=== PATIENT | female | born 1970 | race Caucasian/White ===

== ENCOUNTER 2020-04-04 13:24 | Outpatient (REF) | payer OTHER, SELFPAY ==
[2020-04-04 14:46] LABS: Anion Gap 11 (12-20); Blood Urea Nitrogen 14 mg/dL (9-16); Carbon Dioxide 28 mmol/L (22-29); Chloride 105 mmol/L (96-108); Estimated Glomerular Filt Rate > 60; Glucose Random 100 mg/dL (60-115); Potassium 4.3 mmol/l (3.3-5.1); Sodium 140 mmol/L (135-145)
== END 2020-04-04 13:25 | disposition home or self-care (01) ==
LOC: HO.RESP 13:24
PROVIDERS: PCP Internal Medicine; Referring Provider Internal Medicine Cardiovascular Disease; Visit Provider Internal Medicine Pulmonary Disease
DX: R94.39 Abnormal result of other cardiovascular function study (principal)
CPT/HCPCS: 80048

== ENCOUNTER 2020-04-24 13:28 | Outpatient (REF) | payer OTHER, SELFPAY ==
[2020-04-24 15:49] LABS: Thyroid Stimulating Hormone 1.42 mIU/mL (0.32-4.0)
[2020-04-26 19:02] LABS: Triiodothyronine T3 Total 108 ng/dL (76-181)
[2020-04-30 14:01] LABS: Thyrotropin Receptor Antibody <1.00 IU/L (<=2.00)
[2020-04-30 15:12] LABS: Thyroid Stimulating Immunoglob <89 % baseline (<140)
== END 2020-04-24 13:29 | disposition home or self-care (01) ==
LOC: HO.LAB 13:28
PROVIDERS: PCP Internal Medicine; Referring Provider Internal Medicine; Visit Provider Internal Medicine Endocrinology, Diabetes & Metabolism
DX: E05.00 Thyrotoxicosis with diffuse goiter without thyrotoxic crisis or storm (principal); E66.9 Obesity, unspecified
CPT/HCPCS: 36415; 83520; 84439; 84443; 84445; 84480; 99212

== ENCOUNTER 2020-06-14 17:30 | Emergency (ER) | payer OTHER, SELFPAY ==
[2020-06-14 18:13] VITALS: BP 148/90; PULSE 94; RESP 17; TEMP 36.7; O2SAT 98; BMI 35.2
--- NOTE | 2020-06-14 18:25 | ED.DENTAL ---
HPI - Dental/Oral General Chief complaint: Dental/Oral Stated complaint: dental pain Time Seen by Provider: 06/14/20 18:19 Source: patient Mode of arrival: ambulatory Limitations: no limitations History of Present Illness MD Complaint: tooth pain Teeth map: 1. Multiple teeth with extensive decay some essentially eroded to the gumline others partially chip. No obvious abscess. 2. 3. 4. 5. Related Data Home Medications Medication Instructions Recorded Confirmed albuterol sulfate 90 mcg/actuation 2 puff INHALATION Q6H PRN 03/23/20 04/24/20 aerosol inhaler naproxen 250 mg tablet 250 mg PO BID 03/23/20 04/24/20 trazodone 50 mg tablet mg PO 03/23/20 04/24/20 cholecalciferol (vitamin D3) 25 25 mcg PO DAILY 04/24/20 04/24/20 mcg (1,000 unit) tablet doxycycline hyclate 100 mg capsule 100 mg PO Q12H 04/24/20 04/24/20 gabapentin 100 mg capsule 100 mg PO TID 04/24/20 04/24/20 metoprolol succinate 25 mg 25 mg PO DAILY 04/24/20 04/24/20 tablet,extended release 24 hr omeprazole 40 mg capsule,delayed 40 mg PO DAILY 04/24/20 04/24/20 release Previous Rx's Medication Instructions Recorded ibuprofen 800 mg PO Q8H PRN #30 tab 06/14/20 penicillin V potassium 500 mg PO BID 10 Days #20 tab 06/14/20 Allergies Allergy/AdvReac Type Severity Reaction Status Date / Time egg [Egg] Allergy Severe ANAPHYLAXIS Verified 05/13/20 09:29 influenza virus vaccine, Allergy Severe CANNOT Verified 06/14/20 18:12 specific OBTAIN DUE [FLU VACCINE] TO EGG ALLERGY nicotine [From NICODERM CQ] Allergy Unknown RASH Verified 06/14/20 18:12 varenicline [From CHANTIX] Allergy Unknown DEPRESSION Verified 06/14/20 18:12 AND ANXIETY INCREASE barium sulfate AdvReac Unknown saul Verified 06/14/20 18:12 Review of Systems Review of Systems: Constitutional: No Weight loss, No Fever, No Chills, No Night Sweats, No Fatigue, No Malaise ENT/Mouth: No Hearing loss, No Ear Pain, No Nasal Congestion, No Sinus Pain, No Hoarseness, No sore throat Eyes: No Eye Pain, No Swelling, No Redness, No Foreign Body, No Discharge, No Vision Changes Cardiovascular: No Chest Pain Respiratory: No Cough Gastrointestinal: No Nausea, No Vomiting, No Diarrhea, No Constipation Genitourinary: no irregular bleeding, No Dysuria, No Urinary Frequency, No Hematuria, No Urinary Incontinence, No Urgency Musculoskeletal: No joint pain, No Myalgias, No Joint Swelling Skin: No Skin Lesions, No rash Neuro: No Weakness, No Numbness, No Paresthesias, No Loss of Consciousness, No Dizziness, No Headache Heme/Lymph: No Bruising, No Bleeding,No Lymphadenopathy Endocrine: No Polyuria, No Polydipsia, No Temperature Intolerance Yes all other systems are reviewed and are negative [facility] Past Medical History Medical History (Updated 06/14/20 @ 18:33 by Arnav Meyers NP) Graves disease Obesity (BMI 30-39.9) Vitamin D deficiency Surgical History (Updated 05/13/20 @ 09:30 by HANH Moreno) History of appendectomy History of section History of hysteroscopy History of right oophorectomy History of tonsillectomy and adenoidectomy History of tubal ligation Family History Family History (Updated 05/13/20 @ 09:32 by HANH Moreno) Father Lung cancer Bone cancer Mother Emphysema of lung Asthma Hypertension CVD (cardiovascular disease) Sister Breast cancer Maternal Aunt Uterine cancer Social History Social History (Updated 04/24/20 @ 13:46 by Israel Ibanez) Smoking Status: Current every day smoker Use of substances other than those prescribed or required for medical reasons: No Advance Directives: No Advance Directives Information Provided: Yes Physical Exam Vital Signs: Vital Signs: Last Vital Signs Temp 98.1 F 06/14/20 18:13 Pulse 94 06/14/20 18:13 Resp 17 06/14/20 18:13 BP 148/90 H 06/14/20 18:13 Pulse Ox 98 06/14/20 18:13 Body Mass Index 35.2 Reviewed Const: General: cooperative and healthy appearing; No acute distress or intoxicated appearing Nutritional Appearance: average body habitus Orientation/consciousness: patient oriented x3 HENMT: Head: Yes normal to inspection Ears: hearing grossly normal bilaterally Teeth and gingiva: caries (Multiple teeth upper and lower bilaterally with extensive decay) Eyes: General: appearance normal, both eyes and all related structures Visual Villagran: normal visual villagran by confrontation Neck: Thyroid: Thyroid normal Chest: Chest palpation & inspection: normal inspection of the chest Resp: Effort & Inspection: normal respiratory effort Cardio: Jugular venous distension: no JVD Skin: General skin exam: no rashes or lesions noted Neuro: General: patient oriented x3 Extrem: General: Yes normal to inspection Discharge Plan Discharge Clinical Impression: Toothache, Dental caries Patient Disposition: Home, Self-Care Instructions: Toothache (ED) Additional Instructions: Prescription sent to her pharmacy [facility] Take medication prescribed Follow-up with dentist as discussed Return if any concerns or worsening symptoms Thank you Prescriptions: New penicillin V potassium 500 mg tablet 500 mg PO BID 10 Days Qty: 20 RF: 0 ibuprofen 800 mg tablet 800 mg PO Q8H PRN (Reason: pain) Qty: 30 RF: 0 No Action gabapentin 100 mg capsule 100 mg PO TID RF: 0 naproxen 250 mg tablet 250 mg PO BID RF: 0 albuterol sulfate 90 mcg/actuation HFA aerosol inhaler 2 puff inhalation Q6H PRNRF: 0 trazodone 50 mg tablet PO RF: 0 cholecalciferol (vitamin D3) 25 mcg (1,000 unit) tablet 25 mcg PO DAILY RF: 0 doxycycline hyclate 100 mg capsule 100 mg PO Q12H RF: 0 metoprolol succinate 25 mg tablet extended release 24 hr 25 mg PO DAILY RF: 0 omeprazole 40 mg capsule,delayed release(DR/EC) 40 mg PO DAILY RF: 0 Referrals: ED PhysicianJose [Emergency Provider] - 2 days (Dentist) Marline Victoria MD [Primary Care Provider] - 5 days
== END 2020-06-14 18:58 | disposition home or self-care (01) ==
PROVIDERS: Emergency Provider Emergency Medicine; PCP Internal Medicine
DX: K08.89 Other specified disorders of teeth and supporting structures (principal); K02.9 Dental caries, unspecified; F17.200 Nicotine dependence, unspecified, uncomplicated
CPT/HCPCS: 99284

== ENCOUNTER → 2020-07-24 11:45 | Outpatient (BNVA) | payer OTHER, SELFPAY | PROVIDERS: PCP Internal Medicine; Visit Provider Internal Medicine Endocrinology, Diabetes & Metabolism | DX: Z76.89 Persons encountering health services in other specified circumstances (principal) ==

== ENCOUNTER 2020-07-26 14:29 | Outpatient (REF) | payer OTHER, SELFPAY ==
--- NOTE | 2020-07-26 14:43 | US_ITS ---
EXAMINATION: US VENOUS ULTRASOUND WITH DOPPLER LOWER EXTREMITY, BILATERAL CLINICAL INFORMATION: Localized edema COMPARISON: None TECHNIQUE: Ultrasound of the deep veins is performed from the hip to the calf with compression sonography and color and pulse Doppler assessment. Spectral analysis with color-flow imaging is performed. FINDINGS: RIGHT: There is normal venous compression and respiratory variation and augmented flow. The visualized common femoral vein, superficial femoral vein, profunda femoral vein, popliteal vein, and the trifurcation region shows no evidence of deep venous thrombosis. There is no significant popliteal fossa cyst. LEFT: There is normal venous compression and respiratory variation and augmented flow. The visualized common femoral vein, superficial femoral vein, profunda femoral vein, popliteal vein, and the trifurcation region shows no evidence of deep venous thrombosis. There is no significant popliteal fossa cyst. If the patient's symptoms persist, followup ultrasound in 5 days 7 days might be of value to exclude proximal propagation from a non-visualized calf vein. US/US venous duplex LE BI IMPRESSION: No DVT demonstrated in the bilateral lower extremity.
== END 2020-07-26 14:30 | disposition home or self-care (01) ==
LOC: HO.US 14:29
PROVIDERS: PCP Internal Medicine; Visit Provider Internal Medicine
DX: R60.0 Localized edema (principal)
CPT/HCPCS: 93970

== ENCOUNTER 2020-08-13 16:49 | Outpatient (REF) | payer OTHER, SELFPAY ==
--- NOTE | ~2020-08-13 | XR_ITS ---
EXAMINATION: XR SACRUM AND COCCYX. RIGHT ELBOW CLINICAL INFORMATION: Pain. COMPARISON: None. TECHNIQUE: 4-view sacrum and coccyx. 3-view right elbow. FINDINGS: 3 views of the right elbow do not demonstrate any evidence of acute fracture or dislocation. There is some calcification about the lateral epicondyle consistent with calcific tendinitis. Joint space is maintained. No elbow effusion. No significant soft tissue swelling. Views of the sacrum do not demonstrate any evidence of acute fracture or dislocation. No destructive bony lesions identified. There is degenerative disc disease seen at the L5-S1 level with bilateral facet arthropathy L5-S1. No significant abnormality of the sacroiliac joint is identified without evidence of fusion or widening. Hip joint spaces appear maintained. XR/XR sacrum coccyx min 2V IMPRESSION: No evidence of fracture or effusion of the right elbow. Findings consistent with calcific lateral epicondylitis. No bony abnormality of the sacrum and coccyx identified. Degenerative disc disease with facet arthropathy L5-S1.
--- NOTE | ~2020-08-13 | XR_ITS ---
EXAMINATION: XR SACRUM AND COCCYX. RIGHT ELBOW CLINICAL INFORMATION: Pain. COMPARISON: None. TECHNIQUE: 4-view sacrum and coccyx. 3-view right elbow. FINDINGS: 3 views of the right elbow do not demonstrate any evidence of acute fracture or dislocation. There is some calcification about the lateral epicondyle consistent with calcific tendinitis. Joint space is maintained. No elbow effusion. No significant soft tissue swelling. Views of the sacrum do not demonstrate any evidence of acute fracture or dislocation. No destructive bony lesions identified. There is degenerative disc disease seen at the L5-S1 level with bilateral facet arthropathy L5-S1. No significant abnormality of the sacroiliac joint is identified without evidence of fusion or widening. Hip joint spaces appear maintained. XR/XR elbow RT 2V IMPRESSION: No evidence of fracture or effusion of the right elbow. Findings consistent with calcific lateral epicondylitis. No bony abnormality of the sacrum and coccyx identified. Degenerative disc disease with facet arthropathy L5-S1.
[2020-08-13 17:28] LABS: MANUAL DIFF FLAG NO
[2020-08-13 17:30] LABS: Basophils Absolute Auto 0.1 X10*3/uL (0.0-0.2); Basophils Percent Auto 0.6 % (0-2); Eosinophils Absolute Auto 0.2 X10*3/uL (0.0-0.4); Eosinophils Percent Auto 1.7 % (0-4); Hematocrit 40.4 % (37-47); Hemoglobin 13.6 g/dl (12.0-16.0); Imm Gran Abs Auto 0.05 X10*3/uL (0.00-0.03); Imm Gran Pct Auto 0.4 % (0.0-0.4); Lymphocytes Absolute Auto 3.7 X10*3/uL (1.2-4.9); Lymphocytes Percent Auto 33.2 % (20-40); Mean Corpuscular HGB Conc 33.7 g/dl (31.0-35.0); Mean Corpuscular Hemoglobin 29.3 pg (27.0-33.0); Mean Corpuscular Volume 87.1 fL (80-98); Mean Platelet Volume 11.7 fL (9.4-12.3); Monocytes Absolute Auto 0.7 X10*3/uL (0.1-1.2); Monocytes Percent Auto 6.6 % (2-11); Neutrophils Absolute Auto 6.5 X10*3/uL (2.0-8.3); Neutrophils Percent Auto 57.5 % (45-73); Platelet Count 282 X10*3/uL (160-400); Red Blood Count 4.64 X10*6/uL (4.20-5.50); Red Cell Distribution Width 13.9 % (11.0-16.0); White Blood Count 11.2 X10*3/uL (4.8-10.8)
[2020-08-13 17:58] LABS: B Type Natriuretic Peptide 29 pg/mL (<100)
== END 2020-08-13 16:50 | disposition home or self-care (01) ==
LOC: HO.LAB 16:49
PROVIDERS: Absent Provider Internal Medicine; PCP Internal Medicine; Visit Provider Internal Medicine Endocrinology, Diabetes & Metabolism
DX: M53.3 Sacrococcygeal disorders, not elsewhere classified (principal); M25.521 Pain in right elbow; R60.0 Localized edema
CPT/HCPCS: 36415; 72220; 73070; 83880; 85025

== ENCOUNTER 2020-10-11 09:45 | Emergency (ER) | payer OTHER, SELFPAY ==
[2020-10-11 09:50] VITALS: BP 131/82; PULSE 110; RESP 18; TEMP 37.2; O2SAT 97; BMI 36.0
--- NOTE | 2020-10-11 10:54 | ED.DENTAL ---
HPI - Dental/Oral General Chief complaint: Dental/Oral Stated complaint: DENTAL PAIN SWOLLEN CHEEK Time Seen by Provider: 10/11/20 10:20 Source: patient and family Mode of arrival: ambulatory Limitations: no limitations History of Present Illness HPI Narrative: 50-year-old female with poor dentition, multiple dental caries and old dental fractures presenting to the ED with complaints of right upper dental pain over the past few days worse today with mild right upper cheek swelling pain radiating to her right eye. Reports that she tried to make an appointment with a dentist although no available appointments at this time therefore she came here for further evaluation and treatment. Reports that she needs all her teeth extracted. Denies any fevers chills, trouble swallowing or breathing or any other symptoms complaints or concerns at this time. MD Complaint: tooth pain Onset (ago): day(s) Duration: constant Severity: severe Severity scale (1-10): >10 Relieving factors: nothing Exacerbating factors: other (Patient reports everything is aspirates the pain) Context: history of dental caries and poor dental care Treatment prior to arrival: other (Patient reports she has been taking [id number] Motrin Tylenol with no symptomatic relief) Related Data Home Medications Medication Instructions Recorded Confirmed albuterol sulfate 90 mcg/actuation 2 puff INHALATION Q6H PRN 03/23/20 08/13/20 aerosol inhaler naproxen 250 mg tablet 250 mg PO BID 03/23/20 08/13/20 metoprolol succinate 25 mg 25 mg PO DAILY 04/24/20 08/13/20 tablet,extended release 24 hr omeprazole 40 mg capsule,delayed 40 mg PO DAILY 04/24/20 08/13/20 release ciclesonide 160 mcg/actuation 1 puff PO BID 07/24/20 08/13/20 aerosol inhaler trazodone 50 mg tablet 50 mg PO BEDTIME tab 07/24/20 08/13/20 Previous Rx's Medication Instructions Recorded cholecalciferol (vitamin D3) 25 25 mcg PO DAILY 30 Days #30 tab 07/24/20 mcg (1,000 unit) tablet cyclobenzaprine 10 mg tablet 10 mg PO TID PRN #30 tab 07/26/20 gabapentin 100 mg capsule 100 mg PO TID 30 Days #90 cap 08/14/20 acetaminophen [Tylenol Extra 1,000 mg PO QID PRN #14 tab 10/11/20 Strength] amoxicillin-pot clavulanate 1 tab PO BID 10 Days #20 tab 10/11/20 [Augmentin] ibuprofen 800 mg PO Q8H PRN #14 tab 10/11/20 oxycodone 5 mg PO BID PRN #10 tab 10/11/20 Allergies Allergy/AdvReac Type Severity Reaction Status Date / Time egg [Egg] Allergy Severe ANAPHYLAXIS Verified 08/13/20 16:25 influenza virus vaccine, Allergy Severe CANNOT Verified 08/13/20 16:25 specific OBTAIN DUE [FLU VACCINE] TO EGG ALLERGY nicotine [From NICODERM CQ] Allergy Unknown RASH Verified 08/13/20 16:25 varenicline [From CHANTIX] Allergy Unknown DEPRESSION Verified 08/13/20 16:25 AND ANXIETY INCREASE barium sulfate AdvReac Unknown saul Verified 08/13/20 16:25 Review of Systems Review of Systems: Constitutional : No Fever, No Chills, No changes in PO intake, No difficulty speaking, no recent dental procedure, no heat or cold intolerance while eating, no recent face trauma, ENT/Mouth : + Dental pain, + right facial swelling, No Sore throat, No Jaw pain, No throat swelling, No swallowing difficulty, no change in voice, no drooling, no trismus, no bleeding, no lacerations, no tongue swelling, gum swelling, Eyes: No Eye Pain, No periorbital Swelling Cardiovascular : No Chest Pain, No SOB Respiratory : No Cough, No Sputum, No Wheezing, No Smoke Exposure, No Dyspnea Gastrointestinal : No Nausea, No Vomiting, No Diarrhea Genitourinary : No Dysuria Musculoskeletal : No Myalgias Skin : No rash, no facial swelling or redness, Neuro : No Weakness, No Numbness, No Headache Yes all other systems are reviewed and are negative [facility] Past Medical History Attestation statement: The following information was validated with the patient. Medical History Blurry vision Graves disease Obesity (BMI 30-39.9) Right elbow pain Sacral pain Vitamin D deficiency Surgical History History of appendectomy History of section History of hysteroscopy History of right oophorectomy History of tonsillectomy and adenoidectomy History of tubal ligation Family History Family History Father Lung cancer Bone cancer Mother Emphysema of lung Asthma Hypertension CVD (cardiovascular disease) Sister Breast cancer Maternal Aunt Uterine cancer Social History Social History Alcohol intake: never Smoking Status: Current every day smoker Tobacco Type: Cigarette Cigarettes Per Day: 10 Smoked in Last 30 Days: Yes Use of substances other than those prescribed or required for medical reasons: No Advance Directives: Yes Advance Directives Information Provided: Yes Advance Directives on File: No Physical Exam Vital Signs: Vital Signs: Last Vital Signs Temp 99.0 F 10/11/20 09:50 Pulse 110 H 10/11/20 09:50 Resp 18 10/11/20 09:50 BP 131/82 10/11/20 09:50 Pulse Ox 97 10/11/20 09:50 Body Mass Index 36.0 vital signs have been reviewed as normal and appeared to be correct. Blood pressure normal. Heart rate normal. Respiration rate normal. Temperature normal. Oxygen saturation normal. Appearance: Alert. Oriented X3. No acute distress. Head: Normal external exam. Normocephalic. Atraumatic. Eyes: PERRLA. EOMI. Conjunctiva and sclera normal. Eyelids normal. ENT: EAC normal. TM's Normal. Pharynx normal. Uvula midline. Moist mucous membranes. No trismus noted. No drooling noted. No muffled voice noted. Dentition: Patient with poor dentition throughout with multiple old fractured teeth with multiple dental caries. Gingival within normal limits. No fluctuance. Not consistent with peritonsillar abscess. Not consistent with dental abscess. No salivary duct obstruction noted. Neck: Normal inspection. Neck supple. FROM. No adenopathy. Thyroid Normal. No meningeal signs. No neck mass noted. Trachea midline. CVS: Normal heart rate and rhythm. Heart sound normal. No murmurs noted. Pulses normal throughout. Respiratory: No respiratory distress. Painless inspiration. Breath sounds normal. No wheezes/rales/rhonchi noted. Chest nontender. No accessory muscle usage noted or decreased air movement noted. Back: Full range of motion noted. Skin: Skin warm and dry. Normal skin color. Normal skin turgor. No rashes/lesions/lacerations noted. Extremities:Extremities exhibit normal range of motion. Extremities nontender. Neuro: Oriented X 3. No motor deficit. No sensory deficit. Reflexes normal. Course Course Course Narrative: Patient with poor dentition with multiple dental caries and old fractures throughout. No signs of abscesses. Not consistent with peritonsillar abscess. Not consistent with pharyngeal abscess. Not consistent with dental abscess. Will DC home with antibiotics and symptomatic treatment instructions return if any new or worsening symptoms to follow up with oral surgeon. Patient understands agrees with this plan. [facility] - Dental/Oral Medical Records Attestation: I reviewed the patient's medical records. Discharge Plan Discharge Clinical Impression: Dental caries, Fracture of tooth, Toothache Patient Disposition: Home, Self-Care Instructions: Toothache (ED) Prescriptions: New ibuprofen 800 mg tablet 800 mg PO Q8H PRN (Reason: pain) Qty: 14 RF: 0 acetaminophen [Tylenol Extra Strength] 500 mg tablet 1,000 mg PO QID PRN (Reason: fever or pain) Qty: 14 RF: 0 oxycodone 5 mg tablet 5 mg PO BID PRN (Reason: pain) Qty: 10 RF: 0 amoxicillin-pot clavulanate [Augmentin] 875-125 mg tablet 1 tab PO BID 10 Days Qty: 20 RF: 0 No Action gabapentin 100 mg capsule 100 mg PO TID 30 Days Qty: 90 RF: 3 cyclobenzaprine 10 mg tablet 10 mg PO TID PRN (Reason: muscle spasm) Qty: 30 RF: 2 naproxen 250 mg tablet 250 mg PO BID RF: 0 albuterol sulfate 90 mcg/actuation HFA aerosol inhaler 2 puff inhalation Q6H PRNRF: 0 metoprolol succinate 25 mg tablet extended release 24 hr 25 mg PO DAILY RF: 0 omeprazole 40 mg capsule,delayed release(DR/EC) 40 mg PO DAILY RF: 0 trazodone 50 mg tablet 50 mg PO BEDTIME RF: 0 Alvesco 160 mcg/actuation HFA aerosol inhaler 1 puff PO BID RF: 0 cholecalciferol (vitamin D3) 25 mcg (1,000 unit) tablet 25 mcg PO DAILY 30 Days Qty: 30 RF: 6 Referrals: Marline Victoria MD [Primary Care Provider] - 2 days Print Language: Beninese
[2020-10-11] MEDS: Amoxicillin/Potassium Clav 875 MG TABLET PO (11:07)
[2020-10-11] MEDS: oxyCODONE HCl Immed Release 5 MG TABLET PO (11:09)
[2020-10-11] MEDS: Ibuprofen 800 MG TABLET PO (11:09)
== END 2020-10-11 11:19 | disposition home or self-care (01) ==
PROVIDERS: Emergency Provider Emergency Medicine Emergency Medical Services; PCP Internal Medicine
DX: K02.9 Dental caries, unspecified (principal); K03.81 Cracked tooth
CPT/HCPCS: 99284

== ENCOUNTER 2020-10-11 14:57 | Emergency (ER) | payer OTHER, SELFPAY ==
--- NOTE | ~2020-10-11 | CT_ITS ---
EXAMINATION: CT ABDOMEN AND PELVIS WITHOUT CONTRAST CLINICAL INFORMATION: Severe colitis COMPARISON: CT abdomen pelvis 05/19/2018 TECHNIQUE: Multidetector volumetric imaging was performed from the superior aspect of the liver through the pubic symphysis. Sagittal and coronal reformatted images were obtained on the technologist's workstation. This CT examination was performed using dose optimization techniques as appropriate, variously including the following: *Automated exposure control *Adjustment of mA and/or kV according to patient size (this includes techniques or standardized protocols for targeted exams where dose is matched to indication/reason for exam; i.e. extremities or head) *Use of iterative reconstruction technique DLP: 619 2 mGy-cm FINDINGS: LUNG BASES: The visualized lung bases are unremarkable. LIVER, GALLBLADDER, AND BILIARY TREE: The liver is normal in size, shape, and attenuation. No focal hepatic lesion or biliary ductal dilatation is present. The gallbladder is unremarkable with no evidence of radiopaque gallstones, gallbladder wall thickening, or obvious pericholecystic inflammatory changes. PANCREAS: Unremarkable. SPLEEN: Unremarkable. A small splenule is seen. ADRENAL GLANDS: Again seen is a small 1.2 cm mass in the left adrenal gland which measures Hounsfield units and is consistent with a benign adenoma KIDNEYS AND URETERS: The kidneys are normal in size, shape, and attenuation. No hydronephrosis, hydroureter, or calculi seen. No perinephric stranding. BLADDER: Unremarkable. GASTROINTESTINAL TRACT: Few scattered colonic diverticula are present without diverticulitis. The small and large bowel are otherwise unremarkable. There is no edema to suggest colitis. The appendix is is not seen but there is no evidence of appendicitis. ABDOMINAL WALL: No significant hernia is appreciated. LYMPH NODES: No retroperitoneal lymphadenopathy VASCULAR: Unremarkable. PELVIC VISCERA: An anteverted uterus is present. An abnormal adnexal masses are not seen. No free intraperitoneal fluid is present OSSEOUS STRUCTURES: Unremarkable. CT/CT abdomen pelvis wo con IMPRESSION: No evidence of colitis is seen at this time. Incidental note made of benign adenoma left adrenal gland, colonic diverticula without diverticulitis.
[2020-10-11 15:04] VITALS: BP 125/84; BP 175/94; PULSE 89; PULSE 90; RESP 20; TEMP 36.6; O2SAT 95; O2SAT 96; BMI 35.2
--- NOTE | 2020-10-11 16:22 | ED_ITS ---
HPI - Nausea/Vomiting/Diarrhea General Chief complaint: Nausea/Vomiting/Diarrhea Stated complaint: n/v/d Time Seen by Provider: 10/11/20 15:35 Source: patient Mode of arrival: ambulatory Limitations: no limitations History of Present Illness HPI Narrative: Patient with lower oral hygiene with multiple broken teeth and caries came here earlier for increasing pain for last few days patient on the right side patient was started on Augmentin went home now she comes here as she is having nausea vomiting and bloody diarrhea multiple times diffuse abdominal pain patient. Patient does suffer with constipation and blood in the stool is bright red with some rectal pain MD elicited complaint: nausea, vomiting and diarrhea Onset (ago): hour(s) Description of vomiting: watery Description of diarrhea: blood and watery Radiation: diffuse Severity: moderate Quality: cramping Related Data Home Medications Medication Instructions Recorded Confirmed albuterol sulfate 90 mcg/actuation 2 puff INHALATION Q6H PRN 03/23/20 08/13/20 aerosol inhaler naproxen 250 mg tablet 250 mg PO BID 03/23/20 08/13/20 metoprolol succinate 25 mg 25 mg PO DAILY 04/24/20 08/13/20 tablet,extended release 24 hr omeprazole 40 mg capsule,delayed 40 mg PO DAILY 04/24/20 08/13/20 release ciclesonide 160 mcg/actuation 1 puff PO BID 07/24/20 08/13/20 aerosol inhaler trazodone 50 mg tablet 50 mg PO BEDTIME tab 07/24/20 08/13/20 Previous Rx's Medication Instructions Recorded cholecalciferol (vitamin D3) 25 25 mcg PO DAILY 30 Days #30 tab 07/24/20 mcg (1,000 unit) tablet cyclobenzaprine 10 mg tablet 10 mg PO TID PRN #30 tab 07/26/20 gabapentin 100 mg capsule 100 mg PO TID 30 Days #90 cap 08/14/20 acetaminophen [Tylenol Extra 1,000 mg PO QID PRN #14 tab 10/11/20 Strength] amoxicillin-pot clavulanate 1 tab PO BID 10 Days #20 tab 10/11/20 [Augmentin] hydrocortisone acetate [Anusol-HC] 25 mg MN BID #12 ea 10/11/20 ibuprofen 800 mg PO Q8H PRN #14 tab 10/11/20 oxycodone 5 mg PO BID PRN #10 tab 10/11/20 polyethylene glycol 3350 [Miralax] 17 g PO DAILY #510 g 10/11/20 Allergies Allergy/AdvReac Type Severity Reaction Status Date / Time egg [Egg] Allergy Severe ANAPHYLAXIS Verified 08/13/20 16:25 influenza virus vaccine, Allergy Severe CANNOT Verified 08/13/20 16:25 specific OBTAIN DUE [FLU VACCINE] TO EGG ALLERGY nicotine [From NICODERM CQ] Allergy Unknown RASH Verified 08/13/20 16:25 varenicline [From CHANTIX] Allergy Unknown DEPRESSION Verified 08/13/20 16:25 AND ANXIETY INCREASE barium sulfate AdvReac Unknown saul Verified 08/13/20 16:25 Review of Systems Review of Systems: Constitutional : No Weight loss, No Fever, No Chills ENT/Mouth : No sore throat, No Rhinorrhea Eyes: No Eye Pain, No Swelling Cardiovascular : No Chest Pain, no palpitations Respiratory : No Cough, No Sputum, no shortness of breath Gastrointestinal : + Nausea, + Vomiting, + Diarrhea,+ abdominal Pain, no black stools Genitourinary : No Dysuria, No Urinary Frequency Musculoskeletal : No joint pain, No Myalgias, No Joint Swelling Skin : No Skin Lesions, No rash Neuro : No Weakness, No Numbness, No Dizziness, No Headache Psych : No Anxiety/Panic, No Depression Heme/Lymph: No Bruising, No Lymphadenopathy Endocrine : No Polyuria, No Polydipsia All other systems reviewed and are negative [facility] Past Medical History Medical History Blurry vision Graves disease Obesity (BMI 30-39.9) Right elbow pain Sacral pain Vitamin D deficiency Surgical History History of appendectomy History of section History of hysteroscopy History of right oophorectomy History of tonsillectomy and adenoidectomy History of tubal ligation Family History Family History Father Lung cancer Bone cancer Mother Emphysema of lung Asthma Hypertension CVD (cardiovascular disease) Sister Breast cancer Maternal Aunt Uterine cancer Social History Social History Alcohol intake: never Smoking Status: Current every day smoker Tobacco Type: Cigarette Cigarettes Per Day: 10 Use of substances other than those prescribed or required for medical reasons: No Advance Directives: No Advance Directives Information Provided: Yes Physical Exam Vital Signs: Vital Signs: Last Vital Signs Temp 97.8 F 10/11/20 15:04 Pulse 95 10/11/20 18:39 Resp 20 10/11/20 18:39 BP 131/81 10/11/20 18:39 Pulse Ox 96 10/11/20 18:39 Body Mass Index 35.2 Appearance: Alert. Oriented X3. No acute distress. Eyes: Pupils equal, round and reactive to light. ENT: Pharynx normal. Diffuse dental caries with broken teeth slight gum swelling on right upper molar area no fluctuant area Neck: Normal inspection. Neck supple. CVS: Normal heart rate and rhythm. Pulses normal. Respiratory: No respiratory distress. Breath sounds normal. Abdomen: Soft and nontender. Bowel sounds are present, no mass palpable, no CVA tenderness Recta;: Brown stool palpable internal hemorrhoids no active bleeding Skin: Skin warm and dry. Normal skin color. Normal skin turgor. Extremities: No lower extremity edema. Neuro: Oriented X 3. No motor deficit. No sensory deficit. MDM - Nausea/Vomiting/Diarrhea MDM Narrative Medical decision making narrative: Patient with history of constipation, hemorrhoids came with bleeding per rectum while trying to move her bowels on examination patient had brown stools and internal hemorrhoids. CT scan abdomen is negative hemoglobin stable to discharge patient home Lab Data Attestation: I reviewed the patient's lab results. Result diagrams: 10/11/20 17:32 10/11/20 18:30 Labs: Lab Results 10/11/20 10/11/20 10/11/20 Range/Units 17:32 18:30 18:30 WBC 13.6 H (4.8-10.8) X10*3/uL RBC 6.07 H D (4.20-5.50) X10*6/uL Hgb 17.4 H D (12.0-16.0) g/dl Hct 51.4 H D (37-47) % MCV 84.7 (80-98) fL MCH 28.7 (27.0-33.0) pg MCHC 33.9 (31.0-35.0) g/dl RDW 13.3 (11.0-16.0) % Plt Count 308 (160-400) X10*3/uL MPV 11.1 (9.4-12.3) fL Immature Gran % (Auto) 0.5 H (0.0-0.4) % Neut % (Auto) 86.8 H (45-73) % Lymph % (Auto) 4.3 L (20-40) % [place] % (Auto) 8.1 (2-11) % Eos % (Auto) 0.2 (0-4) % Baso % (Auto) 0.1 (0-2) % Lymph # (Auto) 0.6 L (1.2-4.9) X10*3/uL [place] # (Auto) 1.1 (0.1-1.2) X10*3/uL Eos # (Auto) 0.0 (0.0-0.4) X10*3/uL Baso # (Auto) 0.0 (0.0-0.2) X10*3/uL Abs Immat Gran (auto) 0.07 H (0.00-0.03) X10*3/uL Absolute Neuts (auto) 11.8 H (2.0-8.3) X10*3/uL Absolute Nucleated RBC 0.000 (0.0-0.012) X10*3/uL Nucleated RBC % (auto) 0.0 (0.0-0.2) /100WBC Smear Tech's Comments VERIFIED PT 12.6 (10.8-13.0) SEC INR 1.1 (0.9-1.1) APTT 25.3 (24.1-38.0) SEC Sodium 140 (135-145) mmol/L Potassium 4.5 (3.3-5.1) mmol/L Chloride 109 H (96-108) mmol/L Carbon Dioxide 16 L (22-29) mmol/L Anion Gap 20 (12-20) BUN 18 H (9-16) mg/dL Creatinine 0.82 (0.5-1.4) mg/dL Estim Creat Clear Calc 92.7 Estimated GFR > 60 Random Glucose 121 H (60-115) mg/dL Calcium 8.5 (8.4-10.2) mg/dL Total Bilirubin 0.7 (0.0-1.0) mg/dL Direct Bilirubin 0.3 (0.0-0.5) mg/dL AST 15 (5-31) U/L ALT 17 (0-31) U/L Alkaline Phosphatase 90 (39-117) U/L Total Protein 6.8 (6.5-8.0) g/dL Albumin 3.9 (3.5-5.0) g/dL Lipase 28 (8-78) U/L Discharge Plan Discharge Clinical Impression: Dental caries, Bleeding hemorrhoids Patient Disposition: Home, Self-Care Instructions: Hemorrhoids (ED), Toothache (ED) Additional Instructions: Drink plenty of fluids take antibiotic as prescribed and follow-up with your PCP and dentist if not better Avoid constipation/straining ,take stool softener Prescriptions: New hydrocortisone acetate [Anusol-HC] 25 mg suppository 25 mg MN BID Qty: 12 RF: 0 polyethylene glycol 3350 [Miralax] 17 gram/dose powder 17 g PO DAILY Qty: 510 RF: 0 No Action gabapentin 100 mg capsule 100 mg PO TID 30 Days Qty: 90 RF: 3 ibuprofen 800 mg tablet 800 mg PO Q8H PRN (Reason: pain) Qty: 14 RF: 0 acetaminophen [Tylenol Extra Strength] 500 mg tablet 1,000 mg PO QID PRN (Reason: fever or pain) Qty: 14 RF: 0 oxycodone 5 mg tablet 5 mg PO BID PRN (Reason: pain) Qty: 10 RF: 0 amoxicillin-pot clavulanate [Augmentin] 875-125 mg tablet 1 tab PO BID 10 Days Qty: 20 RF: 0 cyclobenzaprine 10 mg tablet 10 mg PO TID PRN (Reason: muscle spasm) Qty: 30 RF: 2 naproxen 250 mg tablet 250 mg PO BID RF: 0 albuterol sulfate 90 mcg/actuation HFA aerosol inhaler 2 puff inhalation Q6H PRNRF: 0 metoprolol succinate 25 mg tablet extended release 24 hr 25 mg PO DAILY RF: 0 omeprazole 40 mg capsule,delayed release(DR/EC) 40 mg PO DAILY RF: 0 trazodone 50 mg tablet 50 mg PO BEDTIME RF: 0 Alvesco 160 mcg/actuation HFA aerosol inhaler 1 puff PO BID RF: 0 cholecalciferol (vitamin D3) 25 mcg (1,000 unit) tablet 25 mcg PO DAILY 30 Days Qty: 30 RF: 6 Interventions: ED Discharge Assessment Last Done: 10/11/20 20:59 Discharge Date/Time: 10/11/20 21:00
[2020-10-11 17:23] VITALS: BP 130/93; PULSE 109; O2SAT 99
[2020-10-11] MEDS: 0.9 % Sodium Chloride 1,000 ML 999 ML IVCONT (17:34)
--- NOTE | 2020-10-11 17:35 | PC.NURSE ---
PATIENT STATES TO RN SHE DOES NOT WANT TO TAKE ANY NARCOTIC MEDS AT THIS TIME FOR PAIN. STATES SHE WILL TELL RN IF SHE CHANGES HER MIND.
[2020-10-11 17:37] LABS: Basophils Percent Auto 0.1 % (0-2); Eosinophils Percent Auto 0.2 % (0-4); Hematocrit 51.4 % (37-47); Hemoglobin 17.4 g/dl (12.0-16.0); Imm Gran Abs Auto 0.07 X10*3/uL (0.00-0.03); Imm Gran Pct Auto 0.5 % (0.0-0.4); Lymphocytes Absolute Auto 0.6 X10*3/uL (1.2-4.9); Lymphocytes Percent Auto 4.3 % (20-40); MANUAL DIFF FLAG SCAN; Mean Corpuscular HGB Conc 33.9 g/dl (31.0-35.0); Mean Corpuscular Hemoglobin 28.7 pg (27.0-33.0); Mean Corpuscular Volume 84.7 fL (80-98); Mean Platelet Volume 11.1 fL (9.4-12.3); Monocytes Absolute Auto 1.1 X10*3/uL (0.1-1.2); Monocytes Percent Auto 8.1 % (2-11); Neutrophils Absolute Auto 11.8 X10*3/uL (2.0-8.3); Neutrophils Percent Auto 86.8 % (45-73); Platelet Count 308 X10*3/uL (160-400); Red Blood Count 6.07 X10*6/uL (4.20-5.50); Red Cell Distribution Width 13.3 % (11.0-16.0); SCAN SMEAR FLAG 1; White Blood Count 13.6 X10*3/uL (4.8-10.8)
[2020-10-11 18:00] LABS: SLIDE REVIEW VERIFIED
[2020-10-11] MEDS: ondansetron HCL 4 MG/2 ML VIAL IVPUSH (18:37)
[2020-10-11 18:39] VITALS: BP 131/81; PULSE 95; RESP 20; O2SAT 96
[2020-10-11 18:44] LABS: INTERNATIONAL NORM RATIO 1.1 (0.9-1.1); Prothrombin Time 12.6 SEC (10.8-13.0)
[2020-10-11 18:47] LABS: Partial Thromboplastin Time 25.3 SEC (24.1-38.0)
[2020-10-11 19:17] LABS: Alanine Aminotransferase 17 U/L (0-31); Albumin Level 3.9 g/dL (3.5-5.0); Alkaline Phosphatase 90 U/L (39-117); Anion Gap 20 (12-20); Aspartate Amino Transferase 15 U/L (5-31); Bilirubin Direct 0.3 mg/dL (0.0-0.5); Bilirubin Total 0.7 mg/dL (0.0-1.0); Blood Urea Nitrogen 18 mg/dL (9-16); Calcium 8.5 mg/dL (8.4-10.2); Carbon Dioxide 16 mmol/L (22-29); Chloride 109 mmol/L (96-108); Creatinine Clr Calc Pharmacy 92.7; Estimated Glomerular Filt Rate > 60; Glucose Random 121 mg/dL (60-115); Lipase 28 U/L (8-78); Potassium 4.5 mmol/L (3.3-5.1); Sodium 140 mmol/L (135-145); Total Protein 6.8 g/dL (6.5-8.0)
== END 2020-10-11 21:00 | disposition home or self-care (01) ==
PROVIDERS: Emergency Provider Internal Medicine
DX: K02.9 Dental caries, unspecified (principal); K64.9 Unspecified hemorrhoids; R11.2 Nausea with vomiting, unspecified; F17.210 Nicotine dependence, cigarettes, uncomplicated; Z79.899 Other long term (current) drug therapy; Z71.6 Tobacco abuse counseling
CPT/HCPCS: 36415; 74176; 80048; 80076; 83690; 85025; 85610; 85730; 96365; 96375; 99284; J2405

== ENCOUNTER 2021-03-05 17:18 | Emergency (ER) | payer OTHER, SELFPAY ==
[2021-03-05 17:41] VITALS: BP 149/85; RESP 18; TEMP 36.9; O2SAT 98; BMI 35.6
--- NOTE | 2021-03-05 19:01 | ED_ITS ---
HPI - Extremity Problem General Chief complaint: Extremity Problem Stated complaint: ?Toe infection Time Seen by Provider: 03/05/21 18:38 Source: patient Mode of arrival: ambulatory History of Present Illness HPI Narrative: 50-year-old female with a past medical history of Graves disease, obesity, presenting to the ED complaining of right great toe pain s/p getting pedicure and nail salon 1 week ago. Reports small bump to distal area, with suspected ingrown toenail. Denies pus drainage, redness, fever/chills, trauma/falls Related Data Home Medications Medication Instructions Recorded Confirmed albuterol sulfate 90 mcg/actuation 2 puff INHALATION Q6H PRN 03/23/20 11/15/20 aerosol inhaler metoprolol succinate 25 mg 25 mg PO DAILY 04/24/20 11/15/20 tablet,extended release 24 hr ciclesonide 160 mcg/actuation 1 puff PO BID 07/24/20 11/15/20 aerosol inhaler trazodone 50 mg tablet 50 mg PO BEDTIME tab 07/24/20 11/15/20 Previous Rx's Medication Instructions Recorded cholecalciferol (vitamin D3) 25 25 mcg PO DAILY 30 Days #30 tab 07/24/20 mcg (1,000 unit) tablet cyclobenzaprine 10 mg tablet 10 mg PO TID PRN #30 tab 07/26/20 gabapentin 100 mg capsule 100 mg PO TID 30 Days #90 cap 08/14/20 acetaminophen 500 mg tablet 1,000 mg PO QID PRN #14 tab 10/11/20 (Tylenol Extra Strength) amoxicillin 875 mg-potassium 1 tab PO BID 10 Days #20 tab 10/11/20 clavulanate 125 mg tablet (Augmentin) hydrocortisone acetate 25 mg 25 mg AR BID #12 ea 10/11/20 rectal suppository (Anusol-HC) ibuprofen 800 mg tablet 800 mg PO Q8H PRN #14 tab 10/11/20 oxycodone 5 mg tablet 5 mg PO BID PRN #10 tab 10/11/20 polyethylene glycol 3350 17 17 g PO DAILY #510 g 10/11/20 gram/dose oral powder (Miralax) naproxen 250 mg tablet 250 mg PO BID PRN 30 Days #60 tab 11/12/20 omeprazole 40 mg capsule,delayed 40 mg PO DAILY 90 Days #90 cap 11/12/20 release cephalexin 500 mg capsule 500 mg PO QID 7 Days #28 cap 03/05/21 clotrimazole 1 % topical cream 1 appl TOPICAL BID 14 Days #45 g 03/05/21 (Lotrimin AF (clotrimazole)) Allergies Allergy/AdvReac Type Severity Reaction Status Date / Time egg [Egg] Allergy Severe ANAPHYLAXIS Verified 11/12/20 13:39 influenza virus vaccine, Allergy Severe CANNOT Verified 11/12/20 13:39 specific OBTAIN DUE [FLU VACCINE] TO EGG ALLERGY nicotine [From NICODERM CQ] Allergy Unknown RASH Verified 11/12/20 13:39 varenicline [From CHANTIX] Allergy Unknown DEPRESSION Verified 11/12/20 13:39 AND ANXIETY INCREASE barium sulfate AdvReac Unknown saul Verified 11/12/20 13:39 Review of Systems Review of Systems: Constitutional: No Fever, No Chills ENT/Mouth: No Ear Pain, No Nasal Congestion Cardiovascular: No Chest Pain, No SOB Respiratory: No Cough Gastrointestinal: No Nausea, No Vomiting Musculoskeletal: + joint pain, No Myalgias, No Joint Swelling Skin: + Skin Lesions, No rash Neuro: No Weakness, No Numbness, No Paresthesias Yes all other systems are reviewed and are negative [facility] Past Medical History Attestation statement: The following information was validated with the patient. Medical History (Updated 03/05/21 @ 20:19 by ARSENIO Doyle) Blurry vision Graves disease Obesity (BMI 30-39.9) Right elbow pain Sacral pain Vitamin D deficiency Surgical History History of appendectomy History of section History of hysteroscopy History of right oophorectomy History of tonsillectomy and adenoidectomy History of tubal ligation Family History Family History Father Lung cancer Bone cancer Mother Emphysema of lung Asthma Hypertension CVD (cardiovascular disease) Sister Breast cancer Maternal Aunt Uterine cancer Social History Social History Alcohol intake: never Cigarettes Per Day: 10 Advance Directives: No Advance Directives Information Provided: Yes Physical Exam Vital Signs: Vital Signs: Last Vital Signs Temp 98.4 F 03/05/21 17:41 Resp 18 03/05/21 17:41 BP 149/85 H 03/05/21 17:41 Pulse Ox 98 03/05/21 17:41 Body Mass Index 35.6 Const: General: cooperative, healthy appearing, no acute distress and anxious Orientation/consciousness: patient oriented x3 Limitations: no limitations HENMT: Head: Yes normal to inspection Ears: hearing grossly normal bilaterally General nose exam: Normal external nose present Face and sinus: Yes normal facial exam Eyes: General: appearance normal, both eyes and all related structures EOM: EOMs intact bilaterally Neck: Neck: Yes normal visual inspection Resp: Effort & Inspection: normal respiratory effort and no respiratory distress Cardio: Rate: regular rate Peripheral pulses: dorsalis pedis present Skin: Rashes: no rashes Neuro: General: patient oriented x3 Gait exam (Neuro): Normal gait present Extrem: Other: Right great toe with ingrown toenail to lateral aspect. Overlying fungal infection to nail/overlying skin. No fluctuance, no cellulitis, no streaking. Very tender to palpation. No paronychia MDM - Extremity (Nontraumatic) MDM Narrative Medical decision making narrative: 50-year-old female with a past medical history of Graves disease, obesity, presenting to the ED complaining of right great toe pain s/p getting pedicure and nail salon 1 week ago. On exam VSS, NAD, physical exam as above. Appreciable ingrown toenail with also superimposed fungal infection. Will cut out ingrown toenail and prescribed antifungal. Discussed with patient she needs to follow up with Podiatry Procedures Procedure Narrative Procedure Narrative: Toe digital block with 1% lidocaine performed to right great toe Removed lateral aspect of great toe ingrown toenail with forceps and scissors No complications Discharge Plan Discharge Clinical Impression: Ingrowing toenail of right foot Patient Disposition: Home, Self-Care Instructions: Ingrown Nail (ED) Additional Instructions: You have an ingrown toenail that was cut out today in the ED Keflex as an antibiotic, take as prescribed You also fungus to that foot/toenail Clotrimazole as antifungal cream, apply twice daily Please follow-up with a caramel cutter machine If the area begins look infected, is red, there is drainage, or pain is unbe arable fever return to the ED Prescriptions: New cephalexin 500 mg capsule 500 mg PO QID 7 Days Qty: 28 RF: 0 clotrimazole [Lotrimin AF (clotrimazole)] 1 % cream 1 appl topical BID 14 Days Qty: 45 RF: 0 No Action gabapentin 100 mg capsule 100 mg PO TID 30 Days Qty: 90 RF: 3 naproxen 250 mg tablet 250 mg PO BID PRN (Reason: pain) 30 Days Qty: 60 RF: 3 omeprazole 40 mg capsule,delayed release(DR/EC) 40 mg PO DAILY 90 Days Qty: 90 RF: 3 ibuprofen 800 mg tablet 800 mg PO Q8H PRN (Reason: pain) Qty: 14 RF: 0 acetaminophen [Tylenol Extra Strength] 500 mg tablet 1,000 mg PO QID PRN (Reason: fever or pain) Qty: 14 RF: 0 oxycodone 5 mg tablet 5 mg PO BID PRN (Reason: pain) Qty: 10 RF: 0 amoxicillin-pot clavulanate [Augmentin] 875-125 mg tablet 1 tab PO BID 10 Days Qty: 20 RF: 0 hydrocortisone acetate [Anusol-HC] 25 mg suppository 25 mg AR BID Qty: 12 RF: 0 polyethylene glycol 3350 [Miralax] 17 gram/dose powder 17 g PO DAILY Qty: 510 RF: 0 cyclobenzaprine 10 mg tablet 10 mg PO TID PRN (Reason: muscle spasm) Qty: 30 RF: 2 albuterol sulfate 90 mcg/actuation HFA aerosol inhaler 2 puff inhalation Q6H PRNRF: 0 metoprolol succinate 25 mg tablet extended release 24 hr 25 mg PO DAILY RF: 0 trazodone 50 mg tablet 50 mg PO BEDTIME RF: 0 Alvesco 160 mcg/actuation HFA aerosol inhaler 1 puff PO BID RF: 0 cholecalciferol (vitamin D3) 25 mcg (1,000 unit) tablet 25 mcg PO DAILY 30 Days Qty: 30 RF: 6 Referrals: Chintan Hidalgo MD [Physician] - 5 days Interventions: ED Discharge Assessment Last Done: 03/05/21 20:31 Discharge Date/Time: 03/05/21 20:31
[2021-03-05] MEDS: Lidocaine HCl 1 % MPF 5 ML VIAL SUBCUT (19:32)
--- NOTE | 2021-03-05 20:19 | PC.NURSE ---
PT RIGHT LARGE TOE NAIL INGROWN AT INNER ASPECT CLEANED AND TRIMMED BY ARSENIO KOEHLER DSD APPLIED.
[2021-03-05] MEDS: cephALEXin 500 MG CAPSULE PO (20:28)
== END 2021-03-05 20:31 | disposition home or self-care (01) ==
PROVIDERS: Emergency Provider Internal Medicine; PCP Internal Medicine
DX: L60.0 Ingrowing nail (principal); M79.674 Pain in right toe(s); Z79.899 Other long term (current) drug therapy
CPT/HCPCS: 11765; 99283; 99284

== ENCOUNTER 2021-07-04 01:40 | Emergency (ER) | payer OTHER, SELFPAY ==
[2021-07-04 03:41] VITALS: BP 124/76; PULSE 82; RESP 18; O2SAT 96; BMI 29.9
[2021-07-04] MEDS: ondansetron HCL 4 MG/2 ML VIAL IVPUSH (04:11)
[2021-07-04 05:05] LABS: OBS Int Ctl Valid YES; OBS1 POSITIVE (NEGATIVE)
--- NOTE | 2021-07-04 05:14 | PC.NURSE ---
IN ROOM FOR EVAL. PT IS C/O ABD PAIN BUT MD SHE IS VERY SENSITIVE TO PAIN MEDS. IV TO RIGHT HAND, LABS BEING DRAWN AT THIS TIME. PT ARRIVES ALERT, RESPIRATIONS EASY, N/L. SKIN W/D. COMMODE AT BEDSIDE.
--- NOTE | 2021-07-04 05:15 | PC.NURSE ---
AWARE OF PT'S HIGH B/P.
[2021-07-04] MEDS: 0.9 % Sodium Chloride 1,000 ML 999 ML IV ×2 (05:24→06:04)
--- NOTE | 2021-07-04 05:27 | ED_ITS ---
HPI - Nausea/Vomiting/Diarrhea General Chief complaint: Nausea/Vomiting/Diarrhea Stated complaint: NAUSEA/VOMITING/DIARRHEA Time Seen by Provider: 07/04/21 03:52 Source: patient Mode of arrival: EMS History of Present Illness HPI Narrative: 51-year-old female who presents via EMS for vomiting and diarrhea numerous times started at midnight and patient complaints of abdominal cramping in association with this. Patient states that she was COVID positive 2 weeks ago but has since tested negative. Otherwise, she denies alcohol use, smokes every day, and denies any marijuana use. Patient is not COVID-19 vaccinated. Related Data Home Medications Medication Instructions Recorded Confirmed metoprolol succinate 25 mg 25 mg PO DAILY 04/24/20 11/15/20 tablet,extended release 24 hr ciclesonide 160 mcg/actuation 1 puff PO BID 07/24/20 11/15/20 aerosol inhaler trazodone 50 mg tablet 50 mg PO BEDTIME tab 07/24/20 11/15/20 Previous Rx's Medication Instructions Recorded cholecalciferol (vitamin D3) 25 25 mcg PO DAILY 30 Days #30 tab 07/24/20 mcg (1,000 unit) tablet cyclobenzaprine 10 mg tablet 10 mg PO TID PRN #30 tab 07/26/20 acetaminophen 500 mg tablet 1,000 mg PO QID PRN #14 tab 10/11/20 (Tylenol Extra Strength) amoxicillin 875 mg-potassium 1 tab PO BID 10 Days #20 tab 10/11/20 clavulanate 125 mg tablet (Augmentin) hydrocortisone acetate 25 mg 25 mg RI BID #12 ea 10/11/20 rectal suppository (Anusol-HC) ibuprofen 800 mg tablet 800 mg PO Q8H PRN #14 tab 10/11/20 oxycodone 5 mg tablet 5 mg PO BID PRN #10 tab 10/11/20 polyethylene glycol 3350 17 17 g PO DAILY #510 g 10/11/20 gram/dose oral powder (Miralax) omeprazole 40 mg capsule,delayed 40 mg PO DAILY 90 Days #90 cap 11/12/20 release cephalexin 500 mg capsule 500 mg PO QID 7 Days #28 cap 03/05/21 clotrimazole 1 % topical cream 1 appl TOPICAL BID 14 Days #45 g 03/05/21 (Lotrimin AF (clotrimazole)) gabapentin 100 mg capsule 100 mg PO TID 30 Days #90 cap 03/06/21 naproxen 250 mg tablet 250 mg PO BID PRN 30 Days #60 tab 03/26/21 albuterol sulfate 90 mcg/actuation 2 puff INHALATION Q6H PRN 30 Days 06/24/21 aerosol inhaler #6.7 g ondansetron 4 mg disintegrating 4 mg PO Q6H PRN #10 tab 07/04/21 tablet Allergies Allergy/AdvReac Type Severity Reaction Status Date / Time egg [Egg] Allergy Severe ANAPHYLAXIS Verified 11/12/20 13:39 influenza virus vaccine, Allergy Severe CANNOT Verified 11/12/20 13:39 specific OBTAIN DUE [FLU VACCINE] TO EGG ALLERGY nicotine [From NICODERM CQ] Allergy Unknown RASH Verified 11/12/20 13:39 varenicline [From CHANTIX] Allergy Unknown DEPRESSION Verified 11/12/20 13:39 AND ANXIETY INCREASE barium sulfate AdvReac Unknown saul Verified 11/12/20 13:39 Review of Systems Review of Systems: Pertinent positives and negatives as stated in HPI 10 point review of systems is otherwise negative. [facility] Past Medical History Source: nursing notes reviewed Medical History Blurry vision Graves disease Obesity (BMI 30-39.9) Right elbow pain Sacral pain Vitamin D deficiency Surgical History History of appendectomy History of section History of hysteroscopy History of right oophorectomy History of tonsillectomy and adenoidectomy History of tubal ligation Family History Family History Father Lung cancer Bone cancer Mother Emphysema of lung Asthma Hypertension CVD (cardiovascular disease) Sister Breast cancer Maternal Aunt Uterine cancer Social History Social History Alcohol intake: never Cigarettes Per Day: 10 Advance Directives: No Advance Directives Information Provided: Yes Physical Exam Vital Signs: Vital Signs: Last Vital Signs Pulse 82 07/04/21 03:41 Resp 18 07/04/21 03:41 BP 124/76 07/04/21 03:41 Pulse Ox 96 07/04/21 03:41 BMI result Body Mass Index 29.9 VITAL SIGNS: Reviewed. GENERAL: Well developed, well nourished, in no acute distress. HEAD: Normocephalic/atraumatic EYES: PERRLA, EOMI OROPHARYNX: no oral lesions noted, posterior pharynx clear, there is no stigmata of hematemesis NECK: Supple, no adenopathy LUNGS: Normal breath sounds. No adventitious sounds or accessory muscle use. SpO2<96> CARDIOVASCULAR: Regular rate and rhythm without noted murmurs, no JVD or lower extremity edema. ABDOMEN: Soft, non-tender, non-distended with bowel sounds. MUSCULOSKELETAL: No tenderness, deformities, or effusions noted on gross inspection. EXTREMITIES: No cyanosis, clubbing or edema. SKIN: Inspection of the skin reveals no rashes NEUROLOGIC: Alert and oriented x 4. Course Course Course Narrative: 51-year-old female with history and clinical presentation consistent with viral syndrome and on review of all investigations patient is noted to be moderately dehydrated, COVID positive, with related gastroenteritis. She is C diff negative but stool sample is consistent with infectious etiology. The noted leukocytosis is secondary to stress response, patient received IV fluids as well as antiemetics and is now tolerating oral intake. She is otherwise discharged home with strict instructions to isolate. MDM - Nausea/Vomiting/Diarrhea Lab Data Result diagrams: 07/04/21 05:25 07/04/21 05:25 Labs: Lab Results 07/04/21 07/04/21 07/04/21 Range/Units 04:52 04:52 04:52 WBC (4.8-10.8) X10*3/uL RBC (4.20-5.50) X10*6/uL Hgb (12.0-16.0) g/dl Hct (37.0-47.0) % MCV (80.0-98.0) fL MCH (27.0-33.0) pg MCHC (31.0-35.0) g/dl RDW (11.0-16.0) % Plt Count (160-400) X10*3/uL MPV (9.4-12.3) fL Immature Gran % (Auto) (0.0-0.4) % Neut % (Auto) (45-73) % Lymph % (Auto) (20-40) % [place] % (Auto) (2-11) % Eos % (Auto) (0-4) % Baso % (Auto) (0-2) % Lymph # (Auto) (1.2-4.9) X10*3/uL [place] # (Auto) (0.1-1.2) X10*3/uL Eos # (Auto) (0.0-0.4) X10*3/uL Baso # (Auto) (0.0-0.2) X10*3/uL Abs Immat Gran (auto) (0.00-0.03) X10*3/uL Absolute Neuts (auto) (2.0-8.3) x10*3/uL Absolute Nucleated RBC (0.0-0.012) X10*3/uL Nucleated RBC % (auto) (0.0-0.2) /100WBC PT (9.9-13.0) SEC INR (0.9-1.1) Sodium (135-145) mmol/L Potassium (3.3-5.1) mmol/L Chloride (96-108) mmol/L Carbon Dioxide (22-29) mmol/L Anion Gap (12-20) BUN (9-16) mg/dL Creatinine (0.5-1.4) mg/dL Estim Creat Clear Calc Estimated GFR Random Glucose (60-115) mg/dL Calcium (8.4-10.2) mg/dL Magnesium (1.6-2.6) mg/dL Total Bilirubin (0.0-1.0) mg/dL AST (5-31) U/L ALT (0-31) U/L Alkaline Phosphatase (39-117) U/L Total Protein (6.5-8.0) g/dL Albumin (3.5-5.0) g/dL Lipase (8-78) U/L TSH (0.32-4.0) uIU/mL Stool Occult Blood POSITIVE (NEGATIVE) Stool Leukocytes, Qual MANY: >10/OIF (NEGATIVE) C. difficile Tox B Gene NEGATIVE (Negative) COVID-19 (RADHA) (Negative) COVID-19 Clin Com Blood Type Antibody Screen 07/04/21 07/04/21 07/04/21 Range/Units 05:25 05:25 05:25 WBC 11.4 H (4.8-10.8) X10*3/uL RBC 6.35 H (4.20-5.50) X10*6/uL Hgb 17.4 H (12.0-16.0) g/dl Hct 51.8 H (37.0-47.0) % MCV 81.6 (80.0-98.0) fL MCH 27.4 (27.0-33.0) pg MCHC 33.6 (31.0-35.0) g/dl RDW 14.2 (11.0-16.0) % Plt Count 295 (160-400) X10*3/uL MPV 10.8 (9.4-12.3) fL Immature Gran % (Auto) 0.7 H (0.0-0.4) % Neut % (Auto) 86.3 H (45-73) % Lymph % (Auto) 6.7 L (20-40) % [place] % (Auto) 5.7 (2-11) % Eos % (Auto) 0.5 (0-4) % Baso % (Auto) 0.1 (0-2) % Lymph # (Auto) 0.8 L (1.2-4.9) X10*3/uL [place] # (Auto) 0.7 (0.1-1.2) X10*3/uL Eos # (Auto) 0.1 (0.0-0.4) X10*3/uL Baso # (Auto) 0.0 (0.0-0.2) X10*3/uL Abs Immat Gran (auto) 0.08 H (0.00-0.03) X10*3/uL Absolute Neuts (auto) 9.8 H (2.0-8.3) x10*3/uL Absolute Nucleated RBC 0.000 (0.0-0.012) X10*3/uL Nucleated RBC % (auto) 0.0 (0.0-0.2) /100WBC PT (9.9-13.0) SEC INR (0.9-1.1) Sodium 139 (135-145) mmol/L Potassium 4.7 (3.3-5.1) mmol/L Chloride 105 (96-108) mmol/L Carbon Dioxide 23 (22-29) mmol/L Anion Gap 16 (12-20) BUN 15 (9-16) mg/dL Creatinine 1.04 (0.5-1.4) mg/dL Estim Creat Clear Calc 69.0 Estimated GFR 56 Random Glucose 187 H (60-115) mg/dL Calcium 9.8 D (8.4-10.2) mg/dL Magnesium 1.7 (1.6-2.6) mg/dL Total Bilirubin 0.7 (0.0-1.0) mg/dL AST 15 (5-31) U/L ALT 18 (0-31) U/L Alkaline Phosphatase 118 H D (39-117) U/L Total Protein 7.4 (6.5-8.0) g/dL Albumin 4.3 (3.5-5.0) g/dL Lipase 26 (8-78) U/L TSH < 0.01 L (0.32-4.0) uIU/mL Stool Occult Blood (NEGATIVE) Stool Leukocytes, Qual (NEGATIVE) C. difficile Tox B Gene (Negative) COVID-19 (RADHA) Positive A (Negative) COVID-19 Clin Com See Note Blood Type Antibody Screen 07/04/21 07/04/21 Range/Units 05:25 05:25 WBC (4.8-10.8) X10*3/uL RBC (4.20-5.50) X10*6/uL Hgb (12.0-16.0) g/dl Hct (37.0-47.0) % MCV (80.0-98.0) fL MCH (27.0-33.0) pg MCHC (31.0-35.0) g/dl RDW (11.0-16.0) % Plt Count (160-400) X10*3/uL MPV (9.4-12.3) fL Immature Gran % (Auto) (0.0-0.4) % Neut % (Auto) (45-73) % Lymph % (Auto) (20-40) % [place] % (Auto) (2-11) % Eos % (Auto) (0-4) % Baso % (Auto) (0-2) % Lymph # (Auto) (1.2-4.9) X10*3/uL [place] # (Auto) (0.1-1.2) X10*3/uL Eos # (Auto) (0.0-0.4) X10*3/uL Baso # (Auto) (0.0-0.2) X10*3/uL Abs Immat Gran (auto) (0.00-0.03) X10*3/uL Absolute Neuts (auto) (2.0-8.3) x10*3/uL Absolute Nucleated RBC (0.0-0.012) X10*3/uL Nucleated RBC % (auto) (0.0-0.2) /100WBC PT 11.4 (9.9-13.0) SEC INR 1.0 (0.9-1.1) Sodium (135-145) mmol/L Potassium (3.3-5.1) mmol/L Chloride (96-108) mmol/L Carbon Dioxide (22-29) mmol/L Anion Gap (12-20) BUN (9-16) mg/dL Creatinine (0.5-1.4) mg/dL Estim Creat Clear Calc Estimated GFR Random Glucose (60-115) mg/dL Calcium (8.4-10.2) mg/dL Magnesium (1.6-2.6) mg/dL Total Bilirubin (0.0-1.0) mg/dL AST (5-31) U/L ALT (0-31) U/L Alkaline Phosphatase (39-117) U/L Total Protein (6.5-8.0) g/dL Albumin (3.5-5.0) g/dL Lipase (8-78) U/L TSH (0.32-4.0) uIU/mL Stool Occult Blood (NEGATIVE) Stool Leukocytes, Qual (NEGATIVE) C. difficile Tox B Gene (Negative) COVID-19 (RADHA) (Negative) COVID-19 Clin Com Blood Type A Positive Antibody Screen NEGATIVE Discharge Plan Discharge Clinical Impression: Graves disease, Gastroenteritis, Dehydration, Lab test positive for detection of COVID-19 virus Patient Disposition: Home, Self-Care Instructions: Dehydration (ED), Gastroenteritis (ED), Acute Diarrhea (ED), COVID-19 (Coronavirus Disease 2019) (ED) Additional Instructions: 1. Increase fluid hydration, especially with water. 2. Resume all of your home medication as prescribed. 3. A prescription for antinausea medication has been sent to your pharmacy. 4. Recommend using [id number] Tylenol/ibuprofen as needed for any body aches, headaches, temperatures greater than 100.4. you have been diagnosed with COVID-19 and must isolate for 14 days and follow all state and Federal guidelines. Return to the ER for worsening symptoms. Prescriptions: New ondansetron 4 mg tablet,disintegrating 4 mg PO Q6H PRN (Reason: nausea and vomiting) Qty: 10 RF: 0 No Action omeprazole 40 mg capsule,delayed release(DR/EC) 40 mg PO DAILY 90 Days Qty: 90 RF: 3 gabapentin 100 mg capsule 100 mg PO TID 30 Days Qty: 90 RF: 3 naproxen 250 mg tablet 250 mg PO BID PRN (Reason: pain) 30 Days Qty: 60 RF: 3 albuterol sulfate 90 mcg/actuation HFA aerosol inhaler 2 puff inhalation Q6H PRN (Reason: shortness of breath or wheezing) 30 Days Qty: 6.7 RF: 1 ibuprofen 800 mg tablet 800 mg PO Q8H PRN (Reason: pain) Qty: 14 RF: 0 acetaminophen [Tylenol Extra Strength] 500 mg tablet 1,000 mg PO QID PRN (Reason: fever or pain) Qty: 14 RF: 0 oxycodone 5 mg tablet 5 mg PO BID PRN (Reason: pain) Qty: 10 RF: 0 amoxicillin-pot clavulanate [Augmentin] 875-125 mg tablet 1 tab PO BID 10 Days Qty: 20 RF: 0 hydrocortisone acetate [Anusol-HC] 25 mg suppository 25 mg RI BID Qty: 12 RF: 0 polyethylene glycol 3350 [Miralax] 17 gram/dose powder 17 g PO DAILY Qty: 510 RF: 0 cephalexin 500 mg capsule 500 mg PO QID 7 Days Qty: 28 RF: 0 clotrimazole [Lotrimin AF (clotrimazole)] 1 % cream 1 appl topical BID 14 Days Qty: 45 RF: 0 cyclobenzaprine 10 mg tablet 10 mg PO TID PRN (Reason: muscle spasm) Qty: 30 RF: 2 metoprolol succinate 25 mg tablet extended release 24 hr 25 mg PO DAILY RF: 0 trazodone 50 mg tablet 50 mg PO BEDTIME RF: 0 [place] 160 mcg/actuation HFA aerosol inhaler 1 puff PO BID RF: 0 cholecalciferol (vitamin D3) 25 mcg (1,000 unit) tablet 25 mcg PO DAILY 30 Days Qty: 30 RF: 6 Referrals: Marline Victoria MD [Primary Care Provider] - 2 days
[2021-07-04 05:32] LABS: MANUAL DIFF FLAG NO
[2021-07-04 05:33] LABS: Basophils Percent Auto 0.1 % (0-2); Eosinophils Absolute Auto 0.1 X10*3/uL (0.0-0.4); Eosinophils Percent Auto 0.5 % (0-4); Hematocrit 51.8 % (37.0-47.0); Hemoglobin 17.4 g/dl (12.0-16.0); Imm Gran Abs Auto 0.08 X10*3/uL (0.00-0.03); Imm Gran Pct Auto 0.7 % (0.0-0.4); Lymphocytes Absolute Auto 0.8 X10*3/uL (1.2-4.9); Lymphocytes Percent Auto 6.7 % (20-40); Mean Corpuscular HGB Conc 33.6 g/dl (31.0-35.0); Mean Corpuscular Hemoglobin 27.4 pg (27.0-33.0); Mean Corpuscular Volume 81.6 fL (80.0-98.0); Mean Platelet Volume 10.8 fL (9.4-12.3); Monocytes Absolute Auto 0.7 X10*3/uL (0.1-1.2); Monocytes Percent Auto 5.7 % (2-11); Neutrophils Absolute Auto 9.8 x10*3/uL (2.0-8.3); Neutrophils Percent Auto 86.3 % (45-73); Platelet Count 295 X10*3/uL (160-400); Red Blood Count 6.35 X10*6/uL (4.20-5.50); Red Cell Distribution Width 14.2 % (11.0-16.0); White Blood Count 11.4 X10*3/uL (4.8-10.8)
[2021-07-04 05:36] LABS: Leukocytes Stool Qualitative MANY: >10/OIF (NEGATIVE)
[2021-07-04 05:39] LABS: COVID-19 Test Positive (Negative)
[2021-07-04 05:41] LABS: Prothrombin Time 11.4 SEC (9.9-13.0)
[2021-07-04 05:59] LABS: Alanine Aminotransferase 18 U/L (0-31); Albumin Level 4.3 g/dL (3.5-5.0); Alkaline Phosphatase 118 U/L (39-117); Anion Gap 16 (12-20); Aspartate Amino Transferase 15 U/L (5-31); Bilirubin Total 0.7 mg/dL (0.0-1.0); Blood Urea Nitrogen 15 mg/dL (9-16); Calcium 9.8 mg/dL (8.4-10.2); Carbon Dioxide 23 mmol/L (22-29); Chloride 105 mmol/L (96-108); Estimated Glomerular Filt Rate 56; Glucose Random 187 mg/dL (60-115); Lipase 26 U/L (8-78); Magnesium 1.7 mg/dL (1.6-2.6); Potassium 4.7 mmol/L (3.3-5.1); Sodium 139 mmol/L (135-145); Total Protein 7.4 g/dL (6.5-8.0)
[2021-07-04 06:03] LABS: CDiff Gene PCR NEGATIVE (Negative)
[2021-07-04] MEDS: Metoclopramide HCl 10 MG/2 ML VIAL IVPUSH (06:03)
[2021-07-04] MEDS: diphenhydrAMINE HCL 50 MG/ML VIAL 25 MG IVPUSH (06:04)
[2021-07-04 06:19] LABS: Thyroid Stimulating Hormone < 0.01 uIU/mL (0.32-4.0)
== END 2021-07-04 07:16 | disposition home or self-care (01) ==
PROVIDERS: Emergency Provider Student in an Organized Health Care Education/Training Program; PCP Internal Medicine
DX: U07.1 COVID-19 (principal); R11.2 Nausea with vomiting, unspecified; E05.00 Thyrotoxicosis with diffuse goiter without thyrotoxic crisis or storm; K52.9 Noninfective gastroenteritis and colitis, unspecified; Z79.899 Other long term (current) drug therapy
CPT/HCPCS: 36415; 80053; 82272; 83690; 83735; 84443; 85025; 85610; 86850; 86900; 86901; 87045; 87046; 87493; 87635; 89055; 96361; 96374; 96375; 99282; 99284; J1200; J2405; J2765

== ENCOUNTER 2021-08-12 16:43 | Outpatient (REF) | payer OTHER, SELFPAY ==
--- NOTE | ~2021-08-12 | XR_ITS ---
EXAMINATION: XR CHEST CLINICAL INFORMATION: Nicotine dependence. Asthma. COMPARISON: January 02, 2020 TECHNIQUE: 2 views of the chest were obtained. FINDINGS: No significant abnormality is noted involving the heart, lungs, mediastinum, bony thorax or soft tissues. XR/XR chest 2V IMPRESSION: No acute disease.
== END 2021-08-12 16:44 | disposition home or self-care (01) ==
LOC: HO.XRAY 16:43
PROVIDERS: PCP Internal Medicine; Visit Provider Internal Medicine
DX: F17.200 Nicotine dependence, unspecified, uncomplicated (principal)
CPT/HCPCS: 71046

== ENCOUNTER → 2021-08-26 14:29 | Outpatient (BNVA) | payer OTHER, SELFPAY | PROVIDERS: PCP Internal Medicine; Visit Provider Internal Medicine Endocrinology, Diabetes & Metabolism | DX: E05.00 Thyrotoxicosis with diffuse goiter without thyrotoxic crisis or storm (principal) | CPT/HCPCS: 99212 ==

== ENCOUNTER 2021-08-28 08:48 | Outpatient (REF) | payer OTHER, SELFPAY ==
[2021-08-28 11:10] LABS: Alanine Aminotransferase 11 U/L (0-31); Albumin Level 3.9 g/dL (3.5-5.0); Alkaline Phosphatase 103 U/L (39-117); Anion Gap 11 (12-20); Aspartate Amino Transferase 12 U/L (5-31); Bilirubin Total 0.4 mg/dL (0.0-1.0); Blood Urea Nitrogen 15 mg/dL (9-16); Calcium 9.5 mg/dL (8.4-10.2); Carbon Dioxide 28 mmol/L (22-29); Chloride 104 mmol/L (96-108); Cholesterol 178 mg/dL; Estimated Glomerular Filt Rate > 60; Glucose Fasting 103 mg/dL (60-99); HDL Cholesterol 33 mg/dL; LDL Cholesterol Calculated 118 mg/dl; Potassium 4.8 mmol/L (3.3-5.1); Sodium 138 mmol/L (135-145); Total Protein 6.5 g/dL (6.5-8.0); Triglycerides 135 mg/dL
[2021-08-28 11:30] LABS: Thyroid Stimulating Hormone < 0.01 uIU/mL (0.32-4.0)
[2021-08-29 07:25] LABS: Triiodothyronine T3 Free 7.3 pg/mL (2.3-4.2)
[2021-08-31 17:56] LABS: Thyrotropin Receptor Antibody 4.58 IU/L (<=2.00)
[2021-09-02 06:56] LABS: Vitamin D 25-OH, D2 <4 ng/mL; Vitamin D 25-OH, D3 24 ng/mL; Vitamin D 25-OH, Total 24 ng/mL (30-100)
== END 2021-08-28 08:49 | disposition home or self-care (01) ==
LOC: HO.LAB 08:48
PROVIDERS: Absent Provider Internal Medicine; PCP Internal Medicine; Visit Provider Internal Medicine Endocrinology, Diabetes & Metabolism
DX: E05.00 Thyrotoxicosis with diffuse goiter without thyrotoxic crisis or storm (principal); E66.9 Obesity, unspecified; I25.10 Atherosclerotic heart disease of native coronary artery without angina pectoris; E55.9 Vitamin D deficiency, unspecified
CPT/HCPCS: 36415; 80053; 80061; 82306; 83520; 84439; 84443; 84481

== ENCOUNTER → 2021-08-28 10:23 | Outpatient (BNV) | payer OTHER, SELFPAY | PROVIDERS: PCP Internal Medicine; Referring Provider Internal Medicine; Visit Provider Internal Medicine Medical Oncology | DX: D75.1 Secondary polycythemia (principal) | CPT/HCPCS: 99203; 99213 ==

== ENCOUNTER 2021-09-01 12:44 | Outpatient (REF) | payer OTHER, SELFPAY ==
--- NOTE | ~2021-09-01 | MM_ITS ---
EXAMINATION: MM DIAGNOSTIC DIGITAL BREAST TOMOSYNTHESIS, BILATERAL US DIAGNOSTIC ULTRASOUND BREAST, LEFT CLINICAL INFORMATION: Tiny palpable nodularity noted by patient inferior periareolar position. No discharge. TC score 9%. COMPARISON: Mammography: 06/04/2016, 06/01/2014 TECHNIQUE: Digital breast tomosynthesis is performed in both the craniocaudal and mediolateral oblique views along with computer-aided detection (CAD). Synthesized 2D images are generated from the tomosynthesis. Ultrasound left breast is targeted to the inferior periareolar and retroareolar breast. Patient is able to point to area of concern at time of imaging. Grayscale imaging and color Doppler are performed without and with harmonics. FINDINGS: There are scattered areas of fibroglandular density (ACR BI-RADS breast composition Category b). Parenchymal pattern is similar to prior exams and there is no developing density or interval mass or architectural abnormality. There are no abnormal calcifications. No focal duct ectasia. Some prominent draining veins on left are similar to prior exam. No adenopathy. No skin thickening or coarsening of the Michael's ligaments. Ultrasound demonstrates a tiny cyst 6:00 retroareolar breast at site of clinical concern measuring 0.4 x 0.2 cm. There is no solid mass or architectural abnormality or focal duct ectasia. Results are discussed with the patient at time of visit. MM/MM tomosynthesis diagnostic BI IMPRESSION: 1. Mammography shows no significant change from prior exams. 2. Tiny cyst at site of palpable concern inferior retroareolar breast measuring 0.4 cm. ASSESSMENT: BI-RADS 2: Benign RECOMMENDATION: Routine annual mammography screening. This patient's information was entered into a reminder system with a target due date for their next mammogram.
== END 2021-09-01 12:45 | disposition home or self-care (01) ==
LOC: HO.MAMMO 12:44
PROVIDERS: PCP Internal Medicine; Visit Provider Internal Medicine
DX: N63.23 Unspecified lump in the left breast, lower outer quadrant (principal)
CPT/HCPCS: 76642; 77062; 77066

== ENCOUNTER 2021-09-10 09:37 | Outpatient (REF) | payer OTHER, SELFPAY ==
[2021-09-10 10:41] LABS: MANUAL DIFF FLAG NO
[2021-09-10 10:46] LABS: Basophils Percent Auto 0.7 % (0-2); Eosinophils Absolute Auto 0.1 X10*3/uL (0.0-0.4); Eosinophils Percent Auto 1.5 % (0-4); Hematocrit 42.8 % (37.0-47.0); Hemoglobin 14.3 g/dl (12.0-16.0); Imm Gran Abs Auto 0.01 X10*3/uL (0.00-0.03); Imm Gran Pct Auto 0.2 % (0.0-0.4); Lymphocytes Absolute Auto 2.3 X10*3/uL (1.2-4.9); Lymphocytes Percent Auto 37.4 % (20-40); Mean Corpuscular HGB Conc 33.4 g/dl (31.0-35.0); Mean Corpuscular Hemoglobin 27.1 pg (27.0-33.0); Mean Corpuscular Volume 81.2 fL (80.0-98.0); Mean Platelet Volume 10.9 fL (9.4-12.3); Monocytes Absolute Auto 0.4 X10*3/uL (0.1-1.2); Monocytes Percent Auto 6.8 % (2-11); Neutrophils Absolute Auto 3.2 x10*3/uL (2.0-8.3); Neutrophils Percent Auto 53.4 % (45-73); Platelet Count 267 X10*3/uL (160-400); Red Blood Count 5.27 X10*6/uL (4.20-5.50); Red Cell Distribution Width 13.7 % (11.0-16.0)
[2021-09-10 12:30] LABS: Alanine Aminotransferase 14 U/L (0-31); Albumin Level 3.9 g/dL (3.5-5.0); Alkaline Phosphatase 104 U/L (39-117); Anion Gap 13 (12-20); Aspartate Amino Transferase 14 U/L (5-31); Bilirubin Total 0.5 mg/dL (0.0-1.0); Blood Urea Nitrogen 16 mg/dL (9-16); Calcium 9.5 mg/dL (8.4-10.2); Carbon Dioxide 24 mmol/L (22-29); Chloride 105 mmol/L (96-108); Estimated Glomerular Filt Rate > 60; Glucose Random 96 mg/dL (60-115); Potassium 4.5 mmol/L (3.3-5.1); Sodium 137 mmol/L (135-145); Total Protein 6.6 g/dL (6.5-8.0)
== END 2021-09-10 09:38 | disposition home or self-care (01) ==
LOC: HO.BBR 09:37
PROVIDERS: PCP Internal Medicine; Visit Provider Internal Medicine Medical Oncology
DX: D75.1 Secondary polycythemia (principal)
CPT/HCPCS: 36415; 80053; 81219; 81270; 81279; 81339; 85014; 85018; 85025; 99195

== ENCOUNTER 2021-10-02 10:00 | Outpatient (REF) | payer OTHER, SELFPAY ==
--- NOTE | ~2021-10-02 | US_ITS ---
EXAMINATION: US THYROID CLINICAL INFORMATION: Nontoxic multinodular goiter. COMPARISON: Thyroid ultrasound 10/06/2016. CT soft tissue neck 08/03/2016. TECHNIQUE: Linear transducer grayscale and color Doppler examination with attention to the region of the thyroid. FINDINGS: SIZE: Measurements of the thyroid lobes and nodules are given in sagittal, anteroposterior and transverse dimensions respectively. Right Thyroid Lobe: 4.9 x 1.8 x 1.8 cm, volume 8.3 mL. Previously 4.6 x 1.6 x 1.6 cm, volume 6.2 mL. Parenchyma: The gland echotexture is heterogeneous. Thyroid vascularity is increased. Left Thyroid Lobe: 5.1 x 1.4 x 1.7 cm, volume 6.3 mL. Previously 4.5 x 1.1 x 1.5 cm, volume 3.9 mL. Parenchyma: The gland echotexture is heterogeneous. Thyroid vascularity is increased. Isthmus: 0.5 cm in maximum AP dimension. Previously 0.2 cm. No focal thyroid nodule is seen. NODES: No lymphadenopathy is seen in the tissue surrounding the thyroid gland. US/US thyroid IMPRESSION: Heterogeneous hypervascular thyroid gland. No focal thyroid nodule. ACR TI-RADS RECOMMENDATION REFERENCE: Ultrasound-guided fine-needle aspiration, followup ultrasound, no further follow up. * TR1 (0 point) and TR 2 (2 points): No FNA or follow up * TR3 (3 points): FNA if more than or equal to 2.5 cm in maximum dimension, followup ultrasound in 1, 3 and 5 years if 1.5 to 2.4 cm in maximum dimension. * TR4 (4-6 points): FNA if more than or equal to 1.5 cm in maximum dimension, followup ultrasound in 1, 2, 3 and 5 years if 1 to 1.4 cm in maximum dimension. * TR5 (more than or equal to 7 points): FNA if more than or equal to 1 cm in maximum dimension, followup ultrasound every year for 5 years if 0.5 to 0.9 cm in maximum dimension. * TR3, TR4 or TR5 nodules that are below the size threshold for follow up receive no follow up.
== END 2021-10-02 10:01 | disposition home or self-care (01) ==
LOC: HO.US 10:00
PROVIDERS: Visit Provider Internal Medicine Endocrinology, Diabetes & Metabolism
DX: E04.2 Nontoxic multinodular goiter (principal)
CPT/HCPCS: 76536

== ENCOUNTER 2021-10-16 10:15 | Outpatient (REF) | payer OTHER, SELFPAY ==
[2021-10-16 11:05] LABS: MANUAL DIFF FLAG NO
[2021-10-16 11:09] LABS: Basophils Absolute Auto 0.1 X10*3/uL (0.0-0.2); Basophils Percent Auto 0.7 % (0-2); Eosinophils Absolute Auto 0.1 X10*3/uL (0.0-0.4); Eosinophils Percent Auto 1.7 % (0-4); Hematocrit 36.7 % (37.0-47.0); Hemoglobin 12.3 g/dl (12.0-16.0); Imm Gran Abs Auto 0.03 X10*3/uL (0.00-0.03); Imm Gran Pct Auto 0.4 % (0.0-0.4); Lymphocytes Absolute Auto 2.9 X10*3/uL (1.2-4.9); Lymphocytes Percent Auto 40.2 % (20-40); Mean Corpuscular HGB Conc 33.5 g/dl (31.0-35.0); Mean Corpuscular Hemoglobin 27.5 pg (27.0-33.0); Mean Corpuscular Volume 81.9 fL (80.0-98.0); Mean Platelet Volume 11.3 fL (9.4-12.3); Monocytes Absolute Auto 0.5 X10*3/uL (0.1-1.2); Monocytes Percent Auto 7.1 % (2-11); Neutrophils Absolute Auto 3.6 x10*3/uL (2.0-8.3); Neutrophils Percent Auto 49.9 % (45-73); Platelet Count 275 X10*3/uL (160-400); Red Blood Count 4.48 X10*6/uL (4.20-5.50); White Blood Count 7.2 X10*3/uL (4.8-10.8)
[2021-10-16 12:14] LABS: Alanine Aminotransferase 16 U/L (0-31); Albumin Level 3.8 g/dL (3.5-5.0); Alkaline Phosphatase 116 U/L (39-117); Anion Gap 10 (12-20); Aspartate Amino Transferase 15 U/L (5-31); Bilirubin Direct 0.2 mg/dL (0.0-0.5); Bilirubin Total 0.5 mg/dL (0.0-1.0); Blood Urea Nitrogen 13 mg/dL (9-16); Calcium 9.3 mg/dL (8.4-10.2); Carbon Dioxide 25 mmol/L (22-29); Chloride 102 mmol/L (96-108); Estimated Glomerular Filt Rate > 60; Glucose Random 100 mg/dL (60-115); Potassium 4.1 mmol/L (3.3-5.1); Sodium 133 mmol/L (135-145); Total Protein 6.4 g/dL (6.5-8.0)
[2021-10-16 12:20] LABS: Free T4 (Free Thyroxine) 1.02 ng/dL (0.71-1.85)
[2021-10-16 12:59] LABS: Thyroid Stimulating Hormone 0.01 uIU/mL (0.32-4.0)
[2021-10-18 04:37] LABS: Triiodothyronine T3 Free 5.2 pg/mL (2.3-4.2)
== END 2021-10-16 10:16 | disposition home or self-care (01) ==
LOC: HO.BBR 10:15
PROVIDERS: Internal Medicine Endocrinology, Diabetes & Metabolism; Visit Provider Internal Medicine Medical Oncology
DX: D75.1 Secondary polycythemia (principal)
CPT/HCPCS: 36415; 80053; 80076; 84439; 84443; 84481; 85014; 85018; 85025; 99195

== ENCOUNTER 2021-11-17 10:07 | Outpatient (REF) | payer OTHER, SELFPAY ==
[2021-11-17 11:51] LABS: Alanine Aminotransferase 14 U/L (0-31); Albumin Level 3.7 g/dL (3.5-5.0); Alkaline Phosphatase 108 U/L (39-117); Anion Gap 14 (12-20); Aspartate Amino Transferase 11 U/L (5-31); Bilirubin Total 0.3 mg/dL (0.0-1.0); Blood Urea Nitrogen 13 mg/dL (9-16); Calcium 8.8 mg/dL (8.4-10.2); Carbon Dioxide 23 mmol/L (22-29); Chloride 102 mmol/L (96-108); Cholesterol 145 mg/dL; Estimated Glomerular Filt Rate > 60; Glucose Fasting 97 mg/dL (60-99); HDL Cholesterol 27 mg/dL; LDL Cholesterol Calculated 94 mg/dl; Potassium 3.8 mmol/L (3.3-5.1); Sodium 135 mmol/L (135-145); Total Protein 6.2 g/dL (6.5-8.0); Triglycerides 121 mg/dL
== END 2021-11-17 10:08 | disposition home or self-care (01) ==
LOC: HO.BBR 10:07
PROVIDERS: PCP Internal Medicine; Visit Provider Internal Medicine Medical Oncology
DX: D75.1 Secondary polycythemia (principal); I25.10 Atherosclerotic heart disease of native coronary artery without angina pectoris; E78.5 Hyperlipidemia, unspecified
CPT/HCPCS: 36415; 80053; 80061; 85014; 85018; 99195

== ENCOUNTER 2021-12-18 10:38 | Outpatient (REF) | payer OTHER, SELFPAY ==
[2021-12-18 11:33] LABS: Hematocrit 34.3 % (37.0-47.0); Hemoglobin 11.1 g/dl (12.0-16.0); Mean Corpuscular HGB Conc 32.4 g/dl (31.0-35.0); Mean Corpuscular Hemoglobin 25.3 pg (27.0-33.0); Mean Corpuscular Volume 78.1 fL (80.0-98.0); Mean Platelet Volume 11.3 fL (9.4-12.3); Platelet Count 279 X10*3/uL (160-400); Red Blood Count 4.39 X10*6/uL (4.20-5.50); Red Cell Distribution Width 14.2 % (11.0-16.0); White Blood Count 5.7 X10*3/uL (4.8-10.8)
[2021-12-18 12:27] LABS: Alanine Aminotransferase 13 U/L (0-31); Albumin Level 3.7 g/dL (3.5-5.0); Alkaline Phosphatase 102 U/L (39-117); Anion Gap 9 (12-20); Aspartate Amino Transferase 13 U/L (5-31); Bilirubin Direct < 0.2 mg/dL (0.0-0.5); Bilirubin Total 0.3 mg/dL (0.0-1.0); Blood Urea Nitrogen 8 mg/dL (9-16); Calcium 8.7 mg/dL (8.4-10.2); Carbon Dioxide 27 mmol/L (22-29); Chloride 105 mmol/L (96-108); Estimated Glomerular Filt Rate > 60; Glucose Random 79 mg/dL (60-115); Potassium 4.2 mmol/L (3.3-5.1); Sodium 137 mmol/L (135-145); Total Protein 6.1 g/dL (6.5-8.0)
[2021-12-18 12:31] LABS: Free T4 (Free Thyroxine) 1.33 ng/dL (0.71-1.85); Thyroid Stimulating Hormone < 0.01 uIU/mL (0.32-4.0)
[2021-12-20 07:22] LABS: Triiodothyronine T3 Free 7.9 pg/mL (2.3-4.2)
== END 2021-12-18 10:39 | disposition home or self-care (01) ==
LOC: HO.BBR 10:38
PROVIDERS: PCP Internal Medicine; Referring Provider Internal Medicine Endocrinology, Diabetes & Metabolism; Visit Provider Internal Medicine Medical Oncology
DX: E05.00 Thyrotoxicosis with diffuse goiter without thyrotoxic crisis or storm (principal); D75.1 Secondary polycythemia
CPT/HCPCS: 36415; 80053; 80076; 82248; 84439; 84443; 84481; 85014; 85018; 85027; 99195

== ENCOUNTER → 2022-01-20 11:38 | Outpatient (BNVA) | payer OTHER, SELFPAY | PROVIDERS: PCP Internal Medicine; Visit Provider Internal Medicine Endocrinology, Diabetes & Metabolism | DX: E05.00 Thyrotoxicosis with diffuse goiter without thyrotoxic crisis or storm (principal) | CPT/HCPCS: 99212 ==

== ENCOUNTER 2022-01-20 12:11 | Outpatient (REF) | payer OTHER, SELFPAY ==
[2022-01-20 13:37] LABS: MANUAL DIFF FLAG NO
[2022-01-20 13:42] LABS: Basophils Percent Auto 0.4 % (0-2); Eosinophils Absolute Auto 0.1 X10*3/uL (0.0-0.4); Eosinophils Percent Auto 1.4 % (0-4); Hematocrit 33.9 % (37.0-47.0); Hemoglobin 10.7 g/dl (12.0-16.0); Imm Gran Abs Auto 0.02 X10*3/uL (0.00-0.03); Imm Gran Pct Auto 0.3 % (0.0-0.4); Lymphocytes Absolute Auto 2.5 X10*3/uL (1.2-4.9); Lymphocytes Percent Auto 35.2 % (20-40); Mean Corpuscular HGB Conc 31.6 g/dl (31.0-35.0); Mean Corpuscular Hemoglobin 23.6 pg (27.0-33.0); Mean Corpuscular Volume 74.8 fL (80.0-98.0); Mean Platelet Volume 11.8 fL (9.4-12.3); Monocytes Absolute Auto 0.7 X10*3/uL (0.1-1.2); Monocytes Percent Auto 9.3 % (2-11); Neutrophils Absolute Auto 3.8 x10*3/uL (2.0-8.3); Neutrophils Percent Auto 53.4 % (45-73); Platelet Count 310 X10*3/uL (160-400); Red Blood Count 4.53 X10*6/uL (4.20-5.50); Red Cell Distribution Width 14.3 % (11.0-16.0); White Blood Count 7.2 X10*3/uL (4.8-10.8)
[2022-01-20 15:59] LABS: Alanine Aminotransferase 14 U/L (0-31); Albumin Level 3.9 g/dL (3.5-5.0); Alkaline Phosphatase 112 U/L (39-117); Aspartate Amino Transferase 12 U/L (5-31); Bilirubin Direct < 0.2 mg/dL (0.0-0.5); Bilirubin Total 0.3 mg/dL (0.0-1.0); Total Protein 6.6 g/dL (6.5-8.0)
[2022-01-20 16:10] LABS: Thyroid Stimulating Hormone < 0.01 uIU/mL (0.32-4.0)
[2022-01-22 00:08] LABS: Triiodothyronine T3 Free 5.2 pg/mL (2.3-4.2)
== END 2022-01-20 12:12 | disposition home or self-care (01) ==
LOC: HO.10HDL 12:11
PROVIDERS: Visit Provider Internal Medicine Endocrinology, Diabetes & Metabolism
DX: E05.00 Thyrotoxicosis with diffuse goiter without thyrotoxic crisis or storm (principal)
CPT/HCPCS: 36415; 80076; 84439; 84443; 84481; 85025; 99212

== ENCOUNTER 2022-01-22 08:25 | Outpatient (REF) | payer OTHER, SELFPAY ==
[2022-01-22 09:29] LABS: Appearance Urine CLEAR; Color Urine YELLOW; Glucose Urine UA NEG (NEG); Leukocyte Esterase Urine NEG (NEG); Nitrite Urine NEG (NEG); Urine Blood NEG (NEG); Urine Ketones NEG (NEG); Urine Protein NEG (NEG-TRACE)
== END 2022-01-22 08:26 | disposition home or self-care (01) ==
LOC: HO.LAB 08:25
PROVIDERS: PCP Internal Medicine; Visit Provider Internal Medicine
DX: R30.0 Dysuria (principal)
CPT/HCPCS: 81003

== ENCOUNTER 2022-02-17 12:07 | Outpatient (REF) | payer OTHER, SELFPAY ==
[2022-02-17 12:31] LABS: MANUAL DIFF FLAG NO
[2022-02-17 12:32] LABS: Basophils Absolute Auto 0.1 X10*3/uL (0.0-0.2); Basophils Percent Auto 0.8 % (0-2); Eosinophils Absolute Auto 0.3 X10*3/uL (0.0-0.4); Eosinophils Percent Auto 4.1 % (0-4); Hematocrit 37.9 % (37.0-47.0); Hemoglobin 11.4 g/dl (12.0-16.0); Imm Gran Abs Auto 0.01 X10*3/uL (0.00-0.03); Imm Gran Pct Auto 0.2 % (0.0-0.4); Lymphocytes Absolute Auto 2.2 X10*3/uL (1.2-4.9); Lymphocytes Percent Auto 35.3 % (20-40); Mean Corpuscular HGB Conc 30.1 g/dl (31.0-35.0); Mean Corpuscular Hemoglobin 22.8 pg (27.0-33.0); Mean Platelet Volume 10.9 fL (9.4-12.3); Monocytes Absolute Auto 0.4 X10*3/uL (0.1-1.2); Monocytes Percent Auto 6.4 % (2-11); Neutrophils Absolute Auto 3.4 x10*3/uL (2.0-8.3); Neutrophils Percent Auto 53.2 % (45-73); Platelet Count 288 X10*3/uL (160-400); Red Blood Count 4.99 X10*6/uL (4.20-5.50); Red Cell Distribution Width 15.6 % (11.0-16.0); White Blood Count 6.3 X10*3/uL (4.8-10.8)
[2022-02-17 13:50] LABS: Alanine Aminotransferase 14 U/L (0-31); Albumin Level 3.8 g/dL (3.5-5.0); Alkaline Phosphatase 99 U/L (39-117); Anion Gap 13 (12-20); Aspartate Amino Transferase 13 U/L (5-31); Bilirubin Total 0.4 mg/dL (0.0-1.0); Blood Urea Nitrogen 11 mg/dL (9-16); Calcium 8.7 mg/dL (8.4-10.2); Carbon Dioxide 26 mmol/L (22-29); Chloride 102 mmol/L (96-108); Estimated Glomerular Filt Rate > 60; Glucose Random 126 mg/dL (60-115); Potassium 3.9 mmol/L (3.3-5.1); Sodium 137 mmol/L (135-145); Total Protein 6.3 g/dL (6.5-8.0)
== END 2022-02-17 12:08 | disposition home or self-care (01) ==
LOC: HO.BBR 12:07
PROVIDERS: Visit Provider Internal Medicine Medical Oncology
DX: D75.1 Secondary polycythemia (principal)
CPT/HCPCS: 36415; 80053; 85014; 85018; 85025; 99195

== ENCOUNTER 2022-03-11 08:29 | Outpatient (REF) | payer OTHER, SELFPAY ==
[2022-03-11 08:41] LABS: MANUAL DIFF FLAG NO
[2022-03-11 09:09] LABS: Basophils Absolute Auto 0.1 X10*3/uL (0.0-0.2); Basophils Percent Auto 0.9 % (0-2); Eosinophils Absolute Auto 0.1 X10*3/uL (0.0-0.4); Eosinophils Percent Auto 1.6 % (0-4); Hematocrit 38.1 % (37.0-47.0); Hemoglobin 11.9 g/dl (12.0-16.0); Imm Gran Abs Auto 0.03 X10*3/uL (0.00-0.03); Imm Gran Pct Auto 0.5 % (0.0-0.4); Lymphocytes Absolute Auto 1.9 X10*3/uL (1.2-4.9); Lymphocytes Percent Auto 33.4 % (20-40); Mean Corpuscular HGB Conc 31.2 g/dl (31.0-35.0); Mean Corpuscular Hemoglobin 22.8 pg (27.0-33.0); Mean Corpuscular Volume 72.8 fL (80.0-98.0); Monocytes Absolute Auto 0.4 X10*3/uL (0.1-1.2); Monocytes Percent Auto 6.5 % (2-11); Neutrophils Absolute Auto 3.3 x10*3/uL (2.0-8.3); Neutrophils Percent Auto 57.1 % (45-73); Platelet Count 305 X10*3/uL (160-400); Red Blood Count 5.23 X10*6/uL (4.20-5.50); Red Cell Distribution Width 18.8 % (11.0-16.0); White Blood Count 5.7 X10*3/uL (4.8-10.8)
[2022-03-11 09:59] LABS: Free T4 (Free Thyroxine) 0.48 ng/dL (0.71-1.85); Thyroid Stimulating Hormone 21.59 uIU/mL (0.32-4.0); Vitamin D 25-OH Total 40.9 ng/mL (>30)
[2022-03-13 05:07] LABS: Triiodothyronine T3 Free 2.7 pg/mL (2.3-4.2)
== END 2022-03-11 08:30 | disposition home or self-care (01) ==
LOC: HO.LAB 08:29
PROVIDERS: PCP Internal Medicine; Visit Provider Internal Medicine Endocrinology, Diabetes & Metabolism
DX: E55.9 Vitamin D deficiency, unspecified (principal); E05.00 Thyrotoxicosis with diffuse goiter without thyrotoxic crisis or storm
CPT/HCPCS: 36415; 82306; 84439; 84443; 84481; 85025; 85027

== ENCOUNTER 2022-04-20 12:09 | Outpatient (REF) | payer OTHER, SELFPAY ==
[2022-04-20 12:21] LABS: MANUAL DIFF FLAG NO
[2022-04-20 12:24] LABS: Basophils Percent Auto 0.6 % (0-2); Eosinophils Absolute Auto 0.1 X10*3/uL (0.0-0.4); Eosinophils Percent Auto 1.1 % (0-4); Hematocrit 38.4 % (37.0-47.0); Hemoglobin 12.2 g/dl (12.0-16.0); Imm Gran Abs Auto 0.02 X10*3/uL (0.00-0.03); Imm Gran Pct Auto 0.3 % (0.0-0.4); Lymphocytes Absolute Auto 2.4 X10*3/uL (1.2-4.9); Lymphocytes Percent Auto 36.6 % (20-40); Mean Corpuscular HGB Conc 31.8 g/dl (31.0-35.0); Mean Corpuscular Hemoglobin 23.4 pg (27.0-33.0); Mean Corpuscular Volume 73.6 fL (80.0-98.0); Mean Platelet Volume 10.9 fL (9.4-12.3); Monocytes Absolute Auto 0.4 X10*3/uL (0.1-1.2); Monocytes Percent Auto 6.1 % (2-11); Neutrophils Absolute Auto 3.6 x10*3/uL (2.0-8.3); Neutrophils Percent Auto 55.3 % (45-73); Platelet Count 259 X10*3/uL (160-400); Red Blood Count 5.22 X10*6/uL (4.20-5.50); Red Cell Distribution Width 19.9 % (11.0-16.0); White Blood Count 6.4 X10*3/uL (4.8-10.8)
[2022-04-20 12:59] LABS: Alanine Aminotransferase 13 U/L (0-31); Albumin Level 4.5 g/dL (3.5-5.0); Alkaline Phosphatase 108 U/L (39-117); Anion Gap 15 (12-20); Aspartate Amino Transferase 18 U/L (5-31); Bilirubin Total 0.5 mg/dL (0.0-1.0); Blood Urea Nitrogen 13 mg/dL (9-16); Calcium 9.5 mg/dL (8.4-10.2); Carbon Dioxide 25 mmol/L (22-29); Chloride 102 mmol/L (96-108); Estimated Glomerular Filt Rate 57; Glucose Random 94 mg/dL (60-115); Potassium 4.6 mmol/L (3.3-5.1); Sodium 137 mmol/L (135-145); Total Protein 7.5 g/dL (6.5-8.0)
[2022-04-20 13:35] LABS: Free T4 (Free Thyroxine) 0.81 ng/dL (0.71-1.85); Thyroid Stimulating Hormone 2.68 uIU/mL (0.32-4.0)
[2022-04-21 18:02] LABS: Triiodothyronine T3 Free 3.5 pg/mL (2.3-4.2)
== END 2022-04-20 12:10 | disposition home or self-care (01) ==
LOC: HO.BBR 12:09
PROVIDERS: Internal Medicine Endocrinology, Diabetes & Metabolism; Visit Provider Internal Medicine Medical Oncology
DX: E05.00 Thyrotoxicosis with diffuse goiter without thyrotoxic crisis or storm (principal); D75.1 Secondary polycythemia
CPT/HCPCS: 36415; 80053; 84439; 84443; 84481; 85014; 85018; 85025; 99195

== ENCOUNTER → 2022-07-02 14:50 | Outpatient (BNVA) | payer OTHER, SELFPAY | PROVIDERS: PCP Internal Medicine; Visit Provider Internal Medicine Endocrinology, Diabetes & Metabolism | DX: E05.00 Thyrotoxicosis with diffuse goiter without thyrotoxic crisis or storm (principal); Z79.899 Other long term (current) drug therapy | CPT/HCPCS: 99212 ==

== ENCOUNTER 2022-07-07 14:41 | Outpatient (REF) | payer OTHER, SELFPAY ==
--- NOTE | ~2022-07-07 | XR_ITS ---
EXAMINATION: XR SACROILIAC JOINTS CLINICAL INFORMATION: M53.3 - Sacrococcygeal disorders, not elsewhere classified COMPARISON: CT pelvis 10/11/2020 TECHNIQUE: 4 views of the sacroiliac joints FINDINGS: No fracture, destructive process, diastases, ankylosis. No erosive changes. 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 The oblique views show no spondylolysis lower lumbar spine. XR/XR sacroiliac joint min 3V IMPRESSION: Unremarkable SI joints.
== END 2022-07-07 14:42 | disposition home or self-care (01) ==
LOC: HO.XRAY 14:41
PROVIDERS: PCP Internal Medicine; Visit Provider Internal Medicine
DX: M53.3 Sacrococcygeal disorders, not elsewhere classified (principal)
CPT/HCPCS: 72202

== ENCOUNTER 2022-08-27 10:35 | Outpatient (REF) | payer OTHER, SELFPAY ==
[2022-08-27 11:26] LABS: MANUAL DIFF FLAG NO
[2022-08-27 11:35] LABS: Basophils Percent Auto 0.6 % (0-2); Eosinophils Absolute Auto 0.1 X10*3/uL (0.0-0.4); Eosinophils Percent Auto 1.1 % (0-4); Hematocrit 38.5 % (37.0-47.0); Hemoglobin 12.4 g/dl (12.0-16.0); Imm Gran Abs Auto 0.02 X10*3/uL (0.00-0.03); Imm Gran Pct Auto 0.3 % (0.0-0.4); Lymphocytes Absolute Auto 2.5 X10*3/uL (1.2-4.9); Lymphocytes Percent Auto 34.9 % (20-40); Mean Corpuscular HGB Conc 32.2 g/dl (31.0-35.0); Mean Corpuscular Hemoglobin 24.8 pg (27.0-33.0); Mean Platelet Volume 10.8 fL (9.4-12.3); Monocytes Absolute Auto 0.6 X10*3/uL (0.1-1.2); Monocytes Percent Auto 7.6 % (2-11); Neutrophils Percent Auto 55.5 % (45-73); Platelet Count 276 X10*3/uL (160-400); Red Cell Distribution Width 15.4 % (11.0-16.0); White Blood Count 7.3 X10*3/uL (4.8-10.8)
[2022-08-27 13:38] LABS: Alanine Aminotransferase 14 U/L (0-31); Alkaline Phosphatase 107 U/L (39-117); Anion Gap 17 (12-20); Aspartate Amino Transferase 17 U/L (5-31); Bilirubin Total 0.4 mg/dL (0.0-1.0); Blood Urea Nitrogen 13 mg/dL (9-16); Calcium 8.8 mg/dL (8.4-10.2); Carbon Dioxide 22 mmol/L (22-29); Chloride 102 mmol/L (96-108); Estimated Glomerular Filt Rate > 60; Glucose Random 77 mg/dL (60-115); Potassium 4.6 mmol/L (3.3-5.1); Sodium 136 mmol/L (135-145); Total Protein 6.9 g/dL (6.5-8.0)
[2022-08-27 14:12] LABS: Free T4 (Free Thyroxine) 1.14 ng/dL (0.71-1.85); Thyroid Stimulating Hormone 0.02 uIU/mL (0.32-4.0)
[2022-08-28 17:44] LABS: Triiodothyronine T3 Free 4.3 pg/mL (2.3-4.2)
== END 2022-08-27 10:36 | disposition home or self-care (01) ==
LOC: HO.BBR 10:35
PROVIDERS: Absent Provider Surgery; PCP Internal Medicine; Visit Provider Internal Medicine Medical Oncology
DX: D75.1 Secondary polycythemia (principal); E05.00 Thyrotoxicosis with diffuse goiter without thyrotoxic crisis or storm
CPT/HCPCS: 36415; 80053; 84439; 84443; 84481; 85025

== ENCOUNTER 2022-10-11 10:38 | Emergency (ER) | payer OTHER, SELFPAY ==
[2022-10-11 10:54] VITALS: BP 139/94; PULSE 93; RESP 18; TEMP 36.6; O2SAT 97; BMI 36.0
--- NOTE | 2022-10-11 11:13 | ED_ITS ---
HPI - Skin/Abscess/Foreign Bdy General Chief complaint: Skin/Abscess/Foreign Body Stated complaint: L breast issues Time Seen by Provider: 10/11/22 11:10 Source: patient Mode of arrival: ambulatory History of Present Illness HPI narrative: 52-year-old female the past medical history arthritis, obesity, Graves disease, presenting to the ED complaining of abscess to right lower breast x 4 days. Reports woke up this morning area was open/draining. Reports history of abscesses in the past to other areas. Denies fever, chills complaint: abscess/boil Onset (ago): day(s) Related Data Previous Rx's Medication Instructions Recorded omeprazole 40 mg capsule,delayed 40 mg PO DAILY 90 days #90 caps 12/30/21 release metoprolol succinate 25 mg 25 mg PO DAILY 90 days #90 tabs 02/21/22 tablet,extended release 24 hr walker #1 ea 03/10/22 methimazole 10 mg tablet 10 mg PO DAILY 30 days #30 tabs 03/11/22 bupropion HCl 150 mg 24 hr tablet, 150 mg PO QAM 90 days #90 tabs 03/18/22 extended release gabapentin 100 mg capsule 100 mg PO TID 30 days #90 caps 05/06/22 cholecalciferol (vitamin D3) 25 25 mcg PO DAILY 30 days #30 tabs 05/26/22 mcg (1,000 unit) tablet naproxen 250 mg tablet 250 mg PO BID PRN pain 30 days #60 07/07/22 tabs albuterol sulfate 90 mcg/actuation 2 puff inhalation Q6H PRN 10/02/22 aerosol inhaler shortness of breath or wheezing 30 days #6.7 grams doxycycline hyclate 100 mg tablet 100 mg PO BID 7 days #14 tabs 10/11/22 Allergies Allergy/AdvReac Type Severity Reaction Status Date / Time egg [Egg] Allergy Severe ANAPHYLAXIS Verified 10/11/22 10:58 influenza virus vaccine, Allergy Severe CANNOT Verified 10/11/22 10:58 specific OBTAIN DUE [FLU VACCINE] TO EGG ALLERGY nicotine [From NICODERM CQ] Allergy Intermediate RASH Verified 10/11/22 10:58 varenicline [From CHANTIX] Allergy Intermediate DEPRESSION Verified 10/11/22 10:58 AND ANXIETY INCREASE barium sulfate AdvReac Intermediate saul Verified 10/11/22 10:58 Review of Systems Review of Systems: Constitutional: No Fever, No Chills ENT/Mouth: No Ear Pain, No Nasal Congestion, No sore throat, No Rhinorrhea, No Swallowing Difficulty Cardiovascular: No Chest Pain, No SOB Respiratory: No Cough, No Sputum, No Wheezing Gastrointestinal: No Nausea, No Vomiting, No Diarrhea, No Constipation, No Abdominal pain Genitourinary: No Dysuria, No Urinary Frequency, No Hematuria Musculoskeletal: No joint pain, No Myalgias, No Joint Swelling Skin: +Skin Lesions, No rash Neuro: No Weakness, No Numbness, No Paresthesias Yes all other systems are reviewed and are negative Constitutional: Constitutional: Reports as per [facility] Past Medical History Attestation statement: The following information was validated with the patient. Medical History Arthritis Blurry vision Constipation by delayed colonic transit COVID-19 Elevated hemoglobin Graves disease Left breast lump Mild recurrent major depression Obesity (BMI 30-39.9) Right elbow pain Sacral pain Smoker Vitamin D deficiency Surgical History History of appendectomy History of section History of dental surgery History of hysteroscopy History of right oophorectomy History of tonsillectomy and adenoidectomy History of tubal ligation Family History Family History Father Bone cancer Lung cancer Mother CVD (cardiovascular disease) Emphysema of lung Hypertension Asthma Sister Breast cancer Maternal Aunt Uterine cancer Maternal Aunt Skin cancer Social History Social History Household Members: None Housing: Apartment Are you a primary post acute care nurse practitioner to a significant other at home: No Do you presently have visiting nurse or other home services: No Alcohol intake: never Patient Tobacco Use Status: Current everyday Tobacco user Tobacco use type: Cigarette Cigarette Packs Per Day: 1 e-Cigarette/Vaping Use: Never Used Second Hand Smoke Exposure: No Advance Directives: No Advance Directives Information Provided: Yes service: No Current occupational status: disabled Cognitive needs: No Hearing needs: No Vision needs: Yes Physical Exam Vital Signs: Vital Signs: Last Vital Signs Temp 97.8 F 10/11/22 10:54 Pulse 93 10/11/22 10:54 Resp 18 10/11/22 10:54 BP 139/94 H 10/11/22 10:54 Pulse Ox 97 10/11/22 10:54 O2 Del Method Room Air 10/11/22 10:54 BMI result Body Mass Index 36.0 Const: General: cooperative, healthy appearing and no acute distress Orientation/consciousness: patient oriented x3 Limitations: no limitations HEENT: Head: Yes normal to inspection and Yes atraumatic Ears: hearing grossly normal bilaterally General nose exam: Normal external nose present Face and sinus: Yes normal facial exam Eyes: General: appearance normal, both eyes and all related structures EOM: EOMs intact bilaterally Neck: Neck: Yes normal visual inspection and Yes no meningeal signs Chest: Other: + open draining abscess to inferior aspect of right breast @6 o'clock position, no fluctuance/induration. Mild surrounding erythema and tenderness Breast/axilla inspection: abnormal inspection of the breast Resp: Effort & Inspection: normal respiratory effort and no respiratory distress Cardio: Rate: regular rate Skin: Rashes: no rashes Neuro: General: patient oriented x3, tone normal and no meningeal signs Gait exam (Neuro): Normal gait present Extrem: General: Yes normal to inspection Medical Decision Making Medical Decision Making MDM Narrative: 52-year-old female the past medical history arthritis, obesity, Graves disease, presenting to the ED complaining of abscess to right lower breast x 4 days. On exam vital signs stable, NAD, nontoxic appearing physical exam as above with open and draining abscess to right lower breast. No lymphadenopathy. No fluctuance or induration. Low suspicion for malignancy or deeper infection at this time Will give p.o. antibiotics recommended close surgery follow-up Please refer to course for remaining clinical decision making, interpretation of labs/imaging results, and discussions with consultants and/or family members. Differential Diagnosis Differential Diagnoses: The differential diagnosis associated with the presentation includes As above Admission/Observation Consideration of admission/observation: Escalation of care including admission/observation considered Lab Data [facility] Lab Attestation statement: I reviewed the patient's lab results. Radiology Impression Discussion of test interpretation with radiology: I have reviewed the radiologist's reading. External Record Review External record reviewed: Inpatient record, Office record, Outpatient record, Prior outpatient labs, Prior outpatient radiology, Primary care record and Outside ED record Discharge Plan Discharge Clinical Impression: Breast abscess Patient Disposition: Home, Self-Care Instructions: Abscess (ED) Additional Instructions: Apply warm compresses to area. Doxycycline is antibiotic please take as prescribed. If redness is spreading, area gross/continues to drain return to the ED. Please follow-up with her doctor and General surgery Prescriptions: New doxycycline hyclate 100 mg tablet 100 mg PO BID 7 Days Qty: 14 0RF No Action omeprazole 40 mg capsule,delayed release(DR/EC) 40 mg PO DAILY 90 Days Qty: 90 3RF metoprolol succinate 25 mg tablet extended release 24 hr 25 mg PO DAILY 90 Days Qty: 90 1RF ([place]) [place] [facility] [place] .Route Qty: 1 0RF Rx Instructions: As directed methimazole 10 mg tablet 10 mg PO DAILY 30 Days Qty: 30 5RF bupropion HCl 150 mg tablet extended release 24 hr 150 mg PO QAM 90 Days Qty: 90 0RF gabapentin 100 mg capsule 100 mg PO TID 30 Days Qty: 90 3RF cholecalciferol (vitamin D3) 25 mcg (1,000 unit) tablet 25 mcg PO DAILY 30 Days Qty: 30 6RF albuterol sulfate 90 mcg/actuation HFA aerosol inhaler 2 puff inhalation Q6H PRN (Reason: shortness of breath or wheezing) 30 Days Qty: 6.7 1RF naproxen 250 mg tablet 250 mg PO BID PRN (Reason: pain) 30 Days Qty: 60 3RF Referrals: [facility] General Surgeons [Provider Group] - 5 days Marline Victoria MD [Primary Care Provider] - 2 days
--- OUTSIDE RECORDS SUMMARY | 2022-10-11 11:25 | XMS_ITS | Continuity of Care Document ---
Author Name Unknown Organization [facility] Address [address] [place] [address]- Care Team Providers Care Environmental Economist Name Role Phone Edgar Mix MD, Mesha Primary Care Physician Encounter [facility] [place] Date(s): 08/24/22 - 09/23/22 [facility] [address] [place], [place] [address] Attending Physician: AdmtrJessica Admitting Physician: AdmtrJessica Referring Physician: Admtr, Ar8 Allergies, Adverse Reactions, Alerts Substance Reaction Severity Status Chantix Active Egg Allergy Active Medications albuterol CFC free 90 mcg/inh inhalation aerosol 2, puffs, Inhalation, Every 6 hours, Refills 0, Maintenance, 05/07/22 13:29:00 EST Start Date: 05/07/22 Status: Ordered buPROPion 150 mg/12 hours (SR) oral tablet, extended release 1 tablet = 150 mg, By Mouth, 2 times a day, 0 Refills, Maintenance, 05/07/22 13:29:00 EST, Partial fill upon patient request if the prescription is for a schedule II opioid drug. Start Date: 05/07/22 Status: Ordered gabapentin 100 mg oral capsule 100 mg, 1, capsule, By Mouth, 3 times a day, Refills 0, Maintenance, 05/07/22 13:30:00 EST, Partialfill upon patient request if the prescription is for a schedule II opioid drug. Start Date: 05/07/22 Status: Ordered lactulose 10 g/15 mL oral and rectal liquid 15 mL = 10 Gm, By Mouth, 3 times a day, 0 Refills, Maintenance, 05/07/22 13:30:00 EST, Partial fillupon patient request if the prescription is for a schedule II opioid drug. Start Date: 05/07/22 Status: Ordered methimazole 10 mg oral tablet 10 mg, 1, tablet, By Mouth, Every 8 hours, Refills 0, Maintenance, 05/07/22 13:30:00 EST, Partial fill upon patient request if the prescription is for a schedule II opioid drug. Start Date: 05/07/22 Status: Ordered methimazole 10 mg oral tablet 10 mg, 1, tablet, By Mouth, Every 8 hours, Refills 0, Maintenance, 05/07/22 13:31:00 EST, Partial fill upon patient request if the prescription is for a schedule II opioid drug. Start Date: 05/07/22 Status: Ordered MiraLax = 17 Gm, By Mouth, Daily, 0 Refills, Maintenance, 05/07/22 13:31:00 EST, Partial fill upon patient request if the prescription is for a schedule II opioid drug. Start Date: 05/07/22 Status: Ordered naproxen 250 mg oral tablet 250 mg, 1, tablet, By Mouth, 2 times a day, Refills 0, Maintenance, 05/07/22 13:31:00 EST, Partial fill upon patient request if the prescription is for a schedule II opioid drug. Start Date: 05/07/22 Status: Ordered omeprazole 40 mg oral enteric coated capsule 1 capsule = 40 mg, By Mouth, Daily, 0 Refills, Maintenance, 05/07/22 13:31:00 EST, Partial fill upon patient request if the prescription is for a schedule II opioid drug. Start Date: 05/07/22 Status: Ordered Percocet-5 Tablet See Instructions, Scheduled / PRN, 12, tablet, 0, 0, 05/14/08 1:23:34, as needed for pain, 1-2 tabsBy Mouth Every 6 hours, Print JERILYN Number, ADS OPPTHS Start Date: 05/14/08 Status: Ordered Vitamin D3 1000 intl units oral capsule 1 capsule = 25 mcg, By Mouth, Daily, 0 Refills, Maintenance, 05/07/22 13:30:00 EST, Partial fill upon patient request if the prescription is for a schedule II opioid drug. Start Date: 05/07/22 Status: Ordered Problem List Condition Confirmation Course Effective Dates Status H ealth Status Informant Chronic sciatica Confirmed Active Acid reflux disease Confirmed Active Goiter Confirmed Active Graves' disease Confirmed Active Hyperthyroidism Confirmed Active Obese class II Confirmed Active Social History Social History Type Response Tobacco Other: 1 pack a day over 30 years. Sex Patient Care team information Care Team Personnel Name: Marline Victoria MD Position: Reference Physician Member Role: PCP Address: Address: [address] [place] [address]- Care Team Related Persons Name: ROSANNA GREENE Name: VARINDER SON Address: home [address] [place] [address]
--- OUTSIDE RECORDS SUMMARY | 2022-10-11 11:25 | XMS_ITS | Continuity of Care Document ---
Author Name Unknown Organization [facility] Address [address] [place] [address] [address] [place] [address]- Care Team Providers Care Bureau Director Name Role Phone Edgar Mix MD, Marline Marion Primary Care Physician [phone] [place] [facility] [place]/27/[place] - 09/26/[address] [place] [address]- Allergies, Adverse Reactions, Alerts Substance Reaction Severity [...] Care team information Care Team Personnel Name: Edgar Mix MD , Marline Marion Position: Reference Physician Member Role: PCP Address: Address: [address] [place] [address]- Care Team Related Persons Name: ROSANNA GREENE Name: VARINDER SON Address: home [address] [place] [id number]
--- OUTSIDE RECORDS SUMMARY | 2022-10-11 11:25 | XMS_ITS | Continuity of Care Document ---
Author Name Unknown Organization [facility] ter Address [address] [place] [address]- Care Team Providers Care Customer Service Cashier Name Role Phone Edgar Mix MD, Mesha Primary Care Physician Encounter [facility] [place] [place] Date(s): 07/08/22 - 10/07/[address] [address] Attending Physician: Isaias Fuentes MD Admitting Physician: Isaias Fuentes MD Allergies, Adverse Reactions, Alerts Substance Reaction Severity [...] pack a day over 30 years. Sex Note * Event Display: Adult Preadmission Health Questionnaire Authored Date: Patient Care team information Care Team Personnel Name: Edgar Mix MD , Marline Marion Position: Reference Physician Member Role: PCP Address: Address: [address] [place] [address]- Care Team Related Persons Name: ROSANNA GREENE Name: VARINDER SON Address: home [address] [place] [address]
== END 2022-10-11 11:41 | disposition home or self-care (01) ==
PROVIDERS: Emergency Provider Emergency Medicine; PCP Internal Medicine
DX: N61.1 Abscess of the breast and nipple (principal); E05.00 Thyrotoxicosis with diffuse goiter without thyrotoxic crisis or storm; F17.210 Nicotine dependence, cigarettes, uncomplicated; Z71.6 Tobacco abuse counseling; Z79.899 Other long term (current) drug therapy
CPT/HCPCS: 99282

== ENCOUNTER 2022-10-13 10:00 | Outpatient (RCR) | payer OTHER, SELFPAY ==
--- NOTE | 2022-09-18 16:06 | MHC.PT.EP ---
[facility] [place] Office [place] Office [place] Office [address] Robert Tate [address] [phone] F: [phone] F: [phone] F: [phone] F: [phone] Physical Therapy Plan of Care Date of Evaluation: Date of Surgery: NA Diagnosis: SACROCOCCYGEAL DISORDERS Assessment: Pt IS 52 YO F REFERRED TO PT FROM DR BRUNA BETANCOURT WITH SACROCOCCYGEAL DISORDERS. Pt REPORTS WAS SUPPOSED TO HAVE THYROID SURGERY THIS MONTH BUT RESCHEDULED REPORTS PAIN L LB INTO L GLUT AND LE. REPORTS YEARS OF PAIN. HAS HAD PT IN PAST WITHOUT RELIEF. WENT TO [facility] BUT WANTED TO HAVE MRI BEFORE CORTISONE INJECTION SO STOPPED PRESENTS WITH LBP, L LE PARESTHESIA, POOR OVERALL FLEXIBILITY AND STRENGTH. HAS HAD PT IN PAST WITH LIMITED RESULTS, SO MAY NOT RESPOND WELL. OF NOTE, Pt REPORTS ANXIETY AND PREFERS TO BE IN A QUIET AREA FOR TREATMENT Frequency and Duration: The patient will be seen 2X/WK X 4 WKS Short Term Goals: 1. INCREASED AWARENESS BACK CARE AND POSTURE 2. Pt TO PERF 2-3 TASKS WITH [facility] [place] [facility] Goals: 1. I HEP WITH DC EX PLAN 2. IMPROVED MOD OSWESTRY 3. DECREASED LB/SI/COCCYX PAIN AT LEAST 50% WITH ADLS Treatment Plan: Modalities to reduce pain, spasms and effusion. Manual therapy to restore motion and function. Therapeutic exercise to improve strength and flexibility. Neuromuscular re-education for posture and balance. Therapeutic activities to return to functional activities of daily living. Electronically signed by: MULUGETA RAMIREZ PT Please sign and return to therapist. Thank you for your referral.
--- NOTE | 2023-01-01 13:29 | MHC.PT.DC ---
[facility] [place] [facility] [place] Office [place] [facility] [address] Robert Tate [address] [phone] F: [phone] F: [phone] F: [phone] F: [phone] Physical Therapy Discharge Report Diagnosis: SACROCOCCYGEAL DISORDERS Date of Surgery: NA Date of Evaluation: 09/18/22 Date of Discharge: 01/01/23 Treatments to Date: 3 Cancellations to Date: No Shows to Date: Discharge Status: Patient Elected to Stop Recommend MD Follow-up Discharge Summary: Pt SEEN FOR INIT EVAL AND 2 VISITS. PER ASSESSMENT AT LAST VISIT. LIMITED TOD TO EXS/STRETCHES. CHALLENGED WITH PLB . Pt THEN NO SHOWED X 2 THEN CANCELLED LAST APPT WITHOUT FURTHER SCHEDULING Electronically signed by: MULUGETA RAMIREZ PT Please sign and return to therapist. Thank you for your referral.
== END 2023-01-01 10:35 | disposition home or self-care (01) ==
LOC: HO.PT 10:00
PROVIDERS: PCP Internal Medicine; Visit Provider Internal Medicine
DX: M53.3 Sacrococcygeal disorders, not elsewhere classified (principal)
CPT/HCPCS: 97110; 97162; 97535

== ENCOUNTER 2022-10-27 09:42 | Outpatient (REF) | payer OTHER, SELFPAY ==
[2022-10-27 10:01] LABS: MANUAL DIFF FLAG NO
[2022-10-27 10:47] LABS: Basophils Absolute Auto 0.1 X10*3/uL (0.0-0.2); Basophils Percent Auto 0.7 % (0-2); Eosinophils Absolute Auto 0.1 X10*3/uL (0.0-0.4); Eosinophils Percent Auto 1.2 % (0-4); Hematocrit 40.7 % (37.0-47.0); Imm Gran Abs Auto 0.02 X10*3/uL (0.00-0.03); Imm Gran Pct Auto 0.3 % (0.0-0.4); Lymphocytes Absolute Auto 2.4 X10*3/uL (1.2-4.9); Mean Corpuscular HGB Conc 31.9 g/dl (31.0-35.0); Mean Corpuscular Hemoglobin 24.8 pg (27.0-33.0); Mean Corpuscular Volume 77.7 fL (80.0-98.0); Mean Platelet Volume 11.4 fL (9.4-12.3); Monocytes Absolute Auto 0.5 X10*3/uL (0.1-1.2); Monocytes Percent Auto 6.7 % (2-11); Neutrophils Absolute Auto 3.9 x10*3/uL (2.0-8.3); Neutrophils Percent Auto 56.1 % (45-73); Platelet Count 269 X10*3/uL (160-400); Red Blood Count 5.24 X10*6/uL (4.20-5.50); Red Cell Distribution Width 16.4 % (11.0-16.0); White Blood Count 6.9 X10*3/uL (4.8-10.8)
[2022-10-27 11:16] LABS: Alanine Aminotransferase 15 U/L (0-31); Albumin Level 4.1 g/dL (3.5-5.0); Alkaline Phosphatase 102 U/L (39-117); Aspartate Amino Transferase 16 U/L (5-31); Bilirubin Direct 0.1 mg/dL (0.0-0.5); Bilirubin Total 0.4 mg/dL (0.0-1.0); Total Protein 6.8 g/dL (6.5-8.0)
== END 2022-10-27 09:43 | disposition home or self-care (01) ==
LOC: HO.LAB 09:42
PROVIDERS: Visit Provider Internal Medicine Endocrinology, Diabetes & Metabolism
DX: E05.00 Thyrotoxicosis with diffuse goiter without thyrotoxic crisis or storm (principal)
CPT/HCPCS: 36415; 80076; 85025

== ENCOUNTER 2022-10-27 10:39 | Outpatient (REF) | payer OTHER, SELFPAY | END 2022-10-27 10:40 | disposition home or self-care (01) | LOC: HO.BBR 10:39 | PROVIDERS: Visit Provider Internal Medicine Medical Oncology | DX: D75.1 Secondary polycythemia (principal) | CPT/HCPCS: 99195 ==

== ENCOUNTER 2022-11-25 16:23 | Outpatient (REF) | payer OTHER, SELFPAY ==
[2022-11-25 17:05] LABS: MANUAL DIFF FLAG NO
[2022-11-25 18:46] LABS: Basophils Absolute Auto 0.1 X10*3/uL (0.0-0.2); Basophils Percent Auto 0.7 % (0-2); Eosinophils Absolute Auto 0.1 X10*3/uL (0.0-0.4); Eosinophils Percent Auto 1.5 % (0-4); Hematocrit 35.7 % (37.0-47.0); Hemoglobin 11.5 g/dl (12.0-16.0); Imm Gran Abs Auto 0.03 X10*3/uL (0.00-0.03); Imm Gran Pct Auto 0.4 % (0.0-0.4); Lymphocytes Absolute Auto 2.6 X10*3/uL (1.2-4.9); Mean Corpuscular HGB Conc 32.2 g/dl (31.0-35.0); Mean Corpuscular Volume 77.6 fL (80.0-98.0); Mean Platelet Volume 11.7 fL (9.4-12.3); Monocytes Absolute Auto 0.5 X10*3/uL (0.1-1.2); Monocytes Percent Auto 6.6 % (2-11); Neutrophils Absolute Auto 4.3 x10*3/uL (2.0-8.3); Neutrophils Percent Auto 56.8 % (45-73); Platelet Count 326 X10*3/uL (160-400); Red Cell Distribution Width 15.6 % (11.0-16.0); White Blood Count 7.5 X10*3/uL (4.8-10.8)
[2022-11-25 19:08] LABS: Alanine Aminotransferase 18 U/L (0-31); Alkaline Phosphatase 98 U/L (39-117); Aspartate Amino Transferase 17 U/L (5-31); Bilirubin Direct 0.1 mg/dL (0.0-0.5); Bilirubin Total 0.4 mg/dL (0.0-1.0); Total Protein 6.9 g/dL (6.5-8.0)
[2022-11-25 19:22] LABS: Free T4 (Free Thyroxine) 1.15 ng/dL (0.71-1.85); Thyroid Stimulating Hormone 0.02 uIU/mL (0.32-4.0)
[2022-11-28 07:48] LABS: Triiodothyronine T3 Free 4.3 pg/mL (2.3-4.2)
== END 2022-11-25 16:24 | disposition home or self-care (01) ==
LOC: HO.LAB 16:23
PROVIDERS: PCP Internal Medicine; Visit Provider Internal Medicine Endocrinology, Diabetes & Metabolism
DX: E05.00 Thyrotoxicosis with diffuse goiter without thyrotoxic crisis or storm (principal)
CPT/HCPCS: 36415; 80076; 84439; 84443; 84481; 85025; 99212

== ENCOUNTER → 2022-12-04 10:43 | Outpatient (BNVA) | payer OTHER, SELFPAY | PROVIDERS: PCP Internal Medicine; Visit Provider Nurse Practitioner | DX: Z01.818 Encounter for other preprocedural examination (principal); K59.00 Constipation, unspecified; J44.9 Chronic obstructive pulmonary disease, unspecified; R06.09 Other forms of dyspnea; E66.01 Morbid (severe) obesity due to excess calories; Z68.37 Body mass index [BMI] 37.0-37.9, adult; Z86.79 Personal history of other diseases of the circulatory system | CPT/HCPCS: 99202 ==

== ENCOUNTER 2022-12-30 08:51 | Outpatient (REF) | payer OTHER, SELFPAY ==
[2023-01-01 02:08] LABS: Triiodothyronine T3 Free 4.6 pg/mL (2.3-4.2)
== END 2022-12-30 08:52 | disposition home or self-care (01) ==
LOC: HO.LAB 08:51
PROVIDERS: Absent Provider Internal Medicine Medical Oncology; PCP Internal Medicine; Visit Provider Internal Medicine Endocrinology, Diabetes & Metabolism
DX: E05.00 Thyrotoxicosis with diffuse goiter without thyrotoxic crisis or storm (principal); D75.1 Secondary polycythemia
CPT/HCPCS: 36415; 80053; 80076; 82248; 84439; 84443; 84481; 85025

== ENCOUNTER 2023-01-11 11:51 | Outpatient (AMB) | payer OTHER, SELFPAY ==
--- NOTE | 2023-01-11 12:24 | MHC.PC.OV ---
Vital Signs 01/11/23 12:27 01/11/23 12:53 Height 5 ft 4 in Weight 220 lb BMI 37.8 BP 160/82 H 150/80 H Blood Pressure Location Lt brachial Lt brachial Position Sitting Sitting Intake Visit Reasons: PE Intake Note: Patient here for a physical exam Steward/Stewardess Deck Required: No Accompanied by: Family/Other Allergies egg [Egg] Allergy (Severe, Verified 01/11/23 12:35) ANAPHYLAXIS influenza virus vaccine, specific [FLU VACCINE] Allergy (Severe, Verified 01/11/23 12:35) CANNOT OBTAIN DUE TO EGG ALLERGY nicotine [From NICODERM CQ] Allergy (Intermediate, Verified 01/11/23 12:35) RASH varenicline [From CHANTIX] Allergy (Intermediate, Verified 01/11/23 12:35) DEPRESSION AND ANXIETY INCREASE barium sulfate Adverse Reaction (Intermediate, Verified 01/11/23 12:35) saul Medication List - Last Reconciled 01/11/23 by Marline Mix MD albuterol sulfate 90 mcg/actuation 2 puffs inhalation Q6H PRN 30 days bupropion HCl 150 mg PO QAM 90 days cholecalciferol (vitamin D3) 25 mcg PO DAILY 30 days gabapentin 100 mg PO TID 30 days methimazole 20 mg (2 x 10 mg) PO DAILY 30 days metoprolol succinate ER 25 mg PO DAILY 90 days naproxen 250 mg PO BID PRN 30 days omeprazole 40 mg PO DAILY 90 days psyllium husk (Daily Fiber) 0.4 grams PO BID sod sulf-pot chloride-mag sulf 1.479-0.188- 0.225 gram (Sutab) package directions orally per package directions; PO PER PKG DIR, please disregard Go Ananth layton As directed Tobacco use date assessed: 07/07/22 Dental Screening Dental Screen Date: 01/11/23 Did you have a dental visit in the last 12 months?: No Did you have a dental problem in the last 6 months where you did not have access to dental care?: No Was dental information given to patient?: Patient declined HPI HPI Comments History of Present Illness Details This is 52-year-old female with asthma with COPD and mild recurrent major depression that comes accompanied by male partner for her physical exam. She use rescue inhaler almost every day and I will add Flovent. Depression stable with bupropion. Wants to quit smoking and I will at the patch. Last mammogram was 2021 and she has another mammogram scheduled. Will see OBGYN for Pap smear soon. Was sent for colonoscopy and is pending for a date. No chest pain. She is obese with a BMI of 37.8 and was advised to diet and exercise to reach BMI goal less than 30. Still has low back pain and will benefit from a walker. Walker was fax February 2022 and has not received response yet. [facility] Medical History (Updated 01/11/23 @ 12:54 by Marline Mix MD) Arthritis Blurry vision Constipation by delayed colonic transit COVID-19 Elevated hemoglobin Graves disease Left breast lump Mild recurrent major depression Obesity (BMI 30-39.9) Right elbow pain Sacral pain Smoker Supraventricular tachycardia Vitamin D deficiency Surgical History History of appendectomy History of section History of dental surgery History of hysteroscopy History of right oophorectomy History of tonsillectomy and adenoidectomy History of tubal ligation Family History Father Bone cancer Lung cancer Mother CVD (cardiovascular disease) Emphysema of lung Hypertension Asthma Sister Breast cancer Maternal Aunt Uterine cancer Maternal Aunt Skin cancer Social History Household Members: None Housing: Apartment Are you a primary rental boats caretaker to a significant other at home: No Do you presently have visiting nurse or other home services: No Alcohol intake: never Patient Tobacco Use Status: Current everyday Tobacco user Tobacco use type: Cigarette Cigarette Packs Per Day: 1 e-Cigarette/Vaping Use: Never Used Second Hand Smoke Exposure: No service: No Current occupational status: disabled Cognitive needs: No Hearing needs: No Vision needs: Yes Questionnaire Thrive Questionnaire Date Thrive assessed: 07/07/22 REYES-7 AMB Questionnaire REYES-7 Date REYES - 7 assessed: 07/07/22 Source: Developed by Drs. Ahsan Mcleod, Regina Chauhan, Driss Gordillo and colleagues, with an educational justino from [employer]. Review of Systems Const All systems reviewed & are unremarkable except as noted in HPI and below Eyes Reports no additional complaints, Denies change in vision and Denies other visual disturbances Card Denies chest pain at rest, Denies chest pain with activity, Denies edema, Denies irregular heart rhythm, Denies claudication, Denies dyspnea, Denies dyspnea on exertion, Denies orthopnea, Denies paroxysmal nocturnal dyspnea and Denies slow heart rate Resp Denies cough, Denies dyspnea and Denies dyspnea on exertion GI Denies abdominal pain, Denies change in bowel habits, Denies excessive flatus, Denies nausea and Denies vomiting Denies urinary incontinence, Denies urinary hesitancy and Denies urinary urgency Musc Denies abnormal gait, Denies atrophy, Denies deformity and Denies limited range of motion Skin/Breast Denies bleeding lesions, Denies changing lesions and Denies rash Neuro Denies abnormal gait and Denies lack of coordination Physical exam (Primary Care) Vital Signs: Last Vital Signs BP 160/82 H 01/11/23 12:27 BMI result Body Mass Index 37.8 Tobacco/Smoking Status: Tobacco use Status Tobacco use date assessed 07/07/22 01/11/23 12:32 Patient Tobacco Use Status Current everyday Tobacco 01/11/23 12:32 Tobacco use type Cigarette 01/11/23 12:32 e-Cigarette/Vaping Use Never Used 01/11/23 12:32 Thrive Assessment: Date of Thrive Assessment Date Thrive assessed 07/07/22 01/11/23 12:32 Const Orientation/consciousness: patient oriented x3 HENMT Head: Yes normal to inspection, Yes normocephalic and Yes atraumatic Ears: external ears normal Mouth: other (absence of teeth) Eyes General: appearance normal, both eyes and all related structures Eyelids: Yes eyelids normal Conjunctivae: conjunctivae normal Neck Neck: Yes normal visual inspection and Yes supple Resp Effort & Inspection: normal respiratory effort Auscultation: clear to auscultation bilaterally Cardio Jugular venous distension: no JVD Rate: regular rate Rhythm: regular rhythm Heart sounds: S1 normal heart sound present and S2 normal heart sound present GI Inspection: Yes normal to inspection Palpation (GI): Soft to palpation and nontender Auscultation: normal bowel sounds Skin General skin exam: no rashes or lesions noted Neuro General: patient oriented x3 and no focal motor deficits Extrem General: Yes full ROM Psych Appearance: grossly normal Assessment and Plan Assessment & Plan (1) Physical exam: Code(s): Z00.00 - Encounter for general adult medical examination without abnormal findings Plan: Repeat in a year (2) Mild recurrent major depression: Code(s): F33.0 - Major depressive disorder, recurrent, mild Plan: Continue bupropion (3) Asthma with COPD: Comment: Seen by Dr. Tran in the past Code(s): J44.9 - Chronic obstructive pulmonary disease, unspecified Plan: Start Flovent. Use rescue inhaler as needed. Orders: Orders Lipid Panel Today E78.5 - Hyperlipidemia, unspecified Vitamin D 25-OH Total Today E55.9 - Vitamin D deficiency, unspecified Medications: New fluticasone propionate 44 mcg/actuation (Flovent HFA) administer with spacer 1 puff inhalation BID 30 days 10.6 grams 1RF J44.9 - Chronic obstructive pulmonary disease, unspecified nicotine 1 patch transdermal DAILY 28 days 28 ea 0RF Refilled walker As directed 1 ea 0RF M53.3 - Sacrococcygeal disorders, not elsewhere classified Coding Level of Care Code Est Pt Prev Care 40-64y([address]) Diagnoses Physical exam Z00.00 Mild recurrent major depression F33.0 Asthma with COPD J44.9 Time Spent (min) 32
[2023-01-11 12:27] VITALS: BP 160/82; BMI 37.8
[2023-01-11 12:53] VITALS: BP 150/80
== END 2023-01-11 12:50 | disposition home or self-care (01) ==
PROVIDERS: PCP Internal Medicine; Visit Provider Internal Medicine
DX: Z00.00 Encounter for general adult medical examination without abnormal findings (principal); F33.0 Major depressive disorder, recurrent, mild; J44.9 Chronic obstructive pulmonary disease, unspecified
CPT/HCPCS: 99396

== ENCOUNTER 2023-01-18 11:53 | Outpatient (REF) | payer OTHER, SELFPAY ==
[2023-01-18 12:12] LABS: MANUAL DIFF FLAG NO
[2023-01-18 12:14] LABS: Basophils Percent Auto 0.6 % (0-2); Eosinophils Absolute Auto 0.1 X10*3/uL (0.0-0.4); Eosinophils Percent Auto 1.8 % (0-4); Hematocrit 36.4 % (37.0-47.0); Hemoglobin 11.4 g/dl (12.0-16.0); Imm Gran Abs Auto 0.02 X10*3/uL (0.00-0.03); Imm Gran Pct Auto 0.3 % (0.0-0.4); Lymphocytes Absolute Auto 2.4 X10*3/uL (1.2-4.9); Lymphocytes Percent Auto 36.7 % (20-40); Mean Corpuscular HGB Conc 31.3 g/dl (31.0-35.0); Mean Corpuscular Volume 76.6 fL (80.0-98.0); Mean Platelet Volume 10.2 fL (9.4-12.3); Monocytes Absolute Auto 0.5 X10*3/uL (0.1-1.2); Monocytes Percent Auto 7.2 % (2-11); Neutrophils Absolute Auto 3.6 x10*3/uL (2.0-8.3); Neutrophils Percent Auto 53.4 % (45-73); Platelet Count 269 X10*3/uL (160-400); Red Blood Count 4.75 X10*6/uL (4.20-5.50); Red Cell Distribution Width 15.5 % (11.0-16.0); White Blood Count 6.7 X10*3/uL (4.8-10.8)
[2023-01-18 14:23] LABS: Alanine Aminotransferase 16 U/L (0-31); Albumin Level 3.8 g/dL (3.5-5.0); Alkaline Phosphatase 85 U/L (39-117); Anion Gap 12 (12-20); Aspartate Amino Transferase 13 U/L (5-31); Bilirubin Total 0.3 mg/dL (0.0-1.0); Blood Urea Nitrogen 7 mg/dL (9-16); Calcium 9.2 mg/dL (8.4-10.2); Carbon Dioxide 27 mmol/L (22-29); Chloride 104 mmol/L (96-108); Estimated Glomerular Filt Rate > 60; Glucose Random 95 mg/dL (60-115); Potassium 3.8 mmol/L (3.3-5.1); Sodium 139 mmol/L (135-145); Total Protein 6.7 g/dL (6.5-8.0)
== END 2023-01-18 11:54 | disposition home or self-care (01) ==
LOC: HO.BBR 11:53
PROVIDERS: PCP Internal Medicine; Visit Provider Internal Medicine Medical Oncology
DX: D75.1 Secondary polycythemia (principal)
CPT/HCPCS: 36415; 80053; 85018; 85025; 99195

== ENCOUNTER 2023-02-23 12:31 | Outpatient (REF) | payer OTHER, SELFPAY ==
[2023-02-23 13:08] LABS: MANUAL DIFF FLAG NO
[2023-02-23 13:11] LABS: Basophils Absolute Auto 0.1 X10*3/uL (0.0-0.2); Basophils Percent Auto 0.8 % (0-2); Eosinophils Absolute Auto 0.1 X10*3/uL (0.0-0.4); Eosinophils Percent Auto 1.3 % (0-4); Hematocrit 38.7 % (37.0-47.0); Hemoglobin 12.2 g/dl (12.0-16.0); Imm Gran Abs Auto 0.02 X10*3/uL (0.00-0.03); Imm Gran Pct Auto 0.3 % (0.0-0.4); Lymphocytes Absolute Auto 2.7 X10*3/uL (1.2-4.9); Lymphocytes Percent Auto 37.5 % (20-40); Mean Corpuscular HGB Conc 31.5 g/dl (31.0-35.0); Mean Corpuscular Hemoglobin 23.9 pg (27.0-33.0); Mean Corpuscular Volume 75.7 fL (80.0-98.0); Monocytes Absolute Auto 0.5 X10*3/uL (0.1-1.2); Monocytes Percent Auto 6.4 % (2-11); Neutrophils Absolute Auto 3.9 x10*3/uL (2.0-8.3); Neutrophils Percent Auto 53.7 % (45-73); Platelet Count 306 X10*3/uL (160-400); Red Blood Count 5.11 X10*6/uL (4.20-5.50); Red Cell Distribution Width 16.8 % (11.0-16.0); White Blood Count 7.2 X10*3/uL (4.8-10.8)
[2023-02-23 14:13] LABS: Calcium 9.3 mg/dL (8.4-10.2)
[2023-02-23 14:26] LABS: Alanine Aminotransferase 14 U/L (0-31); Alkaline Phosphatase 86 U/L (39-117); Aspartate Amino Transferase 14 U/L (5-31); Bilirubin Direct 0.1 mg/dL (0.0-0.5); Bilirubin Total 0.4 mg/dL (0.0-1.0)
[2023-02-23 15:04] LABS: Free T4 (Free Thyroxine) 1.01 ng/dL (0.71-1.85); Thyroid Stimulating Hormone 1.11 uIU/mL (0.32-4.0)
[2023-02-24 23:48] LABS: Triiodothyronine T3 Free 2.6 pg/mL (2.3-4.2)
== END 2023-02-23 12:32 | disposition home or self-care (01) ==
LOC: HO.LAB 12:31
PROVIDERS: Absent Provider Internal Medicine Endocrinology, Diabetes & Metabolism; PCP Internal Medicine; Visit Provider Surgery
DX: E05.00 Thyrotoxicosis with diffuse goiter without thyrotoxic crisis or storm (principal); E55.9 Vitamin D deficiency, unspecified; E89.0 Postprocedural hypothyroidism; J44.9 Chronic obstructive pulmonary disease, unspecified; F17.200 Nicotine dependence, unspecified, uncomplicated; R06.02 Shortness of breath
CPT/HCPCS: 36415; 80076; 82040; 82306; 82310; 84439; 84443; 84481; 85025; 99202

== ENCOUNTER 2023-02-23 12:55 | Outpatient (REF) | payer OTHER, SELFPAY ==
[2023-02-23 14:27] LABS: Alanine Aminotransferase 14 U/L (0-31); Alkaline Phosphatase 87 U/L (39-117); Anion Gap 10 (12-20); Aspartate Amino Transferase 15 U/L (5-31); Bilirubin Total 0.4 mg/dL (0.0-1.0); Blood Urea Nitrogen 9 mg/dL (9-16); Calcium 9.4 mg/dL (8.4-10.2); Carbon Dioxide 28 mmol/L (22-29); Chloride 104 mmol/L (96-108); Estimated Glomerular Filt Rate > 60; Glucose Random 102 mg/dL (60-115); Potassium 3.9 mmol/L (3.3-5.1); Sodium 138 mmol/L (135-145); Total Protein 7.1 g/dL (6.5-8.0)
== END 2023-02-23 12:56 | disposition home or self-care (01) ==
LOC: HO.BBR 12:55
PROVIDERS: PCP Internal Medicine; Visit Provider Internal Medicine Medical Oncology
DX: D75.1 Secondary polycythemia (principal)
CPT/HCPCS: 36415; 80053; 85014; 85018; 99195

== ENCOUNTER 2023-02-23 13:22 | Outpatient (AMB) | payer OTHER, SELFPAY ==
--- NOTE | 2023-02-23 13:36 | A.OFFVIS_ITS ---
Intake Vital Signs 02/23/23 13:37 Height 5 ft 4 in Weight 219 lb 12.814 oz BMI 37.7 BP 126/70 Blood Pressure Location Lt brachial Position Sitting Pulse 73 Pulse Source Pulse Oximeter Pulse Oximetry (%) 98 Oxygen Delivery Method Room Air Intake Visit Reasons: Shortness of breath Nurse Emergency Room Required: No Allergies egg [Egg] Allergy (Severe, Verified 02/23/23 13:40) ANAPHYLAXIS influenza virus vaccine, specific [FLU VACCINE] Allergy (Severe, Verified 02/23/23 13:40) CANNOT OBTAIN DUE TO EGG ALLERGY nicotine [From NICODERM CQ] Allergy (Intermediate, Verified 02/23/23 13:40) RASH varenicline [From CHANTIX] Allergy (Intermediate, Verified 02/23/23 13:40) DEPRESSION AND ANXIETY INCREASE barium sulfate Adverse Reaction (Intermediate, Verified 02/23/23 13:40) saul HPI HPI Comments History of Present Illness Details The patient is here for pulmonary evaluation. The patient is a 52 year woman with a known history of tobacco dependency now with worsening respiratory symptoms. She has been on Flovent for many years. In addition to that she has a rescue inhaler. She did notice increasing chest tightness wheezing and productive cough. Moderate severity. In addition to that she has a hard time performing any of activities of daily living house because of shortness of breath with minimal activity. She does have significant wheezing on examination significant rhonchi. I do believe she needs a nebulizer in order to provide better mucus clearance and bronchodilation. The patient will be provided with a nebulizer before she goes home. The patient also would benefit from optimizing her respiratory medications. Will go ahead and switch over from Flovent to Trelegy inhaler in order to provide her with better bronchodilation. The patient understands that once we able to bronchodilator airway she should feel better but she needs to be careful not to smoke cigarettes because it will cause further damage to her airways and air sats. The patient is interested in quitting. She has been motivated although she has had a hard time. Will provide her with the Nicotrol inhaler in order to help her with smoking cessation. The patient also will be referred to the lung cancer screening program for her yearly low-dose CT scans. [facility] Medical History (Updated 02/23/23 @ 23:20 by Jamir Duran MD) Arthritis Blurry vision Constipation by delayed colonic transit COVID-19 Elevated hemoglobin Graves disease Left breast lump Mild recurrent major depression Obesity (BMI 30-39.9) Right elbow pain Sacral pain Smoker Supraventricular tachycardia Vitamin D deficiency Surgical History (Updated 02/22/23 @ 09:43 by HANH Nelson) History of appendectomy History of section History of dental surgery History of hysteroscopy History of right oophorectomy History of tonsillectomy and adenoidectomy History of tubal ligation Hx of total thyroidectomy Family History Father Bone cancer Lung cancer Mother CVD (cardiovascular disease) Emphysema of lung Hypertension Asthma Sister Breast cancer Maternal Aunt Uterine cancer Maternal Aunt Skin cancer Social History Household Members: None Housing: Apartment Are you a primary direct care specialist to a significant other at home: No Do you presently have visiting nurse or other home services: No Alcohol intake: never Patient Tobacco Use Status: Current everyday Tobacco user Tobacco use type: Cigarette Cigarette Packs Per Day: 1 e-Cigarette/Vaping Use: Never Used Second Hand Smoke Exposure: No service: No Current occupational status: disabled Cognitive needs: No Hearing needs: No Vision needs: Yes Review of Systems Const All systems reviewed & are unremarkable except as noted in HPI and below Denies fever(s) Eyes Reports no additional complaints, Denies change in vision and Denies other visual disturbances ENT Reports Normal hearing present Card Denies chest pain at rest and Reports dyspnea on exertion Resp Reports cough, Reports dyspnea on exertion and Reports wheezing GI Denies abdominal pain, Denies change in bowel habits, Denies excessive flatus, Denies nausea and Denies vomiting Musc Denies abnormal gait, Denies atrophy, Denies deformity and Denies limited range of motion Skin/Breast Denies bleeding lesions, Denies changing lesions and Denies rash Neuro Reports Normal hearing present, Denies Abnormal speech present, Denies abnormal gait and Denies lack of coordination Aller/Immun Reports wheezing Physical Exam Vital Signs: Last Vital Signs Pulse 73 02/23/23 13:37 BP 126/70 02/23/23 13:37 Pulse Ox 98 02/23/23 13:37 Oxygen Delivery Method Room Air 02/23/23 13:37 BMI result Body Mass Index 37.7 Const General: cooperative and no acute distress Orientation/consciousness: oriented to person, oriented to place and oriented to time Limitations: No language barrier HEENT Head: Yes normocephalic and Yes atraumatic Eyes General: appearance normal, both eyes and all related structures Pupils: Equal, round and reactive pupils present Neck Neck: Yes normal visual inspection Chest Chest palpation & inspection: normal inspection of the chest Resp Effort & Inspection: normal respiratory effort, able to speak in complete sen tences and prolonged expiratory phase Auscultation: wheezes and diminished lung sounds Cardio Rate: regular rate Rhythm: regular rhythm GI Other: rash under panus Inspection: No distended and Yes obesity Skin General skin exam: no rashes or lesions noted, turgor normal, skin not dry, no jaundice, No spider nevi and no striae Rashes: no rashes Nails: normal Neuro General: oriented to person, oriented to place and oriented to time Cranial nerves: Yes Equal, round and reactive pupils present and Yes Normal hearing present Speech: No Abnormal speech present Extrem General: Yes normal to inspection, No clubbing, No cyanosis and Yes edema (left > right) Psych Appearance: grossly normal and well kempt Mental Status: mental status grossly normal Speech and movement: Normal speech and movement present Affect: normal affect Attitude: cooperative Thought process: Normal thought process present and not confabulating Thought content: Normal thought content present Insight: Limited insight present (Psych) Judgement: Limited judgement present (Psych) Assessment & Plan Assessment & Plan (1) Asthma with COPD: Code(s): J44.9 - Chronic obstructive pulmonary disease, unspecified (2) Tobacco dependence: Code(s): F17.200 - Nicotine dependence, unspecified, uncomplicated Plan stop Flovent start Breo PIOTR as needed provided her a nebulizer nicotrol inhaler PFTs LDCT referral F/U 8 weeks Orders: Orders PFT pulmonary function test Today J44.9 - Chronic obstructive pulmonary disease, unspecified Referrals Thoracic Surgery Referral F17.200 - Nicotine dependence, unspecified, uncomplicated Medications: New nicotine (Nicotrol) 1 inh inhalation Q2-4H 30 days PRN 168 ea 3RF nicotine cravings albuterol sulfate 2.5 mg (3 mL) inhalation Q6H 30 days PRN 180 mL 11RF shortness of breath or wheezing zbyigpjbnba-oqfzmxaky-yhdnyosz 200-62.5-25 mcg (Trelegy Ellipta) 1 inh inhalation DAILY 30 days 60 ea 12RF Coding Level of Care Code New Pt Level 4 (29759) Diagnoses Asthma with COPD J44.9 Tobacco dependence F17.200 Time Spent (min) 35
[2023-02-23 13:37] VITALS: BP 126/70; PULSE 73; O2SAT 98; BMI 37.7
== END 2023-02-23 14:04 | disposition home or self-care (01) ==
PROVIDERS: PCP Internal Medicine; Visit Provider Hospitalist
DX: J44.9 Chronic obstructive pulmonary disease, unspecified (principal); F17.200 Nicotine dependence, unspecified, uncomplicated
CPT/HCPCS: 99204

== ENCOUNTER 2023-03-03 15:46 | Outpatient (AMB) | payer OTHER, SELFPAY ==
[2023-03-03 15:47] VITALS: BP 138/80; PULSE 98; BMI 38.6
--- NOTE | 2023-03-03 15:47 | MHC.OFFVIS ---
Intake Vital Signs 03/03/23 15:47 Height 5 ft 4 in Weight 225 lb 1.471 oz BMI 38.6 BP 138/80 Blood Pressure Location Lt brachial Position Sitting Pulse 98 Pulse Source Pulse Oximeter Intake Visit Reasons: Post op Intake Note: Patient present for Total Thyroidectomy Post op follow up visit. Director Non Profit Required: No Accompanied by: Self / Same As Patient Allergies egg [Egg] Allergy (Severe, Verified 03/03/23 15:53) ANAPHYLAXIS influenza virus vaccine, specific [FLU VACCINE] Allergy (Severe, Verified 03/03/23 15:53) CANNOT OBTAIN DUE TO EGG ALLERGY nicotine [From NICODERM CQ] Allergy (Intermediate, Verified 03/03/23 15:53) RASH varenicline [From CHANTIX] Allergy (Intermediate, Verified 03/03/23 15:53) DEPRESSION AND ANXIETY INCREASE barium sulfate Adverse Reaction (Intermediate, Verified 03/03/23 15:53) saul Medication List - Last Reconciled 03/03/23 by Ahsan Rodriguez MD albuterol sulfate 90 mcg/actuation 2 puffs inhalation Q6H PRN 30 days albuterol sulfate 2.5 mg (3 mL) inhalation Q6H PRN 30 days bupropion HCl 150 mg PO QAM 90 days cholecalciferol (vitamin D3) 25 mcg PO DAILY 30 days fluticasone furoate-vilanterol 200-25 mcg/dose (Breo Ellipta) 1 inh inhalation DAILY 30 days fluticasone propionate 44 mcg/actuation (Flovent HFA) 1 puff inhalation BID 30 days gabapentin 100 mg PO TID 30 days levothyroxine 37.5 mcg PO DAILY methimazole 20 mg (2 x 10 mg) PO DAILY 30 days naproxen 250 mg PO BID PRN 30 days nicotine 1 patch transdermal DAILY 28 days nicotine (Nicotrol) 1 inh inhalation Q2-4H PRN 30 days omeprazole 40 mg PO DAILY 90 days sod sulf-pot chloride-mag sulf 1.479-0.188- 0.225 gram (Sutab) package directions orally per package directions; PO PER PKG DIR, please disregard Go Ananth layton As directed HPI HPI Comments History of Present Illness Details 52-year-old female previously treated for Graves disease previously on methimazole status post total thyroidectomy on 02/12/[address] Fuentes at [facility] with benign pathology. Patient is currently on 37.5 mcg levothyroxine [facility] Medical History (Updated 02/23/23 @ 23:20 by Jamir Duran MD) Arthritis Blurry vision Constipation by delayed colonic transit COVID-19 Elevated hemoglobin Graves disease Left breast lump Mild recurrent major depression Obesity (BMI 30-39.9) Right elbow pain Sacral pain Smoker Supraventricular tachycardia Vitamin D deficiency Surgical History History of appendectomy History of section History of dental surgery History of hysteroscopy History of right oophorectomy History of tonsillectomy and adenoidectomy History of tubal ligation Hx of total thyroidectomy Family History Father Bone cancer Lung cancer Mother CVD (cardiovascular disease) Emphysema of lung Hypertension Asthma Sister Breast cancer Maternal Aunt Uterine cancer Maternal Aunt Skin cancer Social History Household Members: None Housing: Apartment Are you a primary long term acute care registered nurse to a significant other at home: No Do you presently have visiting nurse or other home services: No Alcohol intake: never Patient Tobacco Use Status: Current everyday Tobacco user Tobacco use type: Cigarette Cigarette Packs Per Day: 1 e-Cigarette/Vaping Use: Never Used Second Hand Smoke Exposure: No service: No Current occupational status: disabled Cognitive needs: No Hearing needs: No Vision needs: Yes Physical Exam Vital Signs: Last Vital Signs Pulse 98 03/03/23 15:47 BP 138/80 03/03/23 15:47 BMI result Body Mass Index 38.6 Const Other: Healing scar status post thyroidectomy Assessment & Plan Assessment & Plan (1) Graves disease: Code(s): E05.00 - Thyrotoxicosis 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 She is status post total thyroidectomy. Plan is to increase the levothyroxine gently to 75 mcg and recheck TSH and free T4 in 4 weeks time. Will need to titrate levothyroxine up slowly in light of the history of coronary artery disease to make the patient euthyroid.. Orders: Orders Free T4 (Free Thyroxine) 4 Weeks E05.00 - Thyrotoxicosis with diffuse goiter without thyrotoxic crisis or storm Thyroid Stimulating Hormone 4 Weeks E05.00 - Thyrotoxicosis with diffuse goiter without thyrotoxic crisis or storm Medications: New levothyroxine 75 mcg PO DAILY 30 tabs 5RF Discontinued methimazole Discontinued Reason: Doctor's Order 20 mg (2 x 10 mg) PO DAILY 30 days 60 tabs 5RF Coding Level of Care Code Est Pt Level 3 (35468) Diagnoses Graves disease E05.00
== END 2023-03-03 16:47 | disposition home or self-care (01) ==
PROVIDERS: PCP Internal Medicine; Visit Provider Internal Medicine Endocrinology, Diabetes & Metabolism
DX: E05.00 Thyrotoxicosis with diffuse goiter without thyrotoxic crisis or storm (principal)
CPT/HCPCS: 99213

== ENCOUNTER → 2023-03-03 15:46 | Outpatient (BNVA) | payer OTHER, SELFPAY | PROVIDERS: PCP Internal Medicine; Visit Provider Internal Medicine Endocrinology, Diabetes & Metabolism | DX: E05.00 Thyrotoxicosis with diffuse goiter without thyrotoxic crisis or storm (principal); E89.0 Postprocedural hypothyroidism; Z79.899 Other long term (current) drug therapy | CPT/HCPCS: 99212 ==

== ENCOUNTER 2023-03-23 10:39 | Outpatient (REF) | payer OTHER, SELFPAY ==
[2023-03-23 10:52] LABS: MANUAL DIFF FLAG NO
[2023-03-23 10:54] LABS: Basophils Absolute Auto 0.1 X10*3/uL (0.0-0.2); Basophils Percent Auto 0.8 % (0-2); Eosinophils Absolute Auto 0.1 X10*3/uL (0.0-0.4); Eosinophils Percent Auto 1.4 % (0-4); Hematocrit 38.6 % (37.0-47.0); Hemoglobin 12.2 g/dl (12.0-16.0); Imm Gran Abs Auto 0.06 X10*3/uL (0.00-0.03); Imm Gran Pct Auto 0.8 % (0.0-0.4); Lymphocytes Absolute Auto 2.8 X10*3/uL (1.2-4.9); Lymphocytes Percent Auto 35.3 % (20-40); Mean Corpuscular HGB Conc 31.6 g/dl (31.0-35.0); Mean Corpuscular Hemoglobin 24.7 pg (27.0-33.0); Mean Corpuscular Volume 78.1 fL (80.0-98.0); Mean Platelet Volume 11.1 fL (9.4-12.3); Monocytes Absolute Auto 0.5 X10*3/uL (0.1-1.2); Monocytes Percent Auto 5.8 % (2-11); Neutrophils Absolute Auto 4.4 x10*3/uL (2.0-8.3); Neutrophils Percent Auto 55.9 % (45-73); Platelet Count 251 X10*3/uL (160-400); Red Blood Count 4.94 X10*6/uL (4.20-5.50); Red Cell Distribution Width 18.4 % (11.0-16.0); White Blood Count 7.9 X10*3/uL (4.8-10.8)
[2023-03-23 13:04] LABS: Alanine Aminotransferase 13 U/L (0-31); Albumin Level 4.1 g/dL (3.5-5.0); Alkaline Phosphatase 84 U/L (39-117); Anion Gap 16 (12-20); Aspartate Amino Transferase 14 U/L (5-31); Bilirubin Total 0.3 mg/dL (0.0-1.0); Blood Urea Nitrogen 17 mg/dL (9-16); Calcium 9.5 mg/dL (8.4-10.2); Carbon Dioxide 24 mmol/L (22-29); Chloride 103 mmol/L (96-108); Estimated Glomerular Filt Rate > 60; Glucose Random 96 mg/dL (60-115); Sodium 139 mmol/L (135-145); Total Protein 7.1 g/dL (6.5-8.0)
== END 2023-03-23 10:40 | disposition home or self-care (01) ==
LOC: HO.BBR 10:39
PROVIDERS: PCP Internal Medicine; Visit Provider Internal Medicine Medical Oncology
DX: D75.1 Secondary polycythemia (principal)
CPT/HCPCS: 36415; 80053; 85025

== ENCOUNTER 2023-04-29 14:25 | Outpatient (AMB) | payer OTHER, SELFPAY ==
--- NOTE | 2023-04-29 14:34 | A.OFFVIS_ITS ---
Intake Vital Signs 04/29/23 14:35 Height 5 ft 4 in Weight 225 lb 1.471 oz BMI 38.6 BP 128/70 Blood Pressure Location Lt brachial Position Sitting Pulse 90 Pulse Source Pulse Oximeter Pulse Oximetry (%) 95 Oxygen Delivery Method Room Air Intake Visit Reasons: Clearance Colonoscopy/Asthma Silk Folder Required: No Allergies egg [Egg] Allergy (Severe, Verified 04/29/23 14:41) ANAPHYLAXIS influenza virus vaccine, specific [FLU VACCINE] Allergy (Severe, Verified 04/29/23 14:41) CANNOT OBTAIN DUE TO EGG ALLERGY nicotine [From NICODERM CQ] Allergy (Intermediate, Verified 04/29/23 14:41) RASH varenicline [From CHANTIX] Allergy (Intermediate, Verified 04/29/23 14:41) DEPRESSION AND ANXIETY INCREASE barium sulfate Adverse Reaction (Intermediate, Verified 04/29/23 14:41) saul HPI HPI Comments History of Present Illness Details he patient is a 53 year woman with a known history of tobacco dependency now with worsening respiratory symptoms. She has been on Flovent for many years. In addition to that she has a rescue inhaler. She did notice increasing chest tightness wheezing and productive cough. Moderate severity. In addition to that she has a hard time performing any of activities of daily living house because of shortness of breath with minimal activity. She does have significant wheezing on examination significant rhonchi. I do believe she needs a nebulizer in order to provide better mucus clearance and bronchodilation. The patient will be provided with a nebulizer before she goes home. The patient also would benefit from optimizing her respiratory medications. Will go ahead and switch over from Flovent to Trelegy inhaler in order to provide her with better bronchodilation. The patient understands that once we able to bronchodilator airway she should feel better but she needs to be careful not to smoke cigarettes because it will cause further damage to her airways and air sats. The patient is interested in quitting. She has been motivated although she has had a hard time. Will provide her with the Nicotrol inhaler in order to help her with smoking cessation. The patient also will be referred to the lung cancer screening program for her yearly low-dose CT scans. 04/29/2023 the patient is here for a pulmonary follow-up visit. Overall the patient is feeling a little better. We had switched her over to Breo but for some reason she does not have it available. She still using the Flovent. Also has a rescue inhaler. Under go ahead and send her Trelegy again to the pharmacy to see if we can get that approved for her. She definitely still has a lot of wheezing and chest congestion. Unfortunately she continues to smoke cigarettes although she is motivated to try to quit. She is going to start a tobacco cessation program through the health center. In the meantime she is scheduled to have a colonoscopy. She does have wheezing on examination. Will go ahead and treat her for COPD exacerbation. I do believe that when she is on her optim ize medical regimen she will be okay to have her colonoscopy with anesthesia. therefore, the patient may proceed with her colonoscopy at this time. The patient is scheduled for her LDCT and PFTs in the near future. [facility] Medical History (Updated 04/29/23 @ 14:49 by Jamir Duran MD) Coronary artery disease History of supraventricular tachycardia Graves disease Asthma with COPD Nicotine dependence, cigarettes, uncomplicated Arthritis Left breast lump Mild recurrent major depression Blurry vision Obesity (BMI 30-39.9) Vitamin D deficiency Constipation History of COVID-19 Surgical History (Updated 04/26/23 @ 11:50 by Carmen Garcia PA-C) History of total thyroidectomy History of appendectomy History of tonsillectomy and adenoidectomy History of dental surgery History of tubal ligation History of section History of right salpingo-oophorectomy History of endometrial ablation Family History Father Bone cancer Lung cancer Mother CVD (cardiovascular disease) Emphysema of lung Hypertension Asthma Sister Breast cancer Maternal Aunt Uterine cancer Maternal Aunt Skin cancer Social History (System 04/14/23 @ 13:12 by Zeinab Euceda) Household Members: None Housing: Apartment Are you a primary child care specialist to a significant other at home: No Do you presently have visiting nurse or other home services: No Alcohol intake: never Patient Tobacco Use Status: Current everyday Tobacco user Tobacco use type: Cigarette Cigarette Packs Per Day: 1 e-Cigarette/Vaping Use: Never Used Second Hand Smoke Exposure: No service: No Current occupational status: disabled Cognitive needs: No Hearing needs: No Vision needs: Yes Review of Systems Const All systems reviewed & are unremarkable except as noted in HPI and below Denies fever(s) Eyes Reports no additional complaints, Denies change in vision and Denies other visual disturbances ENT Reports Normal hearing present Card Denies chest pain at rest and Reports dyspnea on exertion Resp Reports cough, Reports dyspnea on exertion and Reports wheezing GI Denies abdominal pain, Denies change in bowel habits, Denies excessive flatus, Denies nausea and Denies vomiting Musc Denies abnormal gait, Denies atrophy, Denies deformity and Denies limited range of motion Skin/Breast Denies bleeding lesions, Denies changing lesions and Denies rash Neuro Reports Normal hearing present, Denies Abnormal speech present, Denies abnormal gait and Denies lack of coordination Aller/Immun Reports wheezing Physical Exam Vital Signs: Last Vital Signs Pulse 90 04/29/23 14:35 BP 128/70 04/29/23 14:35 Pulse Ox 95 04/29/23 14:35 Oxygen Delivery Method Room Air 04/29/23 14:35 BMI result Body Mass Index 38.6 Const General: cooperative and no acute distress Orientation/consciousness: oriented to person, oriented to place and oriented to time Limitations: No language barrier HEENT Head: Yes normocephalic and Yes atraumatic Eyes General: appearance normal, both eyes and all related structures Pupils: Equal, round and reactive pupils present Neck Neck: Yes normal visual inspection Chest Chest palpation & inspection: normal inspection of the chest Resp Effort & Inspection: normal respiratory effort, able to speak in complete sentences and prolonged expiratory phase Auscultation: rhonchi, no wheezes and diminished lung sounds Cardio Rate: regular rate Rhythm: regular rhythm GI Other: rash under panus Inspection: No distended and Yes obesity Skin General skin exam: no rashes or lesions noted, turgor normal, skin not dry, no jaundice, No spider nevi and no striae Rashes: no rashes Nails: normal Neuro General: oriented to person, oriented to place and oriented to time Cranial nerves: Yes Equal, round and reactive pupils present and Yes Normal hearing present Speech: No Abnormal speech present Extrem General: Yes normal to inspection, No clubbing, No cyanosis and Yes edema (left > right) Psych Appearance: grossly normal and well kempt Mental Status: mental status grossly normal Speech and movement: Normal speech and movement present Affect: normal affect Attitude: cooperative Thought process: Normal thought process present and not confabulating Thought content: Normal thought content present Insight: Limited insight present (Psych) Judgement: Limited judgement present (Psych) Assessment & Plan Assessment & Plan (1) Pre-op chest exam: Code(s): Z01.811 - Encounter for preprocedural respiratory examination (2) Asthma with COPD: Code(s): J44.9 - Chronic obstructive pulmonary disease, unspecified (3) Tobacco dependence: Code(s): F17.200 - Nicotine dependence, unspecified, uncomplicated Plan The patient may proceed with her colonoscopy at this time. Will benefit from pre and post bronchodilators as needed Medrol pack/Azithromycin to optimize her respitatory capacity stop Flovent start Trelegy PIOTR as needed nebulizer, needs replacement (heating up) nicotrol inhaler PFTs LDCT referral F/U 6 months Medications: New azithromycin 500 mg PO DAILY 5 days 5 tabs 0RF dkephctytoa-lxbzhrzsr-pqeovijo 200-62.5-25 mcg (Trelegy Ellipta) 1 inh inhalation DAILY 30 days 60 ea 12RF methylprednisolone (Medrol (Jesse)) PO PER PKG DIR 6 days 21 ea 0RF Discontinued fluticasone furoate-vilanterol 200-25 mcg/dose (Breo Ellipta) Discontinued Reason: Doctor's Order 1 inh inhalation DAILY 30 days 60 ea 11RF J45.909 - Unspecified asthma, uncomplicated Coding Level of Care Code Est Pt Level 4 (21442) Diagnoses Pre-op chest exam Z01.811 Asthma with COPD J44.9 Tobacco dependence F17.200 Time Spent (min) 17
[2023-04-29 14:35] VITALS: BP 128/70; PULSE 90; O2SAT 95; BMI 38.6
== END 2023-04-29 15:07 | disposition home or self-care (01) ==
PROVIDERS: PCP Internal Medicine; Visit Provider Hospitalist
DX: Z01.811 Encounter for preprocedural respiratory examination (principal); J44.9 Chronic obstructive pulmonary disease, unspecified; F17.200 Nicotine dependence, unspecified, uncomplicated
CPT/HCPCS: 99214

== ENCOUNTER → 2023-04-29 14:25 | Outpatient (BNVA) | payer OTHER, SELFPAY | PROVIDERS: PCP Internal Medicine; Visit Provider Hospitalist | DX: Z01.811 Encounter for preprocedural respiratory examination (principal); J44.9 Chronic obstructive pulmonary disease, unspecified; F17.210 Nicotine dependence, cigarettes, uncomplicated | CPT/HCPCS: 99212 ==

== ENCOUNTER 2023-05-03 10:51 | Outpatient (REF) | payer OTHER, SELFPAY ==
[2023-05-03 11:13] LABS: MANUAL DIFF FLAG NO
[2023-05-03 11:14] LABS: Basophils Absolute Auto 0.1 X10*3/uL (0.0-0.2); Basophils Percent Auto 1.1 % (0-2); Eosinophils Absolute Auto 0.1 X10*3/uL (0.0-0.4); Eosinophils Percent Auto 1.5 % (0-4); Hematocrit 36.6 % (37.0-47.0); Hemoglobin 11.7 g/dl (12.0-16.0); Imm Gran Abs Auto 0.02 X10*3/uL (0.00-0.03); Imm Gran Pct Auto 0.3 % (0.0-0.4); Lymphocytes Absolute Auto 2.9 X10*3/uL (1.2-4.9); Mean Corpuscular Hemoglobin 25.1 pg (27.0-33.0); Mean Corpuscular Volume 78.5 fL (80.0-98.0); Mean Platelet Volume 10.8 fL (9.4-12.3); Monocytes Absolute Auto 0.4 X10*3/uL (0.1-1.2); Monocytes Percent Auto 6.8 % (2-11); Neutrophils Absolute Auto 2.7 x10*3/uL (2.0-8.3); Neutrophils Percent Auto 43.3 % (45-73); Platelet Count 278 X10*3/uL (160-400); Red Blood Count 4.66 X10*6/uL (4.20-5.50); Red Cell Distribution Width 17.3 % (11.0-16.0); White Blood Count 6.2 X10*3/uL (4.8-10.8)
[2023-05-03 12:17] LABS: Alanine Aminotransferase 11 U/L (0-31); Alkaline Phosphatase 79 U/L (39-117); Anion Gap 11 (12-20); Aspartate Amino Transferase 16 U/L (5-31); Bilirubin Total 0.3 mg/dL (0.0-1.0); Blood Urea Nitrogen 14 mg/dL (9-16); Calcium 9.4 mg/dL (8.4-10.2); Carbon Dioxide 27 mmol/L (22-29); Chloride 104 mmol/L (96-108); Estimated Glomerular Filt Rate > 60; Glucose Random 93 mg/dL (60-115); Sodium 138 mmol/L (135-145); Total Protein 7.3 g/dL (6.5-8.0)
== END 2023-05-03 10:52 | disposition home or self-care (01) ==
LOC: HO.BBR 10:51
PROVIDERS: PCP Internal Medicine; Visit Provider Internal Medicine Medical Oncology
DX: D75.1 Secondary polycythemia (principal)
CPT/HCPCS: 36415; 80053; 85014; 85018; 85025; 99195

== ENCOUNTER 2023-05-07 10:50 | Emergency (ER) | payer OTHER, SELFPAY ==
--- NOTE | ~2023-05-07 | XR_ITS ---
EXAMINATION: XR CHEST CLINICAL INFORMATION: Chest pain COMPARISON: Previous chest x-ray July 2021 TECHNIQUE: 2 views of the chest were obtained. FINDINGS: No significant abnormality is noted involving the heart, lungs, mediastinum, bony thorax or soft tissues. XR/XR chest 2V IMPRESSION: Unremarkable examination.
[2023-05-07 10:52] VITALS: BP 146/78; PULSE 80; RESP 26; TEMP 36.2; O2SAT 100; BMI 39.0
--- NOTE | 2023-05-07 10:56 | ECG_ITS ---
Test Reason : CHEST PAIN Blood Pressure : / mmHG Vent. Rate : 070 BPM Atrial Rate : 070 BPM P-R Int : 156 ms QRS Dur : 092 ms QT Int : 396 ms P-R-T Axes : 067 029 059 degrees QTc Int : 427 ms Normal sinus rhythm with sinus arrhythmia RSR' or QR pattern in V1 suggests right ventricular conduction delay Otherwise normal ECG When compared with ECG of 30-DEC-2019 03:09, No significant change was found Referred By: Generic ED Physician Electronically Signed By:SONI GOLDSTEIN MD
--- OUTSIDE RECORDS SUMMARY | 2023-05-07 11:22 | XMS_ITS | Continuity of Care Document ---
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 Role Phone Edgar Mix MD, Marline Marion Primary Care Physician [place] [facility] [place] 04/[place]/[address] [place] [address]- Attending Physician: Chaka Portillo MD Allergies, Adverse Reactions, Alerts Substance Reaction Severity Status Chantix mood swings Active Egg Allergy itching Active Medications albuterol CFC free 90 mcg/inh inhalation aerosol 2, puffs, Inhalation, Every 6 hours, PRN, Refills 0, Maintenance, 05/07/22 13:29:00 EST Start Date: 05/07/22 Status: Ordered Citracal Maximum + D oral tablet 2 tablet, By Mouth, 2 times a day, # 60 tablet, 0 Refills, Maintenance, 02/13/23 8:53:00 EDT, Tablet, [facility], Partial fill upon patient request if the prescription is for a schedule II opioid drug., 2 tablet By Mouth 2 times a... Start Date: 02/13/23 Status: Ordered Flovent HFA 44 mcg/inh inhalation aerosol 2 puffs, Inhalation, 2 times a day, # 11 Gm, 0 Refills, Maintenance, 02/09/23 12:57:00 EDT, Aerosol, Partial fill upon patient request if the prescription is for a schedule II opioid drug. Start Date: 02/09/23 Status: Ordered gabapentin 100 mg oral capsule 100 mg, 1, capsule, By Mouth, 3 times a day, Refills 0, Maintenance, 05/07/22 13:30:00 EST, Partialfill upon patient request if the prescription is for a schedule II opioid drug. Start Date: 05/07/22 Status: Ordered Lab order Lab order, See Instructions, # 1 each, Refills 0, Tot. Refills 0, Maintenance, Lab order: - serum calcium - intact PTH - serum albumin, 02/12/23 17:09:00 EDT, Supply Start Date: 02/12/23 Status: Ordered levothyroxine 0.137 mg oral tablet 1 tablet = 137 mcg, By Mouth, Daily, Take 30min before food in the morning., # 30 tablet, 2 Refills, Maintenance, 02/13/23 10:17:00 EDT, Tablet, [facility]/pharmacy #[id number], Partial fill upon patient request if the prescription is for a schedule II opioid drug... Start Date: 02/13/23 Stop Date: 05/14/23 Status: Ordered metoprolol 25 mg oral tablet 25 mg, 1, tablet, By Mouth, Daily, Refills 0, Maintenance, 02/09/23 12:53:00 EDT, Partial fill uponpatient request if the prescription is for a schedule II opioid drug. Start Date: 02/09/23 Status: Ordered Misc Rx Refills 0, Maintenance, Calcium 2 tabs daily, 02/09/23 12:59:00 EDT, Supply Start Date: 02/09/23 Status: Ordered naproxen 250 mg oral tablet 250 mg, 1, tablet, By Mouth, 2 times a day, PRN, Refills 0, Maintenance, as needed for arthritis, 05/07/22 13:31:00 EST, Partial fill upon patient [...] opioid drug. Start Date: 05/07/22 Status: Ordered oxyCODONE 5 mg oral tablet 5 mg, 1, tablet, By Mouth, Every 6 hours, PRN, # 7 tablet, Refills 0, Tot. Refills 0, Maintenance, as needed for pain, 02/13/23 10:16:00 EDT, Route to Pharmacy Electronically, [facility]/pharmacy #[id number], Partial fill upon patient request if the prescription i... Start Date: 02/13/23 Status: Ordered traMADol 50 mg oral tablet 1 tablet = 50 mg, By Mouth, Every 6 hours, PRN for pain, # 10 tablet, 0 Refills, Maintenance, 02/13/23 10:17:00 EDT, Tablet, [facility]/pharmacy #[id number], Partial fill upon patient request if the prescription is for a schedule II opioid drug., 162, cm, 02/12/23... Start Date: 02/13/23 Status: Ordered Vitamin D3 1000 intl units [...] Graves' disease Confirmed Active Hyperthyroidism Confirmed Active Severe obesity (BMI 35.0-39.9) with comorbidity Confirmed Active Social History Social History Type Response Tobacco Other: 1 pack a day over 30 years. Sex Patient Care team information Care Team Personnel Name: Daylin Blanchard RN Position: S RN Member Role: Primary Care Nurse Name: Henna Tariq RN Position: S RN Member Role: Primary Care Nurse Name: Edgar iMx MD , Marline Marion Position: Reference Physician Member Role: PCP Address: Address: [address] [place] [address]- Care Team Related Persons Name: ROSANNA GREENE Name: VARINDER SON Address: home [address] [place] [address] Name: LEXIE ELIZALDE
--- OUTSIDE RECORDS SUMMARY | 2023-05-07 11:22 | XMS_ITS | Continuity of Care Document ---
Author Name Unknown Organization [facility] Address [address] [place] [address] [address] [place] [address]- Care Team Providers Care Hanger Off Name Role Phone Edgar Mix MD, Marline Marion Primary Care Physician [phone] Encounter [place] Date(s): 12/03/22 - 03/28/23 [facility] [address] [place] [address]- Attending Physician: Chaka Portillo MD Allergies, Adverse Reactions, Alerts Substance Reaction Severity Status Egg Allergy itching Active Chantix mood swings Active Medications albuterol CFC free 90 mcg/inh inhalation aerosol 2, puffs, Inhalation, Every 6 hours, PRN, Refills 0, Maintenance, 05/07/22 13:29:00 EST Start Date: 05/07/22 Status: Ordered Citracal Maximum + D oral tablet 2 tablet, By Mouth, 2 times a day, # 60 tablet, 0 Refills, Maintenance, 02/13/23 8:53:00 EDT, Tablet, [facility], Partial fill upon patient request [...] 2 Refills, Maintenance, 02/13/23 10:17:00 EDT, Tablet, [facility]/pharmacy #[id number], Partial fill upon patient request if [...] 02/13/23 10:16:00 EDT, Route to Pharmacy Electronically, [facility]/pharmacy #[id number], Partial fill upon patient request if the prescription i... Start Date: 02/13/23 Status: Ordered traMADol 50 mg oral tablet 1 tablet = 50 mg, By Mouth, Every 6 hours, PRN for pain, # 10 tablet, 0 Refills, Maintenance, 02/13/23 10:17:00 EDT, Tablet, [facility]/pharmacy #[id number], Partial fill upon patient request if [...] Member Role: Primary Care Nurse Name: Edgar Mix MD , Marline Marion Position: Reference Physician Member Role: PCP Address: Address: [address] [place] [address]- Care Team Related Persons Name: ROSANNA GREENE Name: VARINDER SON Address: home [address] [place] [address] Name: LEXIE ELIZALDE
--- OUTSIDE RECORDS SUMMARY | 2023-05-07 11:22 | XMS_ITS | Continuity of Care Document ---
Author Name Unknown Organization [facility] Address [address] [place] [address] [address] [place] [address]- Care Team Providers Care Trouble Operator Name Role Phone Edgar Mix MD, Marline Marion Primary Care Physician [phone] [place] [facility] [place] - 03/17/[address] [place] [address]- Attending Physician: Chaka Portillo MD Allergies, Adverse [...] 0 Refills, Maintenance, 02/13/23 8:53:00 EDT, Tablet, [facility], Partial fill upon patient request [...] 2 Refills, Maintenance, 02/13/23 10:17:00 EDT, Tablet, [facility]/pharmacy #[id number], Partial fill upon patient request [...] 02/13/23 10:16:00 EDT, Route to Pharmacy Electronically, [facility]/pharmacy #[id number], Partial fill upon patient request if the prescription i... Start Date: 02/13/23 Status: Ordered traMADol 50 mg oral tablet 1 tablet = 50 mg, By Mouth, Every 6 hours, PRN for pain, # 10 tablet, 0 Refills, Maintenance, 02/13/23 10:17:00 EDT, Tablet, [facility]/pharmacy #[id number], Partial fill upon patient request [...] Physician Member Role: PCP Address: Address: [address] [place] [address]- Care Team Related Persons Name: ROSANNA GREENE Name: VARINDER SON Address: home [address] [place] [address] Name: LEXIE ELIZALDE
--- OUTSIDE RECORDS SUMMARY | 2023-05-07 11:22 | XMS_ITS | Continuity of Care Document ---
Author Name Unknown Organization [facility] Address [address] [place] [address] [address] [place] [address]- Care Team Providers Care Ignition Specialist Name Role Phone Edgar Mix MD, Marline Marion Primary Care Physician En[place] [facility] [place] Date(s): 11/26/22 - 12/26/22 [facility] [address] [place] [address]- Allergies, Adverse Reactions, Alerts Substance Reaction Severity [...] Physician Member Role: PCP Address: Address: [address] [place] [address]- Care Team Related Persons Name: ROSANNA GREENE Name: VARINDER SON Address: home [address] [place] [address] Name: LEXIE ELIZALDE
--- OUTSIDE RECORDS SUMMARY | 2023-05-07 11:22 | XMS_ITS | Continuity of Care Document ---
Author Name Unknown Organization [facility] ter Address [address] [place] [id number]- Care Team Providers Care Corporate Coordinator Name Role Phone Edgar Mix MD, Mesha Primary Care Physician Encounter [facility] [place] Date(s): 02/12/23 - 02/13/[address] [address]- Discharge Disposition: A-D/C Home Attending Physician: Isaias Fuentes MD Admitting Physician: Isaias Fuentes MD Referring Physician: Isaias Fuentes MD Allergies, Adverse Reactions, [...] 0 Refills, Maintenance, 02/13/23 8:53:00 EDT, Tablet, [facility], Partial fill upon patient request [...] 2 Refills, Maintenance, 02/13/23 10:17:00 EDT, Tablet, [facility]/pharmacy #[id number], Partial fill upon patient request if the prescription is for a schedule II opioid drug... Start Date: 02/13/23 Stop Date: 05/14/23 Status: Ordered metoprolol 25 mg oral tablet 25 mg, 1, tablet, By Mouth, Daily, Refills 0, Maintenance, 02/09/23 12:53:00 EDT, Partial fill uponpatient request if the prescription is for a schedule II opioid drug. Start Date: 02/09/23 Status: [facility], Maintenance, Calcium 2 tabs [...] 02/13/23 10:16:00 EDT, Route to Pharmacy Electronically, [facility]/pharmacy #[id number], Partial fill upon patient request if the prescription i... Start Date: 02/13/23 Status: Ordered traMADol 50 mg oral tablet 1 tablet = 50 mg, By Mouth, Every 6 hours, PRN for pain, # 10 tablet, 0 Refills, Maintenance, 02/13/23 10:17:00 EDT, Tablet, [facility] #[id number], Partial fill upon patient request if the prescription is for a schedule II opioid drug., 162, cm, 02/12/23... Start Date: 02/13/23 Status: Ordered Tylenol 325 mg oral tablet 975 mg, Tablet, By Mouth, 02/13/23 8:00:00 EDT Start Date: 02/13/23 Stop Date: 02/13/23 Status: Completed Vitamin D3 1000 intl units oral capsule [...] obesity (BMI 35.0-39.9) with comorbidity Confirmed Active Procedures Procedure Date Related Diagnosis Body Site Status Thyroidectomy, total or complete 02/12/23 Completed Vital Signs Most recent to oldest [Reference Range]: 1 2 3 Height 162 cm (02/12/23 4:55 PM) 162 cm (02/12/23 12:47 PM) 162 cm (02/09/23 1:30 PM) Weight 101 kg (02/12/23 4:55 PM) 93 kg (02/12/23 12:47 PM) 93 kg (02/09/23 1:30 PM) Oxygen Saturation [94-100 %] 94 % (02/13/23 7:00 AM) 97 % (02/13/23 3:32 AM) 98 % (02/12/23 11:19 PM) Pulse Rate [55-90 bpm] 66 bpm (02/13/23 7:00 AM) 79 bpm (02/13/23 3:32 AM) 74 bpm (02/12/23 11:19 PM) Body Mass Index [18.5-24.99 kg/m2] 38.48 kg/m2 *>HHI* (02/12/23 4:55 PM) 35.44 kg/m2 *>HHI* (02/12/23 12:47 PM) 35.44 kg/m2 *>HHI* (02/09/23 1:30 PM) Blood Pressure [90-138/55-84 mm Hg] 132/74mm Hg (02/13/23 7:00 AM) 134/71mm Hg (02/13/23 3:32 AM) 127/63mm Hg (02/12/23 11:19 PM) Respiratory Rate [16-30 br/min] 20 br/min (02/13/23 8:29 AM) 18 br/min (02/13/23 7:00 AM) 20 br/min (02/13/23 3:32 AM) Temperature [96.8-100.4 DegF] 97.8 DegF (02/13/23 7:00 AM) 97.6 DegF (02/13/23 3:32 AM) 97.9 DegF (02/12/23 11:19 PM) Liters per Minute 4 L/min (02/12/23 4:30 PM) 4 L/min (02/12/23 4:15 PM) 4 L/min (02/12/23 4:00 PM) Mode of Delivery (Oxygen) Room air (02/13/23 7:00 AM) Room air (02/13/23 3:32 AM) Room air (02/12/23 11:19 PM) Blood pressure sites Arm, right (02/13/23 7:00 AM) Arm, right (02/13/23 3:32 AM) Arm, right (02/12/23 11:19 PM) Temperature Route Oral (02/13/23 7:00 AM) Oral (02/13/23 3:32 AM) Oral (02/12/23 11:19 PM) Dry Weight 101 kg (02/12/23 4:55 PM) 101 kg (02/12/23 12:47 PM) 93 kg (02/09/23 1:30 PM) Weight Obtained Via Patient/family state d (02/09/23 1:30 PM) Dry Weight Obtained Via Standing scale (02/12/23 12:47 PM) Patient/family stated (02/09/23 1:30 PM) Social History Social History Type Response Tobacco Other: 1 pack a day over 30 years. Sex Hospital Progress note * Janeen Edouard MD: PERFORM Event Display: Progress Note Hospital Authored Date: [id number] Patient: ??DULCE ROBERTS ? Age:??52 Years?Sex:??Female?:??1970?? Subjective Patient reports mild incisional soreness overnight but denies any voice hoarseness, numbness/tingling around the mouth, or problems with swallowing. She states her sore throat has improved since yesterday. She notes that she had an episode of emesis after getting her medications yesterday but states that it has resolved and she is now tolerating a diet with no nausea or vomiting. She has been up out of bed and into her chair, as well as??walking with a walker. Physical Exam Vitals & Measurements T:??97.8?F?? HR:??66??(Peripheral)?? RR:??20?? BP:??132/74?? SpO2:??94%?? HT:??162??cm?? WT:??101??kg?? BMI:??38.48?? Physical Exam: Constitutional: No acute distress, awake, alert and oriented x3 HEENT:??Subplatysmal hematoma??to the inferior??aspect of the neck incision extending laterally that is stable. Neck is appropriately tender around the incisional site. Steri strips covering the incision, c/d/i with??no strikethrough.?? Cardiovascular: Regular rate and rhythm Respiratory: No acute respiratory distress, no increased work of breathing Abdomen/GI: soft, non-tender, non-distended, bowel sounds present Extremities: No clubbing or cyanosis Skin: Incisions clean, dry, intact, no erythema ?? Assessment/Plan Dulce Roberts is a 52 year old woman with a history of HTN, asthma, and hemochromatosis who is POD1 s/p total thyroidectomy for Graves disease with Dr. Fuentes 02/12/2023. Postoperatively she endorsed incisional pain and a sore throat.??Her iCal and PTH were normal last night, and her repeat iCal was 1.2 this AM.??Given her pain improvement, as well as her ability to tolerate a diet and void with nosigns or symptoms??of hypocalcemia, she has been??cleared for discharge this AM. ?? Plan Pain control - Tylenol, Ibuprofen; toradol or oxycodone for severe pain (patient states she does not want to take narcotics at home) Citrical 2 Tabs BID on discharge for 1 week,??can discontinue if normal calcium on follow up labs Levothyroxine 137mcg QD?? Intake and Output Intake and Output Results?? This visit (24 hour periods starting at 07:00 EDT)? 02/13/23 *?? 02/12/23?? 02/11/23?? Total Summary?Intake mL?? --?? 390?? --?Output mL?? 120?? 3,050?? --?Fluid Balance ?? -120?? -2,660?? --?? Intake (1)?Oral Fluids mL?? --?? 390?? --?Total?? --?? 390?? --?? Output (2)?Emesis Vol mL?? --?? 600?? --?Urine Voided mL?? 120?? 2,450?? --?Total?? 120?? 3,050?? --?? Counts (3)?Oral Fluids mL?? --?? 390?? --?Urine Count ?? --?? 1?? --?Urine Voided mL?? 120?? 2,450?? --? * This column has not completed the indicated time period.?? Labs Last 24 Hours CHEM GENERAL ? Event Name?? Event Result?? Date/Time?? Calcium, Ionized pH Corrected 1.2 mmol/L 02/13/23 07:28:00 ? * Rishabh Oropeza RN: PERFORM, SIGN, VERIFY Event Display: Progress Note Hospital Authored Date: [id number] Patient: DULCE ROBERTS Age: 52 years Sex: Female : 1970 Associated Diagnoses: None Author: Rishabh Oropeza RN Findings Problem Related to Alteration in Comfort : Alteration in Comfort/new 02/13/2023 7:00 EDT Alteration in Comfort Related to Surgery Goals & Outcomes: Comfort Pt will report acceptable level of comfort & pain control, Pt will state importance of adhering to pain strategy regime, Pt will demonstrate necessary skills to manage pain, Non-verbal indicators will indicate comfort/pain control Interventions Implemented: Comfort Assess pain using appropriate pain scale/tools, Assess aggravating factors & prevent them accordingly, Assess alleviating factors & promote them accordingly BH Goals/Interventions, Comfort Yes Comfort, Problem Start 02/12/2023 17:03 Reviewed plan with, Comfort Patient, Family/caregiver not available Patient Progression, Comfort Pt progressing according to plan Comfort, Problem Ongoing Yes . Nursing Data Vital Signs : VITAL SIGNS SECTION 02/13/2023 7:00 EDT Temperature 97.8 DegF Temperature Route Oral Pulse Rate 66 bpm Respiratory Rate 18 br/min Systolic Blood Pressure 132 mm Hg Diastolic Blood Pressure 74 mm Hg Blood pressure sites Arm, right Pulse Pressure 58 mm Hg Oxygen Saturation 94 % Mode of Delivery (Oxygen) Room air . Narrative/Incidental P: Alteration in comfort s/p surgery I: See interventions listed in care plan above E: Pt alert and oriented to person place time and situation, no neuro deficits, strong and equal bilateral hand grasps, strong and equal dorsi/plantar flexion, pt reporting anxiety this morning saying It's just my OCD . Pt reporting pain as 3/10 neck pain reporting it as tender pain around incision and less of a sore throat this morning. Lung sounds clear throughout and diminished, no cough, bo es shortness of breath, tolerating room air, duoneb treatments administered per pt request of amy my lungs . No edema, denies chest pain, peripheral pulses palpable in all extremities. Abdomen soft round nontender, bowel sounds present throughout abdomen, +flatus per pt report, tolerating dietand denies nausea. Voiding cyu in adequate amounts w/ episodes of intermittent incontinence. Anterior neck steri strips cdi w/ ice applied prn for comfort, surrounding skin w/ minimal bruising. Progressing along plan of care.. * Daylin Blanchard RN: PERFORM, SIGN, VERIFY Event Display: Progress Note Hospital Authored Date: [id number] Patient: DULCE ROBERTS Age: 52 years Sex: Female : 1970 Associated Diagnoses: None Author: Daylin Blanchard RN Findings Problem Related to Alteration in Comfort : Alteration in Comfort/new 02/12/2023 21:00 EDT Alteration in Comfort Related to Surgery Goals & Outcomes: Comfort Pt will report acceptable level of comfort & pain control, Pt will state importance of adhering to pain strategy regime, Pt will demonstrate necessary skills to manage pain, Non-verbal indicators will indicate comfort/pain control Interventions Implemented: Comfort Assess pain using appropriate pain scale/tools, Assess aggravating factors & prevent them accordingly, Assess alleviating factors & promote them accordingly BH Goals/Interventions, Comfort Yes Comfort, Problem Start 02/12/2023 17:03 Reviewed plan with, Comfort Patient Patient Progression, Comfort Pt progressing according to plan Comfort, Problem Ongoing Yes . Evaluation Pt is A&Ox4. Tylenol for pain 5/10 with positive effect. Lungs are CTA, no cough, denies SOB. Extremities are warm, +CMS, +pedal pulses, no edema present, SCDs in place. Abd is soft, round and nontender, no n/v, no flatus, hypoactive BS x4. Pt is voiding without difficulty, clear yellow urine. Anterior neck incision with steris strips intact, ice applied. Pt denies numbness/tingling around lips and to fingertips. Pt is ambulating to bathroom with a walker and assist. Safety maintained, Pt currently resting in bed, bed in lowest locked position, call graham within reach. See CIS for further assessment. Note * Rishabh Oropeza RN: PERFORM Event Display: Discharge/Transfer Note Hospital Authored Date: [id number] Nursing Discharge Note Entered On: 02/13/2023 9:43 EDT Performed On: 02/13/2023 9:41 EDT by Rishabh Oropeza RN Nursing Discharge Note 2 Discharge Time : 02/13/2023 9:45 EDT Rishabh Oropeza RN - 02/13/2023 9:47 EDT Discharge Level of Care at Discharge : Home/Residential/Foster Care Patient Left Unit Via : Ambulatory Patient Accompanied Off Unit with : Responsible adult DC Instructions Provided & Signed by Pt : Yes Patient Understands D/C Instructions : Yes Verbalized Understanding of D/C Plan By : Patient Patient Instructions Discharge Signed : Yes Discharge Comments : dx instructions reviewed w/ pt and question answered, iv removed and tip intact, V&B reviewed w/ pt and sent home when dx Did Pt have Specialty Bed or Wound Vac : No Rishabh Oropeza RN - 02/13/2023 9:41 EDT * Rishabh Oropeza RN: PERFORM Event Display: Patient Education/Instruction Authored Date: [id number] Inpatient Adult Discharge Instructions [address] [address] Name: DULCE ROBERTS : 1970 Visit: 02/12/2023 10:39:00 Current Date: 02/13/2023 09:05 Account: [id number] Inpatient Adult Discharge Instructions We would like to thank you for allowing us to assist you with your healthcare needs. The following includes patient education materials and information regarding your injury/illness. Our entire staffstrives to provide an excellent experience for our patients and their families. PLEASE ENSURE YOU FOLLOW-UP PER THE INSTRUCTIONS BELOW! ?? YOUR OPINION IS IMPORTANT TO US! Please complete the survey you may receive by mail or email. Your feedback will be used to make improvements to the healthcare experiences of our patients and their families. Surveys are administered by [employer] ?? If further treatment with your primary care physician or another doctor is recommended, it is important for you to keep the appointment. Call your primary care physician or return to the Emergency Department immediately if your condition worsens, fails to improve, or new symptoms develop. If you need to find a doctor, you can call [facility] for a referral at [phone] or toll free at [phone]) or log in to [email or web address].. ?? You can view and manage your care through the patient portal or by using a health care krissy of your choosing. [employer] is a website that allows you to securely view your medical information including your hospital discharge summary, office visit summaries, medications and follow-up visits. You can also request appointments, renew medications, and request access to your medical information using a health care krissy of your choosing, or just ask a question. You can enroll at [email or web address] or register during your next office visit. You have been discharged from [facility], Patient Care Unit: SW6. If you have any questions regarding these instructions after you leave, please call us and we will be happy to assist you. [facility] Your Care Team Attending Physician Gina BERMUDEZ, Isaias Consulting Providers Jr BERMUDEZ, Vin; Daniela BERMUDEZ, Santosh Seymour; Gina BERMUDEZ, Isaias Discharging Providers Janeen Edouard MD Reason for Admission GRAVES DISEASE[facility]N 23HR DS Tests Performed Below is a partial list of the tests performed during your hospitalization. You may have had other tests and procedures not included in this list. Please discuss all test results with your provider. HOLD GEL TUBE HOLD LAVENDER TUBE Ionized Calcium PTH Intact Primary Care Provider Edgar Mix MD , Marline Marion Advance Directive Health Care Proxy on File No Patient refuses to discuss Discharge Vitals Temperature: 97.8 DegF Height: 162 cm Pulse Rate: 66 bpm Weight: 101 kg Respiratory Rate: 20 br/min Body Mass Index:??38.48 kg/m2??Critical Systolic Blood Pressure: 132 mm Hg Body surface area: 2.13 Diastolic Blood Pressure: 74 mm Hg ?? Oxygen Saturation: 94 % ?? Studies Pending All tests and labs ordered during this hospital stay have been completed unless listed below. Please discuss all pending results with your provider listed above in these instructions. ?? Pathology Tissue Request ([id number]) What to do next Instructions From Your Doctor ?? Procedure: Thyroidectomy Surgeon: Dr. Fuentes ?? Medications: - Please take tylenol and ibuprofen as needed for pain. Can take oxycodone as needed for severe pain. This has been sent to your preferred pharmacy.?? - Please take Levothyroxine daily which is a thyroid hormone replacement pill. Take in the morning 30min before any meal.? Instructions: - Please follow-up with your forest pathology teacher within 2 months of discharge to continue to monitor your thyroid hormone levels.?? - Please leave steri strips in place for 1 week and then can be removed - Ok to shower tomorrow morning, No baths or soaking/swimming until incision heals - You are being sent a Rx for labs in 1 week. If these levels are normal, you will stop taking calcium supplements. In the meantime, please take citrical 2 tabs twice a day. If you experience tingling, numbness, muscle soreness or fatigue (symptoms of low calcium) then increase this dose to 2 tabs three or up to four times a day. ?? Follow-up: - If you do not have an appointment scheduled, please call the clinic to make your follow-up appointment. When to call your doctor: -??Swelling or bleeding at the cut site?? - Fever of 100.4??F ( 38.0??C) or higher, or as advised by your provider?? - A strained, raspy voice (hoarseness)?? - A sore throat that lasts longer than 3 weeks?? - Tingling or cramps in your hands, feet, or lips?? Discharge Orders Scheduled Follow-Up Appointments Wednesday 10:40 AM EDT ?? With: Ric Morales Where: [facility] General Surgery [address] [place] [address] Drive [address] [place] [address]- Status: Pending Discharge Medications DULCE ROBERTS :1970 Visit Date:02/12/2023 Medications: Please continue your medications until treatment is completed or stopped by your provider. Medications not listed below should be discontinued. Discuss any questions related to medications with your provider. What How Much When Instructions Next Dose New Calcium And Vitamin D Combination (Citracal Maximum +D oral tablet) 2 tab(s) Oral Twice a day Pickup at [facility] 9pm 02/13 New Levothyroxine (levothyroxine 0.137 mg oral tablet) 1 tab(s) Oral Daily Duration: 30 Days Refills: 2 Take 30min before food in the morning. ?? Pickup at [facility] 9am 02/14 New Miscellaneous Rx (Lab order) See instructions Lab order: - serum calcium - intact PTH - serum albumin ?? Printed Prescription New Oxycodone (oxyCODONE 5 mg oral tablet) 1 tab(s) Oral Every 6 hours as needed for as needed for pain Pickup at [facility] Next time needed Unchanged Albuterol (albuterol CFC free 90 mcg/ inh inhalation aerosol) 2 puff(s) Inhalation Every 6 hours as needed for Wheezing/Shortness of Breath Next time needed Unchanged Cholecalciferol (Vitamin D3 1000 intl units oral capsule) 1 capsule Oral Daily 02/14 Unchanged Fluticasone (Flovent HFA 44 mcg/ inh inhalation aerosol) 2 puff(s) Inhalation Twice a day 902/13 Unchanged Gabapentin (gabapentin 100 mg oral capsule) 1 capsule Oral 3 times a day m 02/13 Unchanged Metoprolol (metoprolol 25 mg oral tablet) 1 tab(s) Oral Daily 02/14 Unchanged Miscellaneous Rx (Misc Rx) Calcium 2 tabs daily ?? Unchanged Naproxen (naproxen 250 mg oral tablet) 1 tab(s) Oral Twice a day as needed for as needed for arthritis 02/13 Unchanged Omeprazole (omeprazole 40 mg oral enteric coated capsule) 1 capsule Oral Daily 02/14 Pharmacy Information [facility]: [address] [place] [address] [phone] ?? What How Much When Comments Stop Taking Methimazole (methimazole 10 mg oral tablet) 1.5 tab(s) Oral Twice a day Test Results Below is a partial list of the most recent Laboratory test results done prior to this discharge. You may have had other tests and procedures not included in this list. Please discuss all test resultswith your provider. HOLD GEL TUBE (02/12/2023) ???Hold Gel Top - SPECIMEN DISCARDED AFTER 1 WEEK HOLD LAVENDER TUBE (02/12/2023) ???Hold Lavender Top - SPECIMEN DISCARDED AFTER 24 HOURS. Ionized Calcium (02/13/2023) ???Calcium, Ionized pH Corrected - 1.20 mmol/L PTH Intact (02/12/2023) ???PTH, Intact - 21 pg/mL Allergies (NKA means No Known Allergies) Chantix??(mood swings) Egg Allergy??(itching) Problems Active Problems??(6) Acid reflux disease?? Chronic sciatica?? Goiter?? Graves' disease?? Hyperthyroidism?? Severe obesity (BMI 35.0-39.9) with comorbidity?? Education Materials Below is the list of Educational Leaflet Providered with your Discharge Instructions. Valuables and Belongings I fully understand and agree that [facility] accepts no responsibility for all my personal property including clothing, toilet articles, radios, jewelry, dentures, hearing aids, rings, money, or any other property that is in my possession or is brought to me after admission. I understand certain valuables may be placed in a hospital safe for a short period of time. I understand that the hospital is not liable for loss or damage due to accident, fire, or other natural occurrence while said property is in the safe. I accept full responsibility for any personal property that I keep with me, and will not hold the hospital responsible in case of loss or disappearance. I acknowledge that i have been encouraged to send valuables and belongings home. ?? Review of Valuable and Belonging List: With patient Possessions released to: wedding band to spouse, Jamir. All other belongings to locker Date for Pt to Sign Valuables/Belongings: 02/12/23 17:05:00 ?? Other Discharge Information ? Pulmonary Rehab Status?? Pulmonary Rehab Discharge Status?? Respiratory Rate: 20 br/min ? Common Emergency Awareness Tips IS IT A STROKE? Act FAST and Check for these signs: FACE Does the face look uneven? ARM Does one arm drift down? SPEECH Does their speech sound strange? TIME Call at any sign of stroke ?? Heart Attack Signs Chest discomfort: Most heart attacks involve discomfort in the center of the chest and lasts more than a few minutes, or goes away and comes back. It can feel like uncomfortable pressure, squeezing, fullness or pain. Discomfort in upper body: Symptoms can include pain or discomfort in one or both arms, back, neck, jaw or stomach. Shortness of breath: With or without discomfort. Other signs: Breaking out in a cold sweat, nausea, or lightheaded. Remember, MINUTES DO MATTER. If you experience any of these heart attack warning signs, call to get immediate medical attention! ?? Smoking can increase your chances of developing chronic health problems and can cause harmful effects to other family members in your house. If you smoke, you are strongly encouraged to quit. Please call [facility] at [phone] or [phone]) or log in to [email or web address] for referrals to smoking cessation programs. ?? 402 Suicide & Crisis Lifeline is available 18/01 if you or someone you know needs to find a reason to keep living. By calling 745 you'll be connected to a skilled, trained counselor at a crisis center in your area. INPATIENT DISCHARGE INSTRUCTIONS SIGNATURE PAGE DULCE ROBERTS Location:[facility] Registration Date and Time:02/12/2023 10:39 EDT Primary Care Physician: Edgar Mix MD , Marline Marion, Attending Physician: Gina BERMUDEZ, Isaias, I DULCE ROBERTS, have received the above patient education materials/instructions and have verbalized understanding. If ambulance or transport services are being used I further acknowledge being givena choice of service. ?? If you need to contact me, please call me at this number: . Patient/Associate Director Of Biostatistics Name: Patient/Associate Director Of Biostatistics Signature: Relationship to Patient: Witness Name/Signature: Date: Patient Care team information Care Team Personnel Name: Daylin Blanchard RN Position: S RN Member Role: Primary Care Nurse Name: Henna Tariq RN Position: S RN Member Role: Primary Care Nurse Name: Edgar Mix MD , Marline Marion Position: Reference Physician Member Role: PCP Address: Address: [address] [place] [address]- [place] Care Team Related Persons Name: ROSANNA GREENE Name: JAMIR SON Address: home [address] [place] [address] Name: LEXIE ELIZALDE
--- OUTSIDE RECORDS SUMMARY | 2023-05-07 11:22 | XMS_ITS | Continuity of Care Document ---
Author Name Unknown Organization [facility] Address [address] [place] [address] [address] [place] [address]- Care Team Providers Care Contract Attorney Name Role Phone Edgar Mix MD, Mesha Primary Care Physician [phone] Encounter [facility] Date(s): 03/10/23 - 04/09/[address] [place] [address]- Attending Physician: Admtr, Ar8 Admitting Physician: Admtr, Ar8 Referring Physician: Admtr, Ar8 Allergies, Adverse Reactions, [...] 0 Refills, Maintenance, 02/13/23 8:53:00 EDT, Tablet, [facility], Partial fill upon patient request [...] 2 Refills, Maintenance, 02/13/23 10:17:00 EDT, Tablet, [facility]/pharmacy #[id number], Partial fill upon patient request if [...] 02/13/23 10:16:00 EDT, Route to Pharmacy Electronically, [facility]/pharmacy #[id number], Partial fill upon patient request if the prescription i... Start Date: 02/13/23 Status: Ordered traMADol 50 mg oral tablet 1 tablet = 50 mg, By Mouth, Every 6 hours, PRN for pain, # 10 tablet, 0 Refills, Maintenance, 02/13/23 10:17:00 EDT, Tablet, [facility]/pharmacy #[id number], Partial fill upon patient request if [...] pack a day over 30 years. Sex Laboratory * Event Display: Non Lab Results Authored Date: * Event Display: Non Lab Results Authored Date: Patient Care team information Care Team Personnel Name: Daylin Blanchard RN Position: S RN Member Role: Primary Care Nurse Name: Henna Tariq RN Position: S RN Member Role: Primary Care Nurse Name: Edgar Mix MD , Marline Marion Position: Reference Physician Member Role: PCP Address: Address: [address] [place] [address]- Care Team Related Persons Name: ROSANNA GREENE Name: VARINDER SON Address: home [address] [place] [id number] Name: LEXIE ELIZALDE
--- OUTSIDE RECORDS SUMMARY | 2023-05-07 11:22 | XMS_ITS | Continuity of Care Document ---
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 Role Phone Edgar Mix MD, Marline Marion Primary Care Physician [phone] Encounter [facility] Date(s): 03/10/23 - 04/09/23 [facility] [address] [place] [address]- Allergies, Adverse Reactions, Alerts Substance Reaction Severity [...] 0 Refills, Maintenance, 02/13/23 8:53:00 EDT, Tablet, [facility], Partial fill upon patient request if [...] 2 Refills, Maintenance, 02/13/23 10:17:00 EDT, Tablet, [facility]/pharmacy #[id number], Partial fill upon patient request if the prescription is for a schedule II opioid drug... Start Date: 02/13/23 Stop Date: 05/14/23 Status: Ordered metoprolol 25 mg oral tablet 25 mg, 1, tablet, By Mouth, Daily, Refills 0, Maintenance, 02/09/23 12:53:00 EDT, Partial fill uponpatient request if the prescription is for a schedule II opioid drug. Start Date: 02/09/23 Status: [facility] 0, Maintenance, Calcium 2 tabs [...] 02/13/23 10:16:00 EDT, Route to Pharmacy Electronically, [facility]/pharmacy #[id number], Partial fill upon patient request if the prescription i... Start Date: 02/13/23 Status: Ordered traMADol 50 mg oral tablet 1 tablet = 50 mg, By Mouth, Every 6 hours, PRN for pain, # 10 tablet, 0 Refills, Maintenance, 02/13/23 10:17:00 EDT, Tablet, [facility]pharmacy #[id number], Partial fill upon patient request if [...] RN Member Role: Primary Care Nurse Name: Marline Victoria MD Position: Reference Physician Member Role: PCP Address: Address: [address] [place] [address]- Care Team Related Persons Name: ROSANNA GREENE Name: VARINDER SON Address: home [address] [place] [address] Name: LEXIE ELIZALDE
--- OUTSIDE RECORDS SUMMARY | 2023-05-07 11:22 | XMS_ITS | Continuity of Care Document ---
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 Name Role Phone Edgar Mix MD, Mesha Primary Care Physician [place] [facility] [facility] [place] [id number] Date(s): 01/13/23 - 02/12/23 [facility] [address] [place] [address]- Attending Physician: Admtr, Ar8 Admitting Physician: Admtr, Ar8 Referring Physician: Admtr, Ar8 Allergies, Adverse Reactions, Alerts Substance Reaction Severity Status Chantix mood swings Active Egg Allergy itching Active Medications albuterol CFC free 90 mcg/inh inhalation aerosol 2, puffs, Inhalation, Every 6 hours, PRN, Refills 0, Maintenance, 05/07/22 13:29:00 EST Start Date: 05/07/22 Status: Ordered Flovent HFA 44 mcg/inh inhalation [...] morning., # 30 tablet, 2 Refills, Maintenance, 02/12/23 17:04:00 EDT, Tablet, [facility], Partial fill upon patient request if the prescription is for a schedule II... Start Date: 02/12/23 Stop Date: 05/13/23 Status: Ordered metoprolol 25 mg oral tablet 25 mg, 1, tablet, By Mouth, Daily, Refills 0, Maintenance, 02/09/23 12:53:00 EDT, Partial fill uponpatient request if the prescription is for a schedule II opioid drug. Start Date: 02/09/23 Status: Ordered [facility] Rx Refills 0, Maintenance, Calcium 2 tabs [...] 7 tablet, Refills 0, Tot. Refills 0, Acute 02/14/23 17:15:00 EDT, as needed for pain, 02/12/23 17:05:00 EDT, Route to Pharmacy Electronically, [facility], Partial fill upon patient r... Start Date: 02/12/23 Stop Date: 02/14/23 Status: Ordered Vitamin D3 1000 intl units [...] Team Personnel Name: Daylin Blanchard RN Position: [facility] RN Member Role: Primary Care Nurse Name: Henna Tairq RN Position: [facility] RN Member Role: Primary Care Nurse Name: Edgar Mix MD , Marline Marion Position: Reference Physician Member Role: PCP Address: Address: [address] [place] [address]- Care Team Related Persons Name: ROSANNA GREENE Name: VARINDER SON Address: home [address] [place] [address] Name: LEXIE ELIZALDE
--- NOTE | 2023-05-07 11:26 | ED.CHESTPAIN ---
HPI - Chest Pain General Chief Complaint: Chest Pain Stated Complaint: chest pain Time Seen by Provider: 05/07/23 11:08 Source: patient and family Mode of arrival: ambulatory Limitations: no limitations History of Present Illness HPI narrative: Patient developed left sided chest pain. She DOES NOT have CAD. She had only one prior history of SVT, was never admitted. MD complaint: chest pain Onset: during rest Related Data Home Medications Medication Instructions Recorded Confirmed nebulizers 04/29/23 psyllium husk 0.4 gram capsule g PO 04/29/23 (Reguloid (psyllium husk)) Previous Rx's Medication Instructions Recorded bupropion HCl 150 mg 24 hr tablet, 150 mg PO QAM 90 days #90 tabs 03/18/22 extended release naproxen 250 mg tablet 250 mg PO BID PRN pain 30 days #60 11/19/22 tabs sodium sul 1.479 gram-potas ch See Rx Instructions PO PER PKG DIR 12/04/22 0.188 gram-magnes sul 0.225 gram #24 tabs tablet (Sutab) fluticasone propionate 44 1 puff inhalation BID 30 days 01/11/23 mcg/actuation HFA aerosol inhaler #10.6 grams (Flovent HFA) nicotine 21 mg/24 hr daily 1 patch transdermal DAILY 28 days 01/11/23 transdermal patch #28 ea walker #1 ea 01/11/23 albuterol sulfate 2.5 mg/3 mL 2.5 mg (3 mL) inhalation Q6H PRN 02/23/23 (0.083 %) solution for nebulization shortness of breath or wheezing 30 days #180 mL nicotine 10 mg inhalation 1 inh inhalation Q2-4H PRN 02/23/23 cartridge (Nicotrol) nicotine cravings 30 days #168 ea levothyroxine 137 mcg tablet 137 mcg PO DAILY #30 tabs 03/04/23 omeprazole 40 mg capsule,delayed 40 mg PO DAILY 90 days #90 caps 03/16/23 release cholecalciferol (vitamin D3) 25 25 mcg PO DAILY 30 days #30 tabs 03/23/23 mcg (1,000 unit) tablet gabapentin 100 mg capsule 100 mg PO TID 30 days #90 caps 03/23/23 metoprolol succinate 25 mg 25 mg PO DAILY 90 days #90 tabs 03/23/23 tablet,extended release 24 hr albuterol sulfate 90 mcg/actuation 2 puff inhalation Q6H PRN 04/10/23 aerosol inhaler shortness of breath or wheezing 30 days #6.7 grams azithromycin 500 mg tablet 500 mg PO DAILY 5 days #5 tabs 04/29/23 fluticasone fur. 200 mcg-umeclid 1 inh inhalation DAILY 30 days #60 04/29/23 62.5 mcg-vilant 25 mcg ea inhalat.powder (Trelegy Ellipta) methylprednisolone 4 mg tablets in See Rx Instructions PO PER PKG DIR 04/29/23 a dose pack (Medrol (Jesse)) 6 days #21 ea Allergies Allergy/AdvReac Type Severity Reaction Status Date / Time egg [Egg] Allergy Severe ANAPHYLAXIS Verified 05/07/23 10:52 influenza virus vaccine, Allergy Severe CANNOT Verified 05/07/23 10:52 specific OBTAIN DUE [FLU VACCINE] TO EGG ALLERGY nicotine [From NICODERM CQ] Allergy Intermediate RASH Verified 05/07/23 10:52 varenicline [From CHANTIX] Allergy Intermediate DEPRESSION Verified 05/07/23 10:52 AND ANXIETY INCREASE barium sulfate AdvReac Intermediate saul Verified 05/07/23 10:52 Review of Systems Review of Systems: Yes all other systems are reviewed and are negative Neurologic: Denies Sensory deficit (Neuro) [facility] Past Medical History Medical History (Updated 05/07/23 @ 15:08 by Tanner Galeas MD) Coronary artery disease History of supraventricular tachycardia Graves disease Asthma with COPD Nicotine dependence, cigarettes, uncomplicated Arthritis Left breast lump Mild recurrent major depression Blurry vision Obesity (BMI 30-39.9) Vitamin D deficiency Constipation History of COVID-19 Surgical History (Updated 05/03/23 @ 11:09 by Carmen Garcia PA-C) History of total thyroidectomy (~2022) History of tonsillectomy and adenoidectomy History of dental surgery History of appendectomy (~1979) History of tubal ligation (~1999) History of section (~1999) History of right salpingo-oophorectomy (~2001) History of endometrial ablation (~2017) Family History Family History Father Bone cancer Lung cancer Mother CVD (cardiovascular disease) Emphysema of lung Hypertension Asthma Sister Breast cancer Maternal Aunt Uterine cancer Maternal Aunt Skin cancer Social History Social History (System 04/14/23 @ 13:12 by Zeinab Euceda) Household Members: None Housing: Apartment Are you a primary care manager to a significant other at home: No Do you presently have visiting nurse or other home services: No Alcohol intake: never Patient Tobacco Use Status: Current everyday Tobacco user Tobacco use type: Cigarette Cigarette Packs Per Day: 1 e-Cigarette/Vaping Use: Never Used Second Hand Smoke Exposure: No Advance Directives: No service: No Current occupational status: disabled Cognitive needs: No Hearing needs: No Vision needs: Yes Physical Exam Vital Signs: Vital Signs: Last Vital Signs Temp 97.2 F 05/07/23 10:52 Pulse 80 05/07/23 10:52 Resp 26 H 05/07/23 10:52 BP 146/78 H 05/07/23 10:52 Pulse Ox 100 05/07/23 10:52 O2 Del Method Room Air 05/07/23 10:52 BMI result Body Mass Index 39.0 Const: Other: female, anxious, looking older than stated age Nutritional Appearance: average body habitus Orientation/consciousness: oriented to person and patient oriented x3 Limitations: no limitations HEENT: Head: Yes normal to inspection Ears: external ears normal General nose exam: Normal external nose present Mouth: Normal oral and palatal mucosa present and oropharynx normal Throat: Yes posterior oropharynx normal Eyes: General: appearance normal, both eyes and all related structures Neck: Other: supple Neck: Yes normal visual inspection Chest: Chest palpation & inspection: normal inspection of the chest Resp: Auscultation: clear to auscultation bilaterally Cardio: Jugular venous distension: no JVD Rate: regular rate Rhythm: regular rhythm Heart sounds: S1 normal heart sound present and S2 normal heart sound present GI: Inspection: Yes normal to inspection Palpation (GI): Soft to palpation, nontender and No hepatosplenomegaly present Auscultation: normal bowel sounds : General: Yes no CVA tenderness Back/Spine/Pelvis: Back: no CVA tenderness Skin: General skin exam: no rashes or lesions noted Neuro: General: oriented to person and patient oriented x3 Cranial nerves: Yes CN's II-XII intact bilaterally Motor exam (neuro): 5/5 motor strength present throughout Sensory Exam: No Sensory deficit (Neuro) Extrem: General: Yes normal to inspection Psych: Appearance: grossly normal Course Reevaluation(s) Reevaluation #1: Patient with atypical chest pain, normal EKG normal troponin will dc home, likely anxiety Time: 14:10 Medical Decision Making Differential Diagnosis Differential Diagnoses: The differential diagnosis associated with the presentation includes (STEMI, CAD, pneumonia were all considered) Admission/Observation Consideration of admission/observation: Escalation of care including admission/observation considered (upon arrival patient was considered for admission) Lab Data MDM Lab Attestation statement: I reviewed the patient's lab results. (normal troponin) 05/07/23 11:39 05/07/23 11:39 Labs: Lab Results 05/07/23 Range/Units 11:39 WBC 7.4 (4.8-10.8) X10*3/uL RBC 4.64 (4.20-5.50) X10*6/uL Hgb 11.6 L (12.0-16.0) g/dl Hct 36.1 L (37.0-47.0) % MCV 77.8 L (80.0-98.0) fL MCH 25.0 L (27.0-33.0) pg MCHC 32.1 (31.0-35.0) g/dl RDW 17.8 H (11.0-16.0) % Plt Count 259 (160-400) X10*3/uL MPV 11.4 (9.4-12.3) fL Immature Gran % (Auto) 0.4 (0.0-0.4) % Neut % (Auto) 51.6 (45-73) % Lymph % (Auto) 40.0 (20-40) % [place] % (Auto) 5.5 (2-11) % Eos % (Auto) 1.8 (0-4) % Baso % (Auto) 0.7 (0-2) % Lymph # (Auto) 3.0 (1.2-4.9) X10*3/uL [place] # (Auto) 0.4 (0.1-1.2) X10*3/uL Eos # (Auto) 0.1 (0.0-0.4) X10*3/uL Baso # (Auto) 0.1 (0.0-0.2) X10*3/uL Abs Immat Gran (auto) 0.03 (0.00-0.03) X10*3/uL Absolute Neuts (auto) 3.8 (2.0-8.3) x10*3/uL Absolute Nucleated RBC 0.000 (0.0-0.012) X10*3/uL Nucleated RBC % (auto) 0.0 (0.0-0.2) /100WBC Sodium 139 (135-145) mmol/L Potassium 3.9 (3.3-5.1) mmol/L Chloride 106 (96-108) mmol/L Carbon Dioxide 26 (22-29) mmol/L Anion Gap 11 L (12-20) BUN 12 (9-16) mg/dL Creatinine 0.86 (0.5-1.4) mg/dL Estim Creat Clear Calc 90.4 Estimated GFR > 60 Random Glucose 96 (60-115) mg/dL Calcium 9.0 (8.4-10.2) mg/dL Troponin I High Sens < 2.7 (<3.5-17.0) ng/L Independent Interpretation I performed an independent interpretation of an: EKG (sinus [address] or twave changes. EKG #[address] or twave changes) and Plain X-Ray (no infiltrate) Independent Historian Clinical information obtained from an independent historian. History obtained from or confirmed by: Spouse Prescription Management I considered prescription management with: Antibiotic (no evidence of pneumonia) Discharge Plan Discharge Clinical Impression: Chest pain Patient Disposition: Home, Self-Care Instructions: Noncardiac Chest Pain (ED) Prescriptions: No Action bupropion HCl 150 mg tablet extended release 24 hr 150 mg PO QAM 90 Days Qty: 90 0RF naproxen 250 mg tablet 250 mg PO BID PRN (Reason: pain) 30 Days Qty: 60 3RF levothyroxine 137 mcg tablet 137 mcg PO DAILY Qty: 30 5RF omeprazole 40 mg capsule,delayed release(DR/EC) 40 mg PO DAILY 90 Days Qty: 90 3RF metoprolol succinate 25 mg tablet extended release 24 hr 25 mg PO DAILY 90 Days Qty: 90 1RF cholecalciferol (vitamin D3) 25 mcg (1,000 unit) tablet 25 mcg PO DAILY 30 Days Qty: 30 6RF gabapentin 100 mg capsule 100 mg PO TID 30 Days Qty: 90 3RF albuterol sulfate 90 mcg/actuation HFA aerosol inhaler 2 puff inhalation Q6H PRN (Reason: shortness of breath or wheezing) 30 Days Qty: 6.7 1RF (DME) calin [facility] See Rx Instructions .Route Qty: 1 0RF Rx Instructions: As directed fluticasone propionate [Flovent HFA] 44 mcg/actuation HFA aerosol inhaler 1 puff inhalation BID 30 Days Qty: 10.6 1RF Rx Instructions: administer with spacer nicotine 21 mg/24 hr patch 24 hour 1 patch transdermal DAILY 28 Days Qty: 28 0RF Sutab 1.479-0.188- 0.225 gram tablet See Rx Instructions PO PER PKG DIR Qty: 24 0RF Rx Instructions: package directions orally per package directions; PO PER PKG DIR, please disregard [employer] (DME) nebulizers [facility] See Rx Instructions .ROUTE Rx Instructions: As directed psyllium husk [Reguloid (psyllium husk)] 0.4 gram capsule PO Trelegy Ellipta 200-62.5-25 mcg blister with device 1 inh inhalation DAILY 30 Days Qty: 60 12RF azithromycin 500 mg tablet 500 mg PO DAILY 5 Days Qty: 5 0RF methylprednisolone [Medrol (Jesse)] 4 mg tablets,dose pack See Rx Instructions PO PER PKG DIR 6 Days Qty: 21 0RF Rx Instructions: PO PER PKG DIR Nicotrol 10 mg cartridge 1 inh inhalation Q2-4H PRN (Reason: nicotine cravings) 30 Days Qty: 168 3RF albuterol sulfate 2.5 mg /3 mL (0.083 %) solution for nebulization 2.5 mg inhalation Q6H PRN (Reason: shortness of breath or wheezing) 30 Days Qty: 180 11RF Referrals: Physician,Unknown J [Primary Care Provider] - 5 days
[2023-05-07 11:45] LABS: MANUAL DIFF FLAG NO
[2023-05-07 11:52] LABS: Basophils Absolute Auto 0.1 X10*3/uL (0.0-0.2); Basophils Percent Auto 0.7 % (0-2); Eosinophils Absolute Auto 0.1 X10*3/uL (0.0-0.4); Eosinophils Percent Auto 1.8 % (0-4); Hematocrit 36.1 % (37.0-47.0); Hemoglobin 11.6 g/dl (12.0-16.0); Imm Gran Abs Auto 0.03 X10*3/uL (0.00-0.03); Imm Gran Pct Auto 0.4 % (0.0-0.4); Mean Corpuscular HGB Conc 32.1 g/dl (31.0-35.0); Mean Corpuscular Volume 77.8 fL (80.0-98.0); Mean Platelet Volume 11.4 fL (9.4-12.3); Monocytes Absolute Auto 0.4 X10*3/uL (0.1-1.2); Monocytes Percent Auto 5.5 % (2-11); Neutrophils Absolute Auto 3.8 x10*3/uL (2.0-8.3); Neutrophils Percent Auto 51.6 % (45-73); Platelet Count 259 X10*3/uL (160-400); Red Blood Count 4.64 X10*6/uL (4.20-5.50); Red Cell Distribution Width 17.8 % (11.0-16.0); White Blood Count 7.4 X10*3/uL (4.8-10.8)
[2023-05-07 11:59] LABS: Anion Gap 11 (12-20); Blood Urea Nitrogen 12 mg/dL (9-16); Carbon Dioxide 26 mmol/L (22-29); Chloride 106 mmol/L (96-108); Creatinine Clr Calc Pharmacy 90.4; Estimated Glomerular Filt Rate > 60; Glucose Random 96 mg/dL (60-115); Potassium 3.9 mmol/L (3.3-5.1); Sodium 139 mmol/L (135-145)
[2023-05-07 12:00] VITALS: BP 121/84; PULSE 80; RESP 16; O2SAT 98
[2023-05-07 12:10] LABS: Troponin-I High Sensitivity < 2.7 ng/L (<3.5-17.0)
[2023-05-07 13:27] VITALS: PULSE 62
[2023-05-07 14:00] VITALS: BP 112/48; PULSE 68; RESP 18; TEMP 36.4; O2SAT 98
--- NOTE | 2023-05-07 14:04 | ECG_ITS ---
Test Reason : CHEST PAIN Blood Pressure : / mmHG Vent. Rate : 075 BPM Atrial Rate : 075 BPM P-R Int : 168 ms QRS Dur : 082 ms QT Int : 400 ms P-R-T Axes : 061 023 056 degrees QTc Int : 446 ms Normal sinus rhythm RSR' or QR pattern in V1 suggests right ventricular conduction delay Otherwise normal ECG When compared with ECG of 07-MAY-2023 11:19, No significant change was found Referred By: Tanner Galeas Electronically Signed By:SONI GOLDSTEIN MD
== END 2023-05-07 15:30 | disposition home or self-care (01) ==
PROVIDERS: Emergency Provider Emergency Medicine
DX: R07.89 Other chest pain (principal); F17.210 Nicotine dependence, cigarettes, uncomplicated; Z71.6 Tobacco abuse counseling; Z79.899 Other long term (current) drug therapy
CPT/HCPCS: 36415; 71046; 80048; 84484; 85025; 93005; 99283; 99285

== ENCOUNTER 2023-06-04 11:43 | Outpatient (REF) | payer OTHER, SELFPAY ==
[2023-06-04 13:55] LABS: Free T4 (Free Thyroxine) 1.04 ng/dL (0.71-1.85); Thyroid Stimulating Hormone 2.98 uIU/mL (0.32-4.0)
== END 2023-06-04 11:44 | disposition home or self-care (01) ==
LOC: HO.LAB 11:43
PROVIDERS: Visit Provider Internal Medicine Endocrinology, Diabetes & Metabolism
DX: E05.00 Thyrotoxicosis with diffuse goiter without thyrotoxic crisis or storm (principal)
CPT/HCPCS: 36415; 84439; 84443

== ENCOUNTER 2023-07-22 09:53 | Outpatient (AMB) | payer OTHER, SELFPAY ==
--- NOTE | 2023-07-22 09:54 | A.OFFVIS_ITS ---
Intake Intake Visit Reasons: LDCT SD Allergies egg [Egg] Allergy (Severe, Verified 05/07/23 10:52) ANAPHYLAXIS influenza virus vaccine, specific [FLU VACCINE] Allergy (Severe, Verified 05/07/23 10:52) CANNOT OBTAIN DUE TO EGG ALLERGY nicotine [From NICODERM CQ] Allergy (Intermediate, Verified 05/07/23 10:52) RASH varenicline [From CHANTIX] Allergy (Intermediate, Verified 05/07/23 10:52) DEPRESSION AND ANXIETY INCREASE barium sulfate Adverse Reaction (Intermediate, Verified 05/07/23 10:52) saul HPI HPI Comments History of Present Illness Details Jyoti is a pleasant 53 year old female, current 1.5 ppd smoker with a 52 PYH. Patient has been smoking since age 15 for 28 years at 1.5 ppd. although did smoke 2 ppd x 5yrs. Denies marijuana use. Denies exposure to chemicals or substances like asbestos. Admits second hand smoke exposure. Reports father had lung cancer. Denies personal history of cancers. Denies chest CT in last year. Denies recent travel outside the [place]. Admits testing positive for COVID. Denies receiving COVID Vaccine. Denies fever, chills, chest pain, new cough, hemoptysis or unintentional weight loss. Lung Cancer Screening Questionnaire reviewed with patient by provider. Shared Decision Making Completed. Discussed in detail with patient, the risk versus benefit of LDCT screening. Patient in agreement of proceeding with scan. [facility] Medical History (Updated 05/31/23 @ 10:23 by Marline Mix MD) Coronary artery disease History of supraventricular tachycardia Graves disease Asthma with COPD Nicotine dependence, cigarettes, uncomplicated Arthritis Left breast lump Mild recurrent major depression Blurry vision Obesity (BMI 30-39.9) Vitamin D deficiency Constipation History of COVID-19 Surgical History (Updated 05/03/23 @ 11:09 by Carmen Garcia PA-C) History of total thyroidectomy (~2022) History of tonsillectomy and adenoidectomy History of dental surgery History of appendectomy (~1979) History of tubal ligation (~1999) History of section (~1999) History of right salpingo-oophorectomy (~2001) History of endometrial ablation (~2017) Family History Father Bone cancer Lung cancer Mother CVD (cardiovascular disease) Emphysema of lung Hypertension Asthma Sister Breast cancer Maternal Aunt Uterine cancer Maternal Aunt Skin cancer Social History (System 04/14/23 @ 13:12 by Zeinab Euceda) Household Members: None Housing: Apartment Are you a primary pet caretaker to a significant other at home: No Do you presently have visiting nurse or other home services: No Alcohol intake: never Patient Tobacco Use Status: Current everyday Tobacco user Tobacco use type: Cigarette Cigarette Packs Per Day: 1 e-Cigarette/Vaping Use: Never Used Second Hand Smoke Exposure: No service: No Current occupational status: disabled Cognitive needs: No Hearing needs: No Vision needs: Yes Assessment & Plan Assessment & Plan (1) Nicotine dependence, cigarettes, uncomplicated: Comment: (current smoker - prior chest CT done 01/02/2020 note small nodules largest 3mm) Code(s): F17.210 - Nicotine dependence, cigarettes, uncomplicated Plan Shared decision-making visit completed today via telehealth visit. This patient meets criteria for LDCT for lung cancer screening purposes and is asymptomatic. Offered smoking cessation. Patient has been scheduled for a low dose chest CT for screening purposes at [facility]. We discussed how the results will be obtained depending on CT findings. RADS 1 and RADS 2 will receive a letter with results and will follow up for annual LDCT. Patient informed they will be contacted at later date to schedule upcoming LDCT scan. RADS 3 and RADS 4 will receive a telephone call, or an office visit after reviewing case at our Lung Cancer Conference to determine when the next LDCT will be scheduled or further interventions that may be needed. Discussed importance of screening program and compliance with yearly LDCT scan as scheduled. Risks, benefits, and alternatives were discussed in detail and patient agrees to proceed. Risks discussed include but are not limited to: radiation exposure and possibility of additional intervention for benign disease. Benefits include detection of lung cancer at an early stage. A copy of today's visit and LDCT results will be sent to patient's PCP. Incidental findings on LDCT are PCP's responsibility. If there are incidental findings, our office will ensure that PCP office is aware of these findings. All questions were answered and patient is in agreement of plan. Telehealth Telehealth Location of provider rendering services: practice address Location of patient: address on file Patient Identification confirmed using: Name, : Yes Telehealth method: voice only Patient verbally consented to treatment: Yes Patient verbally consented to billing insurance company: Yes Patient informed of any privacy concerns related to visit: Yes Coding Level of Care Code Lung Cancer Screening G0296 Diagnoses Nicotine dependence, cigarettes, uncomplicated F17.210
== END 2023-07-22 10:08 | disposition home or self-care (01) ==
LOC: HO.HPS 09:53
PROVIDERS: PCP Internal Medicine; Referring Provider Internal Medicine; Visit Provider Nurse Practitioner Family
DX: F17.210 Nicotine dependence, cigarettes, uncomplicated (principal)
CPT/HCPCS: G0296

== ENCOUNTER → 2023-07-22 09:53 | Outpatient (BNVA) | payer OTHER, SELFPAY | PROVIDERS: PCP Internal Medicine; Visit Provider Nurse Practitioner Family | DX: Z12.2 Encounter for screening for malignant neoplasm of respiratory organs (principal); F17.210 Nicotine dependence, cigarettes, uncomplicated | CPT/HCPCS: G0296 ==

== ENCOUNTER 2023-08-05 12:44 | Emergency (ER) | payer OTHER, SELFPAY ==
[2023-08-05 13:15] VITALS: BP 162/83; PULSE 82; RESP 20; TEMP 36.4; O2SAT 98; BMI 40.5
--- NOTE | 2023-08-05 13:15 | ED.SKABFB ---
HPI - Skin/Abscess/Foreign Bdy General Chief complaint: Allergic Reaction Stated complaint: bit by something, allergic reaction? Time Seen by Provider: 08/05/23 15:34 Related Data Home Medications Medication Instructions Recorded Confirmed nebulizers 04/29/23 psyllium husk 0.4 gram capsule g PO 04/29/23 (Reguloid (psyllium husk)) Previous Rx's Medication Instructions Recorded bupropion HCl 150 mg 24 hr tablet, 150 mg PO QAM 90 days #90 tabs 03/18/22 extended release naproxen 250 mg tablet 250 mg PO BID PRN pain 30 days #60 11/19/22 tabs sodium sul 1.479 gram-potas ch See Rx Instructions PO PER PKG DIR 12/04/22 0.188 gram-magnes sul 0.225 gram #24 tabs tablet (Sutab) nicotine 21 mg/24 hr daily 1 patch transdermal DAILY 28 days 01/11/23 transdermal patch #28 ea walker #1 ea 01/11/23 albuterol sulfate 2.5 mg/3 mL 2.5 mg (3 mL) inhalation Q6H PRN 02/23/23 (0.083 %) solution for nebulization shortness of breath or wheezing 30 days #180 mL nicotine 10 mg inhalation 1 inh inhalation Q2-4H PRN 02/23/23 cartridge (Nicotrol) nicotine cravings 30 days #168 ea levothyroxine 137 mcg tablet 137 mcg PO DAILY #30 tabs 03/04/23 omeprazole 40 mg capsule,delayed 40 mg PO DAILY 90 days #90 caps 03/16/23 release cholecalciferol (vitamin D3) 25 25 mcg PO DAILY 30 days #30 tabs 03/23/23 mcg (1,000 unit) tablet gabapentin 100 mg capsule 100 mg PO TID 30 days #90 caps 03/23/23 metoprolol succinate 25 mg 25 mg PO DAILY 90 days #90 tabs 03/23/23 tablet,extended release 24 hr azithromycin 500 mg tablet 500 mg PO DAILY 5 days #5 tabs 04/29/23 fluticasone fur. 200 mcg-umeclid 1 inh inhalation DAILY 30 days #60 04/29/23 62.5 mcg-vilant 25 mcg ea inhalat.powder (Trelegy Ellipta) methylprednisolone 4 mg tablets in See Rx Instructions PO PER PKG DIR 04/29/23 a dose pack (Medrol (Jesse)) 6 days #21 ea fluticasone propionate 44 1 puff inhalation BID 30 days 05/15/23 mcg/actuation HFA aerosol inhaler #10.6 grams (Flovent HFA) albuterol sulfate 90 mcg/actuation 2 puff inhalation Q6H PRN 05/28/23 aerosol inhaler shortness of breath or wheezing 30 days #6.7 grams Allergies Allergy/AdvReac Type Severity Reaction Status Date / Time egg [Egg] Allergy Severe ANAPHYLAXIS Verified 05/07/23 10:52 influenza virus vaccine, Allergy Severe CANNOT Verified 05/07/23 10:52 specific OBTAIN DUE [FLU VACCINE] TO EGG ALLERGY nicotine [From NICODERM CQ] Allergy Intermediate RASH Verified 05/07/23 10:52 varenicline [From CHANTIX] Allergy Intermediate DEPRESSION Verified 05/07/23 10:52 AND ANXIETY INCREASE barium sulfate AdvReac Intermediate saul Verified 05/07/23 10:52 [facility] Past Medical History Medical History (Updated 08/05/23 @ 16:51 by Ledy Parra NP) Coronary artery disease History of supraventricular tachycardia Graves disease Asthma with COPD Nicotine dependence, cigarettes, uncomplicated Arthritis Left breast lump Mild recurrent major depression Blurry vision Obesity (BMI 30-39.9) Vitamin D deficiency Constipation History of COVID-19 Surgical History (Updated 05/03/23 @ 11:09 by Carmen Garcia PA-C) History of total thyroidectomy (~2022) History of tonsillectomy and adenoidectomy History of dental surgery History of appendectomy (~1979) History of tubal ligation (~1999) History of section (~1999) History of right salpingo-oophorectomy (~2001) History of endometrial ablation (~2017) Family History Family History Father Bone cancer Lung cancer Mother CVD (cardiovascular disease) Emphysema of lung Hypertension Asthma Sister Breast cancer Maternal Aunt Uterine cancer Maternal Aunt Skin cancer Social History Social History (System 04/14/23 @ 13:12 by Zeinab Euceda) Household Members: None Housing: Apartment Are you a primary progressive care unit registered nurse to a significant other at home: No Do you presently have visiting nurse or other home services: No Alcohol intake: never Patient Tobacco Use Status: Current everyday Tobacco user Tobacco use type: Cigarette Cigarette Packs Per Day: 1 e-Cigarette/Vaping Use: Never Used Second Hand Smoke Exposure: No Advance Directives: No Advance Directives Information Provided: No service: No Current occupational status: disabled Cognitive needs: No Hearing needs: No Vision needs: Yes Physical Exam Vital Signs: Vital Signs: Last Vital Signs Temp 97.5 F 08/05/23 13:15 Pulse 82 08/05/23 13:15 Resp 20 08/05/23 13:15 BP 162/83 H 08/05/23 13:15 Pulse Ox 98 08/05/23 13:15 O2 Del Method Room Air 08/05/23 13:15 BMI result Body Mass Index 40.5 Course Course Course Narrative: RME: Erythema bilateral upper thighs into buttocks startng yesterday. Was bitten by what she believes was a bug as she had itching at her right posterior elbow. No new detergents, medications, or environmental exposure. Looked in her house for bedbugs and found no evidence. States she feels as if her legs are burning. No fevers but feels warm. Wheezy in triage. States she is a smoker, 1 ppd, and has COPD Discharge Plan Discharge Clinical Impression: Patient left after triage Patient Disposition: Left W/O Completing Treatment Prescriptions: No Action bupropion HCl 150 mg tablet extended release 24 hr 150 mg PO QAM 90 Days Qty: 90 0RF naproxen 250 mg tablet 250 mg PO BID PRN (Reason: pain) 30 Days Qty: 60 3RF levothyroxine 137 mcg tablet 137 mcg PO DAILY Qty: 30 5RF omeprazole 40 mg capsule,delayed release(DR/EC) 40 mg PO DAILY 90 Days Qty: 90 3RF metoprolol succinate 25 mg tablet extended release 24 hr 25 mg PO DAILY 90 Days Qty: 90 1RF cholecalciferol (vitamin D3) 25 mcg (1,000 unit) tablet 25 mcg PO DAILY 30 Days Qty: 30 6RF gabapentin 100 mg capsule 100 mg PO TID 30 Days Qty: 90 3RF fluticasone propionate [Flovent HFA] 44 mcg/actuation HFA aerosol inhaler 1 puff inhalation BID 30 Days Qty: 10.6 1RF Rx Instructions: administer with spacer albuterol sulfate 90 mcg/actuation HFA aerosol inhaler 2 puff inhalation Q6H PRN (Reason: shortness of breath or wheezing) 30 Days Qty: 6.7 3RF (DME) walker [facility] See Rx Instructions .Route Qty: 1 0RF Rx Instructions: As directed nicotine 21 mg/24 hr patch 24 hour 1 patch transdermal DAILY 28 Days Qty: 28 0RF Sutab 1.479-0.188- 0.225 gram tablet See Rx Instructions PO PER PKG DIR Qty: 24 0RF Rx Instructions: package directions orally per package directions; PO PER PKG DIR, please disregard Go Lytely (DME) nebulizers Misc See Rx Instructions .ROUTE Rx Instructions: As directed psyllium husk [Reguloid (psyllium husk)] 0.4 gram capsule PO Trelegy Ellipta 200-62.5-25 mcg blister with device 1 inh inhalation DAILY 30 Days Qty: 60 12RF azithromycin 500 mg tablet 500 mg PO DAILY 5 Days Qty: 5 0RF methylprednisolone [Medrol (Jesse)] 4 mg tablets,dose pack See Rx Instructions PO PER PKG DIR 6 Days Qty: 21 0RF Rx Instructions: PO PER PKG DIR Nicotrol 10 mg cartridge 1 inh inhalation Q2-4H PRN (Reason: nicotine cravings) 30 Days Qty: 168 3RF albuterol sulfate 2.5 mg /3 mL (0.083 %) solution for nebulization 2.5 mg inhalation Q6H PRN (Reason: shortness of breath or wheezing) 30 Days Qty: 180 11RF
== END 2023-08-05 17:15 | disposition left against medical advice (07) ==
PROVIDERS: Emergency Provider Emergency Medicine; PCP Internal Medicine
DX: L53.8 Other specified erythematous conditions (principal)
CPT/HCPCS: 99281

== ENCOUNTER 2023-08-18 12:55 | Outpatient (REF) | payer OTHER, SELFPAY ==
--- NOTE | ~2023-08-18 | CT_ITS ---
EXAMINATION: CT CHEST SCREENING CLINICAL INFORMATION: Current smoker with 37 pack-year smoking history COMPARISON: Chest radiographs dated 05/07/2023; CT chest dated 01/02/2020. TECHNIQUE: Multidetector volumetric CT imaging of the chest is performed without contrast using low dose technique. Additional 2D coronal and sagittal reformatted images and axial 3D maximum intensity projection (MIP) images are generated on the CT workstation. This CT examination was performed using dose optimization techniques as appropriate, variously including the following: *Automated exposure control *Adjustment of mA and/or kV according to patient size (this includes techniques or standardized protocols for targeted exams where dose is matched to indication/reason for exam; i.e. extremities or head) *Use of iterative reconstruction technique DLP: 67 mGy-cm FINDINGS: LUNGS: Within the anterior segment of the right upper lobe (5:134), a stable 3 mm noncalcified nodule is seen. Anteriorly within the right middle lobe (5:198 and 212), stable 4 mm and 2 mm noncalcified subpleural nodules are seen. At the anterior left apex (5:93), a 3 mm noncalcified nodule is seen. Within the superior segment of the left upper lobe abutting the major fissure (5:178), a stable 2 mm noncalcified nodule is seen. There is no new nodule, mass, infiltrate or groundglass opacity. There is mild linear scar/subsegmental atelectasis at the lateral left base, without associated focal airway obstruction. No generalized increase is seen in peripheral interlobular septal markings. No bleb or bullous formation is seen. There is no generalized small airway thickening. The central airways appear patent. MEDIASTINUM: The thyroid is unremarkable. There is no thoracic aortic aneurysm. There are very mild atherosclerotic calcifications of the great vessel origins and thoracic aorta. No mediastinal or hilar lymphadenopathy is seen. CORONARY ARTERY CALCIFICATION: None visualized on this study. PLEURA: There is no pleural effusion. No pleural mass or thickening. AXILLA: No lymphadenopathy. UPPER ABDOMEN: Unremarkable OSSEOUS STRUCTURES: There is multi-level mild lower cervical and thoracic spondylosis. No acute or aggressive osseous finding is noted. CT/CT lung screening IMPRESSION: There are benign, stable tiny bilateral pulmonary noncalcified nodules. No new nodule, mass, infiltrate or groundglass opacity is seen. There is no thoracic lymphadenopathy pleural effusion. No aggressive osseous lesion is seen. ASSESSMENT: Lung-RADS category 2: Benign RECOMMENDATION: Routine annual low-dose CT screening in 12 months.
== END 2023-08-18 12:56 | disposition home or self-care (01) ==
LOC: HO.CT 12:55
PROVIDERS: PCP Internal Medicine; Visit Provider Physician Assistant Medical
DX: Z12.2 Encounter for screening for malignant neoplasm of respiratory organs (principal); F17.210 Nicotine dependence, cigarettes, uncomplicated
CPT/HCPCS: 71271

== ENCOUNTER 2023-08-30 10:23 | Outpatient (AMB) | payer OTHER, SELFPAY ==
[2023-08-30 10:30] VITALS: BP 124/72; PULSE 84; BMI 41.4
--- NOTE | 2023-08-30 10:30 | MHC.OFFVIS ---
Intake Vital Signs 08/30/23 10:30 Height 5 ft 4 in Weight 240 lb 15.444 oz BMI 41.4 BP 124/72 Blood Pressure Location Lt brachial Position Sitting Pulse 84 Pulse Source Pulse Oximeter Intake Visit Reasons: f/u postsurgical hypothyroidism-confirmed Intake Note: Patient presents today for postsurgical hypothyroidism follow up. Retail Account Representative Required: No Accompanied by: Self / Same As Patient Allergies egg [Egg] Allergy (Severe, Verified 08/30/23 10:38) ANAPHYLAXIS influenza virus vaccine, specific [FLU VACCINE] Allergy (Severe, Verified 08/30/23 10:38) CANNOT OBTAIN DUE TO EGG ALLERGY nicotine [From NICODERM CQ] Allergy (Intermediate, Verified 08/30/23 10:38) RASH varenicline [From CHANTIX] Allergy (Intermediate, Verified 08/30/23 10:38) DEPRESSION AND ANXIETY INCREASE barium sulfate Adverse Reaction (Intermediate, Verified 08/30/23 10:38) saul Medication List - Last Reconciled 08/30/23 by Ahsan Rodriguez MD albuterol sulfate 90 mcg/actuation 2 puffs inhalation Q6H PRN 30 days albuterol sulfate 2.5 mg (3 mL) inhalation Q6H PRN 30 days azithromycin 500 mg PO DAILY 5 days bupropion HCl 150 mg PO QAM 90 days cholecalciferol (vitamin D3) 25 mcg PO DAILY 30 days fluticasone propionate 44 mcg/actuation (Flovent HFA) 1 puff inhalation BID 30 days [id number] 200-62.5-25 mcg (Trelegy Ellipta) 1 inh inhalation DAILY 30 days gabapentin 100 mg PO TID 30 days levothyroxine 137 mcg PO DAILY metoprolol succinate ER 25 mg PO DAILY 90 days naproxen 250 mg PO BID PRN 30 days nebulizers As directed nicotine 1 patch transdermal DAILY 28 days omeprazole 40 mg PO DAILY 90 days psyllium husk (Reguloid (psyllium husk)) grams PO sod sulf-pot chloride-mag sulf 1.479-0.188- 0.225 gram (Sutab) package directions orally per package directions; PO PER PKG DIR, please disregard Go Ananth layton As directed HPI HPI Comments History of Present Illness Details 53-year-old female previously treated for Graves disease previously on methimazole status post total thyroidectomy on 02/12/[address] Wheatley at [facility] with benign pathology. Patient is currently on 137 mcg levothyroxine. She has no symptoms of hypothyroidism or hyperthyroidism but does complain of some numbness in the neck post-operatively [facility] Medical History (Updated 08/06/23 @ 00:02 by Shari Colvin) Coronary artery disease History of supraventricular tachycardia Graves disease Asthma with COPD Nicotine dependence, cigarettes, uncomplicated Arthritis Left breast lump Mild recurrent major depression Blurry vision Obesity (BMI 30-39.9) Vitamin D deficiency Constipation History of COVID-19 Surgical History (Updated 05/03/23 @ 11:09 by Carmen Garcia PA-C) History of total thyroidectomy (~2022) History of tonsillectomy and adenoidectomy History of dental surgery History of appendectomy (~1979) History of tubal ligation (~1999) History of section (~1999) History of right salpingo-oophorectomy (~2001) History of endometrial ablation (~2017) Family History Father Bone cancer Lung cancer Mother CVD (cardiovascular disease) Emphysema of lung Hypertension Asthma Sister Breast cancer Maternal Aunt Uterine cancer Maternal Aunt Skin cancer Social History (System 04/14/23 @ 13:12 by Zeinab Euceda) Household Members: None Housing: Apartment Are you a primary care connector to a significant other at home: No Do you presently have visiting nurse or other home services: No Alcohol intake: never Patient Tobacco Use Status: Current everyday Tobacco user Tobacco use type: Cigarette Cigarette Packs Per Day: 1 e-Cigarette/Vaping Use: Never Used Second Hand Smoke Exposure: No service: No Current occupational status: disabled Cognitive needs: No Hearing needs: No Vision needs: Yes Physical Exam Vital Signs: Last Vital Signs Pulse 84 08/30/23 10:30 BP 124/72 08/30/23 10:30 BMI result Body Mass Index 41.4 Const Other: Healed scar status post thyroidectomy Assessment & Plan Assessment & Plan (1) Graves disease: Code(s): E05.00 - Thyrotoxicosis 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 She is status post total thyroidectomy. She is currently on 137 mcg levothyroxine. She appears to be clinically and biochemically euthyroid Plan is to continue the current regimen. At this point, patient returned to the care of her primary care provider and returned back to endocrinology as needed. I did tell her to follow up with Dr. wheatley regarding her postoperative complaints Coding Level of Care Code Est Pt Level 3 (07918) Diagnoses Graves disease E05.00
== END 2023-08-30 10:47 | disposition home or self-care (01) ==
PROVIDERS: PCP Internal Medicine; Visit Provider Internal Medicine Endocrinology, Diabetes & Metabolism
DX: E05.00 Thyrotoxicosis with diffuse goiter without thyrotoxic crisis or storm (principal)
CPT/HCPCS: 99213

== ENCOUNTER 2023-09-08 12:07 | Outpatient (REF) | payer OTHER, SELFPAY ==
[2023-09-08 12:43] LABS: MANUAL DIFF FLAG NO
[2023-09-08 12:44] LABS: Basophils Absolute Auto 0.1 X10*3/uL (0.0-0.2); Basophils Percent Auto 0.6 % (0-2); Eosinophils Absolute Auto 0.1 X10*3/uL (0.0-0.4); Eosinophils Percent Auto 1.6 % (0-4); Hematocrit 38.6 % (37.0-47.0); Hemoglobin 12.5 g/dl (12.0-16.0); Imm Gran Abs Auto 0.06 X10*3/uL (0.00-0.03); Imm Gran Pct Auto 0.8 % (0.0-0.4); Lymphocytes Absolute Auto 2.7 X10*3/uL (1.2-4.9); Lymphocytes Percent Auto 33.8 % (20-40); Mean Corpuscular HGB Conc 32.4 g/dl (31.0-35.0); Mean Corpuscular Hemoglobin 25.8 pg (27.0-33.0); Mean Corpuscular Volume 79.6 fL (80.0-98.0); Mean Platelet Volume 10.4 fL (9.4-12.3); Monocytes Absolute Auto 0.6 X10*3/uL (0.1-1.2); Monocytes Percent Auto 7.2 % (2-11); Neutrophils Absolute Auto 4.4 x10*3/uL (2.0-8.3); Platelet Count 272 X10*3/uL (160-400); Red Blood Count 4.85 X10*6/uL (4.20-5.50); Red Cell Distribution Width 15.5 % (11.0-16.0); White Blood Count 7.9 X10*3/uL (4.8-10.8)
[2023-09-08 13:24] LABS: Alanine Aminotransferase 13 U/L (0-31); Alkaline Phosphatase 86 U/L (39-117); Anion Gap 10 (12-20); Aspartate Amino Transferase 16 U/L (5-31); Bilirubin Total 0.3 mg/dL (0.0-1.0); Blood Urea Nitrogen 12 mg/dL (9-16); Calcium 9.2 mg/dL (8.4-10.2); Carbon Dioxide 28 mmol/L (22-29); Chloride 102 mmol/L (96-108); Estimated Glomerular Filt Rate > 60; Glucose Random 91 mg/dL (60-115); Sodium 136 mmol/L (135-145); Total Protein 7.2 g/dL (6.5-8.0)
== END 2023-09-08 12:08 | disposition home or self-care (01) ==
LOC: HO.BBR 12:07
PROVIDERS: PCP Internal Medicine; Visit Provider Internal Medicine Medical Oncology
DX: D75.1 Secondary polycythemia (principal)
CPT/HCPCS: 36415; 80053; 85014; 85018; 85025; 99195; 99212

== ENCOUNTER 2023-09-22 16:54 | Emergency (ER) | payer OTHER, SELFPAY ==
--- NOTE | 2023-09-22 | ECG_ITS ---
Test Reason : SVT Blood Pressure : / mmHG Vent. Rate : 208 BPM Atrial Rate : 000 BPM P-R Int : 000 ms QRS Dur : 066 ms QT Int : 202 ms P-R-T Axes : 000 013 180 degrees QTc Int : [address] & T wave abnormality, consider inferolateral ischemia Abnormal ECG When compared with ECG of 07-MAY-2023 14:26, Vent. rate has increased BY 133 BPM Questionable change in QRS duration Referred By: Generic ED Physician Electronically Signed By:Shawn Ramesh
--- NOTE | ~2023-09-22 | XR_ITS ---
EXAMINATION: XR CHEST CLINICAL INFORMATION: SPECT COMPARISON: Previous chest x-ray April 2023 TECHNIQUE: Frontal view of the chest was obtained. FINDINGS: The cardiac silhouette is slightly enlarged. There may be pulmonary venous redistribution. No evidence of pulmonary edema. No pleural effusion. No pneumothorax. Bony structures are unremarkable. XR/XR chest 1V IMPRESSION: Slightly enlarged cardiac silhouette and question pulmonary venous redistribution.
[2023-09-22 17:00] VITALS: BP 129/85; PULSE 211; O2SAT 100
[2023-09-22 17:08] VITALS: BP 149/77; PULSE 212; RESP 25; TEMP 36.4; O2SAT 98; BMI 41.6
[2023-09-22 17:11] LABS: MANUAL DIFF FLAG NO
[2023-09-22 17:15] LABS: Basophils Absolute Auto 0.1 X10*3/uL (0.0-0.2); Basophils Percent Auto 0.5 % (0-2); Eosinophils Absolute Auto 0.1 X10*3/uL (0.0-0.4); Hemoglobin 13.2 g/dl (12.0-16.0); Imm Gran Abs Auto 0.07 X10*3/uL (0.00-0.03); Imm Gran Pct Auto 0.6 % (0.0-0.4); Lymphocytes Absolute Auto 3.5 X10*3/uL (1.2-4.9); Lymphocytes Percent Auto 31.2 % (20-40); Mean Corpuscular Hemoglobin 26.7 pg (27.0-33.0); Mean Corpuscular Volume 80.8 fL (80.0-98.0); Mean Platelet Volume 11.1 fL (9.4-12.3); Monocytes Absolute Auto 0.7 X10*3/uL (0.1-1.2); Monocytes Percent Auto 6.3 % (2-11); Neutrophils Absolute Auto 6.8 x10*3/uL (2.0-8.3); Neutrophils Percent Auto 60.4 % (45-73); Platelet Count 351 X10*3/uL (160-400); Red Blood Count 4.95 X10*6/uL (4.20-5.50); Red Cell Distribution Width 15.8 % (11.0-16.0); White Blood Count 11.2 X10*3/uL (4.8-10.8)
--- NOTE | 2023-09-22 17:15 | ECG_ITS ---
Test Reason : REPEAT EKG/SVT Blood Pressure : / mmHG Vent. Rate : 110 BPM Atrial Rate : 110 BPM P-R Int : 160 ms QRS Dur : 074 ms QT Int : 350 ms P-R-T Axes : 061 025 064 degrees QTc Int : 473 ms Sinus tachycardia Possible Left atrial enlargement Borderline ECG When compared with ECG of 22-SEP-2023 17:04, Vent. rate has decreased BY [address] no longer depressed in Inferior leads Non-specific change in ST segment in Anterolateral leads T wave inversion no longer evident in Inferior leads T wave inversion no longer evident in Anterolateral leads Referred By: Earnest Quinones Electronically Signed By:Shawn Ramesh
--- NOTE | 2023-09-22 17:19 | ED.ARRPALP ---
HPI - Arrhythmia/Palpitations General Chief Complaint: Arrhythmia/Palpitations Stated Complaint: sob,svt Time Seen by Provider: 09/22/23 17:18 Source: patient and EMS Mode of arrival: EMS Limitations: no limitations History of Present Illness HPI narrative: 53-year-old female past medical history significant for Graves disease status post thyroid removal recurrent SVT smoker chronic pain syndrome GERD anxiety depression asthma who presents via EMS in SVT heart rate was in the 200s as called immediately to room patient denies chest pain states patient is having palpitations. Patient admits to not taking her medications this morning. Patient is very anxious we did meet with the patient we tried vagal maneuvers on arrival patient did not convert was then given adenosine and went to tachycardic rhythm 110s patient did feel much better MD complaint: rapid heart beat Related Data Home Medications Medication Instructions Recorded Confirmed nebulizers 04/29/23 psyllium husk 0.4 gram capsule g PO 04/29/23 (Reguloid (psyllium husk)) Previous Rx's Medication Instructions Recorded bupropion HCl 150 mg 24 hr tablet, 150 mg PO QAM 90 days #90 tabs 03/18/22 extended release naproxen 250 mg tablet 250 mg PO BID PRN pain 30 days #60 11/19/22 tabs sodium sul 1.479 gram-potas ch See Rx Instructions PO PER PKG DIR 12/04/22 0.188 gram-magnes sul 0.225 gram #24 tabs tablet (Sutab) nicotine 21 mg/24 hr daily 1 patch transdermal DAILY 28 days 01/11/23 transdermal patch #28 ea walker #1 ea 01/11/23 albuterol sulfate 2.5 mg/3 mL 2.5 mg (3 mL) inhalation Q6H PRN 02/23/23 (0.083 %) solution for nebulization shortness of breath or wheezing 30 days #180 mL omeprazole 40 mg capsule,delayed 40 mg PO DAILY 90 days #90 caps 03/16/23 release cholecalciferol (vitamin D3) 25 25 mcg PO DAILY 30 days #30 tabs 03/23/23 mcg (1,000 unit) tablet gabapentin 100 mg capsule 100 mg PO TID 30 days #90 caps 03/23/23 metoprolol succinate 25 mg 25 mg PO DAILY 90 days #90 tabs 03/23/23 tablet,extended release 24 hr azithromycin 500 mg tablet 500 mg PO DAILY 5 days #5 tabs 04/29/23 fluticasone fur. 200 mcg-umeclid 1 inh inhalation DAILY 30 days #60 04/29/23 62.5 mcg-vilant 25 mcg ea inhalat.powder (Trelegy Ellipta) fluticasone propionate 44 1 puff inhalation BID 30 days 05/15/23 mcg/actuation HFA aerosol inhaler #10.6 grams (Flovent HFA) albuterol sulfate 90 mcg/actuation 2 puff inhalation Q6H PRN 05/28/23 aerosol inhaler shortness of breath or wheezing 30 days #6.7 grams levothyroxine 137 mcg tablet 137 mcg PO DAILY #90 tabs 09/07/23 Allergies Allergy/AdvReac Type Severity Reaction Status Date / Time egg [Egg] Allergy Severe ANAPHYLAXIS Verified 09/22/23 17:26 influenza virus vaccine, Allergy Severe CANNOT Verified 09/22/23 17:26 specific OBTAIN DUE [FLU VACCINE] TO EGG ALLERGY nicotine [From NICODERM CQ] Allergy Intermediate RASH Verified 09/22/23 17:26 varenicline [From CHANTIX] Allergy Intermediate DEPRESSION Verified 09/22/23 17:26 AND ANXIETY INCREASE barium sulfate AdvReac Intermediate saul Verified 09/22/23 17:26 Review of Systems Review of Systems: Review of systems: General: Patient denies any fever chills recent illness or falls Musculoskeletal: Denies back pain or body aches or other injuries HEENT: denies headache, runny nose, ear pain Respiratory: shortness of breath, no cough Cardiovascular: no chest pain patient has palpitations : denies dysuria, frequency Abdomen: no nausea vomiting denies abdominal pain Extremities: no swelling, no pain Skin: no diaphoresis Yes all other systems are reviewed and are negative [facility] Past Medical History Medical History (Updated 09/22/23 @ 19:06 by Earnest Quinones DO) Coronary artery disease History of supraventricular tachycardia Graves disease Asthma with COPD Nicotine dependence, cigarettes, uncomplicated Arthritis Left breast lump Mild recurrent major depression Blurry vision Obesity (BMI 30-39.9) Vitamin D deficiency Constipation History of COVID-19 Surgical History History of total thyroidectomy (~2022) History of tonsillectomy and adenoidectomy History of dental surgery History of appendectomy (~1979) History of tubal ligation (~1999) History of section (~1999) History of right salpingo-oophorectomy (~2001) History of endometrial ablation (~2017) Family History Family History Father Bone cancer Lung cancer Mother CVD (cardiovascular disease) Emphysema of lung Hypertension Asthma Sister Breast cancer Maternal Aunt Uterine cancer Maternal Aunt Skin cancer Social History Social History Household Members: None Housing: Apartment Are you a primary neonatal intensive care unit nurse to a significant other at home: No Do you presently have visiting nurse or other home services: No Alcohol intake: never Patient Tobacco Use Status: Current everyday Tobacco user Tobacco use type: Cigarette Cigarette Packs Per Day: 1 e-Cigarette/Vaping Use: Never Used Second Hand Smoke Exposure: No Advance Directives: No Advance Directives Information Provided: No service: No Current occupational status: disabled Cognitive needs: No Hearing needs: No Vision needs: Yes Physical Exam Vital Signs: Vital Signs: Last Vital Signs Temp 97.6 F 09/22/23 17:25 Pulse 85 09/22/23 18:00 Resp 17 09/22/23 18:00 BP 137/74 09/22/23 18:00 Pulse Ox 98 09/22/23 18:00 O2 Del Method Room Air 09/22/23 18:00 BMI result Body Mass Index 41.6 General: Anxious Well-appearing well-nourished in no signs of distress HEENT: Normocephalic atraumatic Neck: No signs of JVD, no masses no tenderness or lymphadenopathy Cardiovascular: Tachycardic Respiratory: Clear to auscultation bilaterally Abdomen: Soft nontender no masses Extremities: Normal pedal pulses no signs of edema Skin: Dry warm no rashes Back: No tenderness full ROM Course Course Course Narrative: Labs look great pending XR and TSH but HR is much improved feeling better had some nausea and was given zofran. 1900 patient feeling much better heart rate has been controlled there is delay in getting x-ray which was done this time patient is happy with plan to go home. Medications Administered Discontinued Medications Generic Name Dose Route Start Last Admin Trade Name Freq PRN Reason Stop Dose Admin Adenosine 6 mg 09/22/23 18:43 09/22/23 17:20 Adenosine 6 Mg/2 Ml Vial IVPUSH 09/22/23 18:44 6 mg ONCE ONE Administration Lorazepam 1 mg 09/22/23 17:20 09/22/23 17:35 Lorazepam 1 Mg Tablet PO 09/22/23 17:21 1 mg ONCE ONE Administration Metoprolol Succinate 25 mg 09/22/23 17:19 09/22/23 17:35 Metoprolol Succinate Er 25 Mg Tab.Er.24h PO 09/22/23 17:20 25 mg ONCE ONE Administration Protocol Metoprolol Tartrate 5 mg 09/22/23 17:19 09/22/23 17:37 Metoprolol Tartrate 5 Mg/5 Ml Vial IVPUSH 09/22/23 17:20 Not Given ONCE ONE Ondansetron HCl 4 mg 09/22/23 17:40 09/22/23 18:15 Ondansetron Hcl 4 Mg/2 Ml Vial IVPUSH 09/22/23 17:41 4 mg ONCE ONE Administration Medical Decision Making Medical Decision Making [facility] Narrative: I will check labs give the patient metoprolol after or cardiomegaly the patient with adenosine I will give an IV dose an oral dose I will give the patient some Ativan since she is anxious. Differential Diagnosis Differential Diagnoses: The differential diagnosis associated with the presentation includes SVT medication noncompliance PE ACS round differential Admission/Observation Consideration of admission/observation: Escalation of care including admission/observation considered Lab Data [facility] Lab Attestation statement: I reviewed the patient's lab results. 09/22/23 17:06 09/22/23 17:06 Labs: Lab Results 09/22/23 09/22/23 09/22/23 Range/Units 17:06 17:07 17:31 WBC 11.2 H (4.8-10.8) X10*3/uL RBC 4.95 (4.20-5.50) X10*6/uL Hgb 13.2 (12.0-16.0) g/dl Hct 40.0 (37.0-47.0) % MCV 80.8 (80.0-98.0) fL MCH 26.7 L (27.0-33.0) pg MCHC 33.0 (31.0-35.0) g/dl RDW 15.8 (11.0-16.0) % Plt Count 351 D (160-400) X10*3/uL MPV 11.1 (9.4-12.3) fL Immature Gran % (Auto) 0.6 H (0.0-0.4) % Neut % (Auto) 60.4 (45-73) % Lymph % (Auto) 31.2 (20-40) % [place] % (Auto) 6.3 (2-11) % Eos % (Auto) 1.0 (0-4) % Baso % (Auto) 0.5 (0-2) % Lymph # (Auto) 3.5 (1.2-4.9) X10*3/uL [place] # (Auto) 0.7 (0.1-1.2) X10*3/uL Eos # (Auto) 0.1 (0.0-0.4) X10*3/uL Baso # (Auto) 0.1 (0.0-0.2) X10*3/uL Abs Immat Gran (auto) 0.07 H (0.00-0.03) X10*3/uL Absolute Neuts (auto) 6.8 (2.0-8.3) x10*3/uL Absolute Nucleated RBC 0.000 (0.0-0.012) X10*3/uL Nucleated RBC % (auto) 0.0 (0.0-0.2) /100WBC Hold Purple Top SEE NOTE PT 11.6 (11.1-13.3) SEC INR 1.0 (0.9-1.1) Hold Blue Top SEE NOTE Sodium 139 (135-145) mmol/L Potassium 3.8 (3.3-5.1) mmol/L Chloride 105 (96-108) mmol/L Carbon Dioxide 24 (22-29) mmol/L Anion Gap 14 (12-20) BUN 13 (9-16) mg/dL Creatinine 0.98 (0.5-1.4) mg/dL Estim Creat Clear Calc 82.3 Estimated GFR 60 Random Glucose 137 H (60-115) mg/dL Calcium 9.4 (8.4-10.2) mg/dL Magnesium 1.9 (1.6-2.6) mg/dL Total Bilirubin 0.3 (0.0-1.0) mg/dL AST 17 (5-31) U/L ALT 13 (0-31) U/L Alkaline Phosphatase 92 (39-117) U/L Troponin I High Sens Cancelled Total Protein 7.6 (6.5-8.0) g/dL Albumin 4.1 (3.5-5.0) g/dL TSH 1.95 (0.32-4.0) uIU/mL Independent Interpretation I performed an independent interpretation of an: EKG and Plain X-Ray Interpretation: Heart rate improved chest x-ray is normal Radiology Impression Discussion of test interpretation with radiology: I have reviewed the radiologist's reading. Independent Historian Clinical information obtained from an independent historian. History obtained from or confirmed by: EMS External Record Review External record reviewed: Inpatient record and Office record Procedures Procedure Narrative Procedure Narrative: Patient with cardioversion with adenosine was given 6 mg arm was raised bolus was given in the flush followed immediately after I did take a few seconds the patient did convert to sinus tachycardia Smoking Cessation Time Spent Discussing Smoking Cessation w/Patient (min): 15 Patient Acknowledges Need for Cessation: Yes Discharge Plan Discharge Clinical Impression: SVT (supraventricular tachycardia) Patient Disposition: Home, Self-Care Instructions: Supraventricular Tachycardia (ED), Valsalva Maneuver (ED) Additional Instructions: You were seen today for elevated heart rate. He found to have something called supraventricular tachycardia. You had x-ray and labs and heart rate converted to normal sinus rhythm after giving some medications. Eighty have anymore symptoms please return department please take medications as prescribed also gave information some Valsalva maneuvers he can try the home if this does happen again. Prescriptions: No Action bupropion HCl 150 mg tablet extended release 24 hr 150 mg PO QAM 90 Days Qty: 90 0RF naproxen 250 mg tablet 250 mg PO BID PRN (Reason: pain) 30 Days Qty: 60 3RF omeprazole 40 mg capsule,delayed release(DR/EC) 40 mg PO DAILY 90 Days Qty: 90 3RF metoprolol succinate 25 mg tablet extended release 24 hr 25 mg PO DAILY 90 Days Qty: 90 1RF cholecalciferol (vitamin D3) 25 mcg (1,000 unit) tablet 25 mcg PO DAILY 30 Days Qty: 30 6RF gabapentin 100 mg capsule 100 mg PO TID 30 Days Qty: 90 3RF fluticasone propionate [Flovent HFA] 44 mcg/actuation HFA aerosol inhaler 1 puff inhalation BID 30 Days Qty: 10.6 1RF Rx Instructions: administer with spacer albuterol sulfate 90 mcg/actuation HFA aerosol inhaler 2 puff inhalation Q6H PRN (Reason: shortness of breath or wheezing) 30 Days Qty: 6.7 3RF levothyroxine 137 mcg tablet 137 mcg PO DAILY Qty: 90 5RF (DME) walker [facility] See Rx Instructions .Route Qty: 1 0RF Rx Instructions: As directed nicotine 21 mg/24 hr patch 24 hour 1 patch transdermal DAILY 28 Days Qty: 28 0RF Sutab 1.479-0.188- 0.225 gram tablet See Rx Instructions PO PER PKG DIR Qty: 24 0RF Rx Instructions: package directions orally per package directions; PO PER PKG DIR, please disregard Go Lytely (DME) nebulizers [facility] See Rx Instructions .Route Rx Instructions: As directed psyllium husk [Reguloid (psyllium husk)] 0.4 gram capsule PO Trelegy Ellipta 200-62.5-25 mcg blister with device 1 inh inhalation DAILY 30 Days Qty: 60 12RF azithromycin 500 mg tablet 500 mg PO DAILY 5 Days Qty: 5 0RF albuterol sulfate 2.5 mg /3 mL (0.083 %) solution for nebulization 2.5 mg inhalation Q6H PRN (Reason: shortness of breath or wheezing) 30 Days Qty: 180 11RF
[2023-09-22] MEDS: Adenosine 6 MG/2 ML VIAL IVPUSH (17:20)
[2023-09-22 17:21] LABS: Prothrombin Time 11.6 SEC (11.1-13.3)
[2023-09-22 17:25] VITALS: BP 121/73; PULSE 105; RESP 14; TEMP 36.4; O2SAT 98
[2023-09-22] MEDS: Metoprolol Succinate ER 25 MG TAB.ER.24H PO (17:35)
[2023-09-22] MEDS: LORazepam 1 MG TABLET PO (17:35)
[2023-09-22 17:39] LABS: Alanine Aminotransferase 13 U/L (0-31); Albumin Level 4.1 g/dL (3.5-5.0); Alkaline Phosphatase 92 U/L (39-117); Anion Gap 14 (12-20); Aspartate Amino Transferase 17 U/L (5-31); Bilirubin Total 0.3 mg/dL (0.0-1.0); Blood Urea Nitrogen 13 mg/dL (9-16); Calcium 9.4 mg/dL (8.4-10.2); Carbon Dioxide 24 mmol/L (22-29); Chloride 105 mmol/L (96-108); Creatinine Clr Calc Pharmacy 82.3; Estimated Glomerular Filt Rate 60; Glucose Random 137 mg/dL (60-115); Magnesium 1.9 mg/dL (1.6-2.6); Potassium 3.8 mmol/L (3.3-5.1); Sodium 139 mmol/L (135-145); Total Protein 7.6 g/dL (6.5-8.0)
[2023-09-22 18:00] VITALS: BP 137/74; PULSE 85; RESP 17; O2SAT 98
[2023-09-22] MEDS: ondansetron HCL 4 MG/2 ML VIAL IVPUSH (18:15)
[2023-09-22 18:16] LABS: TSH reflex Free T4 1.95 uIU/mL (0.32-4.0)
[2023-09-22 19:52] VITALS: BP 122/58; PULSE 85; RESP 17; TEMP 36.1; O2SAT 97
== END 2023-09-22 19:53 | disposition home or self-care (01) ==
PROVIDERS: Emergency Provider Student in an Organized Health Care Education/Training Program
DX: I47.10 Supraventricular tachycardia, unspecified (principal); R00.2 Palpitations; E05.00 Thyrotoxicosis with diffuse goiter without thyrotoxic crisis or storm; F32.A Depression, unspecified; Z79.899 Other long term (current) drug therapy; R11.0 Nausea; K21.9 Gastro-esophageal reflux disease without esophagitis; I25.10 Atherosclerotic heart disease of native coronary artery without angina pectoris; J44.9 Chronic obstructive pulmonary disease, unspecified; F17.200 Nicotine dependence, unspecified, uncomplicated
CPT/HCPCS: 36415; 71045; 80053; 83735; 84443; 85025; 85610; 93005; 96374; 96375; 99283; 99284; J0153; J2405

== ENCOUNTER → 2023-09-22 17:04 | Outpatient (BNV) | payer OTHER, SELFPAY | PROVIDERS: Emergency Provider Student in an Organized Health Care Education/Training Program; Visit Provider Internal Medicine Cardiovascular Disease | DX: I47.10 Supraventricular tachycardia, unspecified (principal) | CPT/HCPCS: 93010 ==

== ENCOUNTER 2023-09-23 18:54 | Emergency (ER) | payer OTHER, SELFPAY ==
[2023-09-23 18:55] VITALS: BP 112/70; PULSE 220; RESP 20; TEMP 36.7; O2SAT 96; BMI 36.1
[2023-09-23 19:09] VITALS: PULSE 106; RESP 16; O2SAT 96
--- NOTE | 2023-09-23 19:10 | ED.ARRPALP ---
HPI - Arrhythmia/Palpitations General Chief Complaint: Arrhythmia/Palpitations Stated Complaint: SVT Time Seen by Provider: 09/23/23 18:58 Source: patient and EMS Mode of arrival: ambulatory Limitations: no limitations History of Present Illness HPI narrative: 53-year-old female history of SVT seen yesterday cardioverted with 6 of adenosine. Patient any complete workup was sent home had been noncompliant medications states she did take medications this morning again on arrival her is 200 was called me to room able to establish an IV and give the patient 6 days inpatient cardioverted we did try some vagal maneuvers unsuccessfully MD complaint: rapid heart beat and heart racing Related Data Home Medications Medication Instructions Recorded Confirmed nebulizers 04/29/23 psyllium husk 0.4 gram capsule g PO 04/29/23 (Reguloid (psyllium husk)) Previous Rx's Medication Instructions Recorded bupropion HCl 150 mg 24 hr tablet, 150 mg PO QAM 90 days #90 tabs 03/18/22 extended release naproxen 250 mg tablet 250 mg PO BID PRN pain 30 days #60 11/19/22 tabs sodium sul 1.479 gram-potas ch See Rx Instructions PO PER PKG DIR 12/04/22 0.188 gram-magnes sul 0.225 gram #24 tabs tablet (Sutab) nicotine 21 mg/24 hr daily 1 patch transdermal DAILY 28 days 01/11/23 transdermal patch #28 ea walker #1 ea 01/11/23 albuterol sulfate 2.5 mg/3 mL 2.5 mg (3 mL) inhalation Q6H PRN 02/23/23 (0.083 %) solution for nebulization shortness of breath or wheezing 30 days #180 mL omeprazole 40 mg capsule,delayed 40 mg PO DAILY 90 days #90 caps 03/16/23 release cholecalciferol (vitamin D3) 25 25 mcg PO DAILY 30 days #30 tabs 03/23/23 mcg (1,000 unit) tablet gabapentin 100 mg capsule 100 mg PO TID 30 days #90 caps 03/23/23 metoprolol succinate 25 mg 25 mg PO DAILY 90 days #90 tabs 03/23/23 tablet,extended release 24 hr azithromycin 500 mg tablet 500 mg PO DAILY 5 days #5 tabs 04/29/23 fluticasone fur. 200 mcg-umeclid 1 inh inhalation DAILY 30 days #60 04/29/23 62.5 mcg-vilant 25 mcg ea inhalat.powder (Trelegy Ellipta) fluticasone propionate 44 1 puff inhalation BID 30 days 05/15/23 mcg/actuation HFA aerosol inhaler #10.6 grams (Flovent HFA) albuterol sulfate 90 mcg/actuation 2 puff inhalation Q6H PRN 05/28/23 aerosol inhaler shortness of breath or wheezing 30 days #6.7 grams levothyroxine 137 mcg tablet 137 mcg PO DAILY #90 tabs 09/07/23 metoprolol succinate 50 mg 50 mg PO DAILY #60 tabs 09/23/23 tablet,extended release 24 hr Allergies Allergy/AdvReac Type Severity Reaction Status Date / Time egg [Egg] Allergy Severe ANAPHYLAXIS Verified 09/23/23 19:04 influenza virus vaccine, Allergy Severe CANNOT Verified 09/23/23 19:04 specific OBTAIN DUE [FLU VACCINE] TO EGG ALLERGY nicotine [From NICODERM CQ] Allergy Intermediate RASH Verified 09/23/23 19:04 varenicline [From CHANTIX] Allergy Intermediate DEPRESSION Verified 09/23/23 19:04 AND ANXIETY INCREASE barium sulfate AdvReac Intermediate saul Verified 09/23/23 19:04 Review of Systems Review of Systems: Review of systems: General: Patient denies any fever chills recent illness or falls Musculoskeletal: Denies back pain or body aches or other injuries HEENT: denies headache, runny nose, ear pain Respiratory: denies shortness of breath, cough Cardiovascular: no chest pain she does have palpitations : denies dysuria, frequency Abdomen: no nausea vomiting denies abdominal pain Extremities: no swelling, no pain Skin: no diaphoresis Yes all other systems are reviewed and are negative [facility] Past Medical History Medical History (Updated 09/23/23 @ 19:13 by Earnest Quinones DO) Coronary artery disease History of supraventricular tachycardia Graves disease Asthma with COPD Nicotine dependence, cigarettes, uncomplicated Arthritis Left breast lump Mild recurrent major depression Blurry vision Obesity (BMI 30-39.9) Vitamin D deficiency Constipation History of COVID-19 Surgical History History of total thyroidectomy (~2022) History of tonsillectomy and adenoidectomy History of dental surgery History of appendectomy (~1979) History of tubal ligation (~1999) History of section (~1999) History of right salpingo-oophorectomy (~2001) History of endometrial ablation (~2017) Family History Family History Father Bone cancer Lung cancer Mother CVD (cardiovascular disease) Emphysema of lung Hypertension Asthma Sister Breast cancer Maternal Aunt Uterine cancer Maternal Aunt Skin cancer Social History Social History Household Members: None Housing: Apartment Are you a primary cardiac care nurse to a significant other at home: No Do you presently have visiting nurse or other home services: No Alcohol intake: never Patient Tobacco Use Status: Current everyday Tobacco user Tobacco use type: Cigarette Cigarette Packs Per Day: 1 e-Cigarette/Vaping Use: Never Used Second Hand Smoke Exposure: No service: No Current occupational status: disabled Cognitive needs: No Hearing needs: No Vision needs: Yes Physical Exam Vital Signs: Vital Signs: Last Vital Signs Temp 98.0 F 09/23/23 18:55 Pulse 106 H 09/23/23 19:09 Resp 16 09/23/23 19:09 Pulse Ox 96 09/23/23 19:09 O2 Del Method Nasal Cannula 09/23/23 19:09 O2 Flow Rate 2 09/23/23 19:09 BMI result Body Mass Index 36.1 General: Well-appearing well-nourished in no signs of distress HEENT: Normocephalic atraumatic Neck: No signs of JVD, no masses no tenderness or lymphadenopathy Cardiovascular: Rapid rhythm Respiratory: Clear to auscultation bilaterally Abdomen: Soft nontender no masses Extremities: Normal pedal pulses no signs of edema Skin: Dry warm no rashes Back: No tenderness full ROM Course Course Course Narrative: son is in room HR 85 feeling much better wants to go home I will discharge. Medications Administered Discontinued Medications Generic Name Dose Route Start Last Admin Trade Name Freq PRN Reason Stop Dose Admin Lorazepam 1 mg 09/23/23 19:09 09/23/23 19:22 Lorazepam 1 Mg Tablet PO 09/23/23 19:10 1 mg ONCE ONE Administration Metoprolol Succinate 25 mg 09/23/23 19:09 09/23/23 19:22 Metoprolol Succinate Er 25 Mg Tab.Er.24h PO 09/23/23 19:10 25 mg ONCE ONE Administration Protocol Medical Decision Making Medical Decision Making [facility] Narrative: Patient seen here yesterday for the same I will increase her metoprolol to 50 mg and have the patient follow-up she does have an appointment she states she did make appointment for early September. Differential Diagnosis Differential Diagnoses: The differential diagnosis associated with the presentation includes SVT Admission/Observation Consideration of admission/observation: Escalation of care including admission/observation considered Consult Healthcare Provider Management of the patient was discussed with: Secondary Social Studies Teacher I spoke with Dr. Ramesh about changing or increasing medications he agreed Lab Data [facility] Lab Attestation statement: I reviewed the patient's lab results. Independent Interpretation I performed an independent interpretation of an: EKG and Rhythm Strip Independent Historian Clinical information obtained from an independent historian. History obtained from or confirmed by: Spouse I discussed the plan with the . Discharge Plan Discharge Clinical Impression: Sustained SVT Patient Disposition: Home, Self-Care Instructions: Supraventricular Tachycardia (ED) Additional Instructions: You were seen today for SVT. You were given adenosine and converted to normal sinus rhythm again. I recommend increasing metoprolol to 50 mg a day. If you have any other concerns please do not hesitate to come back to emergency department. Prescriptions: New metoprolol succinate 50 mg tablet extended release 24 hr 50 mg PO DAILY Qty: 60 0RF No Action bupropion HCl 150 mg tablet extended release 24 hr 150 mg PO QAM 90 Days Qty: 90 0RF naproxen 250 mg tablet 250 mg PO BID PRN (Reason: pain) 30 Days Qty: 60 3RF omeprazole 40 mg capsule,delayed release(DR/EC) 40 mg PO DAILY 90 Days Qty: 90 3RF metoprolol succinate 25 mg tablet extended release 24 hr 25 mg PO DAILY 90 Days Qty: 90 1RF cholecalciferol (vitamin D3) 25 mcg (1,000 unit) tablet 25 mcg PO DAILY 30 Days Qty: 30 6RF gabapentin 100 mg capsule 100 mg PO TID 30 Days Qty: 90 3RF fluticasone propionate [Flovent HFA] 44 mcg/actuation HFA aerosol inhaler 1 puff inhalation BID 30 Days Qty: 10.6 1RF Rx Instructions: administer with spacer albuterol sulfate 90 mcg/actuation HFA aerosol inhaler 2 puff inhalation Q6H PRN (Reason: shortness of breath or wheezing) 30 Days Qty: 6.7 3RF levothyroxine 137 mcg tablet 137 mcg PO DAILY Qty: 90 5RF (DME) [place]er [facility] [place] Instructions .Route Qty: 1 0RF Rx Instructions: As directed nicotine 21 mg/24 hr patch 24 hour 1 patch transdermal DAILY 28 Days Qty: 28 0RF Sutab 1.479-0.188- 0.225 gram tablet See Rx Instructions PO PER PKG DIR Qty: 24 0RF Rx Instructions: package directions orally per package directions; PO PER PKG DIR, please disregard Go Lytely (DME) nebulizers [facility] [place] Instructions .Route Rx Instructions: As directed psyllium husk [Reguloid (psyllium husk)] 0.4 gram capsule PO Trelegy Ellipta 200-62.5-25 mcg blister with device 1 inh inhalation DAILY 30 Days Qty: 60 12RF azithromycin 500 mg tablet 500 mg PO DAILY 5 Days Qty: 5 0RF albuterol sulfate 2.5 mg /3 mL (0.083 %) solution for nebulization 2.5 mg inhalation Q6H PRN (Reason: shortness of breath or wheezing) 30 Days Qty: 180 11RF
[2023-09-23] MEDS: Metoprolol Succinate ER 25 MG TAB.ER.24H PO (19:22)
[2023-09-23] MEDS: LORazepam 1 MG TABLET PO (19:22)
[2023-09-23 19:51] VITALS: BP 128/69; PULSE 95; RESP 18; TEMP 36.4; O2SAT 96
[2023-09-23 20:25] VITALS: BP 128/69; PULSE 95; RESP 18; TEMP 36.4; O2SAT 96
== END 2023-09-23 20:28 | disposition home or self-care (01) ==
PROVIDERS: Emergency Provider Student in an Organized Health Care Education/Training Program; PCP Internal Medicine
DX: I47.19 Other supraventricular tachycardia (principal); I25.10 Atherosclerotic heart disease of native coronary artery without angina pectoris; J44.9 Chronic obstructive pulmonary disease, unspecified
CPT/HCPCS: 99283; 99285

== ENCOUNTER 2023-09-30 13:58 | Outpatient (AMB) | payer OTHER, SELFPAY ==
[2023-09-30 14:37] VITALS: BP 128/68; PULSE 78; BMI 40.1
--- NOTE | 2023-09-30 14:37 | A.OFFVIS_ITS ---
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 Allergies egg [Egg] Allergy (Severe, Verified 09/23/23 19:04) ANAPHYLAXIS influenza virus vaccine, specific [FLU VACCINE] Allergy (Severe, Verified 09/23/23 19:04) CANNOT OBTAIN DUE TO EGG ALLERGY nicotine [From NICODERM CQ] Allergy (Intermediate, Verified 09/23/23 19:04) RASH varenicline [From CHANTIX] Allergy (Intermediate, Verified 09/23/23 19:04) DEPRESSION AND ANXIETY INCREASE barium sulfate Adverse Reaction (Intermediate, Verified 09/23/23 19:04) saul Medication List - Last Reconciled 09/30/23 by Marah Noble, ROBYN albuterol sulfate 90 mcg/actuation 2 puffs inhalation Q6H PRN 30 days albuterol sulfate 2.5 mg (3 mL) inhalation Q6H PRN 30 days azithromycin 500 mg PO DAILY 5 days bupropion HCl XL 150 mg PO QAM 90 days cholecalciferol (vitamin D3) 25 mcg PO DAILY 30 days fluticasone propionate 44 mcg/actuation (Flovent HFA) 1 puff inhalation BID 30 days zfpngrruwjt-hpuhilvwk-zsesgkpa 200-62.5-25 mcg (Trelegy Ellipta) 1 inh inhalation DAILY 30 days gabapentin 100 mg PO TID 30 days levothyroxine 137 mcg PO DAILY metoprolol succinate ER 50 mg PO DAILY metoprolol succinate ER 25 mg PO DAILY 90 days naproxen 250 mg PO BID PRN 30 days nebulizers As directed nicotine 1 patch transdermal DAILY 28 days omeprazole 40 mg PO DAILY 90 days psyllium husk (Reguloid (psyllium husk)) grams PO sod sulf-pot chloride-mag sulf 1.479-0.188- 0.225 gram (Sutab) package directions orally per package directions; PO PER PKG DIR, please disregard Go Ananth layton As directed HPI HPI Comments History of Present Illness Details 53-year-old female presents today for hi story of SVT. She was recently seen in the emergency department twice for SVT. The first day she forgot her metoprolol and she suddenly got hot and felt her heart racing. She states she gets short of breath and smokes. She does not drink alcohol or use illicit drugs. She drinks between 2-3 cups of coffee a day. She had last seen Dr. Ramesh in 2019. [facility] Medical History Coronary artery disease History of supraventricular tachycardia Graves disease Asthma with COPD Nicotine dependence, cigarettes, uncomplicated Arthritis Left breast lump Mild recurrent major depression Blurry vision Obesity (BMI 30-39.9) Vitamin D deficiency Constipation History of COVID-19 Surgical History History of total thyroidectomy (~2022) History of tonsillectomy and adenoidectomy History of dental surgery History of appendectomy (~1979) History of tubal ligation (~1999) History of section (~1999) History of right salpingo-oophorectomy (~2001) History of endometrial ablation (~2017) Family History Father Bone cancer Lung cancer Mother CVD (cardiovascular disease) Emphysema of lung Hypertension Asthma Sister Breast cancer Maternal Aunt Uterine cancer Maternal Aunt Skin cancer Social History Household Members: None Housing: Apartment Are you a primary healthcare technician to a significant other at home: No Do you presently have visiting nurse or other home services: No Alcohol intake: current Alcohol intake frequency: holidays/special occasions only Patient Tobacco Use Status: Current everyday Tobacco user Tobacco use type: Cigarette Cigarette Packs Per Day: 1 e-Cigarette/Vaping Use: Never Used Second Hand Smoke Exposure: No service: No Current occupational status: disabled Cognitive needs: No Hearing needs: No Vision needs: Yes Review of Systems Const Denies weakness ENT Denies dizziness Card Denies chest pain, Denies chest pain with activity, Denies syncope, Denies rapid heart rate, Denies pedal edema, Denies edema, Denies leg edema, Denies lighthea dedness, Denies palpitations, Denies dyspnea, Denies dyspnea on exertion and Denies orthopnea Resp Denies cough, Denies dyspnea and Denies dyspnea on exertion GI Denies hematochezia and Denies change in stool character Musc Denies abnormal gait, Denies muscle cramps, Denies muscle weakness, Denies numbness, Denies radiating pain into limb and Denies tingling Neuro Denies abnormal gait, Denies dizziness, Denies syncope, Denies numbness, Denies tingling and Denies weakness Endo Denies palpitations Physical Exam Vital Signs: Last Vital Signs Pulse 78 09/30/23 14:37 BP 128/68 09/30/23 14:37 BMI result Body Mass Index 40.1 Assessment & Plan Assessment & Plan (1) SVT (supraventricular tachycardia): Code(s): I47.10 - Supraventricular tachycardia, unspecified Plan Patient with history of SVT. First incidence was in the setting of forgetting beta-wu. Will do an echo to assess for structural changes, a heart monitor to assess for episode occurrence, and stress test to assess shortness of breath and response to exercise. Continue current does of Metoprolol. Orders: Orders CA echo transthoracic complete 09/30/23 I47.10 - Supraventricular tachycardia, unspecified CA stress test 09/30/23 I47.10 - Supraventricular tachycardia, unspecified ECG holter monitor 48 hour 09/30/23 I47.10 - Supraventricular tachycardia, unspecified Coding Level of Care Code Est Pt Level 3 (33586) Diagnoses SVT (supraventricular tachycardia) I47.10
== END 2023-09-30 15:34 | disposition home or self-care (01) ==
PROVIDERS: PCP Internal Medicine; Visit Provider Nurse Practitioner
DX: I47.10 Supraventricular tachycardia, unspecified (principal)
CPT/HCPCS: 99213

== ENCOUNTER → 2023-09-30 13:58 | Outpatient (BNVA) | payer OTHER, SELFPAY | PROVIDERS: PCP Internal Medicine; Visit Provider Nurse Practitioner | DX: I47.10 Supraventricular tachycardia, unspecified (principal) | CPT/HCPCS: 99212 ==

== ENCOUNTER 2023-10-15 | Outpatient (REF) | payer OTHER, SELFPAY ==
[2023-10-15 13:15] LABS: MANUAL DIFF FLAG NO
[2023-10-15 13:17] LABS: Basophils Absolute Auto 0.1 X10*3/uL (0.0-0.2); Basophils Percent Auto 0.7 % (0-2); Eosinophils Absolute Auto 0.3 X10*3/uL (0.0-0.4); Eosinophils Percent Auto 4.9 % (0-4); Hematocrit 37.8 % (37.0-47.0); Hemoglobin 12.2 g/dl (12.0-16.0); Imm Gran Abs Auto 0.03 X10*3/uL (0.00-0.03); Imm Gran Pct Auto 0.4 % (0.0-0.4); Lymphocytes Absolute Auto 2.6 X10*3/uL (1.2-4.9); Lymphocytes Percent Auto 38.6 % (20-40); Mean Corpuscular HGB Conc 32.3 g/dl (31.0-35.0); Mean Corpuscular Hemoglobin 25.7 pg (27.0-33.0); Mean Corpuscular Volume 79.7 fL (80.0-98.0); Mean Platelet Volume 10.3 fL (9.4-12.3); Monocytes Absolute Auto 0.4 X10*3/uL (0.1-1.2); Monocytes Percent Auto 6.6 % (2-11); Neutrophils Absolute Auto 3.3 x10*3/uL (2.0-8.3); Neutrophils Percent Auto 48.8 % (45-73); Platelet Count 266 X10*3/uL (160-400); Red Blood Count 4.74 X10*6/uL (4.20-5.50); Red Cell Distribution Width 15.6 % (11.0-16.0); White Blood Count 6.7 X10*3/uL (4.8-10.8)
[2023-10-15 16:31] LABS: Alanine Aminotransferase 13 U/L (0-31); Albumin Level 3.8 g/dL (3.5-5.0); Alkaline Phosphatase 82 U/L (39-117); Anion Gap 9 (12-20); Aspartate Amino Transferase 12 U/L (5-31); Bilirubin Total 0.2 mg/dL (0.0-1.0); Blood Urea Nitrogen 16 mg/dL (9-16); Carbon Dioxide 29 mmol/L (22-29); Chloride 104 mmol/L (96-108); Estimated Glomerular Filt Rate > 60; Glucose Random 101 mg/dL (60-115); Potassium 3.9 mmol/L (3.3-5.1); Sodium 138 mmol/L (135-145); Total Protein 6.8 g/dL (6.5-8.0)
== END 2023-10-15 00:01 | disposition home or self-care (01) ==
LOC: HO.LAB
PROVIDERS: PCP Internal Medicine; Visit Provider Internal Medicine Medical Oncology
DX: D75.1 Secondary polycythemia (principal)
CPT/HCPCS: 36415; 80053; 85014; 85018; 85025; 99195

== ENCOUNTER → 2023-11-02 08:31 | Outpatient (REF) | payer OTHER, SELFPAY ==
--- NOTE | 2023-11-02 08:36 | CA_ITS ---
Transthoracic Echocardiogram Patient (Last, First, Middle): Jyoti Roberts J Gender: Female Date of : 1970 Age: 53 Procedure Date: 11/02/2023 Procedure Type: Transthoracic Echocardiogram Location: OP Height: 162.56 cm Weight: 90.72 kg BSA: 1.96 m2 Heart Rate: 64 bpm BP: 130 / 74 mmHg Heel Seam Rubber: TO Referring MD: Marah Noble THERAPY DIRECTOR Symptoms: I47.10 - Supraventricular tachycardia, unspecified Study Quality: Technically Difficult ECG Rhythm: Sinus Conclusions: - The left ventricular systolic function is normal. The calculated ejection fraction is 58% by biplane method. - Possible basal inferior wall hypokinesis. - No obvious valvular pathology seen on this study. Findings Procedure Information The study quality is limited by the patients inability to tolerate the test and patients body habitus. The patient declines contrast. Left Ventricle Normal left ventricular cavity size. There is mildly increased left ventricular wall thickness. The left ventricular systolic function is normal. The calculated ejection fraction is 58% by biplane method. Diastolic function is normal for age. Possible basal inferior wall hypokinesis. Right Ventricle Normal right ventricular cavity size and systolic function. Atria Both atria are normal in size. Aortic Valve The aortic valve was not well visualized. There is no aortic valve stenosis. There is no aortic valve regurgitation. Mitral Valve The mitral valve appears normal. There is trace mitral valve regurgitation. There is no mitral valve stenosis. Pulmonic Valve The pulmonic valve is likely normal. Tricuspid Valve There is trace tricuspid valve regurgitation. Tricuspid regurgitation envelope is inadequate for calculation of right ventricular systolic pressure. Great Vessels The asc aorta is normal in size. Venous The inferior vena cava is mildly dilated and collapses greater than 50% with inspiration. Pericardium/Pleural There is no evidence of pericardial effusion. Prior Study Comparison Changes noted compared to prior study dated: 02/02/2020. see comment on wall motion. Recommendations, Care & Conclusions No obvious valvular pathology seen on this study. Measurements 2D Linear Measurements IVSd: 1.13 0.6-0.9/0.6-1.0 cm LVIDd: 4.43 3.9-5.3/4.2-5.9 cm LVIDd Index: 2.26 2.4-3.2/2.2-3.1 cm/m2 LVIDs: 3.11 2.0-3.6 cm LVPWd: 1.03 0.7-1.1 cm LA Diam: 3.40 2.7-3.8/3.0-4.0 cm LAIDs Index: 1.73 1.5-2.3 cm/m2 LV Mass: 207.22 67-162/88-224 g LV Mass Index: 105.73 43-95/49-115 g/m2 LVOT Diam: 2.00 3.0+(-)1.3 cm 2D Systolic Function EF 4C: 59.20 >55% EF 2C: 56.10 >55% EF BiP: 57.50 >55% Mitral Valve MV Pk E: 0.72 MV PK A: 0.70 MV Decel Time: 245.00 E/A: 1.00 E'Lateral: 8.27 E'Medial: 6.64 E/E' Med: 10.90 E/E' Lat: 8.80 PHT: 72.00 MVA PHT: 3.06 Decel [place]: 2.95 Aortic Valve AoV Pk Fabien: 1.35 AoV Mn Fabien: 0.94 AoV VTI: 0.27 AoV Pk Grad: 7.00 Aov Mn Grad: 4.00 ASHWINI Cont.VTI: 2.82 LVOT LVOT Pk Fabien: 1.04 LVOT Mn Fabien: 0.73 LVOT VTI: 0.24 LVOT Pk Grad: 4.00 LVOT Mn Grad: 2.00 LVOT Diam: 2.00 LVOT Area: 3.14 Diastolic Function MV Pk E: 0.72 MV Pk A: 0.70 E/A: 1.00 E'Medial: 6.64 E/E' Med: 10.90 E' Laterial: 8.27 E/E' Lat: 8.80 Right Ventricle TAPSE (mm): 19.40 TVS' Fabien: 10.40 Tricuspid Valve RA Press: 8.00 Great Vessels Aorta Sinus of Valsalva: 3.17 2.0-3.[address] [place]: 2.72 1.7-3.4 cm Ao Asc: 3.10 2.1-3.4 cm Updated in Other Vendor System with Status of Final Frank Reyes MD electronically signed on 11/02/2023 1:05:23 PM with status of Final
--- NOTE | 2023-11-02 08:36 | CA_ITS ---
Acquisition Time: 2023-11-02 10:04:55 Total Exercise Time: 00:01:22 Test Indications: SVT Medications: SEE H Protocol: CELESTINO Max HR: 118 BPM 69% of Pred: 169 BPM Max BP: 158/080 mmHG Max Work Load: 3.4 METS Exercise stress test exercise 1 min 22 sec of Celestino protocol achieving 69% MPHR, with 2-3/10 chest tightness which is reproducable with palpation, without arrhythmias, with normotensive responose to exercise, with nondiagnoisitic EKGs. Test reviewed with Dr. Ramesh. Referred By: Marah Noble Overread By: Marah Noble
--- NOTE | 2023-11-02 08:36 | HM_ITS ---
* Total monitoring time 2 days. * Underlying rhythm is sinus with an average rate of 85/Min. * Rare supraventricular and ventricular ectopy. * No significant pauses or AV blocks. * Patient markers used in association with sinus rhythm. * Chest pain, heart racing associated with sinus rhythm. MTDD
== END ==
LOC: HO.CARD 08:31
PROVIDERS: PCP Internal Medicine; Visit Provider Nurse Practitioner
DX: I47.10 Supraventricular tachycardia, unspecified (principal)
CPT/HCPCS: 93017; 93225; 93306

== ENCOUNTER → 2023-11-02 08:36 | Outpatient (BNV) | payer OTHER, SELFPAY | PROVIDERS: PCP Internal Medicine; Visit Provider Internal Medicine | DX: I47.10 Supraventricular tachycardia, unspecified (principal) | CPT/HCPCS: 93016; 93018; 93227; 93350 ==

== ENCOUNTER 2023-11-05 08:26 | Emergency (ER) | payer OTHER, SELFPAY ==
--- NOTE | 2023-11-05 | ECG_ITS ---
Test Reason : SVT Blood Pressure : / mmHG Vent. Rate : 193 BPM Atrial Rate : 000 BPM P-R Int : 000 ms QRS Dur : 066 ms QT Int : 252 ms P-R-T Axes : 000 015 130 degrees QTc Int : [address] & T wave abnormality, consider inferolateral ischemia Abnormal ECG No previous ECGs available Referred By: Earnest Quinones Electronically Signed By:Shawn Ramesh
[2023-11-05 08:20] VITALS: BP 110/65; PULSE 210; RESP 18; TEMP 36.7; O2SAT 98; BMI 41.4
--- NOTE | 2023-11-05 08:30 | PC.NURSE ---
pt biba from home d/t palpitations x last night. pt went to bed, woke up in the am. had a BM and a cigarette and noticed the palpitations continued. hx of SVT. upon EMS arrival - SVT displayed on monitor/ekg. no interventions completed by EMS. upon EMS arrival - pt displayed as SVT on monitor/ekg. HR 220bpm. pt denies chest pain but verbalizing sob. vagal maneuvers performed by MD but were unsuccessful. 20gIV placed in the right hand - labs obtained. 6mg adenosine administered per provider order. pt converted to nsr post medication administration. 89 bpm. pt continues to deny chest pain and states sob has since now subsided. otherwise vss. no sob/wob noted. respirations even and unlabored. pt aware of plan of care in regards to being monitored closely prior to d/c. call graham placed within reach.
--- NOTE | 2023-11-05 08:33 | ED_ITS ---
HPI - Arrhythmia/Palpitations General Chief Complaint: Arrhythmia/Palpitations Stated Complaint: PALPITATIONS HX SVT Time Seen by Provider: 11/05/23 08:30 Source: patient Mode of arrival: ambulatory Limitations: no limitations History of Present Illness HPI narrative: Female history of thyroidectomy tonsillectomy appendectomy tubal ligation C- section salpingo-oophorectomy major his asthma COPD and recurrent SVT who presents emergency department with palpitations patient seen here 2 days in a row back in August and comfortable times with 6 of adenosine we did try vagal maneuvers without success patient was started on medications your metoprolol was increased to 50 mg a day she states she has been compliant with this. She has had an echo as well as the Holter monitor. She states she started having palpitations last night they been intermittent and got worse this morning so she came in for evaluation. On arrival found to be tachycardic for the 190s to 100s MD complaint: rapid heart beat and palpitations Related Data Home Medications ?Medication ?Instructions ?Recorded ?Confirmed nebulizers 04/29/23 09/30/23 psyllium husk 0.4 gram capsule g PO 04/29/23 09/30/23 (Reguloid (psyllium husk)) Previous Rx's ?Medication ?Instructions ?Recorded bupropion HCl 150 mg 24 hr tablet, 150 mg PO QAM 90 days #90 tabs 03/18/22 extended release naproxen 250 mg tablet 250 mg PO BID PRN pain 30 days #60 11/19/22 tabs sodium sul 1.479 gram-potas ch See Rx Instructions PO PER PKG DIR 12/04/22 0.188 gram-magnes sul 0.225 gram #24 tabs tablet (Sutab) nicotine 21 mg/24 hr daily 1 patch transdermal DAILY 28 days 01/11/23 transdermal patch #28 ea walker #1 ea 01/11/23 albuterol sulfate 2.5 mg/3 mL 2.5 mg (3 mL) inhalation Q6H PRN 02/23/23 (0.083 %) solution for nebulization shortness of breath or wheezing 30 days #180 mL omeprazole 40 mg capsule,delayed 40 mg PO DAILY 90 days #90 caps 03/16/23 release cholecalciferol (vitamin D3) 25 25 mcg PO DAILY 30 days #30 tabs 03/23/23 mcg (1,000 unit) tablet metoprolol succinate 25 mg 25 mg PO DAILY 90 days #90 tabs 03/23/23 tablet,extended release 24 hr azithromycin 500 mg tablet 500 mg PO DAILY 5 days #5 tabs 04/29/23 fluticasone fur. 200 mcg-umeclid 1 inh inhalation DAILY 30 days #60 04/29/23 62.5 mcg-vilant 25 mcg ea inhalat.powder (Trelegy Ellipta) fluticasone propionate 44 1 puff inhalation BID 30 days 05/15/23 mcg/actuation HFA aerosol inhaler #10.6 grams (Flovent HFA) albuterol sulfate 90 mcg/actuation 2 puff inhalation Q6H PRN 05/28/23 aerosol inhaler shortness of breath or wheezing 30 days #6.7 grams levothyroxine 137 mcg tablet 137 mcg PO DAILY #90 tabs 09/07/23 metoprolol succinate 50 mg 50 mg PO DAILY #60 tabs 09/23/23 tablet,extended release 24 hr gabapentin 100 mg capsule 100 mg PO TID 30 days #90 caps 09/25/23 Allergies Allergy/AdvReac Type Severity Reaction Status Date / Time egg [Egg] Allergy Severe ANAPHYLAXIS Verified 11/05/23 08:46 influenza virus vaccine, Allergy Severe CANNOT Verified 11/05/23 08:46 specific OBTAIN DUE [FLU VACCINE] TO EGG ALLERGY nicotine [From NICODERM CQ] Allergy Intermediate RASH Verified 11/05/23 08:46 varenicline [From CHANTIX] Allergy Intermediate DEPRESSION Verified 11/05/23 08:46 AND ANXIETY INCREASE barium sulfate AdvReac Intermediate saul Verified 11/05/23 08:46 Review of Systems Review of Systems: Review of systems: General: Patient denies any fever chills recent illness or falls Musculoskeletal: Denies back pain or body aches or other injuries HEENT: denies headache, runny nose, ear pain Respiratory: denies shortness of breath, cough Cardiovascular: Palpitation no chest pain : denies dysuria, frequency Abdomen: no nausea vomiting denies abdominal pain Extremities: no swelling, no pain Skin: no diaphoresis Yes all other systems are reviewed and are negative PMFSH Past Medical History Medical History Coronary artery disease History of supraventricular tachycardia Graves disease Asthma with COPD Nicotine dependence, cigarettes, uncomplicated Arthritis Left breast lump Mild recurrent major depression Blurry vision Obesity (BMI 30-39.9) Vitamin D deficiency Constipation History of COVID-19 Surgical History History of total thyroidectomy (~2022) History of tonsillectomy and adenoidectomy History of dental surgery History of appendectomy (~1979) History of tubal ligation (~1999) History of section (~1999) History of right salpingo-oophorectomy (~2001) History of endometrial ablation (~2017) Family History Family History Father Bone cancer Lung cancer Mother CVD (cardiovascular disease) Emphysema of lung Hypertension Asthma Sister Breast cancer Maternal Aunt Uterine cancer Maternal Aunt Skin cancer Social History Social History Household Members: None Housing: Apartment Are you a primary healthcare customer service to a significant other at home: No Do you presently have visiting nurse or other home services: No Alcohol intake: current Alcohol intake frequency: holidays/special occasions only Patient Tobacco Use Status: Current everyday Tobacco user Tobacco use type: Cigarette Cigarette Packs Per Day: 1 e-Cigarette/Vaping Use: Never Used Second Hand Smoke Exposure: No Advance Directives: No Advance Directives Information Provided: No Do you have a plan to hurt others: No Plan service: No Current occupational status: disabled Cognitive needs: No Hearing needs: No Vision needs: Yes Physical Exam Vital Signs: Vital Signs: Last Vital Signs Temp 98.0 F 11/05/23 08:20 Pulse 89 11/05/23 08:49 Resp 16 11/05/23 08:49 BP 115/61 11/05/23 08:49 Pulse Ox 95 11/05/23 08:49 O2 Del Method Room Air 11/05/23 08:49 BMI result Body Mass Index 41.4 General: Well-appearing well-nourished in no signs of distress HEENT: Normocephalic atraumatic Neck: No signs of JVD, no masses no tenderness or lymphadenopathy Cardiovascular: Tachycardic Respiratory: Clear to auscultation bilaterally Abdomen: Soft nontender no masses Extremities: Normal pedal pulses no signs of edema Skin: Dry warm no rashes Back: No tenderness full ROM Course Course Course Narrative: Patient ambulated well in the ER after cardioversion did not go back in SVT I do feel comfortable discharging the patient home I had a long discussion with the patient 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 and possibly increasing the metoprolol to twice a day so there are any periods where the metoprolol hours off she is okay with this plan is happy to go home Medications Administered Discontinued Medications Generic Name Dose Route Start Last Admin Trade Name [place] PRN Reason Stop Dose Admin Adenosine 6 mg 11/05/23 08:34 11/05/23 08:42 Adenosine 6 Mg/2 Ml Vial IVPUSH 11/05/23 08:35 6 mg ONCE ONE Administration Medical Decision Making Medical Decision Making [facility] Narrative: Patient does not need any labs she looks well her SVT has resolved I will watch the patient here for another hour to make sure that back into SVT Differential Diagnosis Differential Diagnoses: The differential diagnosis associated with the presentation includes Patient given found an SVT was seen immediately and cardioverted with adenosine we did try vagal maneuvers that were unsuccessful patient tolerated the pro cedure well Lab Data Labs: Lab Results 11/05/23 Range/Units 08:39 Hold Purple Top SEE NOTE Hold Blue Top SEE NOTE Independent Interpretation I performed an independent interpretation of an: EKG Interpretation: Initial EKG rate 193 SVT no signs of ischemia repeat EKG after cardioversion rate 82 normal sinus rhythm normal intervals no signs of ischemia External Record Review External record reviewed: Inpatient record, Office record and Outpatient record Procedures Procedure Narrative Procedure Narrative: Patient cardioverted with adenosine 6 mg after unsuccessful attempt to have the patient blow onto syringe and with the patient back left of the legs he did try this twice without success 1 of adenosine the patient cardioverted to normal sinus rhythm was slightly tachycardic for. At time Discharge Plan Discharge Clinical Impression: Sustained SVT Patient Disposition: Home, Self-Care Instructions: Supraventricular Tachycardia (ED) Additional Instructions: You were seen today emergency department for supraventricular tachycardia or SVT. You were cardioverted with medication. Please continue to take the metoprolol which prescribed last time. If you have any worsening pain or palpitations please return to the emergency department Prescriptions: No Action bupropion HCl 150 mg tablet extended release 24 hr 150 mg PO QAM 90 Days Qty: 90 0RF naproxen 250 mg tablet 250 mg PO BID PRN (Reason: pain) 30 Days Qty: 60 3RF omeprazole 40 mg capsule,delayed release(DR/EC) 40 mg PO DAILY 90 Days Qty: 90 3RF metoprolol succinate 25 mg tablet extended release 24 hr 25 mg PO DAILY 90 Days Qty: 90 1RF cholecalciferol (vitamin D3) 25 mcg (1,000 unit) tablet 25 mcg PO DAILY 30 Days Qty: 30 6RF fluticasone propionate [Flovent HFA] 44 mcg/actuation HFA aerosol inhaler 1 puff inhalation BID 30 Days Qty: 10.6 1RF Rx Instructions: administer with spacer albuterol sulfate 90 mcg/actuation HFA aerosol inhaler 2 puff inhalation Q6H PRN (Reason: shortness of breath or wheezing) 30 Days Qty: 6.7 3RF levothyroxine 137 mcg tablet 137 mcg PO DAILY Qty: 90 5RF gabapentin 100 mg capsule 100 mg PO TID 30 Days Qty: 90 3RF metoprolol succinate 50 mg tablet extended release 24 hr 50 mg PO DAILY Qty: 60 0RF (DME) calin [facility] [place] See Rx Instructions .Route Qty: 1 0RF Rx Instructions: As directed nicotine 21 mg/24 hr patch 24 hour 1 patch transdermal DAILY 28 Days Qty: 28 0RF Sutab 1.479-0.188- 0.225 gram tablet See Rx Instructions PO PER PKG DIR Qty: 24 0RF Rx Instructions: package directions orally per package directions; PO PER PKG DIR, please disregard Go Lytely (DME) nebulizers [facility] [place] See Rx Instructions .Route Rx Instructions: As directed psyllium husk [Reguloid (psyllium husk)] 0.4 gram capsule PO Trelegy Ellipta 200-62.5-25 mcg blister with device 1 inh inhalation DAILY 30 Days Qty: 60 12RF azithromycin 500 mg tablet 500 mg PO DAILY 5 Days Qty: 5 0RF albuterol sulfate 2.5 mg /3 mL (0.083 %) solution for nebulization 2.5 mg inhalation Q6H PRN (Reason: shortness of breath or wheezing) 30 Days Qty: 180 11RF Print Language: [place]
[2023-11-05] MEDS: Adenosine 6 MG/2 ML VIAL IVPUSH (08:42)
[2023-11-05 08:45] VITALS: BP 150/120; PULSE 210; O2SAT 97
[2023-11-05 08:49] VITALS: BP 115/61; PULSE 89; RESP 16; O2SAT 95
[2023-11-05 09:22] VITALS: BP 116/62; PULSE 80; RESP 11; TEMP 36.4; O2SAT 94
--- NOTE | 2023-11-05 11:35 | ECG_ITS ---
Test Reason : repeat Blood Pressure : / mmHG Vent. Rate : 082 BPM Atrial Rate : 082 BPM P-R Int : 160 ms QRS Dur : 082 ms QT Int : 358 ms P-R-T Axes : 062 015 058 degrees QTc Int : 418 ms Normal sinus rhythm Normal ECG When compared with ECG of 05-NOV-2023 08:30, Vent. rate has decreased BY [address] no longer depressed in Lateral leads T wave inversion no longer evident in Inferior leads T wave inversion no longer evident in Lateral leads Referred By: Earnest Quinones Electronically Signed By:Shawn Ramesh
== END 2023-11-05 09:50 | disposition home or self-care (01) ==
PROVIDERS: Emergency Provider Student in an Organized Health Care Education/Training Program; PCP Internal Medicine
DX: I47.10 Supraventricular tachycardia, unspecified (principal); I49.9 Cardiac arrhythmia, unspecified; R00.2 Palpitations; F17.210 Nicotine dependence, cigarettes, uncomplicated; Z79.899 Other long term (current) drug therapy
CPT/HCPCS: 36415; 93005; 96374; 99285; J0153

== ENCOUNTER → 2023-11-05 08:30 | Outpatient (BNV) | payer OTHER, SELFPAY | PROVIDERS: Emergency Provider Student in an Organized Health Care Education/Training Program; PCP Internal Medicine; Visit Provider Internal Medicine Cardiovascular Disease | DX: I47.10 Supraventricular tachycardia, unspecified (principal) | CPT/HCPCS: 93010 ==

== ENCOUNTER 2023-12-03 14:32 | Outpatient (REF) | payer OTHER, SELFPAY ==
[2023-12-03 15:24] LABS: MANUAL DIFF FLAG NO
[2023-12-03 15:52] LABS: Basophils Absolute Auto 0.1 X10*3/uL (0.0-0.2); Basophils Percent Auto 0.7 % (0-2); Eosinophils Absolute Auto 0.2 X10*3/uL (0.0-0.4); Eosinophils Percent Auto 2.6 % (0-4); Hematocrit 37.1 % (37.0-47.0); Imm Gran Abs Auto 0.04 X10*3/uL (0.00-0.03); Imm Gran Pct Auto 0.6 % (0.0-0.4); Lymphocytes Absolute Auto 2.8 X10*3/uL (1.2-4.9); Lymphocytes Percent Auto 39.3 % (20-40); Mean Corpuscular HGB Conc 32.3 g/dl (31.0-35.0); Mean Corpuscular Hemoglobin 25.7 pg (27.0-33.0); Mean Corpuscular Volume 79.4 fL (80.0-98.0); Mean Platelet Volume 11.1 fL (9.4-12.3); Monocytes Absolute Auto 0.5 X10*3/uL (0.1-1.2); Monocytes Percent Auto 7.3 % (2-11); Neutrophils Absolute Auto 3.6 x10*3/uL (2.0-8.3); Neutrophils Percent Auto 49.5 % (45-73); Platelet Count 270 X10*3/uL (160-400); Red Blood Count 4.67 X10*6/uL (4.20-5.50); Red Cell Distribution Width 15.8 % (11.0-16.0); White Blood Count 7.2 X10*3/uL (4.8-10.8)
[2023-12-03 16:30] LABS: Anion Gap 11 (12-20); Blood Urea Nitrogen 16 mg/dL (9-16); Calcium 9.4 mg/dL (8.4-10.2); Carbon Dioxide 27 mmol/L (22-29); Chloride 105 mmol/L (96-108); Estimated Glomerular Filt Rate > 60; Glucose Random 91 mg/dL (60-115); Sodium 139 mmol/L (135-145)
[2023-12-06 23:43] LABS: Class Alternaria alternata 0; Class Aspergillus fumigatus 0; Class Bermuda Grass 0; Class Birch 0; Class Cat Dander 0; Class Cladosporium herbarum 0; Class Cockroach 0; Class Common Ragweed 0; Class Cottonwood 0; Class Derm. pterony 0; Class Dermatophagoides farinae 0; Class Dog Dander 0; Class Elm 0; Class Maple Box Elder 0; Class Mountain Cedar 0; Class Mouse Urine Protein 0; Class Mugwort 0; Class Oak 0; Class Penicillium crysogenum 0; Class Rough Pigweed 0; Class Sheep Sorrel 0; Class Sycamore 0; Class Timothy Grass 0; Class Walnut Tree 0; Class White Ash 0; Class White Mulberry 0; D001 IgE D pteronyssinus <0.10 kU/L; D002 - IgE D farinae <0.10 kU/L; E001 - IgE Cat Dander <0.10 kU/L; E005 - IgE Dog Dander <0.10 kU/L; E072-IgE Mouse Urine <0.10 kU/L; G002 IgE Bermuda Grass <0.10 kU/L; G006 - IgE Timothy Grass <0.10 kU/L; I006-IgE Cockroach, German <0.10 kU/L; Immunoglobulin E 8 kU/L (<OR=114); M001 IgE Penicillium chrysogen <0.10 kU/L; M002 - IgE Cladosporium herbar <0.10 kU/L; M003 - IgE Aspergillus fumigat <0.10 kU/L; M006 - IgE Alternaria alternat <0.10 kU/L; T001 IgE Maple/Box Elder <0.10 kU/L; T003 IgE Common Silver Birch <0.10 kU/L; T006 - IgE Cedar, Mountain <0.10 kU/L; T007 - IgE Oak, White <0.10 kU/L; T008 IgE Elm, American <0.10 kU/L; T010 - IgE Walnut <0.10 kU/L; T011 - IgE Maple Leaf Sycamore <0.10 kU/L; T014 - IgE Cottonwood <0.10 kU/L; T015 - IgE Ash, White <0.10 kU/L; T070 - IgE White Mulberry <0.10 kU/L; W001 - IgE Ragweed, Short <0.10 kU/L; W006 - IgE Mugwort <0.10 kU/L; W014 IgE Pigweed, Common <0.10 kU/L; W018 IgE Sheep Sorrel <0.10 kU/L
== END 2023-12-03 14:33 | disposition home or self-care (01) ==
LOC: HO.LAB 14:32
PROVIDERS: PCP Internal Medicine; Visit Provider Hospitalist
DX: J44.9 Chronic obstructive pulmonary disease, unspecified (principal); T78.40XA Allergy, unspecified, initial encounter; R91.1 Solitary pulmonary nodule; K59.00 Constipation, unspecified; F17.210 Nicotine dependence, cigarettes, uncomplicated; Z79.899 Other long term (current) drug therapy
CPT/HCPCS: 36415; 80048; 82785; 85025; 86003; 99212

== ENCOUNTER 2023-12-03 14:32 | Outpatient (AMB) | payer OTHER, SELFPAY ==
--- NOTE | 2023-12-03 14:35 | MHC.OFFVIS ---
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: No Allergies egg [Egg] Allergy (Severe, Verified 12/03/23 14:37) ANAPHYLAXIS influenza virus vaccine, specific [FLU VACCINE] Allergy (Severe, Verified 12/03/23 14:37) CANNOT OBTAIN DUE TO EGG ALLERGY nicotine [From NICODERM CQ] Allergy (Intermediate, Verified 12/03/23 14:37) RASH varenicline [From CHANTIX] Allergy (Intermediate, Verified 12/03/23 14:37) DEPRESSION AND ANXIETY INCREASE barium sulfate Adverse Reaction (Intermediate, Verified 12/03/23 14:37) saul HPI Comments Details: he patient is a 53 year woman with a known history of tobacco dependency now with worsening respiratory symptoms. She has been on Flovent for many years. In addition to that she has a rescue inhaler. She did notice increasing chest tightness wheezing and productive cough. Moderate severity. In addition to that she has a hard time performing any of activities of daily living house because of shortness of breath with minimal activity. She does have significant wheezing on examination significant rhonchi. I do believe she needs a nebulizer in order to provide better mucus clearance and bronchodilation. The patient will be provided with a nebulizer before she goes home. The patient also would benefit from optimizing her respiratory medications. Will go ahead and switch over from Flovent to Trelegy inhaler in order to provide her with better bronchodilation. The patient understands that once we able to bronchodilator airway she should feel better but she needs to be careful not to smoke cigarettes because it will cause further damage to her airways and air sats. The patient is interested in quitting. She has been motivated although she has had a hard time. Will provide her with the Nicotrol inhaler in order to help her with smoking cessation. The patient also will be referred to the lung cancer screening program for her yearly low-dose CT scans. 04/29/2023 the patient is here for a pulmonary follow-up visit. Overall the patient is feeling a little better. We had switched her over to Breo but for some reason she does not have it available. She still using the Flovent. Also has a rescue inhaler. Under go ahead and send her Trelegy again to the pharmacy to see if we can get that approved for her. She definitely still has a lot of wheezing and chest congestion. Unfortunately she continues to smoke cigarettes although she is motivated to try to quit. She is going to start a tobacco cessation program through the [facility]. In the meantime she is scheduled to have a colonoscopy. She does have wheezing on examination. Will go ahead and treat her for COPD exacerbation. I do believe that when she is on her optimize medical regimen she will be okay to have her colonoscopy with anesthesia. therefore, the patient may proceed with her colonoscopy at this time. The patient is scheduled for her LDCT and PFTs in the near future. 12/03/2023 the patient is here for a pulmonary follow-up visit. She is still struggling with breathing. He was short of breath with minimal activity. Even has a hard time doing her chores around the house. The patient is wondering about the rugs causing her difficulty with her breathing. Will go ahead and test her for allergies and see if she has not issues with rugs. But more than not she is still smoking. She understands she needs to quit altogether. She is considering hypnosis. The patient also is concerned about her abdominal girth. She feels more distended. She typically is constipated. She feels like she can not take a deep breath because her belly is in the way. I do agree that she is distended I did give her MiraLax and she will call her GI doctor to see if that can provide some relief. In the meantime she has participating in the lung cancer screening program and had a CT scan of the chest that was rads 2. The patient will continue with the Trelegy inhaler. She also has her nebulizer medicine. Will go ahead and continue with the therapy at this time. FORMERLY [facility], [facility] Medical History (Updated 12/05/23 @ 22:31 by Jamir Duran MD) Allergies Coronary artery disease History of supraventricular tachycardia Graves disease Asthma with COPD Nicotine dependence, cigarettes, uncomplicated Arthritis Left breast lump Mild recurrent major depression Blurry vision Obesity (BMI 30-39.9) Vitamin D deficiency Constipation History of COVID-19 Surgical History History of total thyroidectomy (~2022) History of tonsillectomy and adenoidectomy History of dental surgery History of appendectomy (~1979) History of tubal ligation (~1999) History of section (~1999) History of right salpingo-oophorectomy (~2001) History of endometrial ablation (~2017) Family History Father Bone cancer Lung cancer Mother CVD (cardiovascular disease) Emphysema of lung Hypertension Asthma Sister Breast cancer Maternal Aunt Uterine cancer Maternal Aunt Skin cancer Social History Household Members: None Housing: Apartment Are you a primary care program resident to a significant other at home: No Do you presently have visiting nurse or other home services: No Alcohol intake: current Alcohol intake frequency: holidays/special occasions only Patient Tobacco Use Status: Current everyday Tobacco user Tobacco use type: Cigarette Cigarette Packs Per Day: 1 e-Cigarette/Vaping Use: Never Used Second Hand Smoke Exposure: No service: No Current occupational status: disabled Cognitive needs: No Hearing needs: No Vision needs: Yes Review of Systems Const All systems reviewed & are unremarkable except as noted in HPI and below Denies fever(s) Eyes Reports no additional complaints, Denies change in vision and Denies other visual disturbances ENT Reports Normal hearing present Card Denies chest pain at rest and Reports dyspnea on exertion Resp Reports cough, Reports dyspnea on exertion and Reports wheezing GI Denies abdominal pain, Denies change in bowel habits, Denies excessive flatus, Denies nausea and Denies vomiting Musc Denies abnormal gait, Denies atrophy, Denies deformity and Denies limited range of motion Skin/Breast Denies bleeding lesions, Denies changing lesions and Denies rash Neuro Reports Normal hearing present, Denies Abnormal speech present, Denies abnormal gait and Denies lack of coordination Aller/Immun Reports wheezing Physical Exam Vital Signs: Last Vital Signs Pulse 79 12/03/23 14:36 Pulse Ox 98 12/03/23 14:36 Oxygen Delivery Method Room Air 12/03/23 14:36 BMI result Body Mass Index 35.0 Const General: cooperative and no acute distress Orientation/consciousness: oriented to person, oriented to place and oriented to time Limitations: No language barrier HEENT Head: Yes normocephalic and Yes atraumatic Eyes General: appearance normal, both eyes and all related structures Pupils: Equal, round and reactive pupils present Neck Neck: Yes normal visual inspection Chest Chest palpation & inspection: normal inspection of the chest Resp Effort & Inspection: normal respiratory effort, able to speak in complete sentences and prolonged expiratory phase Auscultation: rhonchi, no wheezes and diminished lung sounds Cardio Rate: regular rate Rhythm: regular rhythm GI Other: rash under panus Inspection: No distended and Yes obesity Skin General skin exam: no rashes or lesions noted, turgor normal, skin not dry, no jaundice, No spider nevi and no striae Rashes: no rashes Nails: normal Neuro General: oriented to person, oriented to place and oriented to time Cranial nerves: Yes Equal, round and reactive pupils present and Yes Normal hearing present Speech: No Abnormal speech present Extrem General: Yes normal to inspection, No clubbing, No cyanosis and Yes edema (left > right) Psych Appearance: grossly normal and well kempt Mental Status: mental status grossly normal Speech and movement: Normal speech and movement present Affect: normal affect Attitude: cooperative Thought process: Normal thought process present and not confabulating Thought content: Normal thought content present Insight: Limited insight present (Psych) Judgement: Limited judgement present (Psych) Assessment & Plan Assessment & Plan (1) Asthma with COPD: Code(s): J44.9 - Chronic obstructive pulmonary disease, unspecified Category: Medical (2) Nicotine dependence, cigarettes, uncomplicated: Comment: (current smoker - prior chest CT done 01/02/2020 note small nodules largest 3mm) Code(s): F17.210 - Nicotine dependence, cigarettes, uncomplicated Category: Medical (3) Allergies: Code(s): T78.40XA - Allergy, unspecified, initial encounter Category: Medical Qualifiers: Encounter type: initial encounter Qualified Code(s): T78.40XA - Allergy, unspecified, initial encounter (4) Constipation: Code(s): K59.00 - Constipation, unspecified Category: Medical Qualifiers: Constipation type: unspecified constipation type Qualified Code(s): K59.00 - Constipation, unspecified Plan continue Trelegy PIOTR as needed nebulizer Tobacco cessation: will try hypnosis LDCT referral Bloodwork start miralax F/U 6-8 months Orders: Orders Basic Metabolic Panel 12/03/23 T78.40XA - Allergy, unspecified, initial encounter Complete Blood Count Auto Diff 12/03/23 T78.40XA - Allergy, unspecified, initial encounter Resp Allergy Profile Region I 12/03/23 R91.1 - Solitary pulmonary nodule, T78.40XA - Allergy, unspecified, initial encounter Medications: New polyethylene glycol 3350 (Miralax) 17 grams PO DAILY 510 grams 1RF 30 days Coding Level of Care Code Est Pt Level 4 (85466) Diagnoses Asthma with COPD J44.9 Nicotine dependence, cigarettes, uncomplicated F17.210 Allergy, initial encounter T78.40XA Encounter type: initial encounter Constipation, unspecified constipation type K59.00 Constipation type: unspecified constipation type Time Spent (min) 16
[2023-12-03 14:36] VITALS: PULSE 79; O2SAT 98; BMI 35.0
== END 2023-12-03 15:06 | disposition home or self-care (01) ==
PROVIDERS: PCP Internal Medicine; Visit Provider Hospitalist
DX: J44.9 Chronic obstructive pulmonary disease, unspecified (principal); F17.210 Nicotine dependence, cigarettes, uncomplicated; T78.40XA Allergy, unspecified, initial encounter; K59.00 Constipation, unspecified
CPT/HCPCS: 99214

== ENCOUNTER 2023-12-12 14:07 | Emergency (ER) | payer OTHER, SELFPAY ==
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
[2023-12-12 14:13] VITALS: BP 126/74; BP 158/80; PULSE 100; PULSE 102; RESP 20; TEMP 37; O2SAT 97; O2SAT 98; BMI 44.1
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
[2023-12-12] MEDS: Lidocaine 4 % Patch ADH..PATCH 1 PATCH TRANSDERMA (15:47)
[2023-12-12] MEDS: Cyclobenzaprine HCl 10 MG TABLET PO (15:47)
[2023-12-12] MEDS: Metoprolol Succinate ER 25 MG TAB.ER.24H PO (15:47)
[2023-12-12] MEDS: Acetaminophen 325 MG TABLET 975 MG PO (15:47)
[2023-12-12 16:40] VITALS: BP 142/77; PULSE 80; RESP 18; TEMP 36.9; O2SAT 97
== END 2023-12-12 16:41 | disposition home or self-care (01) ==
PROVIDERS: Emergency Provider Emergency Medicine Emergency Medical Services; PCP Internal Medicine
DX: Z04.3 Encounter for examination and observation following other accident (principal); M25.552 Pain in left hip; M54.50 Low back pain, unspecified; J44.9 Chronic obstructive pulmonary disease, unspecified
CPT/HCPCS: 72100; 73502; 73552; 99284

== ENCOUNTER 2023-12-22 12:32 | Outpatient (AMB) | payer OTHER, SELFPAY ==
[2023-12-22 12:42] VITALS: BP 122/80; PULSE 206; O2SAT 96; BMI 43.0
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
== END 2023-12-22 13:10 | disposition home or self-care (01) ==
PROVIDERS: PCP Internal Medicine; Visit Provider Internal Medicine
DX: J44.9 Chronic obstructive pulmonary disease, unspecified (principal); F33.0 Major depressive disorder, recurrent, mild; E66.01 Morbid (severe) obesity due to excess calories; Z68.41 Body mass index [BMI] 40.0-44.9, adult; I47.10 Supraventricular tachycardia, unspecified; M25.552 Pain in left hip; M25.512 Pain in left shoulder
CPT/HCPCS: 99214; G2211

== ENCOUNTER 2023-12-22 13:22 | Outpatient (REF) | payer OTHER, SELFPAY ==
--- NOTE | ~2023-12-22 | XR_ITS ---
EXAMINATION: XR SHOULDER, LEFT CLINICAL INFORMATION: Left shoulder pain. COMPARISON: None available. TECHNIQUE: AP external rotation, Grashey, scapular Y, and axillary views of the left shoulder. FINDINGS: The bones and soft tissues are normal. No fracture. Glenohumeral and acromioclavicular alignment is anatomic with normal joint space. No abnormal soft tissue calcifications. XR/XR shoulder LT min 2V IMPRESSION: Normal left shoulder.
--- NOTE | 2023-12-22 13:46 | ECG_ITS ---
Test Reason : z86.79 Blood Pressure : / mmHG Vent. Rate : 198 BPM Atrial Rate : 000 BPM P-R Int : 000 ms QRS Dur : 070 ms QT Int : 248 ms P-R-T Axes : 000 004 142 degrees QTc Int : [address] & T wave abnormality, consider inferolateral ischemia Abnormal ECG When compared with ECG of 05-NOV-2023 09:00, Vent. rate has increased BY [address] no longer elevated in Inferior leads T wave inversion now evident in Inferior leads T wave inversion now evident in Lateral leads Referred By: Marline Mix Electronically Signed By:EDILBERTO DIAZ MD
== END 2023-12-22 13:23 | disposition home or self-care (01) ==
LOC: HO.XRAY 13:22
PROVIDERS: PCP Internal Medicine; Visit Provider Internal Medicine
DX: M25.512 Pain in left shoulder (principal); Z86.79 Personal history of other diseases of the circulatory system
CPT/HCPCS: 73030; 93005

== ENCOUNTER → 2023-12-22 13:46 | Outpatient (BNV) | payer OTHER, SELFPAY | PROVIDERS: PCP Internal Medicine; Visit Provider Internal Medicine Cardiovascular Disease | DX: I47.10 Supraventricular tachycardia, unspecified (principal); R94.31 Abnormal electrocardiogram [ECG] [EKG]; Z86.79 Personal history of other diseases of the circulatory system | CPT/HCPCS: 93010 ==

== ENCOUNTER 2023-12-22 14:16 | Emergency (ER) | payer OTHER, SELFPAY ==
--- NOTE | 2023-12-22 14:20 | ED_ITS ---
HPI - General Adult General Chief complaint: General Medical Stated complaint: tachycardia Time Seen by Provider: 12/22/23 14:20 History of Present Illness ED Provider: Trudy BENZ narrative: The patient is a 53-year-old female who has a history of supraventricular tachycardia as well as other medical problems. She says that she woke up this morning feeling her heart racing in a manner consistent with SVT. She has metoprolol that she takes when she feels she developed SVT. She took the medicine and thought she might be slightly better. She then came to the hospital because she had an appointment with her primary care doctor, Dr. Marline Hernández. She had an EKG done that showed that she was significantly tachycardic and she was referred to the emergency room. No particular chest pain. She feels chronically short of breath because of her COPD. She says that she feels the same way that she has felt with SVT in the past. She admits to having chronic lower leg edema. Related Data Home Medications ?Medication ?Instructions ?Recorded ?Confirmed nebulizers 04/29/23 12/22/23 psyllium husk 0.4 gram capsule g PO 04/29/23 12/22/23 (Reguloid (psyllium husk)) Previous Rx's ?Medication ?Instructions ?Recorded bupropion HCl 150 mg 24 hr tablet, 150 mg PO QAM 90 days #90 tabs 03/18/22 extended release naproxen 250 mg tablet 250 mg PO BID PRN pain 30 days #60 11/19/22 tabs sodium sul 1.479 gram-potas ch See Rx Instructions PO PER PKG DIR 12/04/22 0.188 gram-magnes sul 0.225 gram #24 tabs tablet (Sutab) nicotine 21 mg/24 hr daily 1 patch transdermal DAILY 28 days 01/11/23 transdermal patch #28 ea walker #1 ea 01/11/23 albuterol sulfate 2.5 mg/3 mL 2.5 mg (3 mL) inhalation Q6H PRN 02/23/23 (0.083 %) solution for nebulization shortness of breath or wheezing 30 days #180 mL omeprazole 40 mg capsule,delayed 40 mg PO DAILY 90 days #90 caps 03/16/23 release cholecalciferol (vitamin D3) 25 25 mcg PO DAILY 30 days #30 tabs 03/23/23 mcg (1,000 unit) tablet fluticasone fur. 200 mcg-umeclid 1 inh inhalation DAILY 30 days #60 04/29/23 62.5 mcg-vilant 25 mcg ea inhalat.powder (Trelegy Ellipta) fluticasone propionate 44 1 puff inhalation BID 30 days 05/15/23 mcg/actuation HFA aerosol inhaler #10.6 grams (Flovent HFA) albuterol sulfate 90 mcg/actuation 2 puff inhalation Q6H PRN 05/28/23 aerosol inhaler shortness of breath or wheezing 30 days #6.7 grams levothyroxine 137 mcg tablet 137 mcg PO DAILY #90 tabs 09/07/23 gabapentin 100 mg capsule 100 mg PO TID 30 days #90 caps 09/25/23 polyethylene glycol 3350 17 17 g PO DAILY 30 days #510 grams 12/03/23 gram/dose oral powder (Miralax) Grab bar #1 ea 12/08/23 Shower Chair #1 ea 12/08/23 nicotine 21 mg/24 hr daily 1 patch transdermal DAILY 28 days 12/08/23 transdermal patch #28 ea lidocaine 5 % topical patch 1 patch topical DAILY #15 ea 12/12/23 (Lidoderm) naproxen 500 mg tablet 500 mg PO Q8-12H PRN pain (scale 12/12/23 score 4-6) #20 tabs baclofen 10 mg tablet 10 mg PO TID 7 days #21 tabs 12/22/23 comp.stocking,thigh,long,x-lrg #12 ea 12/22/23 furosemide 20 mg tablet (Lasix) 20 mg PO DAILY #3 tabs 12/22/23 metoprolol succinate 100 mg 100 mg PO DAILY 90 days #90 tabs 12/22/23 tablet,extended release 24 hr Allergies Allergy/AdvReac Type Severity Reaction Status Date / Time egg [Egg] Allergy Severe ANAPHYLAXIS Verified 12/22/23 14:25 influenza virus vaccine, Allergy Severe CANNOT Verified 12/22/23 14:25 specific OBTAIN DUE [FLU VACCINE] TO EGG ALLERGY nicotine [From NICODERM CQ] Allergy Intermediate RASH Verified 12/22/23 14:25 varenicline [From CHANTIX] Allergy Intermediate DEPRESSION Verified 12/22/23 14:25 AND ANXIETY INCREASE barium sulfate AdvReac Intermediate saul Verified 12/22/23 14:25 Review of Systems Review of Systems: Yes all other systems are reviewed and are negative [facility] Past Medical History Medical History Allergies Coronary artery disease History of supraventricular tachycardia Graves disease Asthma with COPD Nicotine dependence, cigarettes, uncomplicated Arthritis Left breast lump Mild recurrent major depression Blurry vision Obesity (BMI 30-39.9) Vitamin D deficiency Constipation History of COVID-19 Surgical History History of total thyroidectomy (~2022) History of tonsillectomy and adenoidectomy History of dental surgery History of appendectomy (~1979) History of tubal ligation (~1999) History of section (~1999) History of right salpingo-oophorectomy (~2001) History of endometrial ablation (~2017) Family History Family History Father Bone cancer Lung cancer Mother CVD (cardiovascular disease) Emphysema of lung Hypertension Asthma Sister Breast cancer Maternal Aunt Uterine cancer Maternal Aunt Skin cancer Social History Social History (Updated 12/22/23 @ 12:56 by Marline Mix MD) Household Members: None Housing: Apartment Are you a primary healthcare business analyst to a significant other at home: No Do you presently have visiting nurse or other home services: No Alcohol intake: former Patient Tobacco Use Status: Current everyday Tobacco user Tobacco use type: Cigarette Cigarette Packs Per Day: 1 Smoked in Last 30 Days: Yes e-Cigarette/Vaping Use: Never Used Second Hand Smoke Exposure: No Use of substances other than those prescribed or required for medical reasons: No Advance Directives: No service: No Current occupational status: disabled Cognitive needs: No Hearing needs: No Vision needs: Yes Physical Exam ED Vital Signs: Vital Signs - 24 hr 12/22/23 14:22 12/22/23 14:24 12/22/23 14:26 Temperature 98.2 F Pulse Rate 190 H 200 H 95 Respiratory Rate 18 18 Blood Pressure 129/83 129/83 129/83 Pulse Oximetry 96 Oxygen Delivery Method Room Air BMI result Body Mass Index 41.7 Const Other: The patient is somewhat chronically ill-appearing 53-year-old who was awake and alert. She had an anxious affect but did not seem in acute distress. HENMT Other: Face is symmetrical, mucous membranes moist Eyes Other: Pupils are round equal, conjunctivae are clear Neck Other: The patient's neck is rather thick. I can not appreciate any JVD. Resp Other: Air entry is diminished bilaterally. No increased work of breathing. Cardio Other: The patient's heart rate was initially extremely fast. After conversion to a normal sinus rhythm she had a regular rate and rhythm with no murmur. GI Other: Abdomen is soft and nontender Skin Other: Skin is dry and unremarkable Neuro Other: The patient is awake and alert. Face is symmetrical. Speech is clear. She moves her extremities normally. She seems grossly neurologically intact. Extrem Other: Lower legs are symmetrical. They are both mildly edematous, minimally pitting. No particular tenderness. Medications Administered Discontinued Medications Generic Name Dose Route Start Last Admin Trade Name Freq PRN Reason Stop Dose Admin Diltiazem HCl 20 mg 12/22/23 14:20 12/22/23 14:22 Diltiazem Hcl 50 Mg/10 Ml Vial IVPUSH 12/22/23 14:21 20 mg STAT STA Administration Medical Decision Making Medical Decision Making [facility] Narrative: The patient is a 53-year-old woman with a history of SVT. She says that today's episode is her 4th episode of SVT. Her most recent episode was last month in October. She is on metoprolol. She woke up feeling palpitations consistent with SVT this morning and presents with a very rapid heart rate of approximately 200. IV access was established and she was given 20 mg of IV diltiazem with conve rsion to a normal sinus rhythm. She feels back to normal. Post-conversion EKG shows normal sinus rhythm at 91 beats per minute. No concerning ischemic changes. I think she may be discharged to resume her normal medications including metoprolol and should follow up with Cardiology. Independent Interpretation I performed an independent interpretation of an: EKG Interpretation: EKG at 11/02/2000 shows supraventricular tachycardia at 198 beats per minute. There are rate-related changes. Discharge Plan Discharge Clinical Impression: Supraventricular tachycardia Patient Disposition: Home, Self-Care Additional Instructions: You seemed to have had another episode of supraventricular tachycardia. Today you received a dose of a medication called diltiazem which converted you back to a normal rhythm. Please continue your regular medications including her metoprolol. Please follow up with Cardiology to discuss these recurrent episodes further. Return to the emergency room if significantly worse. Prescriptions: No Action bupropion HCl 150 mg tablet extended release 24 hr 150 mg PO QAM 90 Days Qty: 90 0RF naproxen 250 mg tablet 250 mg PO BID PRN (Reason: pain) 30 Days Qty: 60 3RF omeprazole 40 mg capsule,delayed release(DR/EC) 40 mg PO DAILY 90 Days Qty: 90 3RF cholecalciferol (vitamin D3) 25 mcg (1,000 unit) tablet 25 mcg PO DAILY 30 Days Qty: 30 6RF fluticasone propionate [Flovent HFA] 44 mcg/actuation HFA aerosol inhaler 1 puff inhalation BID 30 Days Qty: 10.6 1RF Rx Instructions: administer with spacer albuterol sulfate 90 mcg/actuation HFA aerosol inhaler 2 puff inhalation Q6H PRN (Reason: shortness of breath or wheezing) 30 Days Qty: 6.7 3RF levothyroxine 137 mcg tablet 137 mcg PO DAILY Qty: 90 5RF gabapentin 100 mg capsule 100 mg PO TID 30 Days Qty: 90 3RF (DME) Grab bar Misc See Rx Instructions .Route Qty: 1 0RF Rx Instructions: As directed (DME) Shower Chair Misc See Rx Instructions .Route Qty: 1 0RF Rx Instructions: As directed nicotine 21 mg/24 hr patch 24 hour 1 patch transdermal DAILY 28 Days Qty: 28 0RF lidocaine [Lidoderm] 5 % adhesive patch,medicated 1 patch topical DAILY Qty: 15 0RF Rx Instructions: leave on most painful area for up to 12 hrs naproxen 500 mg tablet 500 mg PO Q8-12H PRN (Reason: pain (scale score 4-6)) Qty: 20 0RF (DME) walker Misc See Rx Instructions .Route Qty: 1 0RF Rx Instructions: As directed nicotine 21 mg/24 hr patch 24 hour 1 patch transdermal DAILY 28 Days Qty: 28 0RF furosemide [Lasix] 20 mg tablet 20 mg PO DAILY Qty: 3 0RF metoprolol succinate 100 mg tablet extended release 24 hr 100 mg PO DAILY 90 Days Qty: 90 1RF baclofen 10 mg tablet 10 mg PO TID 7 Days Qty: 21 0RF (DME) comp.stocking,thigh,long,x-lrg Misc See Rx Instructions .Route Qty: 12 0RF Rx Instructions: As directed Sutab 1.479-0.188- 0.225 gram tablet See Rx Instructions PO PER PKG DIR Qty: 24 0RF Rx Instructions: package directions orally per package directions; PO PER PKG DIR, please disregard Go Lytely (DME) nebulizers Misc See Rx Instructions .Route Rx Instructions: As directed psyllium husk [Reguloid (psyllium husk)] 0.4 gram capsule PO Trelegy Ellipta 200-62.5-25 mcg blister with device 1 inh inhalation DAILY 30 Days Qty: 60 12RF albuterol sulfate 2.5 mg /3 mL (0.083 %) solution for nebulization 2.5 mg inhalation Q6H PRN (Reason: shortness of breath or wheezing) 30 Days Qty: 180 11RF polyethylene glycol 3350 [Miralax] 17 gram/dose powder 17 g PO DAILY 30 Days Qty: 510 1RF Referrals: Kelechi Graham MD [Physician] - (Recurrent SVT) Print Language: Slovak
[2023-12-22 14:22] VITALS: BP 129/83; PULSE 190
[2023-12-22] MEDS: dilTIAZem HCL 50 MG/10 ML VIAL 20 MG IVPUSH (14:22)
[2023-12-22 14:24] VITALS: BP 129/83; PULSE 200; RESP 18; O2SAT 96; BMI 41.7
[2023-12-22 14:26] VITALS: BP 129/83; PULSE 95; RESP 18; TEMP 36.8
--- NOTE | 2023-12-22 14:28 | PC.NURSE ---
arrived from cardiology in svt, patients reports has not felt good all day. 22 g IV placed, medicated per aug. HR 98, reports feeling better. Family at bedside, per provider no lab work needed at this time
--- NOTE | 2023-12-22 14:43 | ECG_ITS ---
Test Reason : SVT Blood Pressure : / mmHG Vent. Rate : 091 BPM Atrial Rate : 091 BPM P-R Int : 160 ms QRS Dur : 082 ms QT Int : 352 ms P-R-T Axes : 066 017 063 degrees QTc Int : 432 ms Normal sinus rhythm Possible Left atrial enlargement Borderline ECG When compared with ECG of 22-DEC-2023 13:58, Vent. rate has decreased BY [address] elevation now present in Inferior leads ST no longer depressed in Lateral leads T wave inversion no longer evident in Inferior leads T wave inversion no longer evident in Lateral leads Referred By: Gamaliel Yates Electronically Signed By:EDILBERTO DIAZ MD
[2023-12-22 15:23] VITALS: BP 136/87; PULSE 98; RESP 18; TEMP 36.9; O2SAT 98
== END 2023-12-22 15:29 | disposition home or self-care (01) ==
PROVIDERS: Emergency Provider Emergency Medicine
DX: I47.10 Supraventricular tachycardia, unspecified (principal); Z79.899 Other long term (current) drug therapy; I10 Essential (primary) hypertension; E05.00 Thyrotoxicosis with diffuse goiter without thyrotoxic crisis or storm
CPT/HCPCS: 93005; 96374; 99284

== ENCOUNTER 2024-01-05 13:54 | Outpatient (AMB) | payer OTHER, SELFPAY ==
--- NOTE | 2024-01-05 13:50 | MHC.PC.OV ---
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 Required: No Information Interpreted: non-clinical & clinical Lockstitch Topstitcher: Not Required per policy Accompanied by: Self / Same As Patient Allergies egg [Egg] Allergy (Severe, Verified 01/05/24 13:56) ANAPHYLAXIS influenza virus vaccine, specific [FLU VACCINE] Allergy (Severe, Verified 01/05/24 13:56) CANNOT OBTAIN DUE TO EGG ALLERGY nicotine [From NICODERM CQ] Allergy (Intermediate, Verified 01/05/24 13:56) RASH varenicline [From CHANTIX] Allergy (Intermediate, Verified 01/05/24 13:56) DEPRESSION AND ANXIETY INCREASE barium sulfate Adverse Reaction (Intermediate, Verified 01/05/24 13:56) saul Medication List - Last Reconciled 01/05/24 by Marline Mix MD albuterol sulfate 90 mcg/actuation 2 puffs inhalation Q6H PRN 30 days albuterol sulfate 2.5 mg (3 mL) inhalation Q6H PRN 30 days baclofen 10 mg PO TID 7 days bupropion HCl XL 150 mg PO QAM 90 days cholecalciferol (vitamin D3) 25 mcg PO DAILY 30 days comp.stocking,thigh,long,x-lrg As directed fluticasone propionate 44 mcg/actuation (Flovent HFA) 1 puff inhalation BID 30 days pesylviwxig-ayccmycyd-npwwzmpo 200-62.5-25 mcg (Trelegy Ellipta) 1 inh inhalation DAILY 30 days furosemide (Lasix) 20 mg PO DAILY gabapentin 100 mg PO TID 30 days Grab bar As directed levothyroxine 137 mcg PO DAILY lidocaine 5% (Lidoderm) 1 patch topical DAILY metoprolol succinate ER 100 mg PO DAILY 90 days naproxen 500 mg PO Q8-12H PRN naproxen 250 mg PO BID PRN 30 days nebulizers As directed nicotine 1 patch transdermal DAILY 28 days nicotine 1 patch transdermal DAILY 28 days omeprazole 40 mg PO DAILY 90 days polyethylene glycol 3350 (Miralax) 17 grams PO DAILY 30 days psyllium husk (Reguloid (psyllium husk)) grams PO Shower Chair As directed sod sulf-pot chloride-mag sulf 1.479-0.188- 0.225 gram (Sutab) package directions orally per package directions; PO PER PKG DIR, please disregard Go Ananth layton As directed Tobacco use date assessed: 12/22/23 Dental Screening Dental Screen Date: 12/22/23 HPI HPI Comments History of Present Illness Details This is a 53-year-old female with asthma-COPD overlap syndrome and mild recurrent major depression that has tele health visit by phone due to a common cold for follow-up on her conditions. Asthma-COPD overlap syndrome is follow by pulmonology and has been controlled with long-acting inhaler. On bupropion for her mild major depression. She also has daytime somnolence and sleep study still pending. Had an episode of tachycardia which had to go to ER after seeing me and metoprolol was increased. She follows with cardiology. As per patient she does not know how to do a video call. [facility] Medical History (Updated 01/05/24 @ 14:07 by Marline Mix MD) Allergies Coronary artery disease History of supraventricular tachycardia Graves disease Asthma with COPD Nicotine dependence, cigarettes, uncomplicated Arthritis Left breast lump Mild recurrent major depression Blurry vision Obesity (BMI 30-39.9) Vitamin D deficiency Constipation History of COVID-19 Surgical History History of total thyroidectomy (~2022) History of tonsillectomy and adenoidectomy History of dental surgery History of appendectomy (~1979) History of tubal ligation (~1999) History of section (~1999) History of right salpingo-oophorectomy (~2001) History of endometrial ablation (~2017) Family History Father Bone cancer Lung cancer Mother CVD (cardiovascular disease) Emphysema of lung Hypertension Asthma Sister Breast cancer Maternal Aunt Uterine cancer Maternal Aunt Skin cancer Social History (Updated 12/22/23 @ 12:56 by Marline Mix MD) Household Members: None Housing: Apartment Are you a primary child care sitter to a significant other at home: No Do you presently have visiting nurse or other home services: No Alcohol intake: former Patient Tobacco Use Status: Current everyday Tobacco user Tobacco use type: Cigarette Cigarette Packs Per Day: 1 e-Cigarette/Vaping Use: Never Used Second Hand Smoke Exposure: No service: No Current occupational status: disabled Cognitive needs: No Hearing needs: No Vision needs: Yes Questionnaire Thrive Questionnaire Date Thrive assessed: 07/07/22 REYES-7 AMB Questionnaire REYES-7 Date REYES - 7 assessed: 07/07/22 Source: Developed by Drs. Ahsan Mcleod, Regina Chauhan, Driss Gordillo and colleagues, with an educational justino from [employer]. Review of Systems Const All systems reviewed & are unremarkable except as noted in HPI and below ENT Reports nasal congestion Card Denies chest pain at rest, Denies chest pain with activity, Denies edema, Denies irregular heart rhythm, Denies claudication, Denies dyspnea, Denies dyspnea on exertion, Denies orthopnea, Denies paroxysmal nocturnal dyspnea and Denies slow heart rate Resp Denies cough, Denies dyspnea and Denies dyspnea on exertion GI Denies abdominal pain, Denies change in bowel habits, Denies excessive flatus, Denies nausea and Denies vomiting Denies urinary incontinence, Denies urinary hesitancy and Denies urinary urgency Musc Denies atrophy, Denies deformity and Denies limited range of motion Physical exam (Primary Care) Tobacco/Smoking Status: Tobacco use Status Tobacco use date assessed 12/22/23 01/05/24 13:52 Patient Tobacco Use Status Current everyday Tobacco 01/05/24 13:52 Tobacco use type Cigarette 01/05/24 13:52 e-Cigarette/Vaping Use Never Used 01/05/24 13:52 Thrive Assessment: Date of Thrive Assessment Date Thrive assessed 07/07/22 01/05/24 13:52 Telehealth Telehealth Telehealth Platform: Telephone Location of provider rendering services: practice address Location of patient: address on file Patient Identification confirmed using: Name, : Yes Telehealth method: voice only Patient verbally consented to treatment: Yes Patient verbally consented to billing insurance company: Yes Patient informed of any privacy concerns related to visit: Yes Minutes spent on Phone/Video with Pt.: 15 Assessment and Plan Assessment & Plan (1) Asthma with COPD: Code(s): J44.9 - Chronic obstructive pulmonary disease, unspecified Plan: Continue long-acting inhaler. Use rescue inhaler as needed. Follow-up with pulmonology. (2) Mild recurrent major depression: Code(s): F33.0 - Major depressive disorder, recurrent, mild Plan: Continue bupropion. (3) Daytime somnolence: Code(s): R40.0 - Somnolence Plan: Sleep study pending. (4) Common cold: Code(s): J00 - Acute nasopharyngitis [common cold] Plan: Use nzoy-tsa-xyylwkr cold medications. She tested negative for COVID-19 at home. Orders: Orders CA lexiscan stress w kevyn 11/02/23 R07.2 - Precordial pain, Z86.79 - Personal history of other diseases of the circulatory system Coding Level of Care Code Tele Est Pt Level 4 (98605) Complex EM visit Add On G2211 Diagnoses Asthma with COPD J44.9 Mild recurrent major depression F33.0 Daytime somnolence R40.0 Common cold J00 Time Spent (min) 15
== END 2024-01-05 15:50 | disposition home or self-care (01) ==
LOC: HO.HMGH 13:54
PROVIDERS: PCP Internal Medicine; Visit Provider Internal Medicine
DX: J44.9 Chronic obstructive pulmonary disease, unspecified (principal); F33.0 Major depressive disorder, recurrent, mild; R40.0 Somnolence; J00 Acute nasopharyngitis [common cold]
CPT/HCPCS: 99214; G2211

== ENCOUNTER 2024-01-12 19:22 | Inpatient (IN) | payer OTHER, SELFPAY ==
--- NOTE | 2024-01-12 | ECG_ITS ---
Test Reason : SVT Blood Pressure : / mmHG Vent. Rate : 193 BPM Atrial Rate : 000 BPM P-R Int : 000 ms QRS Dur : 072 ms QT Int : 228 ms P-R-T Axes : 000 030 181 degrees QTc Int : 408 ms Supraventricular tachycardia Marked ST abnormality, possible inferior subendocardial injury Abnormal ECG When compared with ECG of 22-DEC-2023 14:44, Vent. rate has increased BY [address] now depressed in Inferior leads ST now depressed in Anterolateral leads T wave inversion now evident in Inferior leads T wave inversion now evident in Lateral leads Referred By: Generic ED Physician Electronically Signed By:EDILBERTO DIAZ MD
--- NOTE | ~2024-01-12 | XR_ITS ---
EXAMINATION: XR CHEST CLINICAL INFORMATION: Shortness of breath COMPARISON: 09/22/2023 TECHNIQUE: Frontal view of the chest was obtained. FINDINGS: Allowing for poor lung expansion and AP portable technique, no significant abnormality is noted involving the heart, lungs, mediastinum, bony thorax or soft tissues. XR/XR chest 1V IMPRESSION: No acute intrathoracic disease.
[2024-01-12 19:27] VITALS: BP 166/94; PULSE 215; O2SAT 98
--- NOTE | 2024-01-12 19:32 | ECG_ITS ---
Test Reason : SVT Blood Pressure : / mmHG Vent. Rate : 120 BPM Atrial Rate : 000 BPM P-R Int : 000 ms QRS Dur : 076 ms QT Int : 332 ms P-R-T Axes : 000 043 070 degrees QTc Int : 469 ms Atrial fibrillation with rapid ventricular response Abnormal ECG When compared with ECG of 12-JAN-2024 19:25, Atrial fibrillation has replaced Supraventricular tachycardia Vent. rate has decreased BY [address] no longer depressed in Inferior leads ST no longer depressed in Anterolateral leads T wave inversion no longer evident in Inferior leads T wave inversion no longer evident in Lateral leads Referred By: Rand Cavazos Electronically Signed By:EDILBERTO DIAZ MD
[2024-01-12] MEDS: Adenosine 6 MG/2 ML VIAL 12 MG IVPUSH (19:42)
[2024-01-12] MEDS: Metoprolol Tartrate 5 MG/5 ML VIAL IVPUSH ×2 (19:45→21:21)
[2024-01-12 19:46] VITALS: BP 149/86; PULSE 192; RESP 18; TEMP 36.8; O2SAT 98; BMI 41.4
--- NOTE | 2024-01-12 19:47 | ED_ITS ---
HPI - Arrhythmia/Palpitations General Chief Complaint: Arrhythmia/Palpitations Stated Complaint: SVT Time Seen by Provider: 01/12/24 19:31 Source: patient Mode of arrival: EMS History of Present Illness ED Provider: Dr Cavazos HPI narrative: 53-year-old female with known history of COPD and SVT, prior history of Graves disease and comes in with palpitations but denies any recent issues with fever, chills, new cough or GI or symptoms. Patient reports she has been taking her medications as prescribed. Related Data Home Medications ?Medication ?Instructions ?Recorded ?Confirmed nebulizers 04/29/23 01/05/24 psyllium husk 0.4 gram capsule g PO 04/29/23 01/05/24 (Reguloid (psyllium husk)) Previous Rx's ?Medication ?Instructions ?Recorded bupropion HCl 150 mg 24 hr tablet, 150 mg PO QAM 90 days #90 tabs 03/18/22 extended release sodium sul 1.479 gram-potas ch See Rx Instructions PO PER PKG DIR 12/04/22 0.188 gram-magnes sul 0.225 gram #24 tabs tablet (Sutab) nicotine 21 mg/24 hr daily 1 patch transdermal DAILY 28 days 01/11/23 transdermal patch #28 ea walker #1 ea 01/11/23 albuterol sulfate 2.5 mg/3 mL 2.5 mg (3 mL) inhalation Q6H PRN 02/23/23 (0.083 %) solution for nebulization shortness of breath or wheezing 30 days #180 mL omeprazole 40 mg capsule,delayed 40 mg PO DAILY 90 days #90 caps 03/16/23 release cholecalciferol (vitamin D3) 25 25 mcg PO DAILY 30 days #30 tabs 03/23/23 mcg (1,000 unit) tablet fluticasone fur. 200 mcg-umeclid 1 inh inhalation DAILY 30 days #60 04/29/23 62.5 mcg-vilant 25 mcg ea inhalat.powder (Trelegy Ellipta) fluticasone propionate 44 1 puff inhalation BID 30 days 05/15/23 mcg/actuation HFA aerosol inhaler #10.6 grams (Flovent HFA) albuterol sulfate 90 mcg/actuation 2 puff inhalation Q6H PRN 05/28/23 aerosol inhaler shortness of breath or wheezing 30 days #6.7 grams levothyroxine 137 mcg tablet 137 mcg PO DAILY #90 tabs 09/07/23 gabapentin 100 mg capsule 100 mg PO TID 30 days #90 caps 09/25/23 polyethylene glycol 3350 17 17 g PO DAILY 30 days #510 grams 12/03/23 gram/dose oral powder (Miralax) Grab bar #1 ea 12/08/23 Shower Chair #1 ea 12/08/23 nicotine 21 mg/24 hr daily 1 patch transdermal DAILY 28 days 12/08/23 transdermal patch #28 ea lidocaine 5 % topical patch 1 patch topical DAILY #15 ea 12/12/23 (Lidoderm) naproxen 500 mg tablet 500 mg PO Q8-12H PRN pain (scale 12/12/23 score 4-6) #20 tabs baclofen 10 mg tablet 10 mg PO TID 7 days #21 tabs 12/22/23 comp.stocking,thigh,long,x-lrg #12 ea 12/22/23 furosemide 20 mg tablet (Lasix) 20 mg PO DAILY #3 tabs 12/22/23 metoprolol succinate 100 mg 100 mg PO DAILY 90 days #90 tabs 12/22/23 tablet,extended release 24 hr naproxen 250 mg tablet 250 mg PO BID PRN pain 30 days #60 01/10/24 tabs Allergies Allergy/AdvReac Type Severity Reaction Status Date / Time egg [Egg] Allergy Severe ANAPHYLAXIS Verified 01/12/24 19:47 influenza virus vaccine, Allergy Severe CANNOT Verified 01/12/24 19:47 specific OBTAIN DUE [FLU VACCINE] TO EGG ALLERGY nicotine [From NICODERM CQ] Allergy Intermediate RASH Verified 01/12/24 19:47 varenicline [From CHANTIX] Allergy Intermediate DEPRESSION Verified 01/12/24 19:47 AND ANXIETY INCREASE barium sulfate AdvReac Intermediate saul Verified 01/12/24 19:47 Review of Systems 2 Review of Systems: Pertinent positives and negatives as stated in HPI [facility] Past Medical History Source: nursing notes reviewed Medical History Allergies Coronary artery disease History of supraventricular tachycardia Graves disease Asthma with COPD Nicotine dependence, cigarettes, uncomplicated Arthritis Left breast lump Mild recurrent major depression Blurry vision Obesity (BMI 30-39.9) Vitamin D deficiency Constipation History of COVID-19 Surgical History History of total thyroidectomy (~2022) History of tonsillectomy and adenoidectomy History of dental surgery History of appendectomy (~1979) History of tubal ligation (~1999) History of section (~1999) History of right salpingo-oophorectomy (~2001) History of endometrial ablation (~2017) Family History Family History Father Bone cancer Lung cancer Mother CVD (cardiovascular disease) Emphysema of lung Hypertension Asthma Sister Breast cancer Maternal Aunt Uterine cancer Maternal Aunt Skin cancer Social History Social History Household Members: None Housing: Apartment Are you a primary ambulatory care coordinator to a significant other at home: No Do you presently have visiting nurse or other home services: No Alcohol intake: former Patient Tobacco Use Status: Current everyday Tobacco user Tobacco use type: Cigarette Cigarette Packs Per Day: 1 Smoked in Last 30 Days: Yes e-Cigarette/Vaping Use: Never Used Second Hand Smoke Exposure: No Use of substances other than those prescribed or required for medical reasons: No Advance Directives: No Advance Directives Information Provided: No Do you have a plan to hurt others: No Plan Patient : No service: No Current occupational status: disabled Cognitive needs: No Hearing needs: No Vision needs: Yes Physical Exam 2 Vital Signs: Vital Signs: Last Vital Signs Temp 98.2 F 01/12/24 19:46 Pulse 102 H 01/12/24 19:48 Resp 14 01/12/24 19:48 BP 149/86 H 01/12/24 19:48 Pulse Ox 93 01/12/24 19:48 O2 Del Method Nasal Cannula 01/12/24 19:48 BMI result Body Mass Index 41.4 VITAL SIGNS: Reviewed. GENERAL: Elevated BMI, Well developed, well nourished, in no acute distress. HEAD: Normocephalic/atraumatic EYES: PERRLA, EOMI EARS: Ext canals without abnormality NOSE: Nares patent bilateral OROPHARYNX: no oral lesions noted, posterior pharynx clear NECK: Supple, no adenopathy LUNGS: Normal breath sounds. No adventitious sounds or accessory muscle use. SpO2<93> CARDIOVASCULAR: Regular rate and rhythm without noted murmurs, no JVD or lower extremity edema. ABDOMEN: Soft, non-tender, non-distended with bowel sounds. MUSCULOSKELETAL: No tenderness, deformities, or effusions noted on gross inspection. EXTREMITIES: No cyanosis, clubbing or edema. SKIN: Inspection of the skin reveals no rashes NEUROLOGIC: Alert and oriented x 4. Strength and sensation to light touch were grossly intact x 4. Medications Administered Discontinued Medications Generic Name Dose Route Start Last Admin Trade Name [place] PRN Reason Stop Dose Admin Adenosine 12 mg 01/12/24 19:32 01/12/24 19:42 Adenosine 6 Mg/2 Ml Vial IVPUSH 01/12/24 19:33 12 mg ONCE ONE Administration Metoprolol Tartrate 5 mg 01/12/24 19:53 01/12/24 19:45 Metoprolol Tartrate 5 Mg/5 Ml Vial IVPUSH 01/12/24 19:54 5 mg ONCE ONE Administration Protocol Medical Decision Making Medical Decision Making MDM Narrative: IV access immediately obtained, 12 of adenosine pushed, heart rate at the time of medication administration was 201, patient conscious and talking, blood pressure stable, code cart in the room and patient connected to cardiac monitoring as well as the defibrillator. Immediately afterwards patient's heart rate maintained in the 130s/140s but still appears irregular, blood pressure stable. Followed adenosine with 5 mg of Lopressor. Will evaluate patient for any evidence of underlying infection, electrolyte derangement. 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 Follow-up EKG after adenosine: Atrial fibrillation with RVR, HR -120, QRS/QTC are within normal limits I reviewed and interpreted all investigations and hematologic indices are negative for leukocytosis and patient has a stable normocytic anemia without thrombocytopenia. Coagulation studies are within normal limits. Chemistry indices not significant for CARIN/electrolyte or liver enzyme derangements and TSH is within normal limits. Urinalysis negative for UTI or hematuria. COVID is negative. Chest x-ray by my interpretation is not significant for infiltrate or venous congestion, leuks largely similar to prior chest x-ray. I discussed the case with inpatient hospitalist who accepts admission, patient received a total of 10 mg of Lopressor, will undergo lactic acid/blood cultures/ED bronch protocol/steroids. Differential Diagnosis Differential Diagnoses: The differential diagnosis associated with the presentation includes Please see the discussion as above Admission/Observation Consideration of admission/observation: Escalation of care including admission/observation considered Please see the discussion above Consult Healthcare Provider Management of the patient was discussed with: Hospitalist Please see the discussion above Lab Data MDM Lab Attestation statement: I reviewed the patient's lab results. Please see the discussion above 01/12/24 19:59 01/12/24 19:59 Labs: Lab Results 01/12/24 01/12/24 01/12/24 Range/Units 19:59 20:13 20:24 WBC 8.7 (4.8-10.8) X10*3/uL RBC 4.50 (4.20-5.50) X10*6/uL Hgb 11.8 L (12.0-16.0) g/dl Hct 36.1 L (37.0-47.0) % MCV 80.2 (80.0-98.0) fL MCH 26.2 L (27.0-33.0) pg MCHC 32.7 (31.0-35.0) g/dl RDW 15.9 (11.0-16.0) % Plt Count 262 (160-400) X10*3/uL MPV 10.7 (9.4-12.3) fL Immature Gran % (Auto) 0.6 H (0.0-0.4) % Neut % (Auto) 51.2 (45-73) % Lymph % (Auto) 37.6 (20-40) % [place] % (Auto) 8.6 (2-11) % Eos % (Auto) 1.5 (0-4) % Baso % (Auto) 0.5 (0-2) % Lymph # (Auto) 3.3 (1.2-4.9) X10*3/uL [place] # (Auto) 0.7 (0.1-1.2) X10*3/uL Eos # (Auto) 0.1 (0.0-0.4) X10*3/uL Baso # (Auto) 0.0 (0.0-0.2) X10*3/uL Abs Immat Gran (auto) 0.05 H (0.00-0.03) X10*3/uL Absolute Neuts (auto) 4.4 (2.0-8.3) x10*3/uL Absolute Nucleated RBC 0.000 (0.0-0.012) X10*3/uL Nucleated RBC % (auto) 0.0 (0.0-0.2) /100WBC PT 10.9 L (11.1-13.3) SEC INR 0.9 (0.9-1.1) Sodium 142 (135-145) mmol/L Potassium 3.7 (3.3-5.1) mmol/L Chloride 105 (96-108) mmol/L Carbon Dioxide 23 (22-29) mmol/L Anion Gap 18 (12-20) BUN 15 (9-16) mg/dL Creatinine 0.94 (0.5-1.4) mg/dL Estim Creat Clear Calc 85.5 Estimated GFR > 60 Random Glucose 115 (60-115) mg/dL Calcium 9.0 (8.4-10.2) mg/dL Total Bilirubin 0.2 (0.0-1.0) mg/dL AST 13 (5-31) U/L ALT 12 (0-31) U/L Alkaline Phosphatase 82 (39-117) U/L Troponin I High Sens < 2.7 (<3.5-17.0) ng/L B-Natriuretic Peptide 29 (<100) pg/mL Total Protein 6.7 (6.5-8.0) g/dL Albumin 3.8 (3.5-5.0) g/dL TSH 1.58 (0.32-4.0) uIU/mL Urine Color Yellow Urine Appearance Clear Urine pH 6.5 (5.0-9.0) Ur Specific [place] 1.010 (1.005-1.025) Urine Protein Negative (Neg-Trace) mg/dL Urine Glucose (UA) Negative (Negative) mg/dL Urine Ketones Negative (Negative) mg/dL Urine Blood Negative (Negative) Urine Nitrite Negative (Negative) Ur Leukocyte Esterase Negative (Negative) COVID-19 (RADHA) Negative (Negative) COVID-19 Clin Com See Note Independent Interpretation I performed an independent interpretation of an: EKG Interpretation: Please see the discussion above Radiology Impression Discussion of test interpretation with radiology: I have reviewed the radiologist's reading. Radiologist Impression: Please see the discussion above External Record Review External record reviewed: Outpatient record, Prior outpatient labs and Prior outpatient radiology Chronic Conditions Patient?s care impacted by: Hypertension COPD Critical Care Time Critical Care Time Critical Care Time: Yes Total Critical Care Time: 60 Attestation: I personally attest to this time spent taking care of the patient. Discharge Plan Discharge Clinical Impression: Atrial fibrillation with RVR, COPD exacerbation Patient Disposition: Admitted As Inpatient Prescriptions: No Action bupropion HCl 150 mg tablet extended release 24 hr 150 mg PO QAM 90 Days Qty: 90 0RF omeprazole 40 mg capsule,delayed release(DR/EC) 40 mg PO DAILY 90 Days Qty: 90 3RF cholecalciferol (vitamin D3) 25 mcg (1,000 unit) tablet 25 mcg PO DAILY 30 Days Qty: 30 6RF fluticasone propionate [Flovent HFA] 44 mcg/actuation HFA aerosol inhaler 1 puff inhalation BID 30 Days Qty: 10.6 1RF Rx Instructions: administer with spacer albuterol sulfate 90 mcg/actuation HFA aerosol inhaler 2 puff inhalation Q6H PRN (Reason: shortness of breath or wheezing) 30 Days Qty: 6.7 3RF levothyroxine 137 mcg tablet 137 mcg PO DAILY Qty: 90 5RF gabapentin 100 mg capsule 100 mg PO TID 30 Days Qty: 90 3RF (DME) Grab bar Mis See Rx Instructions .Route Qty: 1 0RF Rx Instructions: As directed (DME) Shower Chair Misc See Rx Instructions .Route Qty: 1 0RF Rx Instructions: As directed nicotine 21 mg/24 hr patch 24 hour 1 patch transdermal DAILY 28 Days Qty: 28 0RF naproxen 250 mg tablet 250 mg PO BID PRN (Reason: pain) 30 Days Qty: 60 6RF lidocaine [Lidoderm] 5 % adhesive patch,medicated 1 patch topical DAILY Qty: 15 0RF Rx Instructions: leave on most painful area for up to 12 hrs naproxen 500 mg tablet 500 mg PO Q8-12H PRN (Reason: pain (scale score 4-6)) Qty: 20 [facility]RF (DME[facility] See Rx Instructions .Route Qty: 1 0RF Rx Instructions: As directed nicotine 21 mg/24 hr patch 24 hour 1 patch transdermal DAILY 28 Days Qty: 28 0RF furosemide [Lasix] 20 mg tablet 20 mg PO DAILY Qty: 3 0RF metoprolol succinate 100 mg tablet extended release 24 hr 100 mg PO DAILY 90 Days Qty: 90 1RF baclofen 10 mg tablet 10 mg PO TID 7 Days Qty: 21 0RF (DME) comp.stocking,thigh,long,x-lrg Misc See Rx Instructions .Route Qty: 12 0RF Rx Instructions: As directed Sutab 1.479-0.188- 0.225 gram tablet See Rx Instructions PO PER PKG DIR Qty: 24 0RF Rx Instructions: package directions orally per package directions; PO PER PKG DIR, please disregard Go Lytely (DME) nebulizers Misc See Rx Instructions .Route Rx Instructions: As directed psyllium husk [Reguloid (psyllium husk)] 0.4 gram capsule PO Trelegy Ellipta 200-62.5-25 mcg blister with device 1 inh inhalation DAILY 30 Days Qty: 60 12RF albuterol sulfate 2.5 mg /3 mL (0.083 %) solution for nebulization 2.5 mg inhalation Q6H PRN (Reason: shortness of breath or wheezing) 30 Days Qty: 180 11RF polyethylene glycol 3350 [Miralax] 17 gram/dose powder 17 g PO DAILY 30 Days Qty: 510 1RF Print Language: Yakut
[2024-01-12 19:48] VITALS: BP 149/86; PULSE 102; PULSE 193; RESP 14; O2SAT 93
[2024-01-12 20:09] LABS: MANUAL DIFF FLAG NO
--- NOTE | 2024-01-12 20:15 | MHC.EDTECH ---
Pt up to bedside commode independently without incident. Urine sample collected and sent to lab. Pt laying in stretcher, call graham within reach.
[2024-01-12 20:17] LABS: Basophils Percent Auto 0.5 % (0-2); Eosinophils Absolute Auto 0.1 X10*3/uL (0.0-0.4); Eosinophils Percent Auto 1.5 % (0-4); Hematocrit 36.1 % (37.0-47.0); Hemoglobin 11.8 g/dl (12.0-16.0); Imm Gran Abs Auto 0.05 X10*3/uL (0.00-0.03); Imm Gran Pct Auto 0.6 % (0.0-0.4); Lymphocytes Absolute Auto 3.3 X10*3/uL (1.2-4.9); Lymphocytes Percent Auto 37.6 % (20-40); Mean Corpuscular HGB Conc 32.7 g/dl (31.0-35.0); Mean Corpuscular Hemoglobin 26.2 pg (27.0-33.0); Mean Corpuscular Volume 80.2 fL (80.0-98.0); Mean Platelet Volume 10.7 fL (9.4-12.3); Monocytes Absolute Auto 0.7 X10*3/uL (0.1-1.2); Monocytes Percent Auto 8.6 % (2-11); Neutrophils Absolute Auto 4.4 x10*3/uL (2.0-8.3); Neutrophils Percent Auto 51.2 % (45-73); Platelet Count 262 X10*3/uL (160-400); Red Cell Distribution Width 15.9 % (11.0-16.0); White Blood Count 8.7 X10*3/uL (4.8-10.8)
[2024-01-12 20:20] LABS: Appearance Urine Clear; Color Urine Yellow; Glucose Urine UA Negative (Negative); Leukocyte Esterase Urine Negative (Negative); Nitrite Urine Negative (Negative); PH 6.5 (5.0-9.0); Urine Blood Negative (Negative); Urine Ketones Negative (Negative); Urine Protein Negative (Neg-Trace)
[2024-01-12 20:26] LABS: INTERNATIONAL NORM RATIO 0.9 (0.9-1.1); Prothrombin Time 10.9 SEC (11.1-13.3)
[2024-01-12 20:40] LABS: B Type Natriuretic Peptide 29 pg/mL (<100)
[2024-01-12 20:41] LABS: COVID-19 Test Negative (Negative); IDNOW Serial# 58CA691E
[2024-01-12 20:43] LABS: Alanine Aminotransferase 12 U/L (0-31); Albumin Level 3.8 g/dL (3.5-5.0); Alkaline Phosphatase 82 U/L (39-117); Anion Gap 18 (12-20); Aspartate Amino Transferase 13 U/L (5-31); Bilirubin Total 0.2 mg/dL (0.0-1.0); Blood Urea Nitrogen 15 mg/dL (9-16); Carbon Dioxide 23 mmol/L (22-29); Chloride 105 mmol/L (96-108); Creatinine Clr Calc Pharmacy 85.5; Estimated Glomerular Filt Rate > 60; Glucose Random 115 mg/dL (60-115); Potassium 3.7 mmol/L (3.3-5.1); Sodium 142 mmol/L (135-145); Total Protein 6.7 g/dL (6.5-8.0)
[2024-01-12 20:47] LABS: Troponin-I High Sensitivity < 2.7 ng/L (<3.5-17.0)
--- NOTE | 2024-01-12 20:58 | P.HPHOSP_ITS ---
History of Present Illness Date of Service: 01/12/24 Chief Complaint: Palpitations This is a 53-year-old female with pertinent history of 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 Patient states she was in her kitchen when she had sudden onset of palpitations. Denies chest discomfort. Patient states she has been having nonproductive cough and wheezing that has been ongoing for a few days. Reports minimal dyspnea but no orthopnea or PND. No fever or chills. No nausea, vomiting, chest pain, abdominal pain, changes in urinary or bowel habits. In the emergency department, initially EKG with SVT and patient was given adenosine. Underlying rhythm with AFib with RVR and patient was given IV Lopressor. Patient also given IV steroids and DuoNebs Review of Systems 2 Constitutional: Constitutional: Reports no additional constitutional complaints Cardiovascular: Cardiovascular: Reports rapid heart rate and Reports dyspnea on exertion Respiratory: Respiratory: Reports cough, Reports dyspnea on exertion and Reports wheezing Gastrointestinal: Gastrointestinal: Reports no additional gastrointestinal complaints Genitourinary: Genitourinary: Reports no additional female genitourinary complaints Allergic/Immunologic: Allergic/Immunologic: Reports wheezing [facility] Medical History Allergies Coronary artery disease History of supraventricular tachycardia Graves disease Asthma with COPD Nicotine dependence, cigarettes, uncomplicated Arthritis Left breast lump Mild recurrent major depression Blurry vision Obesity (BMI 30-39.9) Vitamin D deficiency Constipation History of COVID-19 Family History Father Bone cancer Lung cancer Mother CVD (cardiovascular disease) Emphysema of lung Hypertension Asthma Sister Breast cancer Maternal Aunt Uterine cancer Maternal Aunt Skin cancer Surgical History History of total thyroidectomy (~2022) History of tonsillectomy and adenoidectomy History of dental surgery History of appendectomy (~1979) History of tubal ligation (~1999) History of section (~1999) History of right salpingo-oophorectomy (~2001) History of endometrial ablation (~2017) Social History Household Members: None Housing: Apartment Are you a primary healthcare insurance sales agent to a significant other at home: No Do you presently have visiting nurse or other home services: No Alcohol intake: former Patient Tobacco Use Status: Current everyday Tobacco user Tobacco use type: Cigarette Cigarette Packs Per Day: 1 Smoked in Last 30 Days: Yes e-Cigarette/Vaping Use: Never Used Second Hand Smoke Exposure: No Use of substances other than those prescribed or required for medical reasons: No Advance Directives: No Advance Directives Information Provided: No Do you have a plan to hurt others: No Plan Patient : No service: No Current occupational status: disabled Cognitive needs: No Hearing needs: No Vision needs: Yes Meds Allergies Allergy/AdvReac Type Severity Reaction Status Date / Time egg [Egg] Allergy Severe ANAPHYLAXIS Verified 01/12/24 19:47 influenza virus vaccine, Allergy Severe CANNOT Verified 01/12/24 19:47 specific OBTAIN DUE [FLU VACCINE] TO EGG ALLERGY nicotine [From NICODERM CQ] Allergy Intermediate RASH Verified 01/12/24 19:47 varenicline [From CHANTIX] Allergy Intermediate DEPRESSION Verified 01/12/24 19:47 AND ANXIETY INCREASE barium sulfate AdvReac Intermediate saul Verified 01/12/24 19:47 Home Medications ?Medication ?Instructions ?Recorded ?Confirmed ?Last Taken ?Type nebulizers 04/29/23 01/05/24 Unknown History psyllium husk 0.4 gram capsule g PO 04/29/23 01/05/24 Unknown History (Reguloid (psyllium husk)) Physical Exam 2 Vital Signs and Narrative: Vital Signs: Last Vital Signs Temp 98.2 F 01/12/24 19:46 Pulse 102 H 01/12/24 19:48 Resp 14 01/12/24 19:48 BP 149/86 H 01/12/24 19:48 Pulse Ox 93 01/12/24 19:48 O2 Del Method Nasal Cannula 01/12/24 19:48 BMI result Body Mass Index 41.4 Middle-aged female lying in bed in mild distress Neck supple, no JVD Irregularly irregular, S1-S2 heard Bilateral wheezing appreciated Abdomen soft nontender, no guarding, no rigidity Patient is awake, alert and oriented to self, place, time and person ; no focal motor deficit Psych: Normal mood No pedal edema Results Labs 01/12/24 19:59 01/12/24 19:59 Labs: Laboratory Results - last 24 hr 01/12/24 01/12/24 01/12/24 19:59 20:13 20:24 MCV 80.2 MCH 26.2 L MCHC 32.7 RDW 15.9 Plt Count 262 MPV 10.7 Immature Gran % (Auto) 0.6 H Neut % (Auto) 51.2 Lymph % (Auto) 37.6 [place] % (Auto) 8.6 Eos % (Auto) 1.5 Baso % (Auto) 0.5 Lymph # (Auto) 3.3 [place] # (Auto) 0.7 Eos # (Auto) 0.1 Baso # (Auto) 0.0 Abs Immat Gran (auto) 0.05 H Absolute Neuts (auto) 4.4 Absolute Nucleated RBC 0.000 Nucleated RBC % (auto) 0.0 PT 10.9 L INR 0.9 Anion Gap 18 Estim Creat Clear Calc 85.5 Estimated GFR > 60 Random Glucose 115 Calcium 9.0 Total Bilirubin 0.2 AST 13 ALT 12 Alkaline Phosphatase 82 Troponin I High Sens < 2.7 B-Natriuretic Peptide 29 Total Protein 6.7 Albumin 3.8 Urine Color Yellow Urine Appearance Clear Urine pH 6.5 Ur Specific [place] 1.010 Urine Protein Negative Urine Glucose (UA) Negative Urine Ketones Negative Urine Blood Negative Urine Nitrite Negative Ur Leukocyte Esterase Negative COVID-19 (RADHA) Negative COVID-19 Clin Com See Note Assessment and Plan (1) Atrial fibrillation with RVR: Status: Acute (2) COPD exacerbation: Status: Acute Plan This is a 53-year-old female with pertinent history of 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 #. AFib with RVR: Rate controlled with IV Lopressor push x2 in the ER. Chads Vasc score 1. TSH within normal limits. Reviewed recent echocardiogram from 11/15/2023. Cardiology consulted, appreciate assistance. Has a history of SVT, continue home metoprolol #. Acute exacerbation of asthma-COPD overlap syndrome: Initiating IV steroids, scheduled and p.r.n. DuoNebs. Continue home inhaler #. Gastroesophageal reflux disease: On PPI #. Tobacco use disorder: Counseled regarding cessation. Patient refused nicotine patch #. Obesity: Counseled regarding diet and exercise #. Hypothyroidism: On Synthroid #. Lower extremity edema: On furosemide Med rec pending DVT prophylaxis: Lovenox Full code Admit as inpatient and will require two night minimum hospital stay for close monitoring of heart rate, monitoring of respiratory status, IV steroids (as above), which is not possible in a lesser acute setting. Quality Stroke Does the patient have a stroke diagnosis?: No VTE Prior VTE?: No VTE Risk Level:: Medical - moderate - high VTE Device Contraindication: Treatment Not Indicated VTE Drug Contraindication: N/A - Med Ordered
[2024-01-12 21:00] LABS: Thyroid Stimulating Hormone 1.58 uIU/mL (0.32-4.0)
[2024-01-12] MEDS: methylPREDNISolone Sod Succ 125 MG/2 ML VIAL IVPUSH (21:21)
[2024-01-12 21:44] LABS: Lactic Acid 0.8 mmol/L (0.5-2.0)
[2024-01-12 22:00] VITALS: BP 110/84; PULSE 104; RESP 18; TEMP 36.8; O2SAT 99
--- NOTE | 2024-01-12 22:31 | PHA.MEDREC ---
Pharmacy Consult ? Medication Reconciliation Pharmacy has completed the medication reconciliation. Spoke to patient and confirmed medication list.
[2024-01-12] MEDS: Enoxaparin Sodium 40 MG/0.4 ML SYRINGE SUBCUT (22:45)
[2024-01-13] VITALS: BP 116/70; PULSE 108; RESP 18; TEMP 36.6; O2SAT 99
[2024-01-13] MEDS: 0.9 % Sodium Chloride Flush 3 ML SYRINGE IVFLUSH ×2 (01:30→08:10)
[2024-01-13] MEDS: Acetaminophen 325 MG TABLET 650 MG PO (04:50)
[2024-01-13 05:05] LABS: Hematocrit 39.7 % (37.0-47.0); Hemoglobin 12.8 g/dl (12.0-16.0); Mean Corpuscular HGB Conc 32.2 g/dl (31.0-35.0); Mean Corpuscular Hemoglobin 25.6 pg (27.0-33.0); Mean Corpuscular Volume 79.4 fL (80.0-98.0); Mean Platelet Volume 10.6 fL (9.4-12.3); Platelet Count 278 X10*3/uL (160-400); Red Cell Distribution Width 15.9 % (11.0-16.0); White Blood Count 7.2 X10*3/uL (4.8-10.8)
[2024-01-13 05:16] LABS: Anion Gap 16 (12-20); Blood Urea Nitrogen 16 mg/dL (9-16); Calcium 9.6 mg/dL (8.4-10.2); Carbon Dioxide 22 mmol/L (22-29); Chloride 106 mmol/L (96-108); Creatinine Clr Calc Pharmacy 91.4; Estimated Glomerular Filt Rate > 60; Glucose Random 163 mg/dL (60-115); Potassium 4.1 mmol/L (3.3-5.1); Sodium 140 mmol/L (135-145)
[2024-01-13] MEDS: Omeprazole 40 MG CAPSULE.DR PO (05:59)
[2024-01-13] MEDS: Levothyroxine Sodium 125 MCG TABLET PO (05:59)
[2024-01-13 06:16] VITALS: BP 108/57; PULSE 66; RESP 15; TEMP 36.4; O2SAT 98
[2024-01-13 08:09] VITALS: BP 108/57; PULSE 66; RESP 15; TEMP 36.4; O2SAT 98
[2024-01-13] MEDS: Metoprolol Succinate ER 100 MG TAB.ER.24H PO (08:09)
[2024-01-13] MEDS: Cholecalciferol (Vitamin D3) 25 MCG TABLET PO (08:09)
[2024-01-13] MEDS: methylPREDNISolone Sod Succ 40 MG/ML VIAL IVPUSH (08:10)
[2024-01-13] MEDS: Lidocaine 4 % Patch ADH..PATCH 1 PATCH TRANSDERMA (08:10)
[2024-01-13] MEDS: Nicotine 21 MG PATCH.TD24 TRANSDERMA (10:21)
--- NOTE | 2024-01-13 10:32 | MHC.CM.PN ---
CM met with Patient and her Boyfriend at bedside, in the ED. Patient lives alone in an apartment and she uses a walker to assist with mobility. Patient receives 14 [employer] hours per week and home said services is the goal; CM has initiated and will follow for dc planning. PCP is Dr. Marline Ritchie.
--- NOTE | 2024-01-13 11:19 | PM.CNCAR ---
History of Present Illness History of Present Illness Date of Service: 01/13/24 Requesting physician: Jovani Oneil Consult reason: atrial fibrillation and other (SVT) Chief complaint: Palpitations Narrative: I was consulted to see Jyoti in cardiology consultation today for symptoms of SVT which then converted to atrial fibrillation by EKG. Currently converted back to sinus rhythm and feeling well. Patient with prior history of morbid obesity, significant COPD seeing Dr. Duran, hypothyroidism, reported CAD although she did not complain of any issues, acid reflux disease chronic constipation has had episodes of SVT, she says 1st episode happened in 2019. Time she had rapid palpitations which then had to be treated emergency room after treatment. However she did not have any episode till last year when she again started having recurrent episodes of rapid heart rate palpitations and not feeling well. Every time she says she has been told that she has had SVT. She has been on metoprolol therapy for the same. She is currently on 100 mg. She came in again yesterday with rapid heart rate. No obvious triggers. She came to the emergency room in the 1st EKG shows SVT at about 190 beats per minute with ST changes. Subsequent EKG she converted to atrial fibrillation rapid ventricular response and then after IV medicines converted back to sinus rhythm has remained sinus rhythm. Denies any COPD exacerbation symptoms. Denies any chest pain. No lightheadedness, syncope. Review of Systems Constitutional: Constitutional: Reports no additional constitutional complaints Cardiovascular: Cardiovascular: Denies chest pain, Denies leg edema, Denies lightheadedness, Denies Loss of Consciousness, Reports palpitations and Reports dyspnea on exertion Respiratory: Respiratory: Denies cough, Reports dyspnea on exertion and Denies wheezing Gastrointestinal: Gastrointestinal: Reports constipation Genitourinary: Genitourinary: Reports no additional female genitourinary complaints Neurologic: Reports system reviewed and no additional complaints, except as documented Endocrine: Endocrine: Reports palpitations Hematologic/Lymphatic: Hematologic/Lymphatic: Reports no additional hematologic/lymphatic complaints Allergic/Immunologic: Allergic/Immunologic: Denies wheezing PMFSH Past Medical History Medical History Allergies Coronary artery disease History of supraventricular tachycardia Graves disease Asthma with COPD Nicotine dependence, cigarettes, uncomplicated Arthritis Left breast lump Mild recurrent major depression Blurry vision Obesity (BMI 30-39.9) Vitamin D deficiency Constipation History of COVID-19 Family History Family History Father Bone cancer Lung cancer Mother CVD (cardiovascular disease) Emphysema of lung Hypertension Asthma Sister Breast cancer Maternal Aunt Uterine cancer Maternal Aunt Skin cancer Surgical History Surgical History History of total thyroidectomy (~2022) History of tonsillectomy and adenoidectomy History of dental surgery History of appendectomy (~1979) History of tubal ligation (~1999) History of section (~1999) History of right salpingo-oophorectomy (~2001) History of endometrial ablation (~2017) Social History Social History Household Members: None Housing: Apartment Are you a primary care worker to a significant other at home: No Do you presently have visiting nurse or other home services: No Alcohol intake: former Patient Tobacco Use Status: Current everyday Tobacco user Tobacco use type: Cigarette Cigarette Packs Per Day: 1 Smoked in Last 30 Days: Yes e-Cigarette/Vaping Use: Never Used Second Hand Smoke Exposure: No Use of substances other than those prescribed or required for medical reasons: No Advance Directives: No Advance Directives Information Provided: No Do you have a plan to hurt others: No Plan Patient : No service: No Current occupational status: disabled Cognitive needs: No Hearing needs: No Vision needs: Yes Meds Allergies Allergy/AdvReac Type Severity Reaction Status Date / Time egg [Egg] Allergy Severe ANAPHYLAXIS Verified 01/13/24 07:57 influenza virus vaccine, Allergy Severe CANNOT Verified 01/12/24 19:47 specific OBTAIN DUE [FLU VACCINE] TO EGG ALLERGY nicotine [From NICODERM CQ] Allergy Intermediate RASH Verified 01/12/24 19:47 varenicline [From CHANTIX] Allergy Intermediate DEPRESSION Verified 01/12/24 19:47 AND ANXIETY INCREASE barium sulfate AdvReac Intermediate saul Verified 01/12/24 19:47 Active Medications: Current Medications Acetaminophen (Acetaminophen 325 Mg Tablet) 650 mg PO Q6H PRN PRN Reason: Pain, Mild (Pain Scale 1-3), fever or headache Last Admin: 01/13/24 04:50 Dose: 650 mg Albuterol/Ipratropium (Albuterol/Iprat 2.5/0.5mg 3 Ml Ampul.Neb) 3 ml INHALE RQ4H WHILE AWAKE [facility] Last Admin: 01/13/24 07:45 Dose: Not Given Albuterol/Ipratropium (Albuterol/Iprat 2.5/0.5mg 3 Ml Ampul.Neb) 3 ml INHALE Q4H PRN PRN Reason: Wheezing Calcium Carbonate (Calcium Carbonate 750 Mg Tab.Chew) 750 mg PO Q4H PRN PRN Reason: Heartburn Enoxaparin Sodium (Enoxaparin Sodium 40 Mg/0.4 Ml Syringe) 40 mg SUBCUT Q24H [facility] Last Admin: 01/12/24 22:45 Dose: 40 mg Fluticasone/Umeclidinium/Vilanterol (Fluticasone/Umeclidinium/Vilanterol 200/62.5/25 Blst.W.Dev) 1 puff INHALE DAILY [facility] Last Admin: 01/13/24 07:45 Dose: Not Given Levothyroxine Sodium (Levothyroxine Sodium 125 Mcg Tablet) 125 mcg PO DAILY@0600 [facility] Last Admin: 01/13/24 05:59 Dose: 125 mcg Lidocaine (Lidocaine 4 % Patch Adh..Patch) 1 patch TRANSDERMA DAILY [facility] Last Admin: 01/13/24 08:10 Dose: 1 patch Magnesium Hydroxide (Milk Of Magnesia 30 Ml Oral.Susp) 30 ml PO DAILY PRN PRN Reason: Constipation Melatonin (Melatonin 3 Mg Tablet) 6 mg PO BEDTIME PRN PRN Reason: Insomnia Methylprednisolone Sodium Succinate (Methylprednisolone Sod Succ 40 Mg/Ml Vial) 40 mg IVPUSH Q12H [facility] Last Admin: 01/13/24 08:10 Dose: 40 mg Metoprolol Succinate (Metoprolol Succinate Er 100 Mg Tab.Er.24h) 100 mg PO DAILY [facility]; Protocol Last Admin: 01/13/24 08:09 Dose: 100 mg Nicotine (Nicotine 21 Mg Patch.Td24) 21 mg TRANSDERMA DAILY [facility] Last Admin: 01/13/24 10:21 Dose: 21 mg Omeprazole (Omeprazole 40 Mg Capsule.Dr) 40 mg PO DAILY@0630 [facility] Last Admin: 01/13/24 05:59 Dose: 40 mg Ondansetron HCl (Ondansetron Hcl 4 Mg/2 Ml Vial) 4 mg IVPUSH Q8H PRN PRN Reason: Nausea and Vomiting Sodium Chloride (0.9 % Sodium Chloride Flush 3 Ml Syringe) 3 ml IVFLUSH QSHIFT [facility] Last Admin: 01/13/24 08:10 Dose: 3 ml Vitamin D (Cholecalciferol (Vitamin D3) 25 Mcg Tablet) 25 mcg PO DAILY [facility] Last Admin: 01/13/24 08:09 Dose: 25 mcg Home Medications ?Medication ?Instructions ?Recorded ?Confirmed ?Last Taken ?Type nebulizers 04/29/23 01/05/24 Unknown History psyllium husk 0.4 gram capsule 0.4 g PO DAILY 04/29/23 01/12/24 01/12/24 History (Reguloid (psyllium husk)) gabapentin 100 mg capsule 100 mg PO BEDTIME PRN Pain 01/12/24 01/12/24 Unknown History Physical Exam Vital Signs: Vital Signs: Last Vital Signs Temp 97.6 F 01/13/24 08:09 Pulse 66 01/13/24 08:09 Resp 15 01/13/24 08:09 BP 108/57 L 01/13/24 08:09 Pulse Ox 98 01/13/24 08:09 O2 Del Method Nasal Cannula 01/13/24 08:09 O2 Flow Rate 2 01/13/24 08:09 BMI result Body Mass Index 41.4 Const: General: cooperative, comfortable, alert and awake Nutritional Appearance: obese morbidly obese Orientation/consciousness: patient oriented x3 HEENT: Head: Yes normocephalic and Yes atraumatic Neck: Neck: Yes trachea midline, Yes supple and Yes no JVD Resp: Effort & Inspection: normal respiratory effort Auscultation: no rales, no wheezes and diminished lung sounds Cardio: Rate: regular rate Rhythm: regular rhythm Heart sounds: S1 normal heart sound present, S2 normal heart sound present, no click, no gallops, no murmurs and no rubs GI: Auscultation: normal bowel sounds Skin: General skin exam: no rashes or lesions noted Neuro: General: patient oriented x3 and no focal motor deficits Extrem: General: Yes no clubbing, cyanosis or edema Psych: Appearance: grossly normal Objective Labs and Meds 01/13/24 04:55 01/13/24 04:55 Lab results: Laboratory Results - last 24 hr 01/12/24 01/12/24 01/12/24 19:59 20:13 20:24 WBC 8.7 RBC 4.50 Hgb 11.8 L Hct 36.1 L MCV 80.2 MCH 26.2 L MCHC 32.7 RDW 15.9 Plt Count 262 MPV 10.7 Immature Gran % (Auto) 0.6 H Neut % (Auto) 51.2 Lymph % (Auto) 37.6 [place] % (Auto) 8.6 Eos % (Auto) 1.5 Baso % (Auto) 0.5 Lymph # (Auto) 3.3 [place] # (Auto) 0.7 Eos # (Auto) 0.1 Baso # (Auto) 0.0 Abs Immat Gran (auto) 0.05 H Absolute Neuts (auto) 4.4 Absolute Nucleated RBC 0.000 Nucleated RBC % (auto) 0.0 PT 10.9 L INR 0.9 Sodium 142 Potassium 3.7 Chloride 105 Carbon Dioxide 23 Anion Gap 18 BUN 15 Creatinine 0.94 Estim Creat Clear Calc 85.5 Estimated GFR > 60 Random Glucose 115 Lactic Acid Calcium 9.0 Total Bilirubin 0.2 AST 13 ALT 12 Alkaline Phosphatase 82 Troponin I High Sens < 2.7 B-Natriuretic Peptide 29 Total Protein 6.7 Albumin 3.8 TSH 1.58 Urine Color Yellow Urine Appearance Clear Urine pH 6.5 Ur Specific [place] 1.010 Urine Protein Negative Urine Glucose (UA) Negative Urine Ketones Negative Urine Blood Negative Urine Nitrite Negative Ur Leukocyte Esterase Negative COVID-19 (RADHA) Negative COVID-19 Clin Com See Note 01/12/24 01/13/24 21:20 04:55 WBC 7.2 RBC 5.00 Hgb 12.8 Hct 39.7 MCV 79.4 L MCH 25.6 L MCHC 32.2 RDW 15.9 Plt Count 278 MPV 10.6 Immature Gran % (Auto) Neut % (Auto) Lymph % (Auto) [place] % (Auto) Eos % (Auto) Baso % (Auto) Lymph # (Auto) [place] # (Auto) Eos # (Auto) Baso # (Auto) Abs Immat Gran (auto) Absolute Neuts (auto) Absolute Nucleated RBC 0.000 Nucleated RBC % (auto) 0.0 PT INR Sodium 140 Potassium 4.1 Chloride 106 Carbon Dioxide 22 Anion Gap 16 BUN 16 Creatinine 0.88 Estim Creat Clear Calc 91.4 Estimated GFR > 60 Random Glucose 163 H Lactic Acid 0.8 Calcium 9.6 D Total Bilirubin AST ALT Alkaline Phosphatase Troponin I High Sens B-Natriuretic Peptide Total Protein Albumin TSH Urine Color Urine Appearance Urine pH Ur Specific [place] Urine Protein Urine Glucose (UA) Urine Ketones Urine Blood Urine Nitrite Ur Leukocyte Esterase COVID-19 (RADHA) COVID-19 Clin Com Imaging Radiologist's impression: Impressions Chest X-Ray 01/12/24 20:43 IMPRESSION: No acute intrathoracic disease. Assessment and Plan (1) Paroxysmal atrial fibrillation: Status: Acute Patient developed atrial fibrillation after treatment for atrial fibrillation. Converted to sinus rhythm. Symptomatic although more symptomatic with SVT. However she has multiple risk factors for atrial fibrillation given morbid obesity, COPD, high likelihood of underlying obstructive sleep apnea. Echocardiogram which will be done as an outpatient. Will also require Holter monitor as outpatient and outpatient sleep study. Aggressive weight loss program was discussed. Aggressive management of COPD as well as complete smoking cessation was advised. Avoidance of alcohol and other stimulants was discussed. Would treat her with Multaq 400 mg b.i.d. given that she has recurrent arrhythmias despite on high dose metoprolol therapy with multiple ED presentations for the same.CHADSVASc score of 1 due to gender without any other obvious risk factors for thromboembolic complications. Would avoid oral anticoagulation therapy at this point time. (2) SVT (supraventricular tachycardia): Status: Inactive Recurrent supraventricular tachycardia of unclear origin. Patient is currently having recurrent symptoms despite higher dose of metoprolol. Will start Multaq 400 mg b.i.d. as above to suppress other arrhythmias that can be initiated for her SVT. Vagal maneuvers were discussed. Continue metoprolol at 50 mg daily. Avoidance of stimulants was discussed. Can consider ablation therapy if she continues to have episodes of SVT despite medical therapy. Given her significant EKG changes with SVT, and her risk factors high likelihood of underlying obstructive CAD. Will follow-up with Batsheva Mibi as outpatient. Will follow as outpatient. Patient can be discharged home Procedures Date of Service Date of Service: 01/13/24
[2024-01-13 11:24] VITALS: PULSE 71; RESP 16; O2SAT 96
[2024-01-13] MEDS: Albuterol/Iprat 2.5/0.5MG 3 ML AMPUL.NEB INHALE (11:24)
--- NOTE | 2024-01-13 12:12 | PM.DS ---
DS: Providers Provider Date of Service: 01/13/24 Date of admission: 01/12/24 20:58 Primary care physician: Marline Mix MD Consults: 01/12/24 21:00 Consult to Cardiology Routine Consulting Provider: [facility] Reason for consultation: afib with rvr Has provider been notified: Yes DS: Diagnosis Discharge Diagnosis (1) Paroxysmal atrial fibrillation: Status: Acute (2) SVT (supraventricular tachycardia): Status: Inactive DS: Summary Hospital Course Hospital Course: History of presenting illness: Date of Service: 01/12/24 Chief Complaint: Palpitations This is a 53-year-old female with pertinent history of 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 Patient states she was in her kitchen when she had sudden onset of palpitations. Denies chest discomfort. Patient states she has been having nonproductive cough and wheezing that has been ongoing for a few days. Reports minimal dyspnea but no orthopnea or PND. No fever or chills. No nausea, vomiting, chest pain, abdominal pain, changes in urinary or bowel habits. In the emergency department, initially EKG with SVT and patient was given adenosine. Underlying rhythm with AFib with RVR and patient was given IV Lopressor. Patient also given IV steroids and DuoNebs. Hospital course: 53-year-old female with past medical history of asthma/COPD overlap syndrome not on home O2, active tobacco use disorder, mood disorder, history of SVT on metoprolol xl 100 mg daily presented to [facility] due to symptoms of palpitation, associated with mild shortness of breath, and was diagnosed to have atrial fibrillation with RVR, patient treated with IV Lopressor and was placed on home dose of Toprol-XL 100 mg daily, she converted to normal sinus rhythm, patient evaluated by environmental lead he recommend to start patient on Multaq 400 mg b.i.d. and to reduce dose of Toprol-XL to 50 mg daily, patient noted to have chads vascular score of 1 due to gender without other obvious risk factors for thromboembolic complications, therefore will avoid oral anticoagulation, patient has been strongly advised to have outpatient follow-up with Cardiology to undergo echocardiogram, Holter monitor and stress test to rule out underlying obstructive coronary artery disease, patient has been strongly advised to abstain from smoking and continue nicotine patch, in regard to COPD patient noted to have no acute COPD exacerbation she is recommended to continue home inhalers. In regard to chronic medical issues including GERD, hypothyroidism and lower extremity edema she is recommend to continue home medications and recommended low-calorie diet . Time Attestation Discharge Coordination Time (in mins): 38 Quality: Safe Use of Opioids Does Pt have an Active Cancer Diagnosis on the Problem List?: No Quality: Stroke Does the patient have a stroke diagnosis?: No Physical Exam Vital Signs: Vital Signs: Last Vital Signs Temp 97.6 F 01/13/24 08:09 Pulse 71 01/13/24 11:24 Resp 16 01/13/24 11:24 BP 108/57 L 01/13/24 08:09 Pulse Ox 98 01/13/24 08:09 O2 Del Method Nasal Cannula 01/13/24 08:09 O2 Flow Rate 2 01/13/24 08:09 BMI result Body Mass Index 41.4 Const: Other: General resting comfortably in no acute distress. Anicteric sclera Neck no JVD. CVS regular rate rhythm, Respiratory lungs clear to auscultation, no respiratory distress, no wheeze, no rhonchi. Gastrointestinal abdomen soft, non tender, bowel sounds audible, no guarding , no rigidity. Extremities no edema. Neuro non focal Skin no rash DS: Data Data Completed and Pending Labs on day of discharge: Laboratory Results - last 24 hr 01/12/24 01/12/24 01/12/24 19:59 20:13 20:24 WBC 8.7 RBC 4.50 Hgb 11.8 L Hct 36.1 L MCV 80.2 MCH 26.2 L MCHC 32.7 RDW 15.9 Plt Count 262 MPV 10.7 Immature Gran % (Auto) 0.6 H Neut % (Auto) 51.2 Lymph % (Auto) 37.6 [place] % (Auto) 8.6 Eos % (Auto) 1.5 Baso % (Auto) 0.5 Lymph # (Auto) 3.3 [place] # (Auto) 0.7 Eos # (Auto) 0.1 Baso # (Auto) 0.0 Abs Immat Gran (auto) 0.05 H Absolute Neuts (auto) 4.4 Absolute Nucleated RBC 0.000 Nucleated RBC % (auto) 0.0 PT 10.9 L INR 0.9 Sodium 142 Potassium 3.7 Chloride 105 Carbon Dioxide 23 Anion Gap 18 BUN 15 Creatinine 0.94 Estim Creat Clear Calc 85.5 Estimated GFR > 60 Random Glucose 115 Lactic Acid Calcium 9.0 Total Bilirubin 0.2 AST 13 ALT 12 Alkaline Phosphatase 82 Troponin I High Sens < 2.7 B-Natriuretic Peptide 29 Total Protein 6.7 Albumin 3.8 TSH 1.58 Urine Color Yellow Urine Appearance Clear Urine pH 6.5 Ur Specific [place] 1.010 Urine Protein Negative Urine Glucose (UA) Negative Urine Ketones Negative Urine Blood Negative Urine Nitrite Negative Ur Leukocyte Esterase Negative COVID-19 (RADHA) Negative COVID-19 Clin Com See Note 01/12/24 01/13/24 21:20 04:55 WBC 7.2 RBC 5.00 Hgb 12.8 Hct 39.7 MCV 79.4 L MCH 25.6 L MCHC 32.2 RDW 15.9 Plt Count 278 MPV 10.6 Immature Gran % (Auto) Neut % (Auto) Lymph % (Auto) [place] % (Auto) Eos % (Auto) Baso % (Auto) Lymph # (Auto) [place] # (Auto) Eos # (Auto) Baso # (Auto) Abs Immat Gran (auto) Absolute Neuts (auto) Absolute Nucleated RBC 0.000 Nucleated RBC % (auto) 0.0 PT INR Sodium 140 Potassium 4.1 Chloride 106 Carbon Dioxide 22 Anion Gap 16 BUN 16 Creatinine 0.88 Estim Creat Clear Calc 91.4 Estimated GFR > 60 Random Glucose 163 H Lactic Acid 0.8 Calcium 9.6 D Total Bilirubin AST ALT Alkaline Phosphatase Troponin I High Sens B-Natriuretic Peptide Total Protein Albumin TSH Urine Color Urine Appearance Urine pH Ur Specific [place] Urine Protein Urine Glucose (UA) Urine Ketones Urine Blood Urine Nitrite Ur Leukocyte Esterase COVID-19 (RADHA) COVID-19 Clin Com Discharge Plan Discharge Anticipated Discharge Date/Time: 01/13/24 11:39 Patient Disposition: Home, Self-Care Discharge Diagnosis: Paroxysmal atrial fibrillation with RVR Referrals: Marline Victoria MD [Primary Care Provider] - 1 Week Discharge Medications: New metoprolol succinate [Toprol XL] 50 mg tablet extended release 24 hr 50 mg PO DAILY Qty: 30 0RF Multaq 400 mg tablet 400 mg PO BID Qty: 60 0RF Rx Instructions: must administer with a meal/food Continued omeprazole 40 mg capsule,delayed release(DR/EC) 40 mg PO DAILY 90 Days Qty: 90 3RF cholecalciferol (vitamin D3) 25 mcg (1,000 unit) tablet 25 mcg PO DAILY 30 Days Qty: 30 6RF albuterol sulfate 90 mcg/actuation HFA aerosol inhaler 2 puff inhalation Q6H PRN (Reason: shortness of breath or wheezing) 30 Days Qty: 6.7 3RF levothyroxine 137 mcg tablet 137 mcg PO DAILY Qty: 90 5RF (DME) Grab bar [facility] See Rx Instructions .Route Qty: 1 0RF Rx Instructions: As directed (DME) Shower Chair Misc See Rx Instructions .Route Qty: 1 0RF Rx Instructions: As directed naproxen 250 mg tablet 250 mg PO BID PRN (Reason: pain) 30 Days Qty: 60 6RF gabapentin 100 mg capsule 100 mg PO BEDTIME PRN (Reason: Pain) lidocaine [Lidoderm] 5 % adhesive patch,medicated 1 patch topical DAILY Qty: 15 0RF Rx Instructions: leave on most painful area for up to 12 hrs (DME) walker Misc See Rx Instructions .Route Qty: 1 0RF Rx Instructions: As directed nicotine 21 mg/24 hr patch 24 hour 1 patch transdermal DAILY 28 Days Qty: 28 0RF (DME) comp.stocking,thigh,long,x-lrg Misc See Rx Instructions .Route Qty: 12 0RF Rx Instructions: As directed (DME) nebulizers [facility] [place] See Rx Instructions .Route Rx Instructions: As directed psyllium husk [Reguloid (psyllium husk)] 0.4 gram capsule 0.4 g PO DAILY Trelegy Ellipta 200-62.5-25 mcg blister with device 1 inh inhalation DAILY 30 Days Qty: 60 12RF albuterol sulfate 2.5 mg /3 mL (0.083 %) solution for nebulization 2.5 mg inhalation Q6H PRN (Reason: shortness of breath or wheezing) 30 Days Qty: 180 11RF Discontinued metoprolol succinate 100 mg tablet extended release 24 hr 100 mg PO DAILY 90 Days Qty: 90 1RF Discharge Orders: Discharge Order (Routine); Ordered 01/13/24 Ordered By: Jovani Oneil Diet: avoid caffeine Activity on Discharge: As tolerated Stand Alone Forms: Patient Portal Discharge page Print Language: Tanzanian Care Plan Goals: Dose of Toprol-XL reduced to 50 mg daily Start Multaq 400 mg 1 tablet twice daily Follow-up with cardiology for outpatient Holter monitor, stress test and echocardiogram Outpatient sleep study to rule out sleep apnea Health Concerns: Continue all other home medications Plan of Treatment: Outpatient follow-up with environmental lead Dr. Espinosa in 1-2 weeks Outpatient follow-up with primary care physician Assessment: As above
[2024-01-13 12:19] VITALS: PULSE 71; RESP 16; TEMP 37.1; O2SAT 98
[2024-01-13 12:25] VITALS: BP 109/64; PULSE 63; RESP 13; TEMP 36.4; O2SAT 97
--- NOTE | 2024-01-13 12:34 | MHC.CM.PN ---
Patient has been medically cleared for dc to home today, self care.
--- NOTE | 2024-01-13 16:23 | PM.EVENT ---
Event Note Date of Service: 01/13/24 Event Note: Notified by lab that 1/2 blood culture positive for Gram-positive cocci in stain only Patient had no fevers, had normal WBC count Had no complaints of cough, no urinary symptoms no abdominal symptoms no nausea no vomiting, no skin rash UA unremarkable, chest x-ray benign Patient admitted for palpitation diagnosed to have AFib with RVR converted to normal sinus rhythm and discharged home Will follow final blood culture report and notify patient. Time Spent With Patient Time: Total time managing care of this patient today ____ minutes.
== END 2024-01-13 16:00 | disposition home or self-care (01) | DRG 201 ==
LOC: HO.ED 20:59 → HO.EDOVER 21:09
PROVIDERS: Admitting Provider Student in an Organized Health Care Education/Training Program; Emergency Provider Student in an Organized Health Care Education/Training Program; PCP Internal Medicine; Visit Provider Hospitalist
DX: I48.0 Paroxysmal atrial fibrillation (principal); E03.9 Hypothyroidism, unspecified; I47.10 Supraventricular tachycardia, unspecified; F17.210 Nicotine dependence, cigarettes, uncomplicated; J44.9 Chronic obstructive pulmonary disease, unspecified; Z71.6 Tobacco abuse counseling; K21.9 Gastro-esophageal reflux disease without esophagitis; Z79.51 Long term (current) use of inhaled steroids; Z79.890 Hormone replacement therapy; Z79.899 Other long term (current) drug therapy
CPT/HCPCS: 36415; 71045; 80048; 80053; 81003; 83605; 83880; 84443; 84484; 85025; 85027; 85610; 87040; 87147; 87205; 87635; 93005; 94640; 99285; J0153; J1650; J2919

== ENCOUNTER → 2024-01-12 19:25 | Outpatient (BNV) | payer OTHER, SELFPAY | PROVIDERS: Admitting Provider Student in an Organized Health Care Education/Training Program; Emergency Provider Student in an Organized Health Care Education/Training Program; PCP Internal Medicine; Visit Provider Internal Medicine Cardiovascular Disease | DX: I47.19 Other supraventricular tachycardia (principal); I48.91 Unspecified atrial fibrillation; R94.31 Abnormal electrocardiogram [ECG] [EKG] | CPT/HCPCS: 93010 ==

== ENCOUNTER → 2024-01-12 20:58 | Outpatient (BNV) | payer OTHER, SELFPAY | PROVIDERS: Admitting Provider Student in an Organized Health Care Education/Training Program; Emergency Provider Student in an Organized Health Care Education/Training Program; PCP Internal Medicine; Visit Provider Internal Medicine Cardiovascular Disease | DX: I48.0 Paroxysmal atrial fibrillation (principal); I47.10 Supraventricular tachycardia, unspecified | CPT/HCPCS: 99222 ==

== ENCOUNTER → 2024-01-12 20:58 | Outpatient (BNV) | payer OTHER, SELFPAY | PROVIDERS: Admitting Provider Student in an Organized Health Care Education/Training Program; Emergency Provider Student in an Organized Health Care Education/Training Program; PCP Internal Medicine; Visit Provider Student in an Organized Health Care Education/Training Program | DX: I48.91 Unspecified atrial fibrillation (principal); J44.1 Chronic obstructive pulmonary disease with (acute) exacerbation | CPT/HCPCS: 99223; 99239; 99499 ==

== ENCOUNTER → 2024-02-07 08:46 | Outpatient (REF) | payer OTHER, SELFPAY ==
--- NOTE | ~2024-02-07 | NM_ITS ---
Lexiscan Myocardial perfusion study Indication: Shortness of breath Technique: The patient was brought in for a Lexiscan perfusion study on 02/07/2024 and was injected 0.4 mg of Lexiscan intravenously. Within a minute of this injection 30 mCi of sestamibi was given intravenously. Images were obtained using the SPECT gamma camera interlaced with the gating device. Images were obtained in supine position. Resting perfusion study was performed on 02/09/2024. Patient was administered 30 mCi of sestamibi intravenously at rest. Images were then obtained in supine position. Images were processed with the software and compared side to side in short axis, horizontal long axis and vertical long axis views. Total DLP 174mGy-cm. Findings: Raw acquisition reviewed. Arms by the patient's side. The stress perfusion study showed mildly diminished tracer uptake in the distal part of inferior wall. With CT attenuation correction, there is improvement suggestive of diaphragmatic attenuation artifact. The gated study shows normal LV systolic function with calculated LVEF of 52%. LV cavity is normal in size. The gated study shows normal wall thickening and contraction of segments. Resting study shows diminished tracer uptake along the distal part of inferior wall. There is improvement suggestive of diaphragmatic attenuation artifact. Gating at rest reveals normal wall motion with ejection fraction at 48%. The findings are consistent with fixed distal inferior defect but improving with CT attenuation correction. Possibly diaphragmatic attenuation artifact. NM/NM cardiolite stress test Impression: 1. Myocardial perfusion imaging study shows no clear evidence of any ischemia or infarction. Probably normal myocardial perfusion. 2. Gated LVEF is 52% during stress and 48% during rest. 3. Transient ischemic dilatation not present. EKG component of the test reported separately.
--- NOTE | 2024-02-07 11:15 | CA_ITS ---
Acquisition Time: 2024-02-07 09:20:14 Total Exercise Time: 00:02:00 Test Indications: SOB Medications: Protocol: LEXISCAN Max HR: 112 BPM 66% of Pred: 169 BPM Max BP: 160/070 mmHG Max Work Load: 1.0 METS Pharmacological stress test with lexiscan injection while sitting and kicking her legs, without anginal symptoms, without arrhythmias, with normotensive response to injection, with nondiagnoisitic EKGs. Aminophylline 75mg IVP given to reverse Lexiscan, Nuclear images pending. Test reviewed with Dr. Reyes. Referred By: Kelechi Graham Overread By: Marah Noble
== END ==
LOC: HO.CARD 08:46
PROVIDERS: PCP Internal Medicine; Visit Provider Internal Medicine
DX: J44.1 Chronic obstructive pulmonary disease with (acute) exacerbation (principal); I48.0 Paroxysmal atrial fibrillation; R40.0 Somnolence; J44.9 Chronic obstructive pulmonary disease, unspecified
CPT/HCPCS: 78452; 93017; A9500; J0280; J2785

== ENCOUNTER → 2024-02-07 11:15 | Outpatient (BNV) | payer OTHER, SELFPAY | PROVIDERS: PCP Internal Medicine; Visit Provider Nurse Practitioner | DX: R06.02 Shortness of breath (principal) | CPT/HCPCS: 78452; 93016; 93018 ==

== ENCOUNTER → 2024-02-09 12:52 | Outpatient (REF) | payer OTHER, SELFPAY ==
--- NOTE | 2024-02-09 12:58 | HM_ITS ---
Conclusion: 1. Patient was monitored for total period of 2 days and 23 hours 2. Baseline was normal sinus rhythm with average heart rate of 78 beats per minute 3. No significant arrhythmias or pauses noted 4. No patient reported events MTDD
--- NOTE | 2024-02-09 12:58 | CA_ITS ---
Transthoracic Echocardiogram Patient (Last, First, Middle): Jyoti Roberts J Gender: Female Date of : 1970 Age: 53 Procedure Date: 02/09/2024 Procedure Type: Transthoracic Echocardiogram Location: OP Height: 162.56 cm Weight: 110.22 kg BSA: 2.12 m2 Heart Rate: bpm BP: 130 / 70 mmHg Set Up Mechanic: TO Referring MD: Kelechi Graham MD Symptoms: I48.91 - Unspecified atrial fibrillation Study Quality: Technically Difficult ECG Rhythm: Sinus Conclusions: - The left ventricular systolic function is normal. The visually estimated ejection fraction is between 55-60%. - No obvious valvular pathology seen on this study. Findings Procedure Information The study quality is limited by the patients inability to tolerate the test, patients body habitus, and lung artifact. Left Ventricle Normal left ventricular cavity size. There is mildly increased left ventricular wall thickness. The left ventricular systolic function is normal. The visually estimated ejection fraction is between 55-60%. There is no evidence of regional wall motion abnormalities. Diastolic function is normal for age. There is moderate septal asymmetric hypertrophy. Right Ventricle Normal right ventricular cavity size and systolic function. Atria Both atria are normal in size. Aortic Valve The aortic valve was not well visualized. There is no aortic valve stenosis. There is no aortic valve regurgitation. Mitral Valve The mitral valve appears normal. There is no mitral valve regurgitation. There is no mitral valve stenosis. Pulmonic Valve The pulmonic valve is likely normal. Tricuspid Valve There is mild tricuspid valve regurgitation. There is no evidence of pulmonary hypertension. Great Vessels The asc aorta is normal in size. Venous The inferior vena cava is mildly dilated and collapses greater than 50% with inspiration. Pericardium/Pleural There is no evidence of pericardial effusion. Prior Study Comparison No significant change compared to prior study dated: 11/02/2023. Recommendations, Care & Conclusions No obvious valvular pathology seen on this study. Measurements 2D Linear Measurements IVSd: 1.40 0.6-0.9/0.6-1.0 cm LVIDd: 4.22 3.9-5.3/4.2-5.9 cm LVIDd Index: 1.99 2.4-3.2/2.2-3.1 cm/m2 LVIDs: 2.71 2.0-3.6 cm LVPWd: 1.19 0.7-1.1 cm LA Diam: 3.10 2.7-3.8/3.0-4.0 cm LAIDs Index: 1.46 1.5-2.3 cm/m2 LV Mass: 250.30 67-162/88-224 g LV Mass Index: 118.06 43-95/49-115 g/m2 LVOT Diam: 2.30 3.0+(-)1.3 cm Mitral Valve MV Pk E: 1.03 MV PK A: 0.66 MV Decel Time: 217.00 E/A: 1.60 E'Lateral: 8.59 E'Medial: 5.98 E/E' Med: 17.20 E/E' Lat: 12.00 PHT: 63.00 MVA PHT: 3.49 Decel Jennings: 4.75 Aortic Valve AoV Pk Fabien: 1.69 AoV Mn Fabien: 1.08 AoV VTI: 0.33 AoV Pk Grad: 11.00 Aov Mn Grad: 5.00 ASHWINI Cont.VTI: 2.86 LVOT LVOT Pk Fabien: 1.00 LVOT Mn Fabien: 0.75 LVOT VTI: 0.23 LVOT Pk Grad: 4.00 LVOT Mn Grad: 2.00 LVOT Diam: 2.30 LVOT Area: 4.15 Diastolic Function MV Pk E: 1.03 MV Pk A: 0.66 E/A: 1.60 E'Medial: 5.98 E/E' Med: 17.20 E' Laterial: 8.59 E/E' Lat: 12.00 Right Ventricle TAPSE (mm): 24.40 TVS' Fabien: 11.40 Tricuspid Valve TR Pk Fabien: 2.51 TR Pk Grad: 25.00 RA Press: 8.00 RVSP: 33.00 Great Vessels Aorta Sinus of Valsalva: 2.94 2.0-3.5 cm Ao Asc: 3.40 2.1-3.4 cm Updated in Other Vendor System with Status of Final Frank Reyes MD electronically signed on 02/11/2024 3:19:25 PM with status of Final
== END ==
LOC: HO.CARD 12:52
PROVIDERS: PCP Internal Medicine; Visit Provider Internal Medicine Cardiovascular Disease
DX: J44.1 Chronic obstructive pulmonary disease with (acute) exacerbation (principal); I48.0 Paroxysmal atrial fibrillation; R40.0 Somnolence
CPT/HCPCS: 93242; 93306

== ENCOUNTER → 2024-02-09 12:58 | Outpatient (BNV) | payer OTHER, SELFPAY | PROVIDERS: PCP Internal Medicine; Visit Provider Internal Medicine | DX: I48.91 Unspecified atrial fibrillation (principal) | CPT/HCPCS: 93244; 93306 ==

== ENCOUNTER 2024-03-08 14:45 | Outpatient (AMB) | payer OTHER, SELFPAY ==
[2024-03-08 15:01] VITALS: BP 128/64; PULSE 68; BMI 41.6
--- NOTE | 2024-03-08 15:01 | MHC.OFFVIS ---
Vital Signs 03/08/24 15:01 Height 5 ft 4 in Weight 242 lb 8.136 oz BMI 41.6 BP 128/64 Blood Pressure Location Lt brachial Position Sitting Pulse 68 Pulse Source Monitor Intake Visit Reasons: follow-up after testing Allergies egg [Egg] Allergy (Severe, Verified 01/24/24 11:30) ANAPHYLAXIS influenza virus vaccine, specific [FLU VACCINE] Allergy (Severe, Verified 01/24/24 11:30) CANNOT OBTAIN DUE TO EGG ALLERGY nicotine [From NICODERM CQ] Allergy (Intermediate, Verified 01/24/24 11:30) RASH varenicline [From CHANTIX] Allergy (Intermediate, Verified 01/24/24 11:30) DEPRESSION AND ANXIETY INCREASE barium sulfate Adverse Reaction (Intermediate, Verified 01/24/24 11:30) saul Medication List - Last Reconciled 03/08/24 by Marah Noble NP albuterol sulfate 90 mcg/actuation 2 puffs inhalation Q6H PRN 30 days albuterol sulfate 2.5 mg (3 mL) inhalation Q6H PRN 30 days cholecalciferol (vitamin D3) 25 mcg PO DAILY 30 days comp.stocking,thigh,long,x-lrg As directed dronedarone (Multaq) 400 mg PO BID eiofhrcktyo-ccbtsmbld-cotfzrty 200-62.5-25 mcg (Trelegy Ellipta) 1 inh inhalation DAILY 30 days gabapentin 100 mg PO BEDTIME PRN Grab bar As directed levothyroxine 137 mcg PO DAILY metoprolol succinate ER (Toprol XL) 50 mg PO DAILY naproxen 250 mg PO BID PRN 30 days nebulizers As directed nicotine 1 patch transdermal DAILY 28 days omeprazole 40 mg PO DAILY 90 days psyllium husk (Reguloid (psyllium husk)) 0.4 grams PO DAILY Shower Chair As directed walker As directed HPI Comments Details: 53-year-old female presents today for a follow-up. She had originally came in consultation due to episodes of SVT. Back in December she was hospitalized with atrial fibrillation with RVR. She was started on Multaq 400 mg twice a day. She reports she has had 1 episode of palpitations that lasted a few minutes and then stopped. She reports she is overall compliant with her medications but due to not being used to evening medications she has missed a couple doses of Multaq. Since her last visit she has completed a echocardiogram and stress test. She has also completed a sleep study for her primary care provider. Her primary care provider ordered an in-house sleep study that has not been completed yet. She reports no other cardiac symptoms otherwise. FORMERLY [facility], [facility] Medical History (Updated 03/09/24 @ 12:04 by Marah Noble NP) Atrial fibrillation Allergies Coronary artery disease History of supraventricular tachycardia Graves disease Asthma with COPD Nicotine dependence, cigarettes, uncomplicated Arthritis Left breast lump Mild recurrent major depression Blurry vision Obesity (BMI 30-39.9) Vitamin D deficiency Constipation History of COVID-19 Surgical History History of total thyroidectomy (~2022) History of tonsillectomy and adenoidectomy History of dental surgery History of appendectomy (~1979) History of tubal ligation (~1999) History of section (~1999) History of right salpingo-oophorectomy (~2001) History of endometrial ablation (~2017) Family History Father Bone cancer Lung cancer Mother CVD (cardiovascular disease) Emphysema of lung Hypertension Asthma Sister Breast cancer Maternal Aunt Uterine cancer Maternal Aunt Skin cancer Social History Household Members: None Housing: Apartment Are you a primary pet caregiver to a significant other at home: No Do you presently have visiting nurse or other home services: No Alcohol intake: former Patient Tobacco Use Status: Current everyday Tobacco user Tobacco use type: Cigarette Cigarette Packs Per Day: 1 e-Cigarette/Vaping Use: Never Used Second Hand Smoke Exposure: No service: No Current occupational status: disabled Cognitive needs: No Hearing needs: No Vision needs: Yes Review of Systems Const Denies weakness ENT Denies dizziness Card Denies chest pain, Denies chest pain with activity, Denies syncope, Denies rapid heart rate, Denies pedal edema, Denies edema, Denies leg edema, Denies lightheadedness, Denies palpitations, Denies dyspnea, Denies dyspnea on exertion and Denies orthopnea Resp Denies cough, Denies dyspnea and Denies dyspnea on exertion GI Denies hematochezia and Denies change in stool character Musc Denies abnormal gait, Denies muscle cramps, Denies muscle weakness, Denies numbness, Denies radiating pain into limb and Denies tingling Neuro Denies abnormal gait, Denies dizziness, Denies syncope, Denies numbness, Denies tingling and Denies weakness Endo Denies palpitations Physical Exam Vital Signs: Last Vital Signs Pulse 68 03/08/24 15:01 BP 128/64 03/08/24 15:01 BMI result Body Mass Index 41.6 Const General: healthy appearing and no acute distress Orientation/consciousness: patient oriented x3 HEENT Head: Yes normal to inspection Eyes General: appearance normal, both eyes and all related structures Neck Neck: Yes normal visual inspection Chest Chest palpation & inspection: normal inspection of the chest Resp Effort & Inspection: normal respiratory effort Auscultation: clear to auscultation bilaterally Cardio Jugular venous distension: no JVD Palpation: normal PMI Rate: regular rate Rhythm: regular rhythm Heart sounds: S1 normal heart sound present, S2 normal heart sound present, no click, no gallops, no murmurs and no rubs GI Inspection: Yes normal to inspection Palpation (GI): Soft to palpation Skin General skin exam: no rashes or lesions noted Neuro General: patient oriented x3 Extrem General: Yes normal to inspection Psych Appearance: grossly normal Office Procedures EKG Details: EKG today. Normal sinus rhythm. Ventricular rate 68 beats per minute. UT interval 170 MS. QRS duration 88 MS. QTC 461 [place]. [id number], Complete Assessment & Plan Assessment & Plan (1) History of supraventricular tachycardia: Code(s): Z86.79 - Personal history of other diseases of the circulatory system Category: Medical (2) Atrial fibrillation: Code(s): I48.91 - Unspecified atrial fibrillation Category: Medical (3) Obesity (BMI 30-39.9): Code(s): E66.9 - Obesity, unspecified Category: Medical (4) VIOLETA (obstructive sleep apnea): Code(s): G47.33 - Obstructive sleep apnea (adult) (pediatric) Category: Medical Plan Patient had heart monitor on 02/09/2024 which showed normal sinus rhythm with a heart rate of 70 beats per minute. No atrial fibrillation at that time. Last echocardiogram on 02/09/2024 showed an ejection fraction between 55 and 60%. Cardiolite stress test showed no clear evidence of any ischemia or infarction. Patient had sleep study performed ordered by her primary care provider. Showed mild sleep apnea recommended for a CPAP titration in the sleep lab. Patient is trying to figure out transportation related to this due to not being able to drive herself. Discussed how CPAP use would benefit her. She reports understanding and is trying to arrange transportation. She sees pulmonology in May. Discussed avoiding stimulants, having adequate hydration, and adequate sleep. She reports only drinking 1 to maybe 2 cups of decaffeinated coffee a day. Medication compliance stressed and she has been trying her best to take her medication as prescribed without missing any doses. She understands any sustained palpitations or fast heart rates to seek emergency care. If any increase in palpitations to call the office. She is on Multaq for antiarrhythmic therapy and metoprolol for rate control. She will come back in 3 months for an EKG. Informed of the importance of EKG monitoring with the antiarrhythmic therapy. Coding Level of Care Code Est Pt Level 4 (83721) Diagnoses History of supraventricular tachycardia Z86.79 Atrial fibrillation I48.91 Obesity (BMI 30-39.9) E66.9 VIOLETA (obstructive sleep apnea) G47.33 CPT Codes EKG - CPT: 28463-[id number], Complete ([id number])
== END 2024-03-08 16:01 | disposition home or self-care (01) ==
PROVIDERS: PCP Internal Medicine; Visit Provider Nurse Practitioner
DX: I47.10 Supraventricular tachycardia, unspecified (principal)
CPT/HCPCS: 93010; 99214

== ENCOUNTER → 2024-03-08 14:45 | Outpatient (BNVA) | payer OTHER, SELFPAY | PROVIDERS: PCP Internal Medicine; Visit Provider Nurse Practitioner | DX: I48.91 Unspecified atrial fibrillation (principal); G47.33 Obstructive sleep apnea (adult) (pediatric); E66.9 Obesity, unspecified; Z86.79 Personal history of other diseases of the circulatory system; Z68.41 Body mass index [BMI] 40.0-44.9, adult | CPT/HCPCS: 93005; 99212 ==

== ENCOUNTER 2024-04-13 14:00 | Outpatient (RCR) | payer OTHER, SELFPAY ==
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
== END 2024-05-17 16:12 | disposition home or self-care (01) ==
LOC: HO.PT 14:00
PROVIDERS: PCP Internal Medicine; Visit Provider Internal Medicine
DX: M25.512 Pain in left shoulder (principal); M25.552 Pain in left hip
CPT/HCPCS: 97110; 97162

== ENCOUNTER 2024-05-15 13:51 | Outpatient (REF) | payer OTHER, SELFPAY | END 2024-05-15 13:52 | disposition home or self-care (01) | LOC: HO.BBR 13:51 | PROVIDERS: PCP Internal Medicine; Visit Provider Internal Medicine Medical Oncology | DX: D75.1 Secondary polycythemia (principal) | CPT/HCPCS: 85018 ==

== ENCOUNTER 2024-05-31 08:48 | Emergency (ER) | payer OTHER, SELFPAY ==
--- NOTE | ~2024-05-31 | XR_ITS ---
EXAMINATION: XR CHEST CLINICAL INFORMATION: dyspnea with exertion COMPARISON: 01/12/2024 TECHNIQUE: 2 views of the chest were obtained. FINDINGS: Lungs grossly clear. No pleural effusions. Heart and pulmonary vessels are normal. XR/XR chest 2V IMPRESSION: No active disease. Electronically signed by: Zana Lennon MD 05/31/2024 12:47 PM [facility] [place]
[2024-05-31 08:50] VITALS: BP 171/89; PULSE 75; RESP 20; TEMP 36.1; O2SAT 100; BMI 44.1
[2024-05-31 09:16] LABS: MANUAL DIFF FLAG NO
[2024-05-31 09:17] LABS: Basophils Percent Auto 0.6 % (0-2); Eosinophils Absolute Auto 0.1 X10*3/uL (0.0-0.4); Eosinophils Percent Auto 1.8 % (0-4); Hematocrit 37.5 % (37.0-47.0); Imm Gran Abs Auto 0.05 X10*3/uL (0.00-0.03); Imm Gran Pct Auto 0.7 % (0.0-0.4); Lymphocytes Absolute Auto 2.5 X10*3/uL (1.2-4.9); Lymphocytes Percent Auto 35.3 % (20-40); Mean Corpuscular Hemoglobin 25.8 pg (27.0-33.0); Mean Corpuscular Volume 80.5 fL (80.0-98.0); Mean Platelet Volume 10.3 fL (9.4-12.3); Monocytes Absolute Auto 0.5 X10*3/uL (0.1-1.2); Monocytes Percent Auto 6.9 % (2-11); Neutrophils Absolute Auto 3.9 x10*3/uL (2.0-8.3); Neutrophils Percent Auto 54.7 % (45-73); Platelet Count 248 X10*3/uL (160-400); Red Blood Count 4.66 X10*6/uL (4.20-5.50); Red Cell Distribution Width 15.9 % (11.0-16.0); White Blood Count 7.1 X10*3/uL (4.8-10.8)
[2024-05-31 09:33] LABS: Alanine Aminotransferase 15 U/L (0-31); Alkaline Phosphatase 77 U/L (39-117); Anion Gap 12 (12-20); Aspartate Amino Transferase 18 U/L (5-31); Bilirubin Direct 0.1 mg/dL (0.0-0.5); Bilirubin Total 0.3 mg/dL (0.0-1.0); Blood Urea Nitrogen 12 mg/dL (9-16); Calcium 9.2 mg/dL (8.4-10.2); Carbon Dioxide 28 mmol/L (22-29); Chloride 105 mmol/L (96-108); Creatinine Clr Calc Pharmacy 91.6; Estimated Glomerular Filt Rate > 60; Glucose Random 88 mg/dL (60-115); Lipase 21 U/L (8-78); Potassium 3.8 mmol/L (3.3-5.1); Sodium 141 mmol/L (135-145)
[2024-05-31 09:38] LABS: B Type Natriuretic Peptide 16 pg/mL (<100)
--- NOTE | 2024-05-31 09:53 | ED.GENADULT ---
HPI - General Adult General Chief complaint: General Medical Stated complaint: edema Time Seen by Provider: 05/31/24 09:26 Source: patient, RN notes reviewed and old records reviewed Mode of arrival: ambulatory History of Present Illness ED Provider: Anita Coello PA-C HPI narrative: 54-year-old female with a past medical history of asthma/ COPD overlap syndrome not on home O2, active tobacco use disorder, mood disorder, GERD, SVT, hypothyroid, AFib with RVR not currently on anticoagulation, presenting to the ED complaining of worsening bilateral LE edema/swelling over the past few weeks with swelling appreciated to face, abdomen, and upper extremities. Also reports exertional dyspnea and intermittent chest pain. Not currently on daily diuretic. denies fever, chills, cough, travel, history of clots Related Data Home Medications ?Medication ?Instructions ?Recorded ?Confirmed nebulizers 04/29/23 03/08/24 psyllium husk 0.4 gram capsule 0.4 g PO DAILY 04/29/23 03/08/24 (Reguloid (psyllium husk)) gabapentin 100 mg capsule 100 mg PO BEDTIME PRN Pain 01/12/24 03/08/24 Previous Rx's ?Medication ?Instructions ?Recorded nicotine 21 mg/24 hr daily 1 patch transdermal DAILY 28 days 01/11/23 transdermal patch #28 ea walker #1 ea 01/11/23 albuterol sulfate 2.5 mg/3 mL 2.5 mg (3 mL) inhalation Q6H PRN 02/23/23 (0.083 %) solution for nebulization shortness of breath or wheezing 30 days #180 mL fluticasone fur. 200 mcg-umeclid 1 inh inhalation DAILY 30 days #60 04/29/23 62.5 mcg-vilant 25 mcg ea inhalat.powder (Trelegy Ellipta) albuterol sulfate 90 mcg/actuation 2 puff inhalation Q6H PRN 05/28/23 aerosol inhaler shortness of breath or wheezing 30 days #6.7 grams levothyroxine 137 mcg tablet 137 mcg PO DAILY #90 tabs 09/07/23 Grab bar #1 ea 12/08/23 Shower Chair #1 ea 12/08/23 comp.stocking,thigh,long,x-lrg #12 ea 12/22/23 naproxen 250 mg tablet 250 mg PO BID PRN pain 30 days #60 01/10/24 tabs cholecalciferol (vitamin D3) 25 25 mcg PO DAILY 30 days #30 tabs 01/23/24 mcg (1,000 unit) tablet omeprazole 40 mg capsule,delayed 40 mg PO DAILY 90 days #90 caps 01/23/24 release metoprolol succinate 50 mg 50 mg PO DAILY #30 tabs 05/10/24 tablet,extended release 24 hr (Toprol XL) dronedarone 400 mg tablet (Multaq) 400 mg PO BID #60 tabs 05/16/24 furosemide 20 mg tablet (Lasix) 20 mg PO DAILY 5 days #5 tabs 05/31/24 Allergies Allergy/AdvReac Type Severity Reaction Status Date / Time egg [Egg] Allergy Severe ANAPHYLAXIS Verified 05/31/24 08:55 influenza virus vaccine, Allergy Severe CANNOT Verified 05/31/24 08:55 specific OBTAIN DUE [FLU VACCINE] TO EGG ALLERGY nicotine [From NICODERM CQ] Allergy Intermediate RASH Verified 05/31/24 08:55 varenicline [From CHANTIX] Allergy Intermediate DEPRESSION Verified 05/31/24 08:55 AND ANXIETY INCREASE barium sulfate AdvReac Intermediate saul Verified 05/31/24 08:55 Review of Systems Review of Systems: Yes all other systems are reviewed and are negative Constitutional: Constitutional: Reports as per [facility] Past Medical History Attestation statement: The following information was validated with the patient. Source: old records reviewed Medical History Atrial fibrillation Allergies Coronary artery disease History of supraventricular tachycardia Graves disease Asthma with COPD Nicotine dependence, cigarettes, uncomplicated Arthritis Left breast lump Mild recurrent major depression Blurry vision Obesity (BMI 30-39.9) Vitamin D deficiency Constipation History of COVID-19 Surgical History History of total thyroidectomy (~2022) History of tonsillectomy and adenoidectomy History of dental surgery History of appendectomy (~1979) History of tubal ligation (~1999) History of section (~1999) History of right salpingo-oophorectomy (~2001) History of endometrial ablation (~2017) Family History Family History Father Bone cancer Lung cancer Mother CVD (cardiovascular disease) Emphysema of lung Hypertension Asthma Sister Breast cancer Maternal Aunt Uterine cancer Maternal Aunt Skin cancer Social History Social History Household Members: None Housing: Apartment Are you a primary wound care coordinator to a significant other at home: No Do you presently have visiting nurse or other home services: No Alcohol intake: former Patient Tobacco Use Status: Current everyday Tobacco user Tobacco use type: Cigarette Cigarette Packs Per Day: 1 Smoked in Last 30 Days: Yes e-Cigarette/Vaping Use: Never Used Second Hand Smoke Exposure: No Use of substances other than those prescribed or required for medical reasons: No Advance Directives: No Advance Directives Information Provided: Yes Do you have a plan to hurt others: No Plan Patient : No service: No Current occupational status: disabled Cognitive needs: No Hearing needs: No Vision needs: Yes Physical Exam ED Vital Signs: Vital Signs - 24 hr 05/31/24 08:50 05/31/24 11:28 05/31/24 13:34 Temperature 97.0 F 97.8 F 97.8 F Pulse Rate 75 69 68 Respiratory Rate 20 16 16 Blood Pressure 171/89 H 127/64 139/71 Pulse Oximetry 100 100 99 Oxygen Delivery Method Room Air Room Air Room Air BMI result Body Mass Index 44.1 Const General: cooperative, healthy appearing and no acute distress Orientation/consciousness: patient oriented x3 Limitations: no limitations HENMT Other: + left-sided facial /neck swelling appreciated. Uvula midline. No intraoral swelling / cellulitis or fluctuance/ induration. Head: Yes normal to inspection and Yes atraumatic Ears: hearing grossly normal bilaterally General nose exam: Normal external nose present Face and sinus: Yes normal facial exam Mouth: no drooling Throat: Yes posterior oropharynx normal, Yes uvula midline, No uvula laterally displaced and No uvular edema Eyes General: appearance normal, both eyes and all related structures EOM: EOMs intact bilaterally Neck Neck: Yes no meningeal signs Resp Effort & Inspection: normal respiratory effort and no respiratory distress Auscultation: clear to auscultation bilaterally Cardio Rate: regular rate Heart sounds: S1 normal heart sound present and S2 normal heart sound present GI Inspection: Yes distended Palpation (GI): Soft to palpation, nontender, no guarding and not rigid General: Yes no CVA tenderness Back/Spine/Pelvis Back: no CVA tenderness Skin Rashes: no rashes Wounds: no wounds Neuro General: patient oriented x3, tone normal and no meningeal signs Cranial nerves: Yes CN's II-XII intact bilaterally Gait exam (Neuro): Normal gait present Extrem Other: 3+ bilateral LE pitting edema Course Course Course Narrative: -1317-- labs reassuring. BNP 16. UA negative. Viral studies negative XR chest 2V IMPRESSION: No active disease. > ordered dose of IV Lasix in the ED. discussed results with patient and symptomology, recommended admission to the hospital for worsening symptoms/ anasarca although labs are reassuring. Patient is not agreeable at this time and would like to be discharged home with trial of p.o. Diuretic. Discussed with patient at length needs close follow-up with PCP > will change IV dose of Lasix to p.o. Plan for discharge per patient request Results discussed with patient including worrisome signs and symptoms and strict return precautions, and when to return to the emergency department. They verbalized understanding and feel safe for discharge at this time. Medications Administered Discontinued Medications Generic Name Dose Route Start Last Admin Trade Name Freq PRN Reason Stop Dose Admin Furosemide 40 mg 05/31/24 13:16 05/31/24 13:30 Furosemide 40 Mg Tablet PO 05/31/24 13:17 40 mg ONCE ONE Administration Protocol Medical Decision Making Medical Decision Making [facility] Narrative: 54-year-old female with a past medical history of asthma/ COPD overlap syndrome not on home O2, active tobacco use disorder, mood disorder, GERD, SVT, hypothyroid, AFib with RVR not currently on anticoagulation, presenting to the ED complaining of worsening bilateral LE edema/swelling over the past few weeks with swelling appreciated to face, abdomen, and upper extremities. Also reports exertional dyspnea and intermittent chest pain. on exam vital signs stable, NAD, nontoxic appearing, physical exam as noted above with left-sided facial / neck swelling, abdominal distention and bilateral LE pitting edema. Lungs CTA. Concern for CHF/diffuse anasarca. Lower suspicion for DVT/ PE or acute ACS at this time. Rule out pneumonia. Plan: EKG, labs, CXR, viral studies, anticipated admission Please refer to course for remaining clinical decision making, interpretation of labs/imaging results, and discussions with consultants and/or family members. Differential Diagnosis Differential Diagnoses: The differential diagnosis associated with the presentation includes As above Admission/Observation Consideration of admission/observation: Escalation of care including admission/observation considered Consult Healthcare Provider Management of the patient was discussed with: Hospitalist Lab Data MDM Lab Attestation statement: I reviewed the patient's lab results. 05/31/24 09:12 05/31/24 09:12 Labs: Lab Results 05/31/24 05/31/24 05/31/24 Range/Units 09:12 11:27 11:41 WBC 7.1 (4.8-10.8) X10*3/uL RBC 4.66 (4.20-5.50) X10*6/uL Hgb 12.0 (12.0-16.0) g/dl Hct 37.5 (37.0-47.0) % MCV 80.5 (80.0-98.0) fL MCH 25.8 L (27.0-33.0) pg MCHC 32.0 (31.0-35.0) g/dl RDW 15.9 (11.0-16.0) % Plt Count 248 (160-400) X10*3/uL MPV 10.3 (9.4-12.3) fL Immature Gran % (Auto) 0.7 H (0.0-0.4) % Neut % (Auto) 54.7 (45-73) % Lymph % (Auto) 35.3 (20-40) % Hendricks % (Auto) 6.9 (2-11) % Eos % (Auto) 1.8 (0-4) % Baso % (Auto) 0.6 (0-2) % Lymph # (Auto) 2.5 (1.2-4.9) X10*3/uL Hendricks # (Auto) 0.5 (0.1-1.2) X10*3/uL Eos # (Auto) 0.1 (0.0-0.4) X10*3/uL Baso # (Auto) 0.0 (0.0-0.2) X10*3/uL Abs Immat Gran (auto) 0.05 H (0.00-0.03) X10*3/uL Absolute Neuts (auto) 3.9 (2.0-8.3) x10*3/uL Absolute Nucleated RBC 0.000 (0.0-0.012) X10*3/uL Nucleated RBC % (auto) 0.0 (0.0-0.2) /100WBC PT 11.1 (10.9-12.4) SEC INR 1.0 (0.9-1.1) Sodium 141 (135-145) mmol/L Potassium 3.8 (3.3-5.1) mmol/L Chloride 105 (96-108) mmol/L Carbon Dioxide 28 (22-29) mmol/L Anion Gap 12 (12-20) BUN 12 (9-16) mg/dL Creatinine 0.90 (0.5-1.4) mg/dL Estim Creat Clear Calc 91.6 Estimated GFR > 60 Random Glucose 88 (60-115) mg/dL Calcium 9.2 (8.4-10.2) mg/dL Magnesium 1.9 (1.6-2.6) mg/dL Total Bilirubin 0.3 (0.0-1.0) mg/dL Direct Bilirubin 0.1 (0.0-0.5) mg/dL AST 18 (5-31) U/L ALT 15 (0-31) U/L Alkaline Phosphatase 77 (39-117) U/L B-Natriuretic Peptide 16 (<100) pg/mL Total Protein 7.0 (6.5-8.0) g/dL Albumin 4.0 (3.5-5.0) g/dL Lipase 21 (8-78) U/L Urine Color Yellow Urine Appearance Clear Urine pH 5.5 (5.0-9.0) Ur Specific Otis 1.010 (1.005-1.025) Urine Protein Negative (Neg-Trace) mg/dL Urine Glucose (UA) Negative (Negative) mg/dL Urine Ketones Negative (Negative) mg/dL Urine Blood Negative (Negative) Urine Nitrite Negative (Negative) Ur Leukocyte Esterase Negative (Negative) Influenza Type A (PCR) NEGATIVE (Negative) Influenza Type B (PCR) NEGATIVE (Negative) RSV RNA Qual (PCR) NEGATIVE (Negative) SARS-CoV-2 RNA (RT-PCR) NEGATIVE (Negative) Independent Interpretation I performed an independent interpretation of an: EKG and Plain X-Ray Radiology Impression Discussion of test interpretation with radiology: I have reviewed the radiologist's reading. External Record Review External record reviewed: Inpatient record, Office record, Outpatient record, Prior outpatient labs, Prior outpatient radiology, Primary care record and Outside ED record Tests considered The following testing was considered but not selected: As above Chronic Conditions Patient?s care impacted by: Hypertension Social Determinants Patient?s care significantly limited by Social Determinants of Health including: Other Social Determinant of Health Discharge Plan Discharge Clinical Impression: Pedal edema, Exertional dyspnea Patient Disposition: Home, Self-Care Instructions: Leg Edema (ED), Dyspnea (ED) Additional Instructions: continue home prescribed medications, in addition start taking Lasix daily as prescribed You need to have close follow-up with her primary care doctor, please call after discharge to make an appointment in the next 1-2 days If her symptoms persist, worsen, you have constant worsening shortness of breath, chest discomfort, worsening swelling or redness return to the ED Prescriptions: New furosemide [Lasix] 20 mg tablet 20 mg PO DAILY 5 Days Qty: 5 0RF No Action albuterol sulfate 90 mcg/actuation HFA aerosol inhaler 2 puff inhalation Q6H PRN (Reason: shortness of breath or wheezing) 30 Days Qty: 6.7 3RF levothyroxine 137 mcg tablet 137 mcg PO DAILY Qty: 90 5RF (DME) Grab bar Misc See Rx Instructions .Route Qty: 1 0RF Rx Instructions: As directed (DME) Shower Chair Misc See Rx Instructions .Route Qty: 1 0RF Rx Instructions: As directed naproxen 250 mg tablet 250 mg PO BID PRN (Reason: pain) 30 Days Qty: 60 6RF omeprazole 40 mg capsule,delayed release(DR/EC) 40 mg PO DAILY 90 Days Qty: 90 3RF cholecalciferol (vitamin D3) 25 mcg (1,000 unit) tablet 25 mcg PO DAILY 30 Days Qty: 30 6RF metoprolol succinate [Toprol XL] 50 mg tablet extended release 24 hr 50 mg PO DAILY Qty: 30 3RF Multaq 400 mg tablet 400 mg PO BID Qty: 60 2RF Rx Instructions: must administer with a meal/food gabapentin 100 mg capsule 100 mg PO BEDTIME PRN (Reason: Pain) (DME) walker Misc See Rx Instructions .Route Qty: 1 0RF Rx Instructions: As directed nicotine 21 mg/24 hr patch 24 hour 1 patch transdermal DAILY 28 Days Qty: 28 0RF (DME) comp.stocking,thigh,long,x-lrg Misc See Rx Instructions .Route Qty: 12 0RF Rx Instructions: As directed (DME) nebulizers Misc See Rx Instructions .Route Rx Instructions: As directed psyllium husk [Reguloid (psyllium husk)] 0.4 gram capsule 0.4 g PO DAILY Trelegy Ellipta 200-62.5-25 mcg blister with device 1 inh inhalation DAILY 30 Days Qty: 60 12RF albuterol sulfate 2.5 mg /3 mL (0.083 %) solution for nebulization 2.5 mg inhalation Q6H PRN (Reason: shortness of breath or wheezing) 30 Days Qty: 180 11RF Referrals: Marline Victoria MD [Primary Care Provider] - 1 day Interventions: ED Discharge Assessment Last Done: 05/31/24 13:34 Discharge Date/Time: 05/31/24 13:36 Print Language: [place]
[2024-05-31 10:14] LABS: Magnesium 1.9 mg/dL (1.6-2.6)
[2024-05-31 11:28] VITALS: BP 127/64; PULSE 69; RESP 16; TEMP 36.6; O2SAT 100
[2024-05-31 11:46] LABS: Appearance Urine Clear; Color Urine Yellow; Glucose Urine UA Negative (Negative); Leukocyte Esterase Urine Negative (Negative); Nitrite Urine Negative (Negative); PH 5.5 (5.0-9.0); Urine Blood Negative (Negative); Urine Ketones Negative (Negative); Urine Protein Negative (Neg-Trace)
[2024-05-31 11:51] LABS: Prothrombin Time 11.1 SEC (10.9-12.4)
[2024-05-31 12:18] LABS: Influenza A PCR NEGATIVE (Negative); Influenza B PCR NEGATIVE (Negative); Resp Syncy Virus RNA Qual PCR NEGATIVE (Negative); SARS COV2 PCR INHOUSE NEGATIVE (Negative)
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
[2024-05-31] MEDS: Furosemide 40 MG TABLET PO (13:30)
[2024-05-31 13:34] VITALS: BP 139/71; PULSE 68; RESP 16; TEMP 36.6; O2SAT 99
== END 2024-05-31 13:36 | disposition home or self-care (01) ==
PROVIDERS: Physician Assistant; Emergency Provider Emergency Medicine; PCP Internal Medicine
DX: R60.0 Localized edema (principal); R06.09 Other forms of dyspnea; I48.91 Unspecified atrial fibrillation; J44.9 Chronic obstructive pulmonary disease, unspecified; Z03.818 Encounter for observation for suspected exposure to other biological agents ruled out; F17.210 Nicotine dependence, cigarettes, uncomplicated; Z99.81 Dependence on supplemental oxygen; Z79.899 Other long term (current) drug therapy
CPT/HCPCS: 0241U; 36415; 71046; 80048; 80076; 81003; 83690; 83735; 83880; 85025; 85610; 99283; 99284

== ENCOUNTER 2024-06-05 14:44 | Outpatient (AMB) | payer OTHER, SELFPAY ==
--- NOTE | 2024-06-05 14:48 | MHC.PC.OV ---
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 Accompanied by: Self / Same As Patient Allergies egg [Egg] Allergy (Severe, Verified 06/05/24 15:31) ANAPHYLAXIS influenza virus vaccine, specific [FLU VACCINE] Allergy (Severe, Verified 06/05/24 15:31) CANNOT OBTAIN DUE TO EGG ALLERGY nicotine [From NICODERM CQ] Allergy (Intermediate, Verified 06/05/24 15:31) RASH varenicline [From CHANTIX] Allergy (Intermediate, Verified 06/05/24 15:31) DEPRESSION AND ANXIETY INCREASE barium sulfate Adverse Reaction (Intermediate, Verified 06/05/24 15:31) saul Medication List - Last Reconciled 06/05/24 by Gibran Vazquez MD albuterol sulfate 90 mcg/actuation 2 puffs inhalation Q6H PRN 30 days albuterol sulfate 2.5 mg (3 mL) inhalation Q6H PRN 30 days cholecalciferol (vitamin D3) 25 mcg PO DAILY 30 days comp.stocking,thigh,long,x-lrg As directed dronedarone (Multaq) 400 mg PO BID frgtonplpho-noiqxluzo-zfzdjbls 200-62.5-25 mcg (Trelegy Ellipta) 1 inh inhalation DAILY 30 days furosemide (Lasix) 20 mg PO DAILY 5 days gabapentin 100 mg PO BEDTIME PRN Grab bar As directed levothyroxine 137 mcg PO DAILY metoprolol succinate ER (Toprol XL) 50 mg PO DAILY naproxen 250 mg PO BID PRN 30 days nebulizers As directed nicotine 1 patch transdermal DAILY 28 days omeprazole 40 mg PO DAILY 90 days psyllium husk (Reguloid (psyllium husk)) 0.4 grams PO DAILY Shower Chair As directed walker As directed Tobacco use date assessed: 06/05/24 Dental Screening Dental Screen Date: 12/22/23 [facility] 05/31 HPI Details 54 yr old female presents to the office for a follow up visit. Recently in the ER for shortness of breath. Patient was advised admission, she refused. Was discharged on PO lasix. Symptoms are improving. Patient reports she is at baseline health. She has resumed smoking. [facility] Medical History Atrial fibrillation Allergies Coronary artery disease History of supraventricular tachycardia Graves disease Asthma with COPD Nicotine dependence, cigarettes, uncomplicated Arthritis Left breast lump Mild recurrent major depression Blurry vision Obesity (BMI 30-39.9) Vitamin D deficiency Constipation History of COVID-19 Surgical History History of total thyroidectomy (~2022) History of tonsillectomy and adenoidectomy History of dental surgery History of appendectomy (~1979) History of tubal ligation (~1999) History of section (~1999) History of right salpingo-oophorectomy (~2001) History of endometrial ablation (~2017) Family History Father Bone cancer Lung cancer Mother CVD (cardiovascular disease) Emphysema of lung Hypertension Asthma Sister Breast cancer Maternal Aunt Uterine cancer Maternal Aunt Skin cancer Social History Household Members: None Housing: Apartment Are you a primary home care consultant to a significant other at home: No Do you presently have visiting nurse or other home services: No Alcohol intake: former Patient Tobacco Use Status: Current everyday Tobacco user Tobacco use type: Cigarette Cigarette Packs Per Day: 1 Cigarettes Per Day: 20 e-Cigarette/Vaping Use: Never Used Second Hand Smoke Exposure: Yes service: No Current occupational status: disabled Cognitive needs: Yes (Walker) Hearing needs: No Vision needs: Yes Questionnaire PHQ-9 Over the last 2 weeks, how often have you been bothered by any of the following problems? 1. Little interest or pleasure in doing things: not at all 2. Feeling down, depressed, or hopeless: not at all 3. Trouble falling or staying asleep, or sleeping too much: not at all 4. Feeling tired or having little energy: not at all 5. Poor appetite or overeating: not at all 6. Feeling bad about yourself - or that you are a failure or have let yourself or your family down: not at all 7. Trouble concentrating on things, such as reading the newspaper or watching television: not at all 8. Moving or speaking so slowly that other people could have noticed. Or the opposite - being so fidgety or restless that you have been moving around a lot more than usual: not at all 9. Thoughts that you would be better off or of hurting yourself in some way: not at all Total score: 0 Depression Screening Interpretation: Negative Depression Screening Done: Yes Source: Developed by Drs. Ahsan Mcleod, Regina Chauhan, Driss Gordillo and colleagues, with an educational justino from [employer]. Thrive Questionnaire Date Thrive assessed: 01/13/24 AUDIT C Alcohol Use Questionnaire (AUDIT-C) 1. How often do you have a drink containing alcohol?: Never Total Score: 0 REYES-7 AMB Questionnaire REYES-7 Date REYES - 7 assessed: 06/05/24 Feeling nervous, anxious, or on edge: 0 = Not at all Not being able to stop or control worryin = Not at all Worrying too much about different things: 0 = Not at all Trouble relaxin = Not at all Being so restless that it is hard to sit still: 0 = Not at all Becoming easily annoyed or irritable: 0 = Not at all Feeling afraid as if something awful might happen: 0 = Not at all Total REYES-7 score (0-4 normal; 5-9 mild; 10-14 moderate; 15-21 severe): 0 Source: Developed by Drs. Ahsan Mcleod, Regina Chauhan, Driss Gordillo and colleagues, with an educational justino from [employer]. Physical exam (Primary Care) Vital Signs: Last Vital Signs Pulse 78 06/05/24 14:50 BP 140/70 H 06/05/24 14:50 Pulse Ox 97 06/05/24 14:50 Oxygen Delivery Method Room Air 06/05/24 14:50 BMI result Body Mass Index 43.6 Tobacco/Smoking Status: Tobacco use Status Tobacco use date assessed 06/05/24 06/05/24 14:56 Patient Tobacco Use Status Current everyday Tobacco 06/05/24 14:56 Tobacco use type Cigarette 06/05/24 14:56 e-Cigarette/Vaping Use Never Used 06/05/24 14:56 PHQ-9: PHQ-9 Score PHQ-9: Total score 0 06/05/24 14:56 Depression Screening Interpretation: Negative Thrive Assessment: Date of Thrive Assessment Date Thrive assessed 01/13/24 06/05/24 14:56 Const General: cooperative and healthy appearing Nutritional Appearance: well nourished Orientation/consciousness: patient oriented x3 Limitations: no limitations HENMT Head: Yes normal to inspection Eyes General: appearance normal, both eyes and all related structures Neck Neck: Yes normal visual inspection Chest Chest palpation & inspection: normal palpation of entire chest wall Resp Effort & Inspection: normal respiratory effort Neuro General: patient oriented x3 Coding Level of Care Code Est Pt Level 4 (92391) Complex EM visit Add On G2211 Diagnoses Asthma with COPD J44.9 Leg edema R60.0 Nicotine dependence, cigarettes, uncomplicated F17.210 Assessment & Plan Assessment & Plan (1) Asthma with COPD: Code(s): J44.9 - Chronic obstructive pulmonary disease, unspecified Category: Medical Plan: Condition is stable. Counselling to quit smoking done. (2) Leg edema: Code(s): R60.0 - Localized edema Category: Medical Plan: Lasix to be continued for thirty days. (3) Nicotine dependence, cigarettes, uncomplicated: Comment: (current smoker - prior chest CT done 01/02/2020 note small nodules largest 3mm) Code(s): F17.210 - Nicotine dependence, cigarettes, uncomplicated Category: Medical Plan: Quit smoking counselling done.
[2024-06-05 14:50] VITALS: BP 140/70; PULSE 78; O2SAT 97; BMI 43.6
== END 2024-06-05 15:54 | disposition home or self-care (01) ==
PROVIDERS: PCP Internal Medicine; Visit Provider Internal Medicine
DX: J44.9 Chronic obstructive pulmonary disease, unspecified (principal); R60.0 Localized edema; F17.210 Nicotine dependence, cigarettes, uncomplicated

== ENCOUNTER → 2024-06-05 14:44 | Outpatient (BNVA) | payer OTHER, SELFPAY | PROVIDERS: PCP Internal Medicine; Visit Provider Internal Medicine | DX: J44.9 Chronic obstructive pulmonary disease, unspecified (principal); R60.0 Localized edema; F17.210 Nicotine dependence, cigarettes, uncomplicated; Z71.6 Tobacco abuse counseling | CPT/HCPCS: 96127; 99212 ==

== ENCOUNTER 2024-06-09 13:33 | Outpatient (AMB) | payer OTHER, SELFPAY ==
--- NOTE | 2024-06-09 13:36 | AM.OFFVISNUR ---
Intake Visit Reasons: ekg Allergies egg [Egg] Allergy (Severe, Verified 06/05/24 15:31) ANAPHYLAXIS influenza virus vaccine, specific [FLU VACCINE] Allergy (Severe, Verified 06/05/24 15:31) CANNOT OBTAIN DUE TO EGG ALLERGY nicotine [From NICODERM CQ] Allergy (Intermediate, Verified 06/05/24 15:31) RASH varenicline [From CHANTIX] Allergy (Intermediate, Verified 06/05/24 15:31) DEPRESSION AND ANXIETY INCREASE barium sulfate Adverse Reaction (Intermediate, Verified 06/05/24 15:31) saul Nursing Note pt is here for nurse visit with ekg pt is on dronedarone 400 mg PO BID pt has some sob and chest pain ekg left on dr farhat ramírez for review Office Procedures EKG [id number], Complete
== END 2024-06-09 14:01 | disposition home or self-care (01) ==
PROVIDERS: PCP Internal Medicine; Visit Provider Internal Medicine Cardiovascular Disease
DX: R94.31 Abnormal electrocardiogram [ECG] [EKG] (principal)
CPT/HCPCS: 93010

== ENCOUNTER → 2024-06-09 13:33 | Outpatient (BNVA) | payer OTHER, SELFPAY | PROVIDERS: PCP Internal Medicine; Visit Provider Internal Medicine Cardiovascular Disease | DX: J44.9 Chronic obstructive pulmonary disease, unspecified (principal); T78.40XD Allergy, unspecified, subsequent encounter; F17.210 Nicotine dependence, cigarettes, uncomplicated | CPT/HCPCS: 93005; 99212 ==

== ENCOUNTER 2024-06-09 14:01 | Outpatient (AMB) | payer OTHER, SELFPAY ==
--- NOTE | 2024-06-09 14:04 | A.OFFVIS_ITS ---
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: No Allergies egg [Egg] Allergy (Severe, Verified 06/09/24 14:08) ANAPHYLAXIS influenza virus vaccine, specific [FLU VACCINE] Allergy (Severe, Verified 06/09/24 14:08) CANNOT OBTAIN DUE TO EGG ALLERGY nicotine [From NICODERM CQ] Allergy (Intermediate, Verified 06/09/24 14:08) RASH varenicline [From CHANTIX] Allergy (Intermediate, Verified 06/09/24 14:08) DEPRESSION AND ANXIETY INCREASE barium sulfate Adverse Reaction (Intermediate, Verified 06/09/24 14:08) saul HPI Comments Details: he patient is a 54 year woman with a known history of tobacco dependency now with worsening respiratory symptoms. She has been on Flovent for many years. In addition to that she has a rescue inhaler. She did notice increasing chest tightness wheezing and productive cough. Moderate severity. In addition to that she has a hard time performing any of activities of daily living house because of shortness of breath with minimal activity. She does have significant wheezing on examination significant rhonchi. I do believe she needs a nebulizer in order to provide better mucus clearance and bronchodilation. The patient will be provided with a nebulizer before she goes home. The patient also would benefit from optimizing her respiratory medications. Will go ahead and switch over from Flovent to Trelegy inhaler in order to provide her with better bronchodilation. The patient understands that once we able to bronchodilator airway she should feel better but she needs to be careful not to smoke cigarettes because it will cause further damage to her airways and air sats. The patient is interested in quitting. She has been motivated although she has had a hard time. Will provide her with the Nicotrol inhaler in order to help her with smoking cessation. The patient also will be referred to the lung can er screening program for her yearly low-dose CT scans. 04/29/2023 the patient is here for a pulmonary follow-up visit. Overall the patient is feeling a little better. We had switched her over to Breo but for some reason she does not have it available. She still using the Flovent. Also has a rescue inhaler. Under go ahead and send her Trelegy again to the pharmacy to see if we can get that approved for her. She definitely still has a lot of wheezing and chest congestion. Unfortunately she continues to smoke cigarettes although she is motivated to try to quit. She is going to start a tobacco cessation program [facility]. In the meantime she is scheduled to have a colonoscopy. She does have wheezing on examination. Will go ahead and treat her for COPD exacerbation. I do believe that when she is on her optimize medical regimen she will be okay to have her colonoscopy with anesthesia. therefore, the patient may proceed with her colonoscopy at this time. The patient is scheduled for her LDCT and PFTs in the near future. 12/03/2023 the patient is here for a pulmonary follow-up visit. She is still struggling with breathing. He was short of breath with minimal activity. Even has a hard time doing her chores around the house. The patient is wondering about the rugs causing her difficulty with her breathing. Will go ahead and test her for allergies and see if she has not issues with rugs. But more than not she is still smoking. She understands she needs to quit altogether. She is considering hypnosis. The patient also is concerned about her abdominal girth. She feels more distended. She typically is constipated. She feels like she can not take a deep breath because her belly is in the way. I do agree that she is distended I did give her MiraLax and she will call her GI doctor to see if that can provide some relief. In the meantime she has participating in the lung cancer screening program and had a CT scan of the chest that was rads 2. The patient will continue with the Trelegy inhaler. She also has her nebulizer medicine. Will go ahead and continue with the therapy at this time. 06/09/2024 the patient is here for a pulmonary follow-up well from a respiratory status. She continues have daytime drowsiness. Her [place] score is elevated 05/21. She did have a sleep study back in January 2024 which she had moderate degree of sleep apnea significant hypoxia. It was recommended that she get a titration study but she does not have transportation and has not been able to do so. Therefore which was started on APAP and then afterwards we can always reassess with a overnight oximetry to make sure that she is getting adequate oxygenation. At this point she has cardiovascular risk factors and therefore starting APAP will be very important. She is watching her sodium intake as she was developing significant edema in addition to that the patient is also monitoring his sugars. She is working on smoking cessation. The patient is looking at getting him that the eyes in place lung metal. She is hopeful that this works for her. In the meantime she is cutting down significantly. She is participating in the lung cancer screening program. At this point will have her come back in 3-4 months with her CPAP to make sure that she is getting adequate therapy. After that we can look into getting pulmonary rehabilitation as an inpatient but we would have to do her pulmonary function studies. Therefore, will have her get PFTs prior to the next visit as well. [facility] Medical History Atrial fibrillation Allergies Coronary artery disease History of supraventricular tachycardia Graves disease Asthma with COPD Nicotine dependence, cigarettes, uncomplicated Arthritis Left breast lump Mild recurrent major depression Blurry vision Obesity (BMI 30-39.9) Vitamin D deficiency Constipation History of COVID-19 Surgical History History of total thyroidectomy (~2022) History of tonsillectomy and adenoidectomy History of dental surgery History of appendectomy (~1979) History of tubal ligation (~1999) History of section (~1999) History of right salpingo-oophorectomy (~2001) History of endometrial ablation (~2017) Family History Father Bone cancer Lung cancer Mother CVD (cardiovascular disease) Emphysema of lung Hypertension Asthma Sister Breast cancer Maternal Aunt Uterine cancer Maternal Aunt Skin cancer Social History Household Members: None Housing: Apartment Are you a primary manager medicare to a significant other at home: No Do you presently have visiting nurse or other home services: No Alcohol intake: former Patient Tobacco Use Status: Current everyday Tobacco user Tobacco use type: Cigarette Cigarette Packs Per Day: 1 Cigarettes Per Day: 20 e-Cigarette/Vaping Use: Never Used Second Hand Smoke Exposure: Yes service: No Current occupational status: disabled Cognitive needs: Yes (Walker) Hearing needs: No Vision needs: Yes Review of Systems Const All systems reviewed & are unremarkable except as noted in HPI and below Denies fever(s) Eyes Reports no additional complaints, Denies change in vision and Denies other visual disturbances ENT Reports Normal hearing present Card Denies chest pain at rest and Reports dyspnea on exertion Resp Reports cough, Reports dyspnea on exertion and Reports wheezing GI Denies abdominal pain, Denies change in bowel habits, Denies excessive flatus, Denies nausea and Denies vomiting Musc Denies abnormal gait, Denies atrophy, Denies deformity and Denies limited range of motion Skin/Breast Denies bleeding lesions, Denies changing lesions and Denies rash Neuro Reports Normal hearing present, Denies Abnormal speech present, Denies abnormal gait and Denies lack of coordination Aller/Immun Reports wheezing Physical Exam Vital Signs: Last Vital Signs Pulse 71 06/09/24 14:05 BP 142/70 H 06/09/24 14:05 Pulse Ox 97 06/09/24 14:05 Oxygen Delivery Method Room Air 06/09/24 14:05 BMI result Body Mass Index 43.8 Const General: cooperative and no acute distress Orientation/consciousness: oriented to person, oriented to place and oriented to time Limitations: No language barrier HEENT Head: Yes normocephalic and Yes atraumatic Eyes General: appearance normal, both eyes and all related structures Pupils: Equal, round and reactive pupils present Neck Neck: Yes normal visual inspection Chest Chest palpation & inspection: normal inspection of the chest Resp Effort & Inspection: normal respiratory effort, able to speak in complete sentences and prolonged expiratory phase Auscultation: rhonchi, no wheezes and diminished lung sounds Cardio Rate: regular rate Rhythm: regular rhythm GI Other: rash under panus Inspection: No distended and Yes obesity Skin General skin exam: no rashes or lesions noted, turgor normal, skin not dry, no jaundice, No spider nevi and no striae Rashes: no rashes Nails: normal Neuro General: oriented to person, oriented to place and oriented to time Cranial nerves: Yes Equal, round and reactive pupils present and Yes Normal hearing present Speech: No Abnormal speech present Extrem General: Yes normal to inspection, No clubbing, No cyanosis and Yes edema (left > right) Psych Appearance: grossly normal and well kempt Mental Status: mental status grossly normal Speech and movement: Normal speech and movement present Affect: normal affect Attitude: cooperative Thought process: Normal thought process present and not confabulating Thought content: Normal thought content present Insight: Limited insight present (Psych) Judgement: Limited judgement present (Psych) Assessment & Plan Assessment & Plan (1) Asthma with COPD: Code(s): J44.9 - Chronic obstructive pulmonary disease, unspecified Category: Medical (2) Nicotine dependence, cigarettes, uncomplicated: Comment: (current smoker - prior chest CT done 01/02/2020 note small nodules largest 3mm) Code(s): F17.210 - Nicotine dependence, cigarettes, uncomplicated Category: Medical (3) Allergies: Code(s): T78.40XA - Allergy, unspecified, initial encounter Category: Medical Qualifiers: Encounter type: initial encounter Qualified Code(s): T78.40XA - Allergy, unspecified, initial encounter Plan continue Trelegy PIOTR as needed nebulizer Tobacco cessation: will try hypnosis LDCT referral PFTs F/U 6-8 months Orders: Orders PFT pulmonary function test 3 Months J44.9 - Chronic obstructive pulmonary disease, unspecified Medications: Refilled tixkfutkklm-pozmvnfrk-xmtefypx 200-62.5-25 mcg (Trelegy Ellipta) 1 inh inhalation DAILY 60 ea 12RF 30 days albuterol sulfate 90 mcg/actuation 2 puffs inhalation Q6H PRN 6.7 grams 11RF shortness of breath or wheezing 30 days Coding Level of Care Code Est Pt Level 4 (43597) Diagnoses Asthma with COPD J44.9 Nicotine dependence, cigarettes, uncomplicated F17.210 Allergy, initial encounter T78.40XA Encounter type: initial encounter Time Spent (min) 16
[2024-06-09 14:05] VITALS: BP 142/70; PULSE 71; O2SAT 97; BMI 43.8
== END 2024-06-09 14:23 | disposition home or self-care (01) ==
PROVIDERS: PCP Internal Medicine; Visit Provider Hospitalist
DX: J44.9 Chronic obstructive pulmonary disease, unspecified (principal); F17.210 Nicotine dependence, cigarettes, uncomplicated; T78.40XA Allergy, unspecified, initial encounter
CPT/HCPCS: 99214

== ENCOUNTER 2024-07-12 13:12 | Outpatient (AMB) | payer OTHER, SELFPAY ==
--- NOTE | 2024-07-12 13:13 | MHC.PC.OV ---
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 Required: No Accompanied by: Son Allergies egg [Egg] Allergy (Severe, Verified 07/12/24 13:31) ANAPHYLAXIS influenza virus vaccine, specific [FLU VACCINE] Allergy (Severe, Verified 07/12/24 13:31) CANNOT OBTAIN DUE TO EGG ALLERGY nicotine [From NICODERM CQ] Allergy (Intermediate, Verified 07/12/24 13:31) RASH varenicline [From CHANTIX] Allergy (Intermediate, Verified 07/12/24 13:31) DEPRESSION AND ANXIETY INCREASE barium sulfate Adverse Reaction (Intermediate, Verified 07/12/24 13:31) saul Medication List - Last Reconciled 07/12/24 by Marline Mix MD albuterol sulfate 90 mcg/actuation 2 puffs inhalation Q6H PRN 30 days albuterol sulfate 2.5 mg (3 mL) inhalation Q6H PRN 30 days cholecalciferol (vitamin D3) 25 mcg PO DAILY 30 days comp.stocking,thigh,long,x-lrg As directed dronedarone (Multaq) 400 mg PO BID ysaqwmebhfp-pmlquownn-wcxydern 200-62.5-25 mcg (Trelegy Ellipta) 1 inh inhalation DAILY 30 days furosemide (Lasix) 20 mg PO DAILY 90 days gabapentin 100 mg PO BEDTIME PRN Grab bar As directed levothyroxine 137 mcg PO DAILY metoprolol succinate ER (Toprol XL) 50 mg PO DAILY naproxen 250 mg PO BID PRN 30 days nebulizers As directed omeprazole 40 mg PO DAILY 90 days psyllium husk (Reguloid (psyllium husk)) 0.4 grams PO DAILY Shower Chair As directed walker As directed Tobacco use date assessed: 07/12/24 Dental Screening Dental Screen Date: 07/12/24 Did you have a dental visit in the last 12 months?: No Did you have a dental problem in the last 6 months where you did not have access to dental care?: No Was dental information given to patient?: Patient has dentist HPI HPI Comments History of Present Illness Details The patient is a 54-year-old female presenting with depression and associated symptoms. The depression has been persistent and was discussed in detail during the visit. The patient reports not using any medication for depression currently but is seeing a counselor by phone and awaiting psychiatric evaluation. The history of depression includes associated difficulty sleeping. Management has been limited to counseling, and no pharmacotherapy is currently in use. The patient also has atrial fibrillation, for which she is under cardiology care and on Multaq. Chronic Obstructive Pulmonary Disease (COPD) is another diagnosed condition, for which she uses an inhaler as needed and other respiratory aids. She was recently placed on CPAP but is awaiting its delivery. She undergoes regular follow-up with her assistant therapy aide. The patient has a medical history of thyroidectomy and is currently on levothyroxine. Her last thyroid function test was in December, and she needs to repeat the test as part of routine monitoring. Additionally, the patient reports edema, predominantly in the legs, requiring intermittent use of Lasix. The edema does not appear to resolve completely and presents notably in one leg more than the other. She also reports a history of anemia managed under her physicians? supervision, and constipation, previously managed with an unspecified ?cilium? pill which now requires refills. The patient notes unintended weight loss, reporting a very limited daily intake of a brunch wrap and a small dinner. Previous laboratory tests in May showed excellent results with normal blood glucose and kidney and liver function. She is morbidly obese and was advised to do diet and exercise to reach BMI goal less than 30. [facility] Medical History Atrial fibrillation Allergies Coronary artery disease History of supraventricular tachycardia Graves disease Asthma with COPD Nicotine dependence, cigarettes, uncomplicated Arthritis Left breast lump Mild recurrent major depression Blurry vision Obesity (BMI 30-39.9) Vitamin D deficiency Constipation History of COVID-19 Surgical History History of total thyroidectomy (~2022) History of tonsillectomy and adenoidectomy History of dental surgery History of appendectomy (~1979) History of tubal ligation (~1999) History of section (~1999) History of right salpingo-oophorectomy (~2001) History of endometrial ablation (~2017) Family History Father Bone cancer Lung cancer Mother CVD (cardiovascular disease) Emphysema of lung Hypertension Asthma Sister Breast cancer Maternal Aunt Uterine cancer Maternal Aunt Skin cancer Social History Household Members: None Housing: Apartment Are you a primary healthcare marketer to a significant other at home: No Do you presently have visiting nurse or other home services: No Alcohol intake: former Patient Tobacco Use Status: Current everyday Tobacco user Tobacco use type: Cigarette Cigarette Packs Per Day: 1 Cigarettes Per Day: 20 e-Cigarette/Vaping Use: Never Used Second Hand Smoke Exposure: Yes service: No Current occupational status: disabled Cognitive needs: Yes (Walker) Hearing needs: No Vision needs: Yes Questionnaire PHQ-9 Over the last 2 weeks, how often have you been bothered by any of the following problems? 1. Little interest or pleasure in doing things: several days 2. Feeling down, depressed, or hopeless: several days 3. Trouble falling or staying asleep, or sleeping too much: several days 4. Feeling tired or having little energy: several days 5. Poor appetite or overeating: not at all 6. Feeling bad about yourself - or that you are a failure or have let yourself or your family down: several days 7. Trouble concentrating on things, such as reading the newspaper or watching television: several days 8. Moving or speaking so slowly that other people could have noticed. Or the opposite - being so fidgety or restless that you have been moving around a lot more than usual: not at all 9. Thoughts that you would be better off or of hurting yourself in some way: not at all Total score: 6 Depression Screening Interpretation: Positive Depression Screening Follow-up: Existing condition, In treatment, Community Mental Health Worker F/U and Follow-up Visit Requested Depression Screening Done: Yes 39782 - PHQ-9 Billing: Yes Source: Developed by Drs. Ahsan Mcleod, Regina Chauhan, Driss Gordillo and colleagues, with an educational justino from [employer]. Thrive Questionnaire Date Thrive assessed: 07/12/24 I am a: Patient What is your living situation today?: I have a steady place to live Within the past 12 months, did the food you bought not last and you didn't have the money to get more?: Never true Within the past 12 months, did you worry whether your food would run out before you got money to buy more?: Never true Do you have trouble paying for medicines?: No Do you have trouble getting transportation to medical appointments?: No Do you have trouble paying your heating and electricity bill?: No Do you have trouble taking care of your child, family member or friend?: No Do you have trouble with day-to-day activities such as bathing, preparing meals, shopping, managing finances, etc.?: No Are you currently unemployed and looking for a job?: No Are you interested in more education?: No Please select the resources that you would like help with: None Currently or been in a relationship where the following occur: No concerns reported THRIVE Score: 0 AUDIT C Alcohol Use Questionnaire (AUDIT-C) 1. How often do you have a drink containing alcohol?: Never Total Score: 0 REYES-7 AMB Questionnaire REYES-7 Date REYES - 7 assessed: 07/12/24 Feeling nervous, anxious, or on edge: 1 = Several days Not being able to stop or control worryin = Not at all Worrying too much about different things: 1 = Several days Trouble relaxin = Several days Being so restless that it is hard to sit still: 1 = Several days Becoming easily annoyed or irritable: 1 = Several days Feeling afraid as if something awful might happen: 0 = Not at all Total REYES-7 score (0-4 normal; 5-9 mild; 10-14 moderate; 15-21 severe): 5 Source: Developed by Drs. Ahsan Mcleod, Regina Chauhan, Driss Gordillo and colleagues, with an educational justino from [employer]. Review of Systems Const All systems reviewed & are unremarkable except as noted in HPI and below Card Denies chest pain at rest, Denies chest pain with activity, Denies edema, Denies irregular heart rhythm, Denies claudication, Denies dyspnea, Reports dyspnea on exertion, Denies orthopnea, Denies paroxysmal nocturnal dyspnea and Denies slow heart rate Resp Denies cough, Denies dyspnea and Reports dyspnea on exertion GI Denies abdominal pain, Denies change in bowel habits, Denies excessive flatus, Denies nausea and Denies vomiting Musc Reports abnormal gait, Reports back pain and Reports arthralgias Neuro Reports abnormal gait Physical exam (Primary Care) Vital Signs: Last Vital Signs BP 120/82 07/12/24 13:16 BMI result Body Mass Index 43.1 BMI Assessment/Plan discussion: High BMI High, discussed plan: lifestyle, weight reduction, dietary and physical activity Tobacco/Smoking Status: Tobacco use Status Tobacco use date assessed 07/12/24 07/12/24 13:21 Patient Tobacco Use Status Current everyday Tobacco 07/12/24 13:13 Tobacco use type Cigarette 07/12/24 13:13 e-Cigarette/Vaping Use Never Used 07/12/24 13:13 Are you ready to quit: No Tobacco cessation counseling provided: Yes Items discussed: Nicotine replacement and QuitWorks Relapse Prevention: discussed the importance of a supportive environment, discussed extending NRT, discussed negative mood or depression after quitting, weight gain after smoking is common and discussed dietary, exercise and/or lifestyle changes Number of minutes spent counselin CPT code: 49872 - 4-10 Minutes PHQ-9: PHQ-9 Score PHQ-9: Total score 6 07/12/24 16:17 Depression Screening Interpretation: Positive Depression Screening Follow-up: Existing condition, In treatment, Community Mental Health Worker F/U and Follow-up Visit Requested Thrive Assessment: Date of Thrive Assessment Date Thrive assessed 07/12/24 07/12/24 13:21 Currently or been in a relationship where the following occur: No concerns reported Const Limitations: ambulation with walker Resp Effort & Inspection: normal respiratory effort Auscultation: clear to auscultation bilaterally Cardio Jugular venous distension: no JVD Rate: regular rate Rhythm: regular rhythm Heart sounds: S1 normal heart sound present and S2 normal heart sound present Office Procedures Flu Questionnaire Does the patient have a severe egg allergy?: No Immunizations Fluarix Triv [id number] (PF) 45 mcg (15 mcg x 3)/0.5 mL IM syringe Performing Provider: Marline Mix MD [facility] [place] Documented (not given) by: HANH Montero on 07/12/24 13:14 Reason Not Given: Patient Refused Coding Level of Care Code Est Pt Level 4 (88488) Complex EM visit Add On G2211 Diagnoses Atrial fibrillation I48.91 VIOLETA (obstructive sleep apnea) G47.33 Asthma with COPD J44.9 Hypothyroidism, acquired E03.9 Morbid obesity E66.01 Chronic GERD K21.9 Mild recurrent major depression F33.0 Leg edema R60.0 Additional Codes PHQ-9 - 42465 - PHQ-9 Billing: Yes ([id number]) Vital Signs *Quality* - CPT code: 06094 - 4-10 Minutes ([id number]) Time Spent (min) 25 Assessment & Plan Assessment & Plan (1) Atrial fibrillation: Code(s): I48.91 - Unspecified atrial fibrillation Category: Medical (2) VIOLETA (obstructive sleep apnea): Code(s): G47.33 - Obstructive sleep apnea (adult) (pediatric) Category: Medical (3) Asthma with COPD: Code(s): J44.9 - Chronic obstructive pulmonary disease, unspecified Category: Medical (4) Hypothyroidism, acquired: Code(s): E03.9 - Hypothyroidism, unspecified Category: Medical (5) Morbid obesity: Code(s): E66.01 - Morbid (severe) obesity due to excess calories Category: Medical (6) Chronic GERD: Code(s): K21.9 - Gastro-esophageal reflux disease without esophagitis Category: Medical (7) Mild recurrent major depression: Code(s): F33.0 - Major depressive disorder, recurrent, mild Category: Medical (8) Leg edema: Code(s): R60.0 - Localized edema Category: Medical Plan - Refill prescription for the cilium-containing medication for constipation management. - Discuss potential initiation of Effexor for managing depression, ensuring compatibility with current medication regimen. - Recheck thyroid function presently without fasting requirement. - Reinforce the use of long-term CPAP therapy once delivered. - Provide prescription refills for edema management, specifically for Lasix, emphasizing monitoring without daily use unless deemed necessary. - Contact the clinic regarding the missed appointment for colonoscopy and reestablish care with gastroenterology for regular monitoring. Patient was informed and verbally consented to the use of an ambient scribe for clinic note documentation during this visit. I discussed the potential introduction of Effexor for depression treatment with the patient, ensuring that it does not conflict with her other medical conditions or existing medications. I reassured her of the safety of this choice in consideration of her current health status. We reviewed the need for regular thyroid monitoring and agreed on conducting the test without fasting requirements. I explained the importance of continuing pulmonology follow-up for her COPD management, particularly awaiting CPAP application, which is expected to support her respiratory status. I reiterated the requirement to refill and resume the constipation management regimen with the cilium-based medication, addressing her symptoms effectively. We discussed weight management, acknowledging her limited dietary intake, emphasizing appropriate nutritional balance. Orders: Orders Influenza [id number] Immunization Today Z23 - Encounter for immunization Thyroid Stimulating Hormone Today E03.9 - Hypothyroidism, unspecified Medications: New [bed rail] As directed 1 ea 0RF M54.32 - Sciatica, left side venlafaxine 37.5 mg PO DAILY 90 tabs 1RF 90 days Refilled furosemide (Lasix) 20 mg PO DAILY 90 tabs 1RF 90 days Patient Instructions: - Follow up with recommended thyroid test at your convenience. - Use Lasix as prescribed, adjusting according to symptoms, and avoid daily initial use unless directed. - Commence Effexor for depression if no contraindications arise. - Coordinate with your counselor as planned and maintain counseling sessions. - Monitor for adverse effects of any new medication, reporting concerns promptly. - Encourage consistent but paced mobility, considering current constraints due to building elevator issues. - Maintain effective communication with pulmonology regarding CPAP delivery and ensure prompt usage once received.
[2024-07-12 13:16] VITALS: BP 120/82; BMI 43.1
== END 2024-07-12 14:29 | disposition home or self-care (01) ==
PROVIDERS: PCP Internal Medicine; Visit Provider Internal Medicine
DX: I48.91 Unspecified atrial fibrillation (principal); J44.9 Chronic obstructive pulmonary disease, unspecified; E66.01 Morbid (severe) obesity due to excess calories; Z68.41 Body mass index [BMI] 40.0-44.9, adult; F33.0 Major depressive disorder, recurrent, mild; G47.33 Obstructive sleep apnea (adult) (pediatric); K21.9 Gastro-esophageal reflux disease without esophagitis; E03.9 Hypothyroidism, unspecified; R60.0 Localized edema

== ENCOUNTER → 2024-07-12 13:12 | Outpatient (BNVA) | payer OTHER, SELFPAY | PROVIDERS: PCP Internal Medicine; Visit Provider Internal Medicine | DX: J44.9 Chronic obstructive pulmonary disease, unspecified (principal); E89.0 Postprocedural hypothyroidism; E66.01 Morbid (severe) obesity due to excess calories; F17.210 Nicotine dependence, cigarettes, uncomplicated; I48.91 Unspecified atrial fibrillation; G47.33 Obstructive sleep apnea (adult) (pediatric); K21.9 Gastro-esophageal reflux disease without esophagitis; F33.0 Major depressive disorder, recurrent, mild; R60.0 Localized edema; M54.32 Sciatica, left side; Z28.21 Immunization not carried out because of patient refusal; Z68.41 Body mass index [BMI] 40.0-44.9, adult; Z79.899 Other long term (current) drug therapy | CPT/HCPCS: 96127; 99212 ==

== ENCOUNTER 2024-08-15 13:38 | Outpatient (REF) | payer OTHER, SELFPAY ==
[2024-08-15 14:06] LABS: MANUAL DIFF FLAG NO
--- OUTSIDE RECORDS SUMMARY | 2024-08-15 14:35 | XMS_ITS | Clinical Summary ---
Author Organization [employer] Address [address] [place] [address] Care Team Providers Care Paper Stripper Name Role Phone Unavailable Primary Care Provider Unavailabl e Allergies Active Allergy Reactions Criticality Noted Date Comments Egg-Derived Products Angioedema 11/02/2011 Varenicline 11/08/2018 Other reaction(s): anxiety and depression worsened Medications cholecalcifero l (Vitamin D3) 25 MCG (1000 UT) tablet Take by mouth in the morning. 3 Active gabapentin (Neurontin) 100 MG capsule Take 100 mg by mouth 3 times daily. 3 Active methIMAzole (Tapazole) 10 MG tablet TAKE 1 AND 1/2 TABLETS BY MOUTH DAILY 3 Active metoprolol succinate XL (Toprol-XL) 25 MG 24 hr tablet Take 25 mg by mouth in the morning. 3 Active omeprazole (PriLOSEC) [address] capsule Take 40 mg by mouth in the morning. 3 Active Reguloid 0.52 g capsule Take 1 capsule by mouth 2 times daily. 3 Active albuterol (2.5 MG/3ML) 0.083% nebulizer solution INHALE 1 AMPULE USING A NEBULIZER EVERY 6 HOURS NEEDED FOR WHEEZING OR SHORTNESS OF BREATH 4 Active metoprolol succinate XL (Toprol-XL) 50 MG 24 hr tablet 4 Active naproxen (Naprosyn) 500 MG tablet TAKE 1 TABLET BY MOUTH EVERY EIGHT TO TWELVE HOURS NEEDED FOR PAIN (PAIN SCALE 4 TO 6) 4 Active venlafaxine (Effexor) 37.5 MG tablet Take 1 tablet by mouth Once per day. 5 Active levothyroxine (Synthroid, Levoxyl) 137 MCG tablet Take 1 tablet by mouth Once per day. 4 Active hydrocortisone 2.5 % cream APPLY TO UNDER breast WITH ketoconazole cream TWICE DAILY FOR 21 DAYS 4 Active furosemide (Lasix) 20 MG tablet Take 1 tablet by mouth Once per day. 4 Active Trelegy Ellipta 200-62.5-25 MCG/ACT aerosol powder Inhale 1 puff Once per day. 4 Active Multaq 400 MG tablet take 1 tablet by mouth twice daily with a meal 5 Active Ventolin HFA 108 (90 Base) MCG/ACT inhaler INHALE 2 PUFFS BY MOUTH EVERY 6 HOURS NEEDED FOR WHEEZING OR SHORTNESS OF BREATH 3 025 Discontin ued(Thera py completed ) naproxen (Naprosyn) 250 MG tablet Take 250 mg by mouth if needed in the morning and at bedtime. 3 025 Discontin ued(Thera py completed ) Active Problems No known active problems Encounters Date Type Department Care Team Description 07/20/2024 3:00 PM EST Office Visit [facility] [address] [place] [id number] Teo, Tatiana, OD Drusen (degenerative) of macula, bilateral (Primary Dx); White without pressure of peripheral retina of left eye; Presbyopia 07/20/2024 Travel from Last 3 Months Family History Medical History Relation Name Comments Bone cancer Father Lung cancer Father Emphysema Mother Heart disease Mother Hypertension Mother Skin cancer Mother's Sister Uterine cancer Mother's Sister Breast cancer Sister Relation Name Status Comments Father Mother Mother's Sister Sister Social History Tobacco Use Types Packs/Day Years Used Date Smoking Tobacco: Every Day Cigarettes Smokeless Tobacco: Never Comments Unknown Sex and Gender Information Value Date Recorded Sex Assigned at Female 04/27/2022 10:15 AM EDT Legal Sex Female 10:15 AM EDT Gender Identity Female 04/27/2022 10:15 AM EDT Sexual Orientation Straight 04/27/2022 10 :15 AM EDT Plan of Treatment Health Maintenance Due Date Last Done Comments CT Colonography 1972 Colonoscopy 1972 Colorectal Cancer Screening 1972 Depression Screening 1972 FIT DNA/Cologuard 1972 FIT 1972 FOBT 1972 HIV Screening 1972 Lipid Panel 1972 SDOH Screening 1972 Sigmoidoscopy 1972 Alcohol/Substance Use Screening 1984 Family Planning (PISQ) 1987 Hepatitis C Screening 1990 Pap Smear 1993 Hepatitis B Vaccines (3 of 3 - 19+ 3-dose series) 08/28/2001 05/25/2001, 02/28/2001 Cervical Cancer Screening 2002 HPV/Cotest 2002 Pneumococcal Vaccine: 50+ Years (2 of 2 - PCV) 05/25/2002 05/25/2001 Mammogram 2012 Zoster Vaccines (1 of 2) 2022 COVID-19 Vaccine (1 - season) 2024 Influenza Vaccine (#1) 2024 Tobacco Screening 08/02/2025 08/02/2024 DTaP/Tdap/Td Vaccines (3 - Td or Tdap) 04/10/2029 04/10/2019, 11/12/2011, 02/04/2006, Additional history exists RSV Patients and Patients Aged 60 years or older (1 - 1-dose 75+ series) 2047 HIB Vaccines Aged Out No longer eligi ble based on patient's age to complete this topic HPV Vaccines Aged Out No longer eligi ble based on patient's age to complete this topic Hepatitis A Vaccines Aged Out No long er eligible based on patient's age to complete this topic IPV Vaccines Aged Out No longer eligi ble based on patient's age to complete this topic Meningococcal Vaccine Aged Out No haritha markus eligible based on patient's age to complete this topic RSV under 20 months Aged Out No longe r eligible based on patient's age to complete this topic Rotavirus Vaccines Aged Out No longer eligible based on patient's age to complete this topic Procedures Procedure Name Priority Date/Time Associated Diagnosis Comments OCT, RETINA - OU - BOTH EYES Routine 07/20/2024 3:00 PM EST Drusen (degenerative) of macula, bilateral from Last 3 Months Insurance [facility]
--- OUTSIDE RECORDS SUMMARY | 2024-08-15 14:35 | XMS_ITS | Encounter Summary ---
Author Organization [employer] Address [address] [place] [address] Care Team Providers Care Inside Sales Assistant Name Role Phone Unavailable Primary Care Provider Unavailabl e Encounter Details Date Type Department Care Team (Latest Contact Info) Description 07/20/2024 Travel Social History Tobacco Use Types Packs/Day Years Used Date Smoking Tobacco: Every Day Cigarettes Smokeless Tobacco: Never Comments Unknown Sex and Gender Information Value Date Recorded Sex Assigned at Female 04/27/2022 10:15 AM EDT Legal Sex Female 10:15 AM EDT Gender Identity Female 04/27/2022 10:15 AM EDT Sexual Orientation Straight 04/27/2022 10 :15 AM EDT documented as of this encounter Plan of Treatment Not on file documented as of this encounter Visit Diagnoses Not on filedocumented in this encounter
--- OUTSIDE RECORDS SUMMARY | 2024-08-15 14:35 | XMS_ITS | Encounter Summary ---
Author Organization [employer] Address [address] [place] [address] Care Team Providers Care Training And Quality Manager Name Role Phone Unavailable Primary Care Provider Unavailabl e Reason for Visit * Reason Comments Macular drusen Encounter Details Date Type Department Care Team (Late st Contact Info) Description 07/20/2024 3:00 PM EST Office Visit [facility] [address] [place] [address] Tatiana Bruce, OD [address] [place] [address] Drusen (degenerative) of macula, bilateral (Primary Dx); White without pressure of peripheral retina of left eye; Presbyopia Social History Tobacco Use Types Packs/Day Years Used Date Smoking Tobacco: Every Day Cigarettes Smokeless Tobacco: Never Comments Unknown Sex and Gender Information Value Date Recorded Sex Assigned at Female 04/27/2022 10:15 AM EDT Legal Sex Female 10:15 AM EDT Gender Identity Female 04/27/2022 10:15 AM EDT Sexual Orientation Straight 04/27/2022 10 :15 AM EDT documented as of this encounter Progress Notes * Tatiana Bruce, OD - 07/20/2024 3:00 PM EST Eye Care Progress Note Patient ID: Jyoti Roberts is a 54 y.o. female. Chief Complaint Macular drusen HPI Here for a complete eye exam to monitor pinpoint macular drusen in both eyes. Today the patient complains of frontal headaches that occur after reading for long periods of time. She states she also has to squint to read with her current bifocals. She denies distance vision complaints. She denies any other ocular complaints. Her last eye exam was here in 12/2022. Last edited by Tatiana Bruce, DANIELLE on 08/02/2024 3:20 PM. Current Outpatient Medications Medication Sig Dispense Refill albuterol (2.5 MG/3ML) 0.083% nebulizer solution INHALE 1 AMPULE USING A NEBULIZER EVERY 6 HOURS ASNEEDED FOR WHEEZING OR SHORTNESS OF BREATH furosemide (Lasix) 20 MG tablet Take 1 tablet by mouth Once per day. hydrocortisone 2.5 % cream APPLY TO UNDER breast WITH ketoconazole cream TWICE DAILY FOR 21 DAYS levothyroxine (Synthroid, Levoxyl) 137 MCG tablet Take 1 tablet by mouth Once per day. metoprolol succinate XL (Toprol-XL) 50 MG 24 hr tablet Multaq 400 MG tablet take 1 tablet by mouth twice daily with a meal naproxen (Naprosyn) 500 MG tablet TAKE 1 TABLET BY MOUTH EVERY EIGHT TO TWELVE HOURS NEEDED FOR PAIN (PAIN SCALE 4 TO 6) Trelegy Ellipta 200-62.5-25 MCG/ACT aerosol powder Inhale 1 puff Once per day. venlafaxine (Effexor) 37.5 MG tablet Take 1 tablet by mouth Once per day. cholecalciferol (Vitamin D3) 25 MCG (1000 UT) tablet Take by mouth in the morning. gabapentin (Neurontin) 100 MG capsule Take 100 mg by mouth 3 times daily. methIMAzole (Tapazole) 10 MG tablet TAKE 1 AND 1/2 TABLETS BY MOUTH DAILY metoprolol succinate XL (Toprol-XL) 25 MG 24 hr tablet Take 25 mg by mouth in the morning. omeprazole (PriLOSEC) [address] capsule Take 40 mg by mouth in the morning. Reguloid 0.52 g capsule Take 1 capsule by mouth 2 times daily. No current facility-administered medications for this visit. Past Medical History: Diagnosis Date Asthma CAD (coronary artery disease) COPD (chronic obstructive pulmonary disease) (CMS/HCC) COVID-19 2019 Elevated hemoglobin (CMS/HCC) Erythrocytosis Graves disease Hemochromatosis History of supraventricular tachycardia Hyperthyroidism History reviewed. No pertinent surgical history. Family History Problem Relation Name Age of Onset Emphysema Mother Hypertension Mother Heart disease Mother Bone cancer Father Lung cancer Father Breast cancer Sister Uterine cancer Mother's Sister Skin cancer Mother's Sister Social History Socioeconomic History Marital status: Single Spouse name: Not on file Number of children: Not on file Years of education: Not on file Highest education level: Not on file Occupational History Not on file Tobacco Use Smoking status: Every Day Current packs/day: 1.50 Types: Cigarettes Smokeless tobacco: Never Vaping Use Vaping status: Never Used Substance and Sexual Activity Alcohol use: Not on file Drug use: Not on file Sexual activity: Not on file Other Topics Concern Not on file Social History Narrative Not on file Social Drivers of Health Food Insecurity: Not on file Transportation Needs: Not on file Intimate Partner Violence: Not on file Housing Stability: Not on file Allergies Allergen Reactions Egg-Derived Products Angioedema Varenicline Other reaction(s): anxiety and depression worsened ROS Positive for: Eyes Negative for: Constitutional, Gastrointestinal, Neurological, Skin, Genitourinary, Musculoskeletal,HENT, Endocrine, Cardiovascular, Respiratory, Psychiatric, Allergic/Imm, Heme/Lymph Last edited by Kristin Almodovar on 07/20/2024 2:49 PM. Base Eye Exam Visual Acuity (Snellen - Linear) Right Left Both Dist cc 20/20-2 20/60- Dist ph cc 20/60+1 Near cc 20/50 Correction: Glasses Tonometry ([facility]Care , 3:10 PM) Right Left Pressure 15 12 Pupils Pupils APD Right PERRL None Left PERRL None Visual Villagran (Counting fingers) Left Right Full Full Extraocular Movement Right Left Full Full Neuro/Psych Oriented x3: Yes Mood/Affect: Normal Dilation Both eyes: 1.0% Tropicamide @ 3:12 PM Slit Lamp and Fundus Exam External Exam Right Left External Normal Normal Slit Lamp Exam Right Left Lids/Lashes Normal Normal Conjunctiva/Sclera Pinguecula temporal White and quiet Cornea Clear Clear Anterior Chamber Deep and quiet Deep and quiet [place] Flat Lens Clear Clear Fundus Exam Right Left Vitreous Clear Clear Disc [place] and Distinct [place] and Distinct C/D Ratio Vertical 0.25 0.20 C/D Ratio Horizontal 0.25 0.20 Macula Few pinpoint drusen superior and inferior to the fovea, no CME/SRF Few pinpoint drusen superior and inferior to the fovea, no CME/SRF Vessels Normal Normal Periphery No Holes/Breaks/Tears 360 degrees WWOP at 2:00 in the periphery, No holes/breaks/tears 360 degrees Refraction Wearing Rx Sphere Cylinder [place] Add Right +3.00 -1.25 115 +2.00 Left +2.50 -1.00 075 +2.00 Manifest Refraction Sphere Cylinder [place] Dist VA Add Right +3.25 -1.25 110 20/20 +2.25 Left +3.25 -1.50 080 20/25 +2.25 Near VA Both: 20/25 Final Rx Sphere Cylinder [place] Dist VA Add Right +3.25 -1.25 110 20/20 +2.25 Left +3.25 -1.50 080 20/25 +2.25 Expiration Date: 07/20/2026 Assessment/plan: Diagnoses and all orders for this visit: Drusen (degenerative) of macula, bilateral The patient has stable pinpoint drusen in the maculae of both eyes. A macular OCT today showed no CME/SRF. She was reeducated that drusen are deposits made up of lipids and proteins located under theretina. Her vision is not affected at this time. Will monitor with a full eye exam and repeat OCT in 1 year, sooner with any changes in vision. - OCT, Retina - OU - Both Eyes 2. White without pressure of peripheral retina of left eye White without pressure (WWOP) is a common retinal condition that occurs in up to 30% of the generalpopulation. WWOP is a lightening in the color of the retina produced by traction on the surface of the retina. The surrounding retina was flat and no holes or tears were noted. The patient was educated that this condition can cause a higher risk of a retinal tear/hole/detachment. The patient was educated to return VIKA if they experience a sudden onset of flashes, floaters, or decreased vision asthis can indicate a hole or tear may be occurring. Otherwise, will monitor at her next complete eyeexam. 3. Presbyopia Glasses prescription updated and given. Will monitor at the patient's next full eye exam. Tatiana Teo, OD 08/10/2024, 2:52 PM Student Name: Kristin Almodovar I attest that I was physically present with the optometry student. I personally saw and evaluated the patient and performed my own history and examination. I have reviewed, verified, and revised the documented findings as necessary and agree with the content and plan as written. Orthopedic Assistant Source: __x_ None ___ Bilingual Staff ___ Qualified Staff Crucible Furnace Tender ___ Telephone Orthopedic Assistant; ID# ___ Orthopedic Assistant brought by patient (family member, friend, INSPECTOR MATERIAL DISPOSITION, etc) ___ In person drupal web developer ___ Ipad Orthopedic Assistant; ID#: Language Spoken During Exam: _English documented in this encounter Plan of Treatment Pending Results Name Type Priority Associated Diagnoses Date /Time OCT, Retina - OU - Both Eyes Ophthalmology Routine Drusen (degenerative) of macula, bilateral 07/20/2024 3:00 PM EST documented as of this encounter Procedures Procedure Name Priority Date/Time Associated Diagnosis Comments OCT, RETINA - OU - BOTH EYES Routine 07/20/2024 3:00 PM EST Drusen (degenerative) of macula, bilateral documented in this encounter Visit Diagnoses Diagnosis Drusen (degenerative) of macula, bilateral- Primary White without pressure of peripheral retina of left eye Presbyopia documented in this encounter
[2024-08-15 14:41] LABS: Basophils Absolute Auto 0.1 X10*3/uL (0.0-0.2); Eosinophils Absolute Auto 0.3 X10*3/uL (0.0-0.4); Hematocrit 38.5 % (37.0-47.0); Hemoglobin 12.4 g/dl (12.0-16.0); Imm Gran Abs Auto 0.06 X10*3/uL (0.00-0.03); Imm Gran Pct Auto 0.7 % (0.0-0.4); Lymphocytes Absolute Auto 3.5 X10*3/uL (1.2-4.9); Lymphocytes Percent Auto 41.9 % (20-40); Mean Corpuscular HGB Conc 32.2 g/dl (31.0-35.0); Mean Corpuscular Hemoglobin 25.9 pg (27.0-33.0); Mean Corpuscular Volume 80.5 fL (80.0-98.0); Mean Platelet Volume 11.1 fL (9.4-12.3); Monocytes Absolute Auto 0.6 X10*3/uL (0.1-1.2); Monocytes Percent Auto 7.6 % (2-11); Neutrophils Absolute Auto 3.7 x10*3/uL (2.0-8.3); Neutrophils Percent Auto 44.8 % (45-73); Platelet Count 277 X10*3/uL (160-400); Red Blood Count 4.78 X10*6/uL (4.20-5.50); Red Cell Distribution Width 16.1 % (11.0-16.0); White Blood Count 8.2 X10*3/uL (4.8-10.8)
[2024-08-15 16:06] LABS: Alanine Aminotransferase 15 U/L (0-31); Albumin Level 4.2 g/dL (3.5-5.0); Alkaline Phosphatase 76 U/L (39-117); Anion Gap 10 (12-20); Aspartate Amino Transferase 19 U/L (5-31); Bilirubin Total 0.3 mg/dL (0.0-1.0); Blood Urea Nitrogen 12 mg/dL (9-16); Calcium 9.5 mg/dL (8.4-10.2); Carbon Dioxide 32 mmol/L (22-29); Chloride 101 mmol/L (96-108); Estimated Glomerular Filt Rate 60; Glucose Random 74 mg/dL (60-115); Potassium 4.1 mmol/L (3.3-5.1); Sodium 139 mmol/L (135-145); Total Protein 7.5 g/dL (6.5-8.0)
[2024-08-15 16:21] LABS: Thyroid Stimulating Hormone 13.98 uIU/mL (0.32-4.0)
== END 2024-08-15 13:39 | disposition home or self-care (01) ==
LOC: HO.LAB 13:38
PROVIDERS: Internal Medicine Medical Oncology; PCP Internal Medicine; Visit Provider Internal Medicine
DX: D75.1 Secondary polycythemia (principal); E03.9 Hypothyroidism, unspecified
CPT/HCPCS: 36415; 80053; 84443; 85025

== ENCOUNTER 2024-08-15 13:46 | Outpatient (REF) | payer OTHER, SELFPAY | END 2024-08-15 13:47 | disposition home or self-care (01) | LOC: HO.BBR 13:46 | PROVIDERS: PCP Internal Medicine; Visit Provider Internal Medicine Medical Oncology | DX: D75.1 Secondary polycythemia (principal) | CPT/HCPCS: 85018 ==

== ENCOUNTER 2024-08-22 13:44 | Outpatient (AMB) | payer OTHER, SELFPAY ==
--- NOTE | 2024-08-22 13:49 | MHC.PC.OV ---
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 Accompanied by: Family/Other Allergies egg [Egg] Allergy (Severe, Verified 08/22/24 13:59) ANAPHYLAXIS influenza virus vaccine, specific [FLU VACCINE] Allergy (Severe, Verified 08/22/24 13:59) CANNOT OBTAIN DUE TO EGG ALLERGY nicotine [From NICODERM CQ] Allergy (Intermediate, Verified 08/22/24 13:59) RASH varenicline [From CHANTIX] Allergy (Intermediate, Verified 08/22/24 13:59) DEPRESSION AND ANXIETY INCREASE barium sulfate Adverse Reaction (Intermediate, Verified 08/22/24 13:59) saul Medication List - Last Reconciled 08/22/24 by Marline Mix MD albuterol sulfate 90 mcg/actuation 2 puffs inhalation Q6H PRN 30 days albuterol sulfate 2.5 mg (3 mL) inhalation Q6H PRN 30 days [bed rail As directed] cholecalciferol (vitamin D3) 25 mcg PO DAILY 30 days comp.stocking,thigh,long,x-lrg As directed dronedarone (Multaq) 400 mg PO BID vskacmdvbiw-cpgcgpzqd-sldlsiih 200-62.5-25 mcg (Trelegy Ellipta) 1 inh inhalation DAILY 30 days furosemide (Lasix) 20 mg PO DAILY 90 days gabapentin 100 mg PO BEDTIME PRN Grab bar As directed levothyroxine 150 mcg PO DAILY 90 days metoprolol succinate ER 50 mg PO DAILY naproxen 250 mg PO BID PRN 30 days nebulizers As directed omeprazole 40 mg PO DAILY 90 days psyllium husk (Reguloid (psyllium husk)) 0.4 grams PO DAILY Shower Chair As directed venlafaxine 37.5 mg PO DAILY 90 days walker As directed Tobacco use date assessed: 07/12/24 Dental Screening Dental Screen Date: 07/12/24 HPI HPI Comments History of Present Illness Details The patient is a 54-year-old female presenting for a routine wellness examination with a focus on several previously diagnosed chronic conditions. She has hypothyroidism, managed with levothyroxine, recently increased to 150 mcg due to elevated TSH levels noted on recent blood work. The patient has a history of depression, with a PHQ-9 score of 6 indicating mild major depression, managed with venlafaxine. She has essential hypertension and atrial fibrillation, treated with metoprolol, and a history of asthma with COPD, managed with Trelegy inhaler. The patient has a significant history of obstructive sleep apnea, for which a CPAP has been recommended, pending availability. She also reports chronic earwax buildup and occasional impaired hearing, suspecting wax as the cause. Also complains of ear pain. Her medical history includes a thyroidectomy for which she receives ongoing follow-up and hormone replacement therapy. Socially, she is in the process of smoking cessation and adheres to a specialized diet to manage her weight and associated comorbidities. She is morbidly obese with a BMI of 43.4 and was advised to do diet and exercise to reach BMI goal less than 30. She denies weight loss surgery. She also complains of chronic low back pain radiating to the left side due to left-sided sciatica and wants to be referred to Ortho for this matter. - Tdap vaccine administered in 2018, next due in 2028. - Screening mammogram ordered. - Planned referral for a colonoscopy was discussed. - Referral for an ENT evaluation for earwax management and hearing issues. - Education on smoking cessation. - Dietary modifications discussed including reduction of sodium, carbohydrates, and cessation of soda consumption. - Exercise and weight management discussed with emphasis on alternatives such as yoga. [facility] Medical History (Updated 08/22/24 @ 19:34 by Marline Mix MD) Atrial fibrillation Allergies Coronary artery disease History of supraventricular tachycardia Graves disease Asthma with COPD Nicotine dependence, cigarettes, uncomplicated Arthritis Left breast lump Mild recurrent major depression Blurry vision Obesity (BMI 30-39.9) Vitamin D deficiency Constipation History of COVID-19 Surgical History History of total thyroidectomy (~2022) History of tonsillectomy and adenoidectomy History of dental surgery History of appendectomy (~1979) History of tubal ligation (~1999) History of section (~1999) History of right salpingo-oophorectomy (~2001) History of endometrial ablation (~2017) Family History (Updated 08/22/24 @ 14:07 by Marline Mix MD) Father Bone cancer Lung cancer Mother CVD (cardiovascular disease) Emphysema of lung Hypertension Asthma Sister No problems noted. Maternal Aunt Uterine cancer Maternal Aunt Skin cancer Social History Household Members: None Housing: Apartment Are you a primary md do resident urgent care to a significant other at home: No Do you presently have visiting nurse or other home services: No Alcohol intake: former Patient Tobacco Use Status: Current everyday Tobacco user Tobacco use type: Cigarette Cigarette Packs Per Day: 1 Cigarettes Per Day: 20 e-Cigarette/Vaping Use: Never Used Second Hand Smoke Exposure: Yes service: No Current occupational status: disabled Cognitive needs: Yes (Walker) Hearing needs: No Vision needs: Yes Questionnaire PHQ-9 Over the last 2 weeks, how often have you been bothered by any of the following problems? 1. Little interest or pleasure in doing things: several days 2. Feeling down, depressed, or hopeless: several days 3. Trouble falling or staying asleep, or sleeping too much: several days 4. Feeling tired or having little energy: several days 5. Poor appetite or overeating: not at all 6. Feeling bad about yourself - or that you are a failure or have let yourself or your family down: several days 7. Trouble concentrating on things, such as reading the newspaper or watching television: several days 8. Moving or speaking so slowly that other people could have noticed. Or the opposite - being so fidgety or restless that you have been moving around a lot more than usual: not at all 9. Thoughts that you would be better off or of hurting yourself in some way: not at all Total score: 6 Depression Screening Interpretation: Positive Depression Screening Follow-up: Existing condition, In treatment, Community Mental Health Worker F/U and Follow-up Visit Requested Depression Screening Done: Yes 41595 - PHQ-9 Billing: Yes Source: Developed by Drs. Ahsan Mcleod, Regina Chauhan, Driss Gordillo and colleagues, with an educational justino from [employer]. Thrive Questionnaire Date Thrive assessed: 08/22/24 I am a: Patient What is your living situation today?: I have a steady place to live Within the past 12 months, did the food you bought not last and you didn't have the money to get more?: Sometimes True Within the past 12 months, did you worry whether your food would run out before you got money to buy more?: Sometimes True Do you have trouble paying for medicines?: No Do you have trouble getting transportation to medical appointments?: I choose not to answer this question Do you have trouble paying your heating and electricity bill?: I choose not to answer this question Do you have trouble taking care of your child, family member or friend?: I choose not to answer this question Do you have trouble with day-to-day activities such as bathing, preparing meals, shopping, managing finances, etc.?: I choose not to answer this question Are you currently unemployed and looking for a job?: I choose not to answer this question Are you interested in more education?: I choose not to answer this question Please select the resources that you would like help with: None Currently or been in a relationship where the following occur: I choose not to answer THRIVE Score: 2 AUDIT C Alcohol Use Questionnaire (AUDIT-C) 1. How often do you have a drink containing alcohol?: Never Total Score: 0 Score Reviewed/Action Taken: No REYES-7 AMB Questionnaire REYES-7 Date REYES - 7 assessed: 08/22/24 Feeling nervous, anxious, or on edge: 1 = Several days Not being able to stop or control worryin = Not at all Worrying too much about different things: 1 = Several days Trouble relaxin = Several days Being so restless that it is hard to sit still: 1 = Several days Becoming easily annoyed or irritable: 1 = Several days Feeling afraid as if something awful might happen: 0 = Not at all Total REYES-7 score (0-4 normal; 5-9 mild; 10-14 moderate; 15-21 severe): 5 Source: Developed by Drs. Ahsan Mcleod, Regina Chauhan, Driss Gordillo and colleagues, with an educational justino from [employer]. REYES-7 Assessment Billing REYES-7 Assessment Tool: REYES-7 Assessment 84029 Review of Systems Const All systems reviewed & are unremarkable except as noted in HPI and below Card Denies chest pain at rest, Denies chest pain with activity, Denies edema, Denies irregular heart rhythm, Denies claudication, Denies dyspnea, Denies dyspnea on exertion, Denies orthopnea, Denies paroxysmal nocturnal dyspnea and Denies slow heart rate Resp Denies cough, Denies dyspnea and Denies dyspnea on exertion GI Denies abdominal pain, Denies change in bowel habits, Denies excessive flatus, Denies nausea and Denies vomiting Denies urinary incontinence, Denies urinary hesitancy and Denies urinary urgency Skin/Breast Denies bleeding lesions Neuro Denies lack of coordination Physical exam (Primary Care) Vital Signs: Last Vital Signs BP 124/82 08/22/24 13:51 BMI result Body Mass Index 43.4 BMI Assessment/Plan discussion: High BMI High, discussed plan: lifestyle, weight reduction, dietary and physical activity Tobacco/Smoking Status: Tobacco use Status Tobacco use date assessed 07/12/24 08/22/24 13:54 Patient Tobacco Use Status Current everyday Tobacco 08/22/24 13:54 Tobacco use type Cigarette 08/22/24 13:54 e-Cigarette/Vaping Use Never Used 08/22/24 13:54 Are you ready to quit: No Tobacco cessation counseling provided: Yes Items discussed: Nicotine replacement and QuitWorks Relapse Prevention: discussed the importance of a supportive environment, discussed extending NRT, discussed negative mood or depression after quitting, weight gain after smoking is common and discussed dietary, exercise and/or lifestyle changes Number of minutes spent counselin CPT code: 69692 - 4-10 Minutes PHQ-9: PHQ-9 Score PHQ-9: Total score 6 08/22/24 14:02 Depression Screening Interpretation: Positive Depression Screening Follow-up: Existing condition, In treatment, Community Mental Health Worker F/U and Follow-up Visit Requested Thrive Assessment: Date of Thrive Assessment Date Thrive assessed 08/22/24 08/22/24 13:54 Currently or been in a relationship where the following occur: I choose not to answer Const Limitations: ambulation with walker HENMT Head: Yes normal to inspection, Yes normocephalic and Yes atraumatic Ears: external ears normal Eyes General: appearance normal, both eyes and all related structures Eyelids: Yes eyelids normal Conjunctivae: conjunctivae normal Neck Neck: Yes normal visual inspection and Yes supple Resp Effort & Inspection: normal respiratory effort Auscultation: clear to auscultation bilaterally Cardio Jugular venous distension: no JVD Rate: regular rate Rhythm: regular rhythm Heart sounds: S1 normal heart sound present and S2 normal heart sound present GI Inspection: Yes normal to inspection Palpation (GI): Soft to palpation and nontender Auscultation: normal bowel sounds Skin General skin exam: no rashes or lesions noted Neuro General: no focal motor deficits Extrem General: Yes full ROM Psych Appearance: grossly normal Coding Level of Care Code Est Pt Level 4 (98313) Est Pt Prev Care 40-64y(18546) Diagnoses Physical exam Z00.00 Ear discomfort H92.09 Atrial fibrillation I48.91 Morbid obesity E66.01 Mild recurrent major depression F33.0 Asthma with COPD J44.9 Left sided sciatica M54.32 Hypothyroidism, acquired E03.9 Additional Codes REYES-7 Assessment Billing - REYES-7 Assessment Tool: RYEES-7 Assessment 88113 ([id number]) PHQ-9 - 09633 - PHQ-9 Billing: Yes ([id number]) Vital Signs *Quality* - CPT code: 05699 - 4-10 Minutes ([id number]) Time Spent (min) 40 Assessment & Plan Assessment & Plan (1) Physical exam: Code(s): Z00.00 - Encounter for general adult medical examination without abnormal findings Category: Medical (2) Ear discomfort: Code(s): H92.09 - Otalgia, unspecified ear Category: Medical (3) Atrial fibrillation: Code(s): I48.91 - Unspecified atrial fibrillation Category: Medical (4) Morbid obesity: Code(s): E66.01 - Morbid (severe) obesity due to excess calories Category: Medical (5) Mild recurrent major depression: Code(s): F33.0 - Major depressive disorder, recurrent, mild Category: Medical (6) Asthma with COPD: Code(s): J44.9 - Chronic obstructive pulmonary disease, unspecified Category: Medical (7) Left sided sciatica: Code(s): M54.32 - Sciatica, left side Category: Medical (8) Hypothyroidism, acquired: Code(s): E03.9 - Hypothyroidism, unspecified Category: Medical Plan - Refer for an ENT evaluation regarding earwax buildup and possible hearing loss. - Order a colonoscopy as previously planned. - Increase levothyroxine dosage due to elevated TSH to target optimal thyroid function. - Reinforce use of venlafaxine for depression management. - Encourage smoking cessation efforts and consider alternative therapies like hypnosis. - Advance dietary modifications emphasizing low-salt and carbohydrate intake. - Schedule an imaging study to assess spinal and back issues, considering x-ray to investigate structure relating to reported pain. - Continue current treatment with antihypertensive and inhaler medications. - Coordinate follow-up for CPAP initiation and management of sleep apnea. Patient was informed and verbally consented to the use of an ambient scribe for clinic note documentation during this visit. I have reviewed and discussed the management of her chronic conditions, particularly focusing on thyroid function and obstructive sleep apnea management. We agreed to modify her levothyroxine treatment to better manage her hypothyroidism. I clarified the referral process for ENT evaluation to address her concerns about earwax and potential hearing loss. I emphasized the importance of regular mammograms in light of her family history. For her depression, we will continue with venlafaxine and monitor her mood. We discussed various weight management strategies, including diet modifications and exercise considerations. Moreover, strategies for smoking cessation were revisited with exploration of hypnosis as an option. I advised her on the importance of scheduling and completing a colonoscopy and utilizing CPAP therapy as soon as it becomes available. Follow-up care plans were clearly communicated, focusing on intervals for thyroid re-evaluation. Orders: Orders MM tomosynthesis screening BI Today Z12.31 - Encounter for screening mammogram for malignant neoplasm of breast Referrals Ear/Nose/Throat Referral H92.09 - Otalgia, unspecified ear Gastroenterology Referral Z12.11 - Encounter for screening for malignant neoplasm of colon Orthopedics Referral M54.32 - Sciatica, left side USER EXPERIENCE DEVELOPER Referral Z12.4 - Encounter for screening for malignant neoplasm of cervix Patient Instructions: - Schedule and attend an ENT appointment for your earwax issue. - Follow up with your psychiatrist or counselor as scheduled for managing depression. - Begin the increased dose of levothyroxine and repeat thyroid blood tests as instructed. - Schedule a mammogram at your earliest convenience. - Maintain current diet restrictions focusing on low sodium and carbohydrates. - Continue smoking cessation efforts, considering options like hypnosis. - Monitor your earwax-related symptoms and attend the ENT referral promptly. - Plan for a colonoscopy as soon as it becomes available. - Await scheduling for CPAP therapy and consider interim management strategies. - Report any new systemic symptoms or significant changes in existing symptoms promptly.
[2024-08-22 13:51] VITALS: BP 124/82; BMI 43.4
--- OUTSIDE RECORDS SUMMARY | 2024-08-22 17:03 | XMS_ITS | Clinical Summary ---
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
== END 2024-08-22 14:20 | disposition home or self-care (01) ==
PROVIDERS: PCP Internal Medicine; Visit Provider Internal Medicine
DX: Z00.00 Encounter for general adult medical examination without abnormal findings (principal); I48.91 Unspecified atrial fibrillation; E66.01 Morbid (severe) obesity due to excess calories; Z68.41 Body mass index [BMI] 40.0-44.9, adult; F33.0 Major depressive disorder, recurrent, mild; J44.9 Chronic obstructive pulmonary disease, unspecified; H92.09 Otalgia, unspecified ear; M54.32 Sciatica, left side; E03.9 Hypothyroidism, unspecified

== ENCOUNTER → 2024-08-22 13:44 | Outpatient (BNVA) | payer OTHER, SELFPAY | PROVIDERS: PCP Internal Medicine; Visit Provider Internal Medicine | DX: Z00.01 Encounter for general adult medical examination with abnormal findings (principal); I48.91 Unspecified atrial fibrillation; E66.01 Morbid (severe) obesity due to excess calories; Z68.41 Body mass index [BMI] 40.0-44.9, adult; F33.0 Major depressive disorder, recurrent, mild; J44.9 Chronic obstructive pulmonary disease, unspecified; M54.32 Sciatica, left side; E03.9 Hypothyroidism, unspecified; F17.200 Nicotine dependence, unspecified, uncomplicated; Z71.3 Dietary counseling and surveillance; Z71.6 Tobacco abuse counseling; H92.09 Otalgia, unspecified ear | CPT/HCPCS: 96127; 99212; 99396 ==

== ENCOUNTER 2024-08-28 12:16 | Outpatient (REF) | payer OTHER, SELFPAY ==
--- NOTE | ~2024-08-28 | XR_ITS ---
.EXAMINATION: XR LUMBOSACRAL SPINE CLINICAL INFORMATION: M54.32 - Sciatica, left side COMPARISON: January 11, 2024. TECHNIQUE: Three views of the lumbosacral spine. FINDINGS: There is sclerosis at the L4-5 and L5-S1 facet joints. No gross malalignment. No acute cortical disruption. Multilevel endplate sclerosis and minimal marginal osteophyte formation lower thoracic aorta lumbar spine. Spina bifida occulta, S1 and S2. XR/XR lumbar spine 2-3V IMPRESSION: Spondylosis L4-5 and L5-S1, the possibility of spondylolysis pars interarticularis at L5-S1 cannot be excluded. Electronically signed by: Devon Patton MD 08/28/2024 01:57 PM EST
[2024-08-28 12:31] LABS: MANUAL DIFF FLAG NO
[2024-08-28 13:56] LABS: Basophils Absolute Auto 0.1 X10*3/uL (0.0-0.2); Eosinophils Absolute Auto 0.2 X10*3/uL (0.0-0.4); Eosinophils Percent Auto 2.9 % (0-4); Hematocrit 39.7 % (37.0-47.0); Hemoglobin 12.6 g/dl (12.0-16.0); Imm Gran Abs Auto 0.05 X10*3/uL (0.00-0.03); Imm Gran Pct Auto 0.7 % (0.0-0.4); Lymphocytes Absolute Auto 2.7 X10*3/uL (1.2-4.9); Lymphocytes Percent Auto 37.2 % (20-40); Mean Corpuscular HGB Conc 31.7 g/dl (31.0-35.0); Mean Corpuscular Hemoglobin 25.9 pg (27.0-33.0); Mean Corpuscular Volume 81.7 fL (80.0-98.0); Mean Platelet Volume 11.9 fL (9.4-12.3); Monocytes Absolute Auto 0.5 X10*3/uL (0.1-1.2); Monocytes Percent Auto 6.5 % (2-11); Neutrophils Absolute Auto 3.8 x10*3/uL (2.0-8.3); Neutrophils Percent Auto 51.7 % (45-73); Platelet Count 283 X10*3/uL (160-400); Red Blood Count 4.86 X10*6/uL (4.20-5.50); Red Cell Distribution Width 16.3 % (11.0-16.0); White Blood Count 7.3 X10*3/uL (4.8-10.8)
--- OUTSIDE RECORDS SUMMARY | 2024-08-28 14:23 | XMS_ITS | Clinical Summary ---
Author Organization [employer] Address [address] [place] [address] Care Team Providers Care Safety Intern Name Role Phone Unavailable Primary Care Provider [...] Encounters Date Type Department Care Team Description 08/25/2024 10:15 AM EST Office Visit [facility] [address] [place] [address] Tatiana Bruce, OD Presbyopia (Primary Dx) 07/20/2024 3:00 PM EST Office Visit [facility] [address] [place] [address] Teo Tatiana, OD Drusen (degenerative) of macula, bilateral [...] of 2) 2022 COVID-19 Vaccine (1 - 2023-25 season) 2024 Influenza Vaccine (#1) 2024 Tobacco [...] bilateral from Last [address] [facility]
--- OUTSIDE RECORDS SUMMARY | 2024-08-28 14:23 | XMS_ITS | Encounter Summary ---
Author Organization [employer] Address [address] [place] [address] Care Team Providers Care Heel Lining Paster Name Role Phone Unavailable Primary Care Provider Unavailabl e Encounter Details Date Type Department Care Team (Late st Contact Info) Description 08/25/2024 10:15 AM EST Office Visit [facility] [address] [place] [address] Tatiana Bruce, DANIELLE [address] [place] [address] Presbyopia (Primary Dx) Social History Tobacco Use Types Packs/Day Years [...] of this encounter Progress Notes * Tatiana Bruce OD - 08/25/2024 10:15 AM EST MH glasses were dispensed. documented in this encounter Plan of Treatment Not on file documented as of this encounter Visit Diagnoses Diagnosis Presbyopia- Primary documented in this encounter
[2024-08-28 14:42] LABS: Alanine Aminotransferase 17 U/L (0-31); Albumin Level 4.1 g/dL (3.5-5.0); Alkaline Phosphatase 81 U/L (39-117); Anion Gap 11 (12-20); Aspartate Amino Transferase 18 U/L (5-31); Bilirubin Total 0.3 mg/dL (0.0-1.0); Blood Urea Nitrogen 19 mg/dL (9-16); Calcium 9.1 mg/dL (8.4-10.2); Carbon Dioxide 31 mmol/L (22-29); Chloride 103 mmol/L (96-108); Estimated Glomerular Filt Rate 51; Glucose Random 98 mg/dL (60-115); Potassium 4.1 mmol/L (3.3-5.1); Sodium 141 mmol/L (135-145); Total Protein 7.6 g/dL (6.5-8.0)
== END 2024-08-28 12:17 | disposition home or self-care (01) ==
LOC: HO.XRAY 12:16
PROVIDERS: Absent Provider Internal Medicine Medical Oncology; PCP Internal Medicine; Visit Provider Internal Medicine
DX: M54.32 Sciatica, left side (principal); D75.1 Secondary polycythemia
CPT/HCPCS: 36415; 72100; 80053; 85025

== ENCOUNTER → 2024-08-28 12:31 | Outpatient (BNV) | payer OTHER, SELFPAY | PROVIDERS: Absent Provider Internal Medicine Medical Oncology; PCP Internal Medicine; Visit Provider Radiology Diagnostic Radiology | DX: M47.817 Spondylosis without myelopathy or radiculopathy, lumbosacral region (principal) | CPT/HCPCS: 72100 ==

== ENCOUNTER 2024-09-27 14:16 | Outpatient (REF) | payer OTHER, SELFPAY ==
[2024-09-27 15:24] LABS: Basophils Absolute Auto 0.1 X10*3/uL (0.0-0.2); Basophils Percent Auto 0.8 % (0-2); Eosinophils Absolute Auto 0.3 X10*3/uL (0.0-0.4); Eosinophils Percent Auto 3.6 % (0-4); Hematocrit 36.6 % (37.0-47.0); Hemoglobin 11.9 g/dl (12.0-16.0); Imm Gran Abs Auto 0.08 X10*3/uL (0.00-0.03); Imm Gran Pct Auto 0.9 % (0.0-0.4); Lymphocytes Absolute Auto 2.9 X10*3/uL (1.2-4.9); Lymphocytes Percent Auto 32.8 % (20-40); Mean Corpuscular HGB Conc 32.5 g/dl (31.0-35.0); Mean Corpuscular Hemoglobin 25.6 pg (27.0-33.0); Mean Corpuscular Volume 78.7 fL (80.0-98.0); Monocytes Absolute Auto 0.6 X10*3/uL (0.1-1.2); Monocytes Percent Auto 6.4 % (2-11); Neutrophils Absolute Auto 4.9 x10*3/uL (2.0-8.3); Neutrophils Percent Auto 55.5 % (45-73); PLT CLUMP 1; Red Blood Count 4.65 X10*6/uL (4.20-5.50); Red Cell Distribution Width 15.9 % (11.0-16.0); SCAN SMEAR FLAG 1
[2024-09-27 15:41] LABS: Platelet Count 284 X10*3/uL (160-400); White Blood Count 8.9 X10*3/uL (4.8-10.8)
[2024-09-27 15:42] LABS: MANUAL DIFF FLAG SCAN; Mean Platelet Volume 11.4 fL (9.4-12.3)
[2024-09-27 15:43] LABS: Alanine Aminotransferase 11 U/L (0-31); Alkaline Phosphatase 74 U/L (39-117); Anion Gap 11 (12-20); Aspartate Amino Transferase 18 U/L (5-31); Bilirubin Total 0.4 mg/dL (0.0-1.0); Blood Urea Nitrogen 17 mg/dL (9-16); Calcium 9.4 mg/dL (8.4-10.2); Carbon Dioxide 28 mmol/L (22-29); Chloride 104 mmol/L (96-108); Estimated Glomerular Filt Rate > 60; Glucose Random 92 mg/dL (60-115); Potassium 4.2 mmol/L (3.3-5.1); SLIDE REVIEW VERIFIED; Sodium 139 mmol/L (135-145); Total Protein 7.1 g/dL (6.5-8.0)
[2024-09-27 15:59] LABS: Thyroid Stimulating Hormone 3.88 uIU/mL (0.32-4.0)
--- OUTSIDE RECORDS SUMMARY | 2024-09-27 17:06 | XMS_ITS | Clinical Summary ---
Author Organization [employer] Address [address] [place] [address] Care Team Providers Care Extractor Operator Name Role Phone Unavailable Primary Care Provider Unavailabl e Allergies Active Allergy Reactions Criticality Noted Date Comments Egg-Derived Products Angioedema 11/02/2011 Varenicline 11/08/2018 Other reaction(s): anxiety and depression worsened Medications cholecalciferol (Vitamin D3) 25 MCG (1000 UT) [...] twice daily with a meal 5 Active Active Problems No known active problems Encounters Date Type Department Care Team Description 08/25/2024 10:15 AM EST Office Visit [facility] [address] [place] [address] Teo, Tatiana, OD Presbyopia (Primary Dx) 07/20/2024 3:00 PM EST Office Visit [facility] [address] [place] [address] Teo, Tatiana, OD Drusen (degenerative) of macula, [...] Vaccines (1 of 2) 2022 COVID-19 Vaccine ( - season) 2024 Influenza Vaccine (#1) 2024 [...] macula, bilateral from Last 3 Months Insurance [facility]
== END 2024-09-27 14:17 | disposition home or self-care (01) ==
LOC: HO.RESP 14:16
PROVIDERS: Internal Medicine Medical Oncology; PCP Internal Medicine; Visit Provider Hospitalist
DX: D75.1 Secondary polycythemia (principal); E03.9 Hypothyroidism, unspecified; J44.9 Chronic obstructive pulmonary disease, unspecified
CPT/HCPCS: 36415; 80053; 84443; 85025

== ENCOUNTER 2024-09-28 13:26 | Outpatient (AMB) | payer OTHER, SELFPAY ==
[2024-09-28 13:37] VITALS: BP 120/72; PULSE 72; BMI 43.7
--- NOTE | 2024-09-28 13:37 | A.OFFVIS_ITS ---
Vital Signs 09/28/24 13:37 Height 5 ft 4 in Weight 254 lb 6.615 oz BMI 43.7 BP 120/72 Blood Pressure Location Lt radial Position Sitting Pulse 72 Pulse Source Pulse Oximeter Intake Visit Reasons: SVT event 09.26.24 Bilingual Patient Support Caseworker Required: No Count Team Member: Count Team Member Present Allergies egg [Egg] Allergy (Severe, Verified 09/28/24 13:42) ANAPHYLAXIS influenza virus vaccine, specific [FLU VACCINE] Allergy (Severe, Verified 09/28/24 13:42) CANNOT OBTAIN DUE TO EGG ALLERGY nicotine [From NICODERM CQ] Allergy (Intermediate, Verified 09/28/24 13:42) RASH varenicline [From CHANTIX] Allergy (Intermediate, Verified 09/28/24 13:42) DEPRESSION AND ANXIETY INCREASE barium sulfate Adverse Reaction (Intermediate, Verified 09/28/24 13:42) saul Medication List - Last Reconciled 09/28/24 by Chata Clancy, [employer] albuterol sulfate 90 mcg/actuation 2 puffs inhalation Q6H PRN 30 days albuterol sulfate 2.5 mg (3 mL) inhalation Q6H PRN 30 days [bed rail As directed] cholecalciferol (vitamin D3) 25 mcg PO DAILY 30 days comp.stocking,thigh,long,x-lrg As directed dronedarone (Multaq) 400 mg PO BID uakdtmrdvpb-qkiwtandc-drlmlbpc 200-62.5-25 mcg (Trelegy Ellipta) 1 inh inhalation DAILY 30 days furosemide (Lasix) 20 mg PO DAILY 90 days gabapentin 300 mg PO BEDTIME 90 days Grab bar As directed levothyroxine 150 mcg PO DAILY 90 days metoprolol succinate ER 50 mg PO DAILY naproxen 250 mg PO BID PRN 30 days nebulizers As directed omeprazole 40 mg PO DAILY 90 days psyllium husk (Reguloid (psyllium husk)) 0.4 grams PO DAILY Shower Chair As directed venlafaxine 37.5 mg PO DAILY 90 days walker As directed HPI HPI SVT event 09.26.24: Details: Jyoti is a 54-year-old female with past medical history of morbid obesity, asthma , smoking, acquired hypothyroidism, SVT, paroxysmal AFib who had an episode of shortness of breath, rapid heart palpitations on 09/26/2024. She [place] [facility] [place] had lightheadedness and was hypotensive on their arrival. They did cardiovert her in the field. On [place] [facility] [place] showed normal sinus rhythm, rate 92. She was continued on her usual medications and instructed to follow-up with Cardiology. Today she reports that she is upset over needing a cardioversion. She says they gave her no medication or warning and she felt like she was leaving her body. Just thinking about this makes her feel afraid. This is the 1st episode of rapid heart palpitations that she has had since her last visit in February. She has not aware of any known triggers for this event. Her thyroid medication was recently increased however TSH at [facility] [place] 3.88. She reports compliance with all her medications. No chest discomfort at rest or during activity. She does get some shortness of breath with exertion but admits to being mostly sedentary. No PND, orthopnea. She does get bilateral lower leg edema. No presyncope, syncope, falls. Significant other is present. [facility] Medical History Atrial fibrillation Allergies Coronary artery disease History of supraventricular tachycardia Graves disease Asthma with COPD Nicotine dependence, cigarettes, uncomplicated Arthritis Left breast lump Mild recurrent major depression Blurry vision Obesity (BMI 30-39.9) Vitamin D deficiency Constipation History of COVID-19 Surgical History History of total thyroidectomy (~2022) History of tonsillectomy and adenoidectomy History of dental surgery History of appendectomy (~1979) History of tubal ligation (~1999) History of section (~1999) History of right salpingo-oophorectomy (~2001) History of endometrial ablation (~2017) Family History Father Bone cancer Lung cancer Mother CVD (cardiovascular disease) Emphysema of lung Hypertension Asthma Sister No problems noted. Maternal Aunt Uterine cancer Maternal Aunt Skin cancer Social History Household Members: None Housing: Apartment Are you a primary career developer to a significant other at home: No Do you presently have visiting nurse or other home services: No Alcohol intake: former Patient Tobacco Use Status: Current everyday Tobacco user Tobacco use type: Cigarette Cigarette Packs Per Day: 1 Cigarettes Per Day: 20 e-Cigarette/Vaping Use: Never Used Second Hand Smoke Exposure: Yes service: No Current occupational status: disabled Cognitive needs: Yes (Walker) Hearing needs: No Vision needs: Yes Review of Systems Const All systems reviewed & are unremarkable except as noted in HPI and below ENT Denies dizziness Card Denies chest pain, Denies chest pain at rest, Denies chest pain with activity, Reports rapid heart rate, Denies pedal edema, Denies edema, Reports leg edema, Denies lightheadedness, Denies palpitations, Denies dyspnea, Reports dyspnea on exertion and Denies orthopnea Resp Denies cough, Denies dyspnea and Reports dyspnea on exertion GI Denies hematochezia and Denies change in stool character Musc Reports abnormal gait, Denies limited range of motion, Denies muscle cramps, Denies muscle weakness, Denies numbness, Denies radiating pain into limb, Denies stiffness and Denies tingling Neuro Reports abnormal gait, Denies dizziness, Denies numbness and Denies tingling Endo Denies palpitations Physical Exam Vital Signs: Last Vital Signs Pulse 72 09/28/24 13:37 BP 120/72 09/28/24 13:37 BMI result Body Mass Index 43.7 Const General: cooperative and no acute distress Orientation/consciousness: patient oriented x3 Neck Neck: Yes normal visual inspection Resp Effort & Inspection: normal respiratory effort Auscultation: clear to auscultation bilaterally, no rales, no rhonchi and no wheezes Cardio Rate: regular rate Rhythm: regular rhythm Heart sounds: S1 normal heart sound present, S2 normal heart sound present, no gallops, no murmurs and no rubs Neuro General: patient oriented x3 Extrem General: Yes normal to inspection, No no pedal edema and No calf tenderness Psych Appearance: grossly normal Mental Status: mental status grossly normal Speech and movement: Normal speech and movement present Assessment & Plan Assessment & Plan (1) Supraventricular tachycardia: Code(s): I47.10 - Supraventricular tachycardia, unspecified Category: Medical Plan: History of supraventricular tachycardia. EKGs in our system reviewed and I see several occasions where SVT has occurred. She also tells me that the SVT changed over to the atrial fibrillation when she was in the ER 01/12/2024. She has been on Multaq since that time. She also takes metoprolol XL 50 mg daily. Her palpitations have been under control until this recent episode which was very symptomatic and required cardioversion in the field. EKG from 09/26/2024 shows normal sinus rhythm, rate 92, QTC 467 milliseconds. Last echo 02/09/2024 showed EF 55-60%, no valve abnormalities. Nuclear stress test from 02/09/2024 showed no clear ischemia or infarct. Holter monitor done 02/09/2024 for 3 days showed sinus rhythm with average heart rate 78. All the above reviewed with her. At this time will have her continue Multaq, metoprolol. Will refer her to electrophysiology for SVT ablation. She is agreeable to this plan. Vagal maneuvers reviewed. Avoidance of stimulants discussed. Cardiology follow-up 3 months, sooner if needed. (2) Atrial fibrillation: Code(s): I48.91 - Unspecified atrial fibrillation Category: Medical Plan: Episode of atrial fibrillation following SVT on 01/12/2024. EKG in our system and reviewed. She was not put on anticoagulation. Her episode was brief and I have not seen recurrent atrial fibrillation since then. Chads Vasc score1, female. No med changes made at this time. Referring to EP (3) Nicotine dependence, cigarettes, uncomplicated: Comment: (current smoker - onset 15 for 29 years at 1.5 ppd - 40+PYH) Code(s): F17.210 - Nicotine dependence, cigarettes, uncomplicated Category: Medical Plan: Current tobacco smoker. Denies use of marijuana (4) Morbid obesity: Code(s): E66.01 - Morbid (severe) obesity due to excess calories Category: Medical Plan: Benefits a weight loss reviewed (5) Hospital discharge follow-up: Code(s): Z09 - Encounter for follow-up examination after completed treatment for conditions other than malignant neoplasm Category: Medical Plan: [facility] discharge reviewed Orders: Referrals Cardiac Electrophysiology Referral I47.10 - Supraventricular tachycardia, unspecified Coding Level of Care Code Est Pt Level 4 (62160) Complex EM visit Add On G2211 Diagnoses Supraventricular tachycardia I47.10 Atrial fibrillation I48.91 Nicotine dependence, cigarettes, uncomplicated F17.210 Morbid obesity E66.01 Hospital discharge follow-up Z09 Time Spent (min) 36
--- OUTSIDE RECORDS SUMMARY | 2024-09-28 14:41 | XMS_ITS | Clinical Summary ---
Author Organization [employer] Address [address] [facility] [address] [place] [address] Care Team Providers Care Parking Meter Mechanic Name Role Phone Unavailable Primary Care [...] Description 08/25/2024 10:15 AM EST Office Visit [facility] [address] [place] [address] Teo, Tatiana, OD Presbyopia (Primary Dx) 07/20/2024 3:00 PM EST Office Visit [facility] [address] [place] [address] Teo, Tatiana, OD Drusen (degenerative) of macula, [...] macula, bilateral from Last 3 Months Insurance [facility]
== END 2024-09-28 14:35 | disposition home or self-care (01) ==
LOC: HO.HCS 13:27
PROVIDERS: PCP Internal Medicine; Visit Provider Nurse Practitioner Family
DX: I47.10 Supraventricular tachycardia, unspecified (principal); I48.91 Unspecified atrial fibrillation; F17.210 Nicotine dependence, cigarettes, uncomplicated; E66.01 Morbid (severe) obesity due to excess calories; Z09 Encounter for follow-up examination after completed treatment for conditions other than malignant neoplasm
CPT/HCPCS: 99214; G2211

== ENCOUNTER → 2024-09-28 13:26 | Outpatient (BNVA) | payer OTHER, SELFPAY | PROVIDERS: PCP Internal Medicine; Visit Provider Nurse Practitioner Family | DX: I47.10 Supraventricular tachycardia, unspecified (principal); I48.91 Unspecified atrial fibrillation; E66.01 Morbid (severe) obesity due to excess calories; F17.210 Nicotine dependence, cigarettes, uncomplicated; Z09 Encounter for follow-up examination after completed treatment for conditions other than malignant neoplasm; Z68.41 Body mass index [BMI] 40.0-44.9, adult | CPT/HCPCS: 99212 ==

== ENCOUNTER 2024-10-04 13:48 | Outpatient (REF) | payer OTHER, SELFPAY ==
--- OUTSIDE RECORDS SUMMARY | 2024-10-04 16:00 | XMS_ITS | Clinical Summary ---
Author Organization [employer] Address [address] [facility] [address] [place] [address] Care Team Providers Care Top Former Name Role Phone Unavailable Primary Care Provider [...] Description 08/25/2024 10:15 AM EST Office Visit [facility] [address] [place] [address] Teo, Tatiana, OD Presbyopia (Primary Dx) 07/20/2024 3:00 PM EST Office Visit [facility] [address] [place] [address] Teo, Tatiana, OD Drusen (degenerative) of macula, [...] macula, bilateral from Last 3 Months Insurance [facility]CO
== END 2024-10-04 13:49 | disposition home or self-care (01) ==
LOC: HO.MAMMO 13:48
PROVIDERS: PCP Internal Medicine; Visit Provider Internal Medicine
DX: Z13.89 Encounter for screening for other disorder (principal)

== ENCOUNTER 2024-10-06 13:27 | Outpatient (REF) | payer OTHER, SELFPAY ==
--- NOTE | ~2024-10-06 | CT_ITS ---
EXAMINATION: CT LOW-DOSE SCREENING CHEST WITHOUT CONTRAST CLINICAL INFORMATION: 54-year-old female, current smoker, 30 pack years. Lung cancer screening. COMPARISON: 08/18/2023. TECHNIQUE: Multidetector volumetric CT imaging of the chest is performed on a Siemens SOMATOM Definition scanner without contrast using low dose technique. Additional 2D coronal and sagittal reformatted images and axial 3D maximum intensity projection (MIP) images are generated on the CT workstation. This CT examination was performed using dose optimization techniques as appropriate, variously including the following: *Automated exposure control *Adjustment of mA and/or kV according to patient size (this includes techniques or standardized protocols for targeted exams where dose is matched to indication/reason for exam; i.e. extremities or head) *Use of iterative reconstruction technique FINDINGS: PULMONARY NODULES: -3 mm nodule right upper lobe (series 5, image 54), unchanged. -3 mm fissural nodule minor fissure (series 5, image 75), likely intrapulmonary lymph node. Unchanged. -3 mm right middle lobe nodule (series 5, image 79), unchanged. -3 mm nodule right apex (series 5, image 40), unchanged. -No new or enlarging pulmonary nodules. LUNGS: -There is mild centrilobular emphysema. There is upper lobe predominance. There is stable scarring in the lingular segment. Lungs otherwise clear. No consolidation or abnormal groundglass opacities. Small airways appear normal. Central airways are patent. No pleural effusion or pneumothorax. MEDIASTINUM: Thyroid is diminutive. No mediastinal lymph nodes or mass. Aorta is normal in caliber and course. Main pulmonary artery is normal in size. Heart size is normal. There is no pericardial effusion. There is no esophageal abnormality. CORONARY ARTERY CALCIFICATION: None visualized on this study. CHEST WALL/AXILLA: No abnormal lymphadenopathy. Normal appearance. UPPER ABDOMEN: Included portions of the solid organs in the upper abdomen unremarkable on noncontrast imaging. Partially imaged left adrenal adenoma, benign and stable. OSSEOUS STRUCTURES: No suspicious lytic or blastic bone lesions. CT/CT lung screening IMPRESSION: 1. A few scattered stable 3 mm pulmonary nodules. No enlarging or new nodule. 2. Mild centrilobular emphysema. No active lung disease. 3. Additional ancillary findings as discussed. ASSESSMENT: 1. Lung-RADS Category 2: Benign appearance or behavior of nodules. 2. Lung-RADS Category S: None. RECOMMENDATION: Continued routine annual low-dose CT lung screening in 1 year is recommended. An order for CT CHEST LOW DOSE CANCER SCREENING ([id number]) can be placed. Electronically signed by: Marcelo Noble MD 10/06/2024 02:23 PM EDT
--- OUTSIDE RECORDS SUMMARY | 2024-10-06 13:48 | XMS_ITS | Clinical Summary ---
Author Organization [employer] Address [address] [facility] [address] [place] [address] Care Team Providers Care Chartered Financial Analyst Name Role Phone Unavailable Primary Care Provider [...] Description 08/25/2024 10:15 AM EST Office Visit [facility] [address] [place] [address] Teo, Tatiana, OD Presbyopia (Primary Dx) 07/20/2024 3:00 PM EST Office Visit [facility] [address] [place] [address] Teo, Tatiana, OD Drusen (degenerative) of macula, [...] macula, bilateral from Last 3 Months Insurance [facility]CO
== END 2024-10-06 13:28 | disposition home or self-care (01) ==
LOC: HO.CT 13:27
PROVIDERS: PCP Internal Medicine; Visit Provider Physician Assistant Medical
DX: Z12.2 Encounter for screening for malignant neoplasm of respiratory organs (principal); F17.210 Nicotine dependence, cigarettes, uncomplicated
CPT/HCPCS: 71271

== ENCOUNTER → 2024-10-06 13:29 | Outpatient (BNV) | payer OTHER, SELFPAY | PROVIDERS: PCP Internal Medicine; Visit Provider Radiology Diagnostic Radiology | DX: F17.210 Nicotine dependence, cigarettes, uncomplicated (principal) | CPT/HCPCS: 71271 ==

== ENCOUNTER 2024-11-14 13:53 | Outpatient (REF) | payer OTHER, SELFPAY ==
--- OUTSIDE RECORDS SUMMARY | 2024-11-14 15:13 | XMS_ITS | Clinical Summary ---
Author Organization [employer] Address [address] [place] [address] [address] [place] [address] Care Team Providers Care Box Maker Wood Name Role Phone Unavailable Primary Care Provider [...] Description 08/25/2024 10:15 AM EST Office Visit [facility] [address] [place] [id number] Teo, Tatiana, OD Presbyopia (Primary Dx) from Last 3 Months Family History Medical [...] Panel 1972 SDOH Screening 1972 Sigmoidoscopy 1972 Disability Screening 1972 Alcohol/Substance Use Screening 1984 Family Planning [...] patient's age to complete this topic Meningococcal B Vaccine Aged Out No l onger eligible based on patient's age to complete this topic Meningococcal Vaccine Aged Out No haritha markus eligible based on patient's age to complete this topic RSV under 20 months Aged Out No longe r eligible based on patient's age to complete this topic Rotavirus Vaccines Aged Out No longer eligible based on patient's age to complete this topic Insurance [facility]
== END 2024-11-14 13:54 | disposition home or self-care (01) ==
LOC: HO.BBR 13:53
PROVIDERS: PCP Internal Medicine; Visit Provider Internal Medicine Medical Oncology
DX: D75.1 Secondary polycythemia (principal)
CPT/HCPCS: 85018

== ENCOUNTER 2024-11-23 09:57 | Outpatient (AMB) | payer OTHER, SELFPAY ==
[2024-11-23 10:18] VITALS: BP 130/70; PULSE 80; TEMP 37; O2SAT 98; BMI 43.6
--- NOTE | 2024-11-23 10:18 | AM.OFFWIN_ITS ---
Intake Vital Signs 11/23/24 10:18 Height 5 ft 4 in Weight 254 lb BMI 43.6 BP 130/70 Blood Pressure Location Rt brachial Position Sitting Pulse 80 Pulse Source Pulse Oximeter Temp 98.6 F Temp Source Oral Pulse Oximetry (%) 98 Oxygen Delivery Method Room Air Intake Visit Reasons: EP-rt ear clot and discharge Patient Tobacco Use Status: Current everyday Tobacco user Allergies egg [Egg] Allergy (Severe, Verified 11/23/24 10:18) ANAPHYLAXIS influenza virus vaccine, specific [FLU VACCINE] Allergy (Severe, Verified 11/23/24 10:18) CANNOT OBTAIN DUE TO EGG ALLERGY nicotine [From NICODERM CQ] Allergy (Intermediate, Verified 11/23/24 10:18) RASH varenicline [From CHANTIX] Allergy (Intermediate, Verified 11/23/24 10:18) DEPRESSION AND ANXIETY INCREASE barium sulfate Adverse Reaction (Intermediate, Verified 11/23/24 10:18) saul Do you need a note to return to daycare/school/sports/work: No HPI HPI Comments History of Present Illness Details History of Present Illness - The patient is a 54-year-old female pr esenting with ear congestion and drainage for a week. - The right ear has felt clogged for ove r a week, initially thought to be due to wax. - The ear began draining yellowish fluid , with one instance of pinkish fluid that resolved. - The patient experiences no pain, fever , or itchiness, and there is no pain behind the ears or neck swelling. - The patient has not been swimming rece ntly and has been cautious with hair washing. Physical Exam General: Cooperative, healthy appearing, comfortable, no acute distress and well developed Orientation: Patient oriented x3 Limitations: No limitations Head: Normal to inspection Ears: Right EAC with erythema, edema and purulence. Left EAC with erythema, left TM normal. hearing grossly normal bilaterally. mastoids not ttp bilaterally Nose: Normal External nose present Face and sinus: Normal facial exam Eyes: Appearance normal, both eyes and all related structures Neck: Normal visual inspection, no swelling, and Yes full ROM Respiratory: Normal respiratory effort and able to speak in complete sentences. Skin: No rashes or lesions noted Neuro: Patient oriented x3 Extremities: Normal to inspection [facility] Medical History (Updated 11/23/24 @ 10:31 by Ana Quan PA-C) Coronary artery disease Atrial fibrillation History of supraventricular tachycardia VIOLETA (obstructive sleep apnea) Asthma with COPD Nicotine dependence, cigarettes, uncomplicated History of COVID-19 Allergies Hypothyroidism, acquired Graves disease Arthritis Left breast lump Mild recurrent major depression Blurry vision Vitamin D deficiency Constipation Morbid obesity Surgical History History of total thyroidectomy (~2022) History of tonsillectomy and adenoidectomy History of dental surgery History of appendectomy (~1979) History of tubal ligation (~1999) History of section (~1999) History of right salpingo-oophorectomy (~2001) History of endometrial ablation (~2017) Family History Father Bone cancer Lung cancer Mother CVD (cardiovascular disease) Emphysema of lung Hypertension Asthma Sister No problems noted. Maternal Aunt Uterine cancer Maternal Aunt Skin cancer Social History Household Members: None Housing: Apartment Are you a primary housekeeper caregiver to a significant other at home: No Do you presently have visiting nurse or other home services: No Alcohol intake: former Patient Tobacco Use Status: Current everyday Tobacco user Tobacco use type: Cigarette Cigarette Packs Per Day: 1 Cigarettes Per Day: 20 e-Cigarette/Vaping Use: Never Used Second Hand Smoke Exposure: Yes service: No Current occupational status: disabled Cognitive needs: Yes (Walker) Hearing needs: No Vision needs: Yes Review of Systems Const All systems reviewed & are unremarkable except as noted in HPI and below Physical Exam Vital Signs: Last Vital Signs Temp 98.6 F 11/23/24 10:18 Pulse 80 11/23/24 10:18 BP 130/70 11/23/24 10:18 Pulse Ox 98 11/23/24 10:18 Oxygen Delivery Method Room Air 11/23/24 10:18 BMI result Body Mass Index 43.6 Assessment & Plan Assessment & Plan (1) Otitis externa: Code(s): H60.90 - Unspecified otitis externa, unspecified ear Qualifiers: Otitis externa type: diffuse Chronicity: acute Laterality: right Qualified Code(s): H60.311 - Diffuse otitis externa, right ear Plan: The patient is diagnosed with otitis externa and will be treated with ear drops containing a steroid and an antibiotic to reduce inflammation and clear the infection. The drops are to be administered in the right ear every 8 hours, with 4 drops per dose for a duration of 10 days. The patient is advised to use an alarm for timely administration and to lie down during application to ensure absorption. Swimming and getting water in the ear are to be avoided during the treatment period. The prescription will be sent to the [facility]. The patient may discontinue the drops after 7 days if symptoms have resolved, with extra doses available as needed. Patient was informed and verbally consented to the use of an ambient scribe for clinic note documentation during this visit. Medications: New hroffbjs-bdgnrlvqb-TR 3.5-10,000-1 mg/mL-unit/mL-% 4 drps otic (ear) right Q8H 10 days 10 mL 0RF Coding Level of Care Code Est Pt Level 3 (40047) Diagnoses Acute diffuse otitis externa of right ear H60.311 Otitis externa type: diffuse Chronicity: acute Laterality: right
--- OUTSIDE RECORDS SUMMARY | 2024-11-23 10:18 | XMS_ITS | Clinical Summary ---
Author Organization [employer] Address [address] [place] [address] [address] [place] [address] Care Team Providers Care Double Reamer Operator Name Role Phone Unavailable Primary Care [...] Description 08/25/2024 10:15 AM EST Office Visit [facility] [address] [place] [id number] Teo, Tatiana, OD Presbyopia (Primary Dx) from [...] patient's age to complete this topic Insurance [facility] ACO
== END 2024-11-23 10:56 | disposition home or self-care (01) ==
PROVIDERS: PCP Internal Medicine; Visit Provider Physician Assistant
DX: H60.311 Diffuse otitis externa, right ear (principal)

== ENCOUNTER → 2024-11-23 09:57 | Outpatient (BNVA) | payer OTHER, SELFPAY | PROVIDERS: PCP Internal Medicine; Visit Provider Physician Assistant | DX: H60.311 Diffuse otitis externa, right ear (principal) | CPT/HCPCS: 99212 ==

== ENCOUNTER 2024-11-28 13:25 | Outpatient (AMB) | payer OTHER, SELFPAY ==
--- NOTE | 2024-11-28 13:27 | A.OFFVIS_ITS ---
Vital Signs 11/28/24 13:29 Height 5 ft 4 in Weight 251 lb 5.231 oz BMI 43.1 BP 120/70 Blood Pressure Location Lt brachial Position Sitting Pulse 82 Intake Visit Reasons: 6 month follow-up with ekg r/s 09-11-24 Intake Note: 6 month follow-up with ekg feeling good Bulk Folder Required: No Director Security Management: Director Security Management Present Accompanied by: Family/Other Allergies egg [Egg] Allergy (Severe, Verified 11/23/24 10:18) ANAPHYLAXIS influenza virus vaccine, specific [FLU VACCINE] Allergy (Severe, Verified 11/23/24 10:18) CANNOT OBTAIN DUE TO EGG ALLERGY nicotine [From NICODERM CQ] Allergy (Intermediate, Verified 11/23/24 10:18) RASH varenicline [From CHANTIX] Allergy (Intermediate, Verified 11/23/24 10:18) DEPRESSION AND ANXIETY INCREASE barium sulfate Adverse Reaction (Intermediate, Verified 11/23/24 10:18) saul Medication List - Last Reconciled 11/28/24 by Kelechi Graham MD albuterol sulfate 90 mcg/actuation 2 puffs inhalation Q6H PRN 30 days albuterol sulfate 2.5 mg (3 mL) inhalation Q6H PRN 30 days [bed rail As directed] cholecalciferol (vitamin D3) 25 mcg PO DAILY 30 days comp.stocking,thigh,long,x-lrg As directed dronedarone (Multaq) 400 mg PO BID dnlqvqmbxje-laqapstip-madcrdtv 200-62.5-25 mcg (Trelegy Ellipta) 1 inh inhalation DAILY 30 days furosemide (Lasix) 20 mg PO DAILY 90 days gabapentin 300 mg PO BEDTIME 90 days Grab bar As directed levothyroxine 150 mcg PO DAILY 90 days metoprolol succinate ER 50 mg PO DAILY naproxen 250 mg PO BID PRN 30 days nebulizers As directed iwmianjf-ydclwfcbd-QD 3.5-10,000-1 mg/mL-unit/mL-% 4 drps otic (ear) right Q8H 10 days omeprazole 40 mg PO DAILY 90 days Shower Chair As directed venlafaxine 37.5 mg PO DAILY 90 days walker As directed HPI Comments Details: Jyoti comes for follow-up. She has not had any episodes of prolonged palpitation irregular heartbeat currently. She has some allergies. Unfortunately continues to smoke. Has not received her CPAP machine as per her. Has seen electrophysiology and plan for ablation in January for her SVT. Denies any other significant cardiac complaints except for exertional shortness of breath. FOR[facility]LY [facility] Medical History (Updated 11/28/24 @ 13:48 by Kelechi Graham MD) History of supraventricular tachycardia Atrial fibrillation VIOLETA (obstructive sleep apnea) Asthma with COPD Nicotine dependence, cigarettes, uncomplicated History of COVID-19 Allergies Hypothyroidism, acquired Graves disease Arthritis Left breast lump Mild recurrent major depression Blurry vision Vitamin D deficiency Constipation Morbid obesity Surgical History History of total thyroidectomy (~2022) History of tonsillectomy and adenoidectomy History of dental surgery History of appendectomy (~1979) History of tubal ligation (~1999) History of section (~1999) History of right salpingo-oophorectomy (~2001) History of endometrial ablation (~2017) Family History Father Bone cancer Lung cancer Mother CVD (cardiovascular disease) Emphysema of lung Hypertension Asthma Sister No problems noted. Maternal Aunt Uterine cancer Maternal Aunt Skin cancer Social History Household Members: None Housing: Apartment Are you a primary career guidance counselor to a significant other at home: No Do you presently have visiting nurse or other home services: No Alcohol intake: former Patient Tobacco Use Status: Current everyday Tobacco user Tobacco use type: Cigarette Cigarette Packs Per Day: 1 Cigarettes Per Day: 20 e-Cigarette/Vaping Use: Never Used Second Hand Smoke Exposure: Yes service: No Current occupational status: disabled Cognitive needs: Yes (Walker) Hearing needs: No Vision needs: Yes Review of Systems Const Denies chills, Denies fatigue, Denies fever(s), Denies frequent falls, Denies weakness, Denies weight gain and Denies weight loss ENT Denies dizziness Card Denies chest pain, Denies leg edema, Denies lightheadedness, Denies palpitations, Denies dyspnea, Denies dyspnea on exertion, Denies orthopnea and Denies other (loss of consciousness) Resp Denies cough, Denies dyspnea and Denies dyspnea on exertion GI Denies hematochezia and Denies change in stool character Musc Denies abnormal gait, Denies muscle weakness, Denies numbness, Denies radiating pain into limb and Denies tingling Neuro Denies abnormal gait, Denies dizziness, Denies frequent falls, Denies numbness, Denies tingling and Denies weakness Endo Denies fatigue and Denies palpitations Physical Exam Vital Signs: Last Vital Signs Pulse 82 11/28/24 13:29 BP 120/70 11/28/24 13:29 BMI result Body Mass Index 43.1 Const General: cooperative and no acute distress Orientation/consciousness: patient oriented x3 Neck Neck: Yes normal visual inspection Resp Effort & Inspection: normal respiratory effort Auscultation: clear to auscultation bilaterally, no rales, no rhonchi and no wheezes Cardio Rate: regular rate Rhythm: regular rhythm Heart sounds: S1 normal heart sound present, S2 normal heart sound present, no gallops, no murmurs and no rubs Neuro General: patient oriented x3 Extrem General: Yes normal to inspection, No no pedal edema and No calf tenderness Psych Appearance: grossly normal Mental Status: mental status grossly normal Speech and movement: Normal speech and movement present Office Procedures EKG Details: EKG shows normal sinus rhythm sinus arrhythmias with normal intervals 07191-Illakglnauhghiecz, Complete Assessment & Plan Assessment & Plan (1) Supraventricular tachycardia: Code(s): I47.10 - Supraventricular tachycardia, unspecified Category: Medical Plan: Supraventricular tachycardia in his middle-aged female which is highly symptomatic. She is on 2 therapies with metoprolol and Multaq. She is scheduled for slow pathway ablation in January. Once this is perform I think she sudden, Multaq therapy. Continue metoprolol therapy. She did have history of atrial fibrillation as well although this is self-limiting has had no recurrence. At that point in time if she has no recurrence, will continue metoprolol therapy. CPAP therapy is absolutely indicated. She is also advised to continue to participate in aggressive weight loss program. Will follow up in the clinic in 6 months time, sooner p.r.n.. Thank you for allowing me to partake in her care Coding Level of Care Code Est Pt Level 4 (20718) Complex EM visit Add On G2211 Diagnoses Supraventricular tachycardia I47.10 CPT Codes EKG - CPT: 85855-Lblosjrkgdjilmjrs, Complete ([id number])
[2024-11-28 13:29] VITALS: BP 120/70; PULSE 82; BMI 43.1
--- OUTSIDE RECORDS SUMMARY | 2024-11-28 15:03 | XMS_ITS | Clinical Summary ---
Author Organization [employer] Address [address] [place] [address] [address] [place] [address] Care Team Providers Care Border Guard Name Role Phone Unavailable Primary Care Provider [...] Active Active Problems No known active problems Family History Medical History Relation Name Comments [...] (1 of 2) 2022 COVID-19 Vaccine ( season) 2024 Influenza Vaccine (Season Ended) 2025 Tobacco Screening 08/02/2025 08/02/2024 DTaP/Tdap/Td Vaccines (3 [...] patient's age to complete this topic Insurance [facility]
== END 2024-11-28 13:54 | disposition home or self-care (01) ==
LOC: HO.HCS 13:26
PROVIDERS: PCP Internal Medicine; Visit Provider Internal Medicine Cardiovascular Disease
DX: I47.10 Supraventricular tachycardia, unspecified (principal)
CPT/HCPCS: 93010; 99214; G2211

== ENCOUNTER → 2024-11-28 13:25 | Outpatient (BNVA) | payer OTHER, SELFPAY | PROVIDERS: PCP Internal Medicine; Visit Provider Internal Medicine Cardiovascular Disease | DX: I47.10 Supraventricular tachycardia, unspecified (principal); R00.2 Palpitations; G47.33 Obstructive sleep apnea (adult) (pediatric); F17.210 Nicotine dependence, cigarettes, uncomplicated | CPT/HCPCS: 93005; 99212 ==

== ENCOUNTER 2025-02-19 12:38 | Outpatient (REF) | payer OTHER, SELFPAY | END 2025-02-19 12:39 | disposition home or self-care (01) | LOC: HO.BBR 12:38 | PROVIDERS: PCP Internal Medicine; Visit Provider Internal Medicine Medical Oncology | DX: E03.9 Hypothyroidism, unspecified (principal); F33.0 Major depressive disorder, recurrent, mild; I48.91 Unspecified atrial fibrillation; E66.01 Morbid (severe) obesity due to excess calories; Z68.41 Body mass index [BMI] 40.0-44.9, adult; K21.9 Gastro-esophageal reflux disease without esophagitis; K31.84 Gastroparesis; N39.41 Urge incontinence; J44.9 Chronic obstructive pulmonary disease, unspecified; M54.32 Sciatica, left side; Q76.0 Spina bifida occulta; F17.200 Nicotine dependence, unspecified, uncomplicated; Z71.3 Dietary counseling and surveillance; Z71.6 Tobacco abuse counseling | CPT/HCPCS: 85018; 96127; 99212 ==

== ENCOUNTER 2025-02-19 13:48 | Outpatient (AMB) | payer OTHER, SELFPAY ==
[2025-02-19 14:11] VITALS: BP 130/72; PULSE 75; RESP 18; TEMP 36.4; O2SAT 94; BMI 44.3
--- NOTE | 2025-02-19 14:11 | A.OFFPC_ITS ---
Vital Signs 02/19/25 14:11 Height 5 ft 4 in Weight 258 lb 2 oz BMI 44.3 BP 130/72 Blood Pressure Location Rt brachial Position Sitting Respiration 18 Pulse 75 Pulse Source Pulse Oximeter Temp 97.5 F Temp Source Temporal Artery Scan Pulse Oximetry (%) 94 Oxygen Delivery Method Room Air Intake Visit Reasons: THYROID Benefits Specialist Required: No Accompanied by: CHIP SEPARATOR Allergies egg (Egg) Allergy (Severe, Verified 02/19/25 16:07) ANAPHYLAXIS influenza virus vaccine, specific (FLU VACCINE) Allergy (Severe, Verified 02/19/25 16:07) CANNOT OBTAIN DUE TO EGG ALLERGY nicotine (From NICODERM CQ) Allergy (Intermediate, Verified 02/19/25 16:07) RASH varenicline (From CHANTIX) Allergy (Intermediate, Verified 02/19/25 16:07) DEPRESSION AND ANXIETY INCREASE barium sulfate Adverse Reaction (Intermediate, Verified 02/19/25 16:07) saul Tobacco use date assessed: 02/19/25 Dental Screening Dental Screen Date: 02/19/25 Did you have a dental visit in the last 12 months?: No Did you have a dental problem in the last 6 months where you did not have access to dental care?: No Was dental information given to patient?: No HPI HPI Comments History of Present Illness Details The patient is a 54-year-old female presenting with management of multiple chronic conditions including hypothyroidism, chronic low back pain, and urinary incontinence. She has a history of hypothyroidism, managed with levothyroxine 150 mcg, and a TSH test will be ordered to monitor her thyroid function. She also reports chronic low back pain, with previous imaging revealing spina bifida occulta, osteoarthritis, and sclerosis of the lumbar spine. The patient experiences urinary incontinence, for which she uses incontinence pads and bed underpads. A referral to urology is planned due to the association of her medication with urinary incontinence. She has a history of supraventricular tachycardia and atrial fibrillation, managed with metoprolol, and is followed by cardiology. Additionally, she has chronic obstructive pulmonary disease (COPD) and continues to smoke, despite having undergone a CT scan for lung cancer screening this year. The CT scan revealed 3 mm nodules in the right upper lobe, right middle lobe, and right apex, with no new or enlarging nodules, and mild centrilobular emphysema. The patient has low vitamin D levels and experiences gastroesophageal reflux disease (GERD), which persists despite treatment with omeprazole. A switch to pantoprazole is planned to address her GERD symptoms. She is morbidly obese with a BMI of 44 and has been advised to pursue diet and exercise for weight management. She also reports painful pimples on her breasts, which complicate mammogram procedures, and will be treated with Bactrim. Laboratory results indicate chronic kidney disease stage 3 with a GFR of 47, microcytic anemia with a hemoglobin of 11, MCV of 77.4, and RDW of 17. [facility] Medical History (Updated 02/19/25 @ 20:41 by Marline Mix MD) History of supraventricular tachycardia Atrial fibrillation VIOLETA (obstructive sleep apnea) Asthma with COPD Nicotine dependence, cigarettes, uncomplicated History of COVID-19 Allergies Hypothyroidism, acquired Graves disease Arthritis Left breast lump Mild recurrent major depression Blurry vision Vitamin D deficiency Constipation Morbid obesity Surgical History History of total thyroidectomy (~2022) History of tonsillectomy and adenoidectomy History of dental surgery History of appendectomy (~1979) History of tubal ligation (~1999) History of section (~1999) History of right salpingo-oophorectomy (~2001) History of endometrial ablation (~2017) Family History Father Bone cancer Lung cancer Mother CVD (cardiovascular disease) Emphysema of lung Hypertension Asthma Sister No problems noted. Maternal Aunt Uterine cancer Maternal Aunt Skin cancer Social History Household Members: None Housing: Apartment Are you a primary child care specialist to a significant other at home: No Do you presently have visiting nurse or other home services: No Alcohol intake: former Patient Tobacco Use Status: Current everyday Tobacco user Tobacco use type: Cigarette Cigarette Packs Per Day: 1 e-Cigarette/Vaping Use: Never Used Second Hand Smoke Exposure: Yes service: No Current occupational status: disabled Cognitive needs: Yes (Walker) Hearing needs: No Vision needs: Yes Questionnaire PHQ-9 Over the last 2 weeks, how often have you been bothered by any of the following problems? 1. Little interest or pleasure in doing things: several days 2. Feeling down, depressed, or hopeless: several days 3. Trouble falling or staying asleep, or sleeping too much: several days 4. Feeling tired or having little energy: several days 5. Poor appetite or overeating: several days 6. Feeling bad about yourself - or that you are a failure or have let yourself or your family down: several days 7. Trouble concentrating on things, such as reading the newspaper or watching television: not at all 8. Moving or speaking so slowly that other people could have noticed. Or the opposite - being so fidgety or restless that you have been moving around a lot more than usual: not at all 9. Thoughts that you would be better off or of hurting yourself in some way: not at all Total score: 6 Depression Screening Interpretation: Positive Depression Screening Follow-up: Existing condition, In treatment, Community Mental Health Worker F/U and Follow- up Visit Requested Depression Screening Done: Yes 89819 - PHQ-9 Billing: Yes Source: Developed by Drs. Ahsan Mcleod, Regina Chauhan, Driss Gordillo and colleagues, with an educational justino from [employer]. Thrive Questionnaire Date Thrive assessed: 02/19/25 I am a: Patient What is your living situation today?: I have a steady place to live Within the past 12 months, did the food you bought not last and you didn't have the money to get more?: Sometimes True Within the past 12 months, did you worry whether your food would run out before you got money to buy more?: Sometimes True Do you have trouble paying for medicines?: No Do you have trouble getting transportation to medical appointments?: I choose not to answer this question Do you have trouble paying your heating and electricity bill?: I choose not to answer this question Do you have trouble taking care of your child, family member or friend?: I choose not to answer this question Do you have trouble with day-to-day activities such as bathing, preparing meals, shopping, managing finances, etc.?: I choose not to answer this question Are you currently unemployed and looking for a job?: I choose not to answer this question Are you interested in more education?: I choose not to answer this question Please select the resources that you would like help with: None Currently or been in a relationship where the following occur: I choose not to answer THRIVE Score: 2 AUDIT C Alcohol Use Questionnaire (AUDIT-C) 1. How often do you have a drink containing alcohol?: Never Total Score: 0 Score Reviewed/Action Taken: No REYES-7 AMB Questionnaire REYES-7 Date REYES - 7 assessed: 02/19/25 Feeling nervous, anxious, or on edge: 1 = Several days Not being able to stop or control worryin = Not at all Worrying too much about different things: 1 = Several days Trouble relaxin = Several days Being so restless that it is hard to sit still: 1 = Several days Becoming easily annoyed or irritable: 1 = Several days Feeling afraid as if something awful might happen: 0 = Not at all Total REYES-7 score (0-4 normal; 5-9 mild; 10-14 moderate; 15-21 severe): 5 Source: Developed by Drs. Ahsan Mcleod, Regina Chauhan, Driss Gordillo and colleagues, with an educational justino from [employer]. REYES-7 Assessment Billing REYES-7 Assessment Tool: REYES-7 Assessment 53848 Review of Systems Const All systems reviewed & are unremarkable except as noted in HPI and below Card Denies chest pain at rest, Denies chest pain with activity, Denies edema, Denies irregular heart rhythm, Denies claudication, Denies dyspnea, Denies dyspnea on exertion, Denies orthopnea, Denies paroxysmal nocturnal dyspnea and Denies slow heart rate Resp Denies cough, Denies dyspnea and Denies dyspnea on exertion GI Denies abdominal pain, Denies change in bowel habits, Denies excessive flatus, Denies nausea and Denies vomiting Physical exam (Primary Care) Vital Signs: Last Vital Signs Temp 97.5 F 02/19/25 14:11 Pulse 75 02/19/25 14:11 Resp 18 02/19/25 14:11 BP 130/72 02/19/25 14:11 Pulse Ox 94 02/19/25 14:11 Oxygen Delivery Method Room Air 02/19/25 14:11 BMI result Body Mass Index 44.3 BMI Assessment/Plan discussion: High BMI High, discussed plan: lifestyle, weight reduction, dietary and physical activity Tobacco/Smoking Status: Tobacco use Status Tobacco use date assessed 02/19/25 02/19/25 14:19 Patient Tobacco Use Status Current everyday Tobacco 02/19/25 14:19 Tobacco use type Cigarette 02/19/25 14:19 e-Cigarette/Vaping Use Never Used 02/19/25 14:19 Are you ready to quit: Yes Tobacco cessation counseling provided: Yes Items discussed: Nicotine replacement and QuitWorks Relapse Prevention: discussed the importance of a supportive environment, discussed extending NRT, discussed negative mood or depression after quitting, weight gain after smoking is common and discussed dietary, exercise and/or lifestyle changes Number of minutes spent counselin CPT code: 85743 - 4-10 Minutes PHQ-9: PHQ-9 Score PHQ-9: Total score 6 02/19/25 17:36 Depression Screening Interpretation: Positive Depression Screening Follow-up: Existing condition, In treatment, Community Mental Health Worker F/U and Follow- up Visit Requested Thrive Assessment: Date of Thrive Assessment Date Thrive assessed 02/19/25 02/19/25 14:19 Currently or been in a relationship where the following occur: I choose not to answer Resp Effort & Inspection: normal respiratory effort Auscultation: clear to auscultation bilaterally Cardio Jugular venous distension: no JVD Rate: regular rate Rhythm: regular rhythm Heart sounds: S1 normal heart sound present and S2 normal heart sound present Extrem General: Yes full ROM Coding Level of Care Code Est Pt Level 4 (65102) Complex EM visit Add On G2211 Diagnoses Mild recurrent major depression F33.0 Atrial fibrillation I48.91 Hypothyroidism, acquired E03.9 Morbid obesity E66.01 Chronic GERD K21.9 Gastroparesis K31.84 Urge urinary incontinence N39.41 Asthma with COPD J44.9 Left sciatic nerve pain M54.32 Spina bifida occulta Q76.0 Additional Codes REYES-7 Assessment Billing - REYES-7 Assessment Tool: REYES-7 Assessment 47104 ([id number]) PHQ-9 - 60874 - PHQ-9 Billing: Yes ([id number]) Vital Signs *Quality* - CPT code: 98501 - 4-10 Minutes ([id number]) Time Spent (min) 24 Assessment & Plan Assessment & Plan (1) Mild recurrent major depression: Code(s): F33.0 - Major depressive disorder, recurrent, mild Category: Medical (2) Atrial fibrillation: Code(s): I48.91 - Unspecified atrial fibrillation Category: Medical (3) Hypothyroidism, acquired: Code(s): E03.9 - Hypothyroidism, unspecified Category: Medical (4) Morbid obesity: Code(s): E66.01 - Morbid (severe) obesity due to excess calories Category: Medical (5) Chronic GERD: Code(s): K21.9 - Gastro-esophageal reflux disease without esophagitis Category: Medical (6) Gastroparesis: Code(s): K31.84 - Gastroparesis Category: Medical (7) Urge urinary incontinence: Code(s): N39.41 - Urge incontinence Category: Medical (8) Asthma with COPD: Code(s): J44.9 - Chronic obstructive pulmonary disease, unspecified Category: Medical (9) Left sciatic nerve pain: Code(s): M54.32 - Sciatica, left side Category: Medical (10) Spina bifida occulta: Code(s): Q76.0 - Spina bifida occulta Category: Medical Plan Plan Patient was informed and verbally consented to the use of an ambient scribe for clinic note documentation during this visit. 1. Hypothyroidism, unspecified E03.9 The patient is currently on levothyroxine 150 mcg for hypothyroidism, and a TSH test will be ordered to monitor thyroid function. 2. Low back pain, unspecified M54.50 The patient reports chronic low back pain with imaging showing spina bifida occulta and osteoarthritis of the lumbar spine. 3. Unspecified urinary incontinence R32 The patient experiences urinary incontinence and uses incontinence pads and bed underpads. A referral to urology is planned due to the association of her medication with urinary incontinence. 4. Supraventricular tachycardia, unspecified I47.10 HCC 96 The patient has supraventricular tachycardia managed with metoprolol and is followed by cardiology. 5. Unspecified atrial fibrillation I48.91 HCC 96 The patient has atrial fibrillation and is managed with metoprolol, under cardiology care. 6. Chronic obstructive pulmonary disease, unspecified J44.9 HCC 111 The patient has COPD and continues to smoke. A CT scan for lung cancer screening was performed this year. 7. Other nonspecific abnormal finding of lung field R91.8 CT scan revealed 3 mm nodules in the right upper lobe, right middle lobe, and right apex, with no new or enlarging nodules. 8. Vitamin D deficiency, unspecified E55.9 The patient has low vitamin D levels, and supplementation may be considered. 9. Gastro-esophageal reflux disease without esophagitis K21.9 The patient experiences persistent GERD symptoms despite omeprazole treatment, and a switch to pantoprazole is planned. 10. Morbid (severe) obesity due to excess calories E66.01 HCC 22 The patient is morbidly obese with a BMI of 44 and has been advised to pursue diet and exercise for weight management. 11. Other iron deficiency anemias D50.8 The patient has microcytic anemia with a hemoglobin of 11, MCV of 77.4, and RDW of 17. During the visit, we discussed the management of her hypothyroidism with levothyroxine and the need for a TSH test. We also addressed her chronic low back pain and the findings of spina bifida occulta and osteoarthritis. I recommended a referral to urology for her urinary incontinence, which may be associated with her medication. We reviewed her cardiovascular conditions, including supraventricular tachycardia and atrial fibrillation, and her ongoing management with metoprolol. Her COPD and smoking status were discussed, along with the results of her recent CT scan showing lung nodules and emphysema. We talked about her vitamin D deficiency and the persistent GERD symptoms, for which a switch to pantoprazole is planned. I advised her on weight management strategies due to her morbid obesity and addressed her chronic kidney disease and microcytic anemia based on recent lab results. Orders: Orders Thyroid Stimulating Hormone Today E03.9 - Hypothyroidism, unspecified Vitamin D 25-OH Total Today E55.9 - Vitamin D deficiency, unspecified NM gastric emptying study Today K31.84 - Gastroparesis Referrals Urology Referral N39.41 - Urge incontinence Medications: New incontinence pad, liner, disp Use 3 pads per day 90 ea 11RF N39.41 - Urge incontinence [compression stockings ankle high] As directed 1 ea 0RF R60.0 - Localized edema pantoprazole 40 mg PO DAILY 90 tabs 1RF 90 days sulfamethoxazole-trimethoprim 800-160 mg (Bactrim DS) 1 tab PO BID 20 tabs 0RF 10 days underpads (Bed Underpads) Use 4 pads per day 100 ea 11RF N39.41 - Urge incontinence Patient Instructions: - Continue taking levothyroxine as prescribed and follow up with TSH testing. - Use incontinence pads and bed underpads as needed and follow up with urology. - Continue metoprolol for heart conditions and follow up with cardiology. - Quit smoking to improve COPD and overall lung health. - Switch from omeprazole to pantoprazole for GERD management. - Follow a diet and exercise plan to manage weight.
--- OUTSIDE RECORDS SUMMARY | 2025-02-19 15:07 | XMS_ITS | Clinical Summary ---
Author Organization [employer] Address [address] [place] [address] [address] [place] [address] Care Team Providers Care Ambulatory Care Coordinator Name Role Phone Unavailable Primary Care Provider [...] ( - season) 2024 Influenza Vaccine (#1) 2025 Tobacco Screening 08/02/2025 08/02/2024 DTaP/Tdap/Td Vaccines [...] patient's age to complete this topic Insurance [facility]
== END 2025-02-19 14:37 | disposition home or self-care (01) ==
LOC: HO.HMCH 13:49
PROVIDERS: PCP Internal Medicine; Visit Provider Internal Medicine
DX: I48.91 Unspecified atrial fibrillation (principal); E66.01 Morbid (severe) obesity due to excess calories; J44.9 Chronic obstructive pulmonary disease, unspecified; Z68.41 Body mass index [BMI] 40.0-44.9, adult; F33.0 Major depressive disorder, recurrent, mild; E03.9 Hypothyroidism, unspecified; K21.9 Gastro-esophageal reflux disease without esophagitis; K31.84 Gastroparesis; N39.41 Urge incontinence; M54.32 Sciatica, left side; Q76.0 Spina bifida occulta; F17.210 Nicotine dependence, cigarettes, uncomplicated

== ENCOUNTER 2025-02-19 16:41 | Outpatient (REF) | payer OTHER, SELFPAY ==
[2025-02-19 18:14] LABS: Thyroid Stimulating Hormone 5.18 uIU/mL (0.32-4.0)
== END 2025-02-19 16:42 | disposition home or self-care (01) ==
LOC: HO.LAB 16:41
PROVIDERS: PCP Internal Medicine; Visit Provider Internal Medicine
DX: E55.9 Vitamin D deficiency, unspecified (principal); E03.9 Hypothyroidism, unspecified
CPT/HCPCS: 36415; 82306; 84443

== ENCOUNTER 2025-03-03 04:29 | Emergency (ER) | payer OTHER, SELFPAY ==
--- NOTE | 2025-03-03 04:31 | ECG_ITS ---
Test Reason : PALPITATIONS Blood Pressure : */* mmHG Vent. Rate : 85 BPM Atrial Rate : 85 BPM P-R Int : 186 ms QRS Dur : 80 ms QT Int : 384 ms P-R-T Axes : 65 9 64 degrees QTcB Int : 456 ms Normal sinus rhythm Normal ECG When compared with ECG of 12-Jan-2024 19:45, Sinus rhythm has replaced Atrial fibrillation Referred By: Generic ED Physician Electronically Signed By: Shawn Ramesh
[2025-03-03 04:32] VITALS: BP 116/91; BP 146/84; PULSE 195; PULSE 96; RESP 18; TEMP 36.6; O2SAT 96; O2SAT 99; BMI 40.2
[2025-03-03 04:39] VITALS: BP 146/84; PULSE 96; RESP 18; TEMP 36.6; O2SAT 96
--- NOTE | 2025-03-03 04:45 | ED_ITS ---
HPI - Arrhythmia/Palpitations General Chief Complaint: Arrhythmia/Palpitations Stated Complaint: palpitations Time Seen by Provider: 03/03/25 04:42 Source: patient and EMS Mode of arrival: EMS Limitations: no limitations History of Present Illness ED Provider: Marcelo CESAR HPI narrative: The patient is a 54-year-old female with a history of spina bifida occulta, gastroparesis, SVT/atrial fibrillation, VIOLETA, hypothyroidism, Graves disease, tobacco dependency with COPD, GERD, and morbid obesity, presenting to the ED via EMS for evaluation after she woke suddenly from a bad dream while sleeping this evening, and developed racing heart palpitations. Patient reports she has previously experienced episodes of SVT, most recent was 4 months ago at which time she required synchronized cardioversion in the field due to poor IV access and unstable blood pressure. Tonight the patient activated EMS and was found with a heart rate in the 190s, treated with 6 mg of adenosine by EMS with subsequent return to normal sinus rhythm. The patient reports she has been experiencing increasing GERD symptoms for which she takes pantoprazole q.a.m., however also admits she was previously treated with the omeprazole and will take this at night if she has worsening GERD symptoms. Patient reports she is experiencing burning sensation of the esophagus with mild nausea, denies overt chest pain, denies associated pleurisy, vomiting, diarrhea, abdominal pain, shortness of breath or urinary symptoms. The patient states she is scheduled for a cardiac ablation in the next few months due to recurrent episodes of SVT versus AFib. The patient is not currently anticoagulated. Related Data Home Medications ?Medication ?Instructions ?Recorded ?Confirmed nebulizers 04/29/23 02/19/25 Previous Rx's ?Medication ?Instructions ?Recorded walker #1 ea 01/11/23 albuterol sulfate 2.5 mg/3 mL 2.5 mg (3 mL) inhalation Q6H PRN 02/23/23 (0.083 %) solution for nebulization shortness of breat h or wheezing 30 days #180 mL Grab bar #1 ea 12/08/23 Shower Chair #1 ea 12/08/23 comp.stocking,thigh,long,x-lrg #12 ea 12/22/23 albuterol sulfate 90 mcg/actuation 2 puff inhalation Q 6H PRN 06/09/24 aerosol inhaler shortness of breath or wheez ing 30 days #6.7 grams fluticasone fur. 200 mcg-umeclid 1 inh inhalation MEGAN Y 30 days #60 06/09/24 62.5 mcg-vilant 25 mcg ea inhalat.powder (Trelegy Ellipta) bed rail #1 ea 07/12/24 dronedarone 400 mg tablet (Multaq) 400 mg PO BID #180 tabs 08/07/24 metoprolol succinate 50 mg 50 mg PO DAILY #90 tabs 04/21 tablet,extended release 24 hr naproxen 250 mg tablet 250 mg PO BID PRN pain 30 da ys #60 11/22/24 tabs mrybzrmr-idpyabayr-njfvbssvp 3.5 4 drp otic (ear) righ t Q8H 10 days 11/23/24 mg-10,000 unit/mL-1 % ear #10 mL drops,susp gabapentin 300 mg capsule 300 mg PO BEDTIME 90 days #9 0 caps 12/03/24 venlafaxine 37.5 mg tablet 37.5 mg PO DAILY 90 days #9 0 tabs 12/31/24 omeprazole 40 mg capsule,delayed 40 mg PO DAILY 90 day s #90 caps 01/03/25 release cholecalciferol (vitamin D3) 25 25 mcg PO DAILY 30 day s #30 tabs 02/04/25 mcg (1,000 unit) tablet furosemide 20 mg tablet (Lasix) 20 mg PO DAILY 90 days #90 tabs 02/08/25 compression stockings ankle high #1 ea 02/19/25 incontinence pad, liner, disp #90 ea 02/19/25 pantoprazole 40 mg tablet,delayed 40 mg PO DAILY 90 da ys #90 tabs 02/19/25 release sulfamethoxazole 800 1 tab PO BID 10 days #20 tab s 02/19/25 mg-trimethoprim 160 mg tablet (Bactrim DS) underpads (Bed Underpads) #100 ea 02/19/25 levothyroxine 175 mcg tablet 175 mcg PO DAILY 90 days #90 tabs 02/21/25 (Synthroid) compression stockings knee high #2 ea 02/26/25 purewick #1 ea 02/28/25 Allergies Allergy/AdvReac Type Severity Reaction Status Date / Time egg (Egg) Allergy Severe ANAPHYLAXIS Verified 03/03/25 04:38 influenza virus vaccine, Allergy Severe CANNOT Verified 03/03/25 04:38 specific (FLU VACCINE) OBTAIN DUE TO EGG ALLERGY nicotine (From NICODERM CQ) Allergy Intermediate RASH Verified 03/03/25 04:38 varenicline (From CHANTIX) Allergy Intermediate DEPRESSION Verified 03/03/25 04:38 AND ANXIETY INCREASE barium sulfate AdvReac Intermediate saul Verified 03/03/25 04:38 Review of Systems 2 Review of Systems: Yes all other systems are reviewed and are negative [facility] Past Medical History Medical History History of supraventricular tachycardia Atrial fibrillation VIOLETA (obstructive sleep apnea) Asthma with COPD Nicotine dependence, cigarettes, uncomplicated History of COVID-19 Allergies Hypothyroidism, acquired Graves disease Arthritis Left breast lump Mild recurrent major depression Blurry vision Vitamin D deficiency Constipation Morbid obesity Surgical History History of total thyroidectomy (~2022) History of tonsillectomy and adenoidectomy History of dental surgery History of appendectomy (~1979) History of tubal ligation (~1999) History of section (~1999) History of right salpingo-oophorectomy (~2001) History of endometrial ablation (~2017) Family History Family History Father Bone cancer Lung cancer Mother CVD (cardiovascular disease) Emphysema of lung Hypertension Asthma Sister No problems noted. Maternal Aunt Uterine cancer Maternal Aunt Skin cancer Social History Social History Household Members: None Housing: Apartment Are you a primary manager critical care to a significant other at home: No Do you presently have visiting nurse or other home services: No Alcohol intake: former Patient Tobacco Use Status: Current everyday Tobacco user Tobacco use type: Cigarette Cigarette Packs Per Day: 1 Cigarettes Per Day: 20 Smoked in Last 30 Days: Yes e-Cigarette/Vaping Use: Never Used Second Hand Smoke Exposure: Yes Use of substances other than those prescribed or required for medical reasons: No Advance Directives: No Advance Directives Information Provided: Yes service: No Current occupational status: disabled Cognitive needs: Yes (Walker) Hearing needs: No Vision needs: Yes Physical Exam 2 Vital Signs: Vital Signs: Last Vital Signs Temp 98.1 F 03/03/25 05:53 Pulse 85 03/03/25 07:10 Resp 18 03/03/25 07:10 BP 102/56 L 03/03/25 07:10 Pulse Ox 98 03/03/25 07:10 O2 Del Method Room Air 03/03/25 07:10 BMI result Body Mass Index 40.2 CONSTITUTIONAL: The patient appears morbidly obese, but otherwise non-toxic, well nourished and in no acute distress. Vital signs as documented. HEAD: Atraumatic, normocephalic. EYES: EOMs grossly intact, pupils equal, conjunctiva clear, no exudate. ENT: Nares patent, no discharge. Airway patent, no audible stridor, visible mucosa is pink and moist without noted lesions. NECK: Trachea is midline, no obvious masses or gross abnormalities. CHEST: Symmetric movement, normal appearance. LUNGS: LS present and CTAB, no w/r/r. Non-labored work of breathing. CARDIAC: Regular Rhythm, S1/S2 appreciated, no murmurs, rubs or gallops. ABDOMEN: Abdomen soft and non-tender x4 quadrants, no palpable masses or organomegaly. : Deferred. EXTREMITIES: Normal tone, moves all extremities spontaneously without reported pain. No obvious acute injury or deformity noted. NEURO: Alert and oriented x3, CN II-XII appear grossly intact. Cerebellar Functioning grossly intact. No obvious sensory or motor deficits. Speech clear and appropriate. PSYCH: normal affect, appropriate eye contact, fluid speech, with appropriate response to questioning. No reported suicidality or homicidality. SKIN: Warm, dry, color appropriate, normal turgor. No rashes noted. Course Reevaluation(s) Reevaluation #1: I, Dr. Foreman have take over the care of this patient, I reviewed pertinent blood work and imaging, re-evaluated the patient when appropriate. Time: 06:12 Reevaluation #2: Updated patient of workup, unremarkable cardiac enzyme we will be discharging Time: 08:21 Medications Administered Discontinued Medications Generic Name Dose Route Start Last Admin Trade Name Freq PRN Reason Stop Dose Admin Al Hydroxide/Mg Hydroxide 30 ml 03/03/25 04:56 03/03/25 05:02 Magnesium Hydrox/Alum Hydrox 30 Ml Oral.Susp PO 03/03/25 04:57 30 ml ONCE ONE Administration Famotidine 20 mg 03/03/25 04:56 03/03/25 05:01 Famotidine 20 Mg Tablet PO 03/03/25 04:57 20 mg ONCE ONE Administration Lidocaine HCl 15 ml 03/03/25 04:56 03/03/25 05:02 Lidocaine Hcl Viscous 2 % 15 Ml Solution PO 03/03/25 04:57 15 ml ONCE ONE Administration Ondansetron HCl 4 mg 03/03/25 04:56 03/03/25 05:06 Ondansetron Hcl 4 Mg/2 Ml Vial IVPUSH 03/03/25 04:57 4 mg ONCE ONE Administration Medical Decision Making Medical Decision Making MDM Narrative: 5:29 AM 03/03/2025 (Phi CESAR): The patient is a 54-year-old female presenting to the ED for evaluation after she woke suddenly from a nightmare with rapid heart rate consistent with her previous episodes of SVT versus AFib. The patient was found by EMS to be tachycardic in the 190s, treated with 6 mg adenosine was subsequent conversion to sinus rhythm with a rate control. The patient denies overt chest pain, does report burning sensation of the throat consistent with her GERD. Patient states she did eat a large bowl of soup just prior to sleeping this evening. The patient in the ED is well-appearing, heart rate controlled by EMS. Exam is unremarkable. EKG shows sinus rhythm with no evidence of ischemia patient's laboratory evaluation shows no leukocytosis, significant anemia, electrolyte abnormality, CARIN, or elevated BNP. The patient's initial troponin is pending. Patient will continue to be monitored for any recurrence of tachycardia. We will plan to trend troponin 2 hours from initial draw. Pending no recurrence of tachycardia and normal troponin x2, patient will likely be appropriate for discharge and outpatient follow up with Cardiology as she has an established history of SVT, good outpatient follow up, and plan for cardiac ablation. 5:58 AM 03/03/2025 (Phi CESAR): Initial troponin was negative, patient will be ordered for repeat troponin at 07:00. Patient will be signed out to oncoming provider. Admission/Observation Consideration of admission/observation: Escalation of care including admission/observation considered Lab Data MDM Lab Attestation statement: I reviewed the patient's lab results. 03/03/25 04:53 03/03/25 04:53 Labs: Lab Results 03/03/25 03/03/25 Range/Units 04:53 07:28 WBC 7.2 (4.8-10.8) X10*3/uL RBC 4.71 (4.20-5.50) X10*6/uL Hgb 11.4 L (12.0-16.0) g/dl Hct 35.6 L (37.0-47.0) % MCV 75.6 L (80.0-98.0) fL MCH 24.2 L (27.0-33.0) pg MCHC 32.0 (31.0-35.0) g/dl RDW 17.3 H (11.0-16.0) % Plt Count 293 (160-400) X10*3/uL MPV 10.1 (9.4-12.3) fL Immature Gran % (Auto) 0.3 (0.0-0.4) % Neut % (Auto) 52.7 (45-73) % Lymph % (Auto) 34.4 (20-40) % [place] % (Auto) 6.3 (2-11) % Eos % (Auto) 5.9 H (0-4) % Baso % (Auto) 0.4 (0-2) % Lymph # (Auto) 2.5 (1.2-4.9) X10*3/uL [place] # (Auto) 0.5 (0.1-1.2) X10*3/uL Eos # (Auto) 0.4 (0.0-0.4) X10*3/uL Baso # (Auto) 0.0 (0.0-0.2) X10*3/uL Abs Immat Gran (auto) 0.02 (0.00-0.03) X10*3/uL Absolute Neuts (auto) 3.8 (2.0-8.3) x10*3/uL Absolute Nucleated RBC 0.000 (0.0-0.012) X10*3/uL Nucleated RBC % (auto) 0.0 (0.0-0.2) /100WBC PT 11.1 (10.9-12.4) SEC INR 1.0 (0.9-1.1) Sodium 140 (135-145) mmol/L Potassium 3.7 (3.3-5.1) mmol/L Chloride 103 (96-108) mmol/L Carbon Dioxide 26 (22-29) mmol/L Anion Gap 15 (12-20) BUN 14 (9-16) mg/dL Creatinine 1.29 (0.5-1.4) mg/dL Estim Creat Clear Calc 65.0 Estimated GFR 43 Random Glucose 109 (60-115) mg/dL Calcium 8.8 (8.4-10.2) mg/dL Magnesium 1.7 (1.6-2.6) mg/dL Total Bilirubin 0.2 (0.0-1.0) mg/dL AST 18 (5-31) U/L ALT 13 (0-31) U/L Alkaline Phosphatase 80 (39-117) U/L Troponin I High Sens < 2.7 < 2.7 (<3.5-17.0) ng/L B-Natriuretic Peptide 15 (<100) pg/mL Total Protein 7.0 (6.5-8.0) g/dL Albumin 4.2 (3.5-5.0) g/dL Independent Interpretation I performed an independent interpretation of an: EKG (EKG shows sinus rhythm with rate of 85, no evidence of acute ischemia, no ST elevation, no ectopy. QTC 456. Compared to previous on 01/12/2024 sinus rhythm has replaced atrial fibrillation, no other significant changes.) External Record Review External record reviewed: Outpatient record Discharge Plan Discharge Clinical Impression: Supraventricular tachycardia Patient Disposition: Home, Self-Care Instructions: Supraventricular Tachycardia (ED) Additional Instructions: Thank you for choosing [facility] Emergency Department for your care today. Your rapid heart rate today was treated successfully by EMS prior to arrival in the emergency department. Thankfully your heart rate has remained normal and your cardiac workup reveals no evidence of damage to your heart as a result of your high heart rate. At this time there is no indication for admission to the hospital or continued ED observation, and it is safe to discharge you home. It is extremely important that you follow up with the your cardiology team for re-evaluation and continued planning of ablation as indicated. Please stay well hydrated and get plenty of rest. Please continue taking your other regularly prescribed medications as directed. Please also follow up with your primary care physician for re-evaluation, additional management of your symptoms, and continued preventative care. If you do not have a primary care physician, please call the [facility] at [phone] to establish a new primary care physician. While waiting to establish your new primary care physician, you can call our [facility] at [phone] for non-emergency needs. Please return to the emergency department if you develop a severe or sudden change in your symptoms, a fever over 100.4 that does not improve with Tylenol or Ibuprofen, recurrent vomiting, or any other new or worsening symptoms or concerns. Prescriptions: No Action (DME) Grab bar Misc See Rx Instructions .Route Qty: 1 0RF Rx Instructions: As directed (DME) Shower Chair Misc See Rx Instructions .Route Qty: 1 0RF Rx Instructions: As directed Multaq 400 mg tablet 400 mg PO BID Qty: 180 3RF metoprolol succinate 50 mg tablet extended release 24 hr 50 mg PO DAILY Qty: 90 3RF naproxen 250 mg tablet 250 mg PO BID PRN (Reason: pain) 30 Days Qty: 60 6RF gabapentin 300 mg capsule 300 mg PO BEDTIME 90 Days Qty: 90 2RF venlafaxine 37.5 mg tablet 37.5 mg PO DAILY 90 Days Qty: 90 1RF omeprazole 40 mg capsule,delayed release(DR/EC) 40 mg PO DAILY 90 Days Qty: 90 3RF cholecalciferol (vitamin D3) 25 mcg (1,000 unit) tablet 25 mcg PO DAILY 30 Days Qty: 30 6RF furosemide [Lasix] 20 mg tablet 20 mg PO DAILY 90 Days Qty: 90 1RF levothyroxine [Synthroid] 175 mcg tablet 175 mcg PO DAILY 90 Days Qty: 90 0RF (DME) compression stockings knee high 30 mmHg See Rx Instructions .Route .MEDSUPPLY Qty: 2 4RF Rx Instructions: As directed (DME) ignacia See Rx Instructions .Route .MEDSUPPLY Qty: 1 0RF Rx Instructions: As directed (DME) calin [facility] [place] See Rx Instructions .Route Qty: 1 0RF Rx Instructions: As directed (DME) comp.stocking,thigh,long,x-lrg Misc See Rx Instructions .Route Qty: 12 0RF Rx Instructions: As directed (DME) nebulizers Misc See Rx Instructions .Route Rx Instructions: As directed Trelegy Ellipta 200-62.5-25 mcg blister with device 1 inh inhalation DAILY 30 Days Qty: 60 12RF albuterol sulfate 90 mcg/actuation HFA aerosol inhaler 2 puff inhalation Q6H PRN (Reason: shortness of breath or wheezing) 30 Days Qty: 6.7 11RF (DME) bed rail See Rx Instructions .Route .MEDSUPPLY Qty: 1 0RF Rx Instructions: As directed pantoprazole 40 mg tablet,delayed release (DR/EC) 40 mg PO DAILY 90 Days Qty: 90 1RF sulfamethoxazole-trimethoprim [Bactrim DS] 800-160 mg tablet 1 tab PO BID 10 Days Qty: 20 0RF (DME) underpads [Bed Underpads] Pad See Rx Instructions .Route Qty: 100 11RF Rx Instructions: Use 4 pads per day (DME) incontinence pad, liner, disp Pad See Rx Instructions .Route Qty: 90 11RF Rx Instructions: Use 3 pads per day (DME) compression stockings ankle high 30 mmHg See Rx Instructions .Route .MEDSUPPLY Qty: 1 0RF Rx Instructions: As directed albuterol sulfate 2.5 mg /3 mL (0.083 %) solution for nebulization 2.5 mg inhalation Q6H PRN (Reason: shortness of breath or wheezing) 30 Days Qty: 180 11RF savwprwt-uhcrbrrjp-AP 3.5-10,000-1 mg/mL-unit/mL-% drops,suspension 4 drp otic (ear) right Q8H 10 Days Qty: 10 0RF Referrals: Marline Victoria MD [Primary Care Provider, Internal Medicine] Clinical Impression: Supraventricular tachycardia Print Language: Kiswahili
--- NOTE | 2025-03-03 04:56 | PC.NURSE ---
pt biba, tachycardic, 195 reported from EMS, 6mg of adenosine and HR followed was 95, 02 at 96% room air. Pt reports feelign liek she has food stuck, hx of GERD.
[2025-03-03 05:00] LABS: Hematocrit 35.6 % (37.0-47.0); Hemoglobin 11.4 g/dl (12.0-16.0); Imm Gran Abs Auto 0.02 X10*3/uL (0.00-0.03); Imm Gran Pct Auto 0.3 % (0.0-0.4); Lymphocytes Absolute Auto 2.5 X10*3/uL (1.2-4.9); MANUAL DIFF FLAG NO; Mean Corpuscular HGB Conc 32.0 g/dl (31.0-35.0); Mean Corpuscular Hemoglobin 24.2 pg (27.0-33.0); Mean Corpuscular Volume 75.6 fL (80.0-98.0); NRBC Abs Auto 0.000 X10*3/uL (0.0-0.012); NRBC Pct Auto 0.0 /100WBC (0.0-0.2); Platelet Count 293 X10*3/uL (160-400); Red Blood Count 4.71 X10*6/uL (4.20-5.50); White Blood Count 7.2 X10*3/uL (4.8-10.8)
[2025-03-03] MEDS: Magnesium Hydrox/Alum Hydrox 30 ML ORAL.SUSP PO (05:02)
[2025-03-03] MEDS: Lidocaine HCl Viscous 2 % 15 ML SOLUTION PO (05:02)
--- OUTSIDE RECORDS SUMMARY | 2025-03-03 05:04 | XMS_ITS | Clinical Summary ---
Author Organization [employer] Address [address] [place] [address] [address] [place] [address] Care Team Providers Care Data Warehouse Analyst Name Role Phone Unavailable Primary Care [...] 2) 2022 COVID-19 Vaccine ( - season) 2025 Influenza Vaccine (#1) 2025 Tobacco Screening 08/02/2025 [...]
[2025-03-03 05:06] LABS: INTERNATIONAL NORM RATIO 1.0 (0.9-1.1); Prothrombin Time 11.1 SEC (10.9-12.4)
--- NOTE | 2025-03-03 05:09 | PC.NURSE ---
pt medicated per som HAGEN at bedside.
[2025-03-03 05:16] LABS: Alanine Aminotransferase 13 U/L (0-31); Albumin Level 4.2 g/dL (3.5-5.0); Alkaline Phosphatase 80 U/L (39-117); Anion Gap 15 (12-20); Aspartate Amino Transferase 18 U/L (5-31); Blood Urea Nitrogen 14 mg/dL (9-16); Calcium 8.8 mg/dL (8.4-10.2); Carbon Dioxide 26 mmol/L (22-29); Chloride 103 mmol/L (96-108); Creatinine Clr Calc Pharmacy 65.0; Estimated Glomerular Filt Rate 43; Magnesium 1.7 mg/dL (1.6-2.6); Potassium 3.7 mmol/L (3.3-5.1); Sodium 140 mmol/L (135-145); Total Protein 7.0 g/dL (6.5-8.0)
[2025-03-03 05:20] LABS: B Type Natriuretic Peptide 15 pg/mL (<100)
[2025-03-03 05:41] LABS: Troponin-I High Sensitivity < 2.7 ng/L (<3.5-17.0)
[2025-03-03 05:53] VITALS: BP 109/65; PULSE 81; RESP 16; TEMP 36.7; O2SAT 95
[2025-03-03 07:10] VITALS: BP 102/56; PULSE 85; RESP 18; O2SAT 98
--- NOTE | 2025-03-03 07:10 | PC.NURSE ---
Assumed care of pt. Pt is A+OX4, calm, cooperative, ambulates with a walker. Pt denies any CP or SOB, RR even and unlabored. Pt denies any pain at this time. Pt ambulated to bathroom with walker.
[2025-03-03 08:00] LABS: Troponin-I High Sensitivity < 2.7 ng/L (<3.5-17.0)
[2025-03-03 08:36] VITALS: BP 102/56; PULSE 85; RESP 18; TEMP 37.1; O2SAT 98
== END 2025-03-03 08:38 | disposition home or self-care (01) ==
PROVIDERS: Emergency Medicine; Physician Assistant; Emergency Provider Emergency Medicine; PCP Internal Medicine
DX: I47.10 Supraventricular tachycardia, unspecified (principal); R00.2 Palpitations; I48.91 Unspecified atrial fibrillation; Q76.0 Spina bifida occulta; E05.00 Thyrotoxicosis with diffuse goiter without thyrotoxic crisis or storm; F17.210 Nicotine dependence, cigarettes, uncomplicated; J44.9 Chronic obstructive pulmonary disease, unspecified; K21.9 Gastro-esophageal reflux disease without esophagitis
CPT/HCPCS: 36415; 80053; 83735; 83880; 84484; 85025; 85610; 93005; 96374; 99284; 99285; J2405

== ENCOUNTER → 2025-03-03 04:31 | Outpatient (BNV) | payer OTHER, SELFPAY | PROVIDERS: Emergency Provider Emergency Medicine; PCP Internal Medicine; Visit Provider Internal Medicine Cardiovascular Disease | DX: R00.2 Palpitations (principal) | CPT/HCPCS: 93010 ==

== ENCOUNTER 2025-04-08 11:49 | Emergency (ER) | payer OTHER, SELFPAY ==
--- NOTE | ~2025-04-08 | XR_ITS ---
CLINICAL HISTORY: pain, injury 3 view left hand Comparison: None provided Findings: Questioned in the irregularity of the base of the 4th metacarpal. No erosions. No radiopaque foreign body. IMPRESSION: Questioned subtle irregularity of the base of the 4th metacarpal. Nondisplaced fracture possible. This may also be artifactual. Correlation with region of point tenderness. This document has been electronically signed by: Wes Bell MD on 04/08/2025 12:37:24
[2025-04-08 11:57] VITALS: BP 181/78; PULSE 76; RESP 18; TEMP 36.1; O2SAT 98; BMI 43.1
--- NOTE | 2025-04-08 11:57 | ED_ITS ---
HPI - General Adult General Chief complaint: Wound/Laceration Stated complaint: laceration left hand Time Seen by Provider: 04/08/25 14:04 Source: patient and family (Significant other at bedside) Mode of arrival: ambulatory Limitations: no limitations History of Present Illness ED Provider: JOSE Irwin HPI narrative: 54-year-old female with medical history of AFib, VIOLETA, COPD, asthma, Graves disease, presents to the ED after cutting her left hand. Patient states she was chopping vegetables when she slammed the knife down and caught her right hand on the blunt aspect of the knife handle which caused a very small laceration with pain and numbness and tingling of the distal 4th digit and of the entire 5th digit. MD complaint: Laceration of hand with pain of 5th digit Related Data Home Medications ?Medication ?Instructions ?Recorded ?Confirmed nebulizers 04/29/23 02/19/25 Previous Rx's ?Medication ?Instructions ?Recorded walker #1 ea 01/11/23 albuterol sulfate 2.5 mg/3 mL 2.5 mg (3 mL) inhalation Q6H PRN 02/23/23 (0.083 %) solution for nebulization shortness of breat h or wheezing 30 days #180 mL Grab bar #1 ea 12/08/23 Shower Chair #1 ea 12/08/23 comp.stocking,thigh,long,x-lrg #12 ea 12/22/23 albuterol sulfate 90 mcg/actuation 2 puff inhalation Q 6H PRN 06/09/24 aerosol inhaler shortness of breath or wheez ing 30 days #6.7 grams fluticasone fur. 200 mcg-umeclid 1 inh inhalation MEGAN Y 30 days #60 06/09/24 62.5 mcg-vilant 25 mcg ea inhalat.powder (Trelegy Ellipta) bed rail #1 ea 07/12/24 dronedarone 400 mg tablet (Multaq) 400 mg PO BID #180 tabs 08/07/24 metoprolol succinate 50 mg 50 mg PO DAILY #90 tabs 04/21 tablet,extended release 24 hr naproxen 250 mg tablet 250 mg PO BID PRN pain 30 da ys #60 11/22/24 tabs plhvrnuj-njnijybrd-gquabdlvk 3.5 4 drp otic (ear) righ t Q8H 10 days 11/23/24 mg-10,000 unit/mL-1 % ear #10 mL drops,susp gabapentin 300 mg capsule 300 mg PO BEDTIME 90 days #9 0 caps 12/03/24 venlafaxine 37.5 mg tablet 37.5 mg PO DAILY 90 days #9 0 tabs 12/31/24 omeprazole 40 mg capsule,delayed 40 mg PO DAILY 90 day s #90 caps 01/03/25 release cholecalciferol (vitamin D3) 25 25 mcg PO DAILY 30 day s #30 tabs 02/04/25 mcg (1,000 unit) tablet furosemide 20 mg tablet (Lasix) 20 mg PO DAILY 90 days #90 tabs 02/08/25 compression stockings ankle high #1 ea 02/19/25 incontinence pad, liner, disp #90 ea 02/19/25 sulfamethoxazole 800 1 tab PO BID 10 days #20 tab s 02/19/25 mg-trimethoprim 160 mg tablet (Bactrim DS) underpads (Bed Underpads) #100 ea 02/19/25 compression stockings knee high #2 ea 02/26/25 purewick #1 ea 02/28/25 pantoprazole 40 mg tablet,delayed 40 mg PO DAILY 90 da ys #90 tabs 03/05/25 release levothyroxine 175 mcg tablet 175 mcg PO DAILY 90 days #90 tabs 03/18/25 (Synthroid) amoxicillin 875 mg-potassium 1 tab PO BID #20 tabs 06/21 clavulanate 125 mg tablet clindamycin HCl 300 mg capsule 300 mg PO Q6H 7 days #2 8 caps 04/10/25 (Cleocin HCl) ondansetron 8 mg disintegrating 8 mg PO Q8H PRN nausea and 04/11/25 tablet vomiting 7 days #21 tabs Allergies Allergy/AdvReac Type Severity Reaction Status Date / Time amoxicillin (From Augmentin) Allergy Severe Nausea and Verified 04/12/25 09:50 Vomiting clavulanic acid (From Allergy Severe Nausea and Verified 04/12/25 09:50 Augmentin) Vomiting egg (Egg) Allergy Severe ANAPHYLAXIS Verified 04/09/25 17:35 influenza virus vaccine, Allergy Severe CANNOT Verified 04/09/25 17:35 specific (FLU VACCINE) OBTAIN DUE TO EGG ALLERGY nicotine (From [facility]) Allergy Intermediate RASH Verified 04/09/25 17:35 varenicline (From [facility]ANTIX) Allergy Intermediate DEPRESSION Verified 04/09/25 17:35 AND ANXIETY INCREASE barium sulfate AdvReac Intermediate saul Verified 04/09/25 17:35 Review of Systems 2 Review of Systems: CONST: Negative for fever, body aches and chills. HENT: Negative for neck pain/stiffness, headache, congestion, sore throat, swelling. EYES: Negative for discharge/pain or vision changes. RESP: Negative for cough/hemoptysis and shortness of breath. CV: Negative chest pain, difficulty breathing, palpitations. ABD: Negative pain, nausea, vomiting. : Negative increase frequency, dysuria, blood in urine or stool. MUSC: Negative for muscle aches, edema. POS small laceration of palmar aspect of L hand, with pain, numbness/tingling of distal 4th digit and entire 5th digit SKIN: Negative rash, lesions/sores. NEURO: Negative headache, dizziness, weakness. Yes all other systems are reviewed and are negative PMFSH Past Medical History Attestation statement: The following information was validated with the patient. Source: old records reviewed and nursing notes reviewed Medical History History of supraventricular tachycardia Atrial fibrillation VIOLETA (obstructive sleep apnea) Asthma with COPD Nicotine dependence, cigarettes, uncomplicated History of COVID-19 Allergies Hypothyroidism, acquired Graves disease Arthritis Left breast lump Mild recurrent major depression Blurry vision Vitamin D deficiency Constipation Morbid obesity Surgical History History of total thyroidectomy (~2022) History of tonsillectomy and adenoidectomy History of dental surgery History of appendectomy (~1979) History of tubal ligation (~1999) History of section (~1999) History of right salpingo-oophorectomy (~2001) History of endometrial ablation (~2017) Family History Family History Father Bone cancer Lung cancer Mother CVD (cardiovascular disease) Emphysema of lung Hypertension Asthma Sister No problems noted. Maternal Aunt Uterine cancer Maternal Aunt Skin cancer Social History Social History Household Members: Significant Other and None Caregiver staying overnight: No Housing: Apartment Are you a primary career information specialist to a significant other at home: No Do you presently have visiting nurse or other home services: No Alcohol intake: former Patient Tobacco Use Status: Current everyday Tobacco user Tobacco use type: Cigarette Cigarette Packs Per Day: 1 Cigarettes Per Day: 20 e-Cigarette/Vaping Use: Never Used Second Hand Smoke Exposure: Yes service: No Current occupational status: disabled Cognitive needs: Yes (Walker) Hearing needs: No Vision needs: Yes Physical Exam ED Vital Signs: Vital Signs - 24 hr 04/08/25 11:57 04/08/25 14:35 Temperature 97 F 97.6 F Pulse Rate 76 73 Respiratory Rate 18 20 Blood Pressure 181/78 H 173/81 H Pulse Oximetry 98 97 Oxygen Delivery Method Room Air Room Air BMI result Body Mass Index 43.1 GENERAL APPEARANCE: ?AxOx4, generally well-appearing, no acute distress. HEENT: ?NC, AT. MMM. EOMI, clear conjunctiva, oropharynx clear. NECK: ?Supple without lymphadenopathy.? No stiffness or restricted ROM. HEART:? Normal rate and regular rhythm, normal S1/S2, no m/r/g LUNGS:? CTAB, moving air well. No crackles or wheezes are heard. ABDOMEN: ?Soft, nontender, nondistended with good bowel sounds heard. BACK: No CVAT, no obvious deformity. EXTREMITIES: ?Without cyanosis, clubbing or edema. Small 1cm linear laceration to palmar, ulnar aspect, TTP of the base of the 5th digit, numbness and tingling of distal 4th digit and of entire 5th digit. ROM intact but does have pain when ranging the 5th digit. Radial pulses 2+, appropriate capillary refill time. NEUROLOGICAL: ?Grossly nonfocal. Alert and oriented, moving all 4 extremities. Observed to ambulate with normal gait. Skin: ?Warm and dry without any rash. Course Course Course Narrative: Rapid medical examination performed in triage by Gwen Brown PA-C. Patient is a 54 year old assigned female at presenting to the emergency department with left hand laceration / injury. Patient states that she was attempting to cut a gabonese vegetable in half when the blunt half of the knife hit into her hand and she is having numbness / tingling down the left 5th digit. Detailed physical exam and review of systems are deferred to the home health nurse licensed practical. Imaging ordered. Patient placed back in the waiting room pending room availability and results. Boostrix ordered. Medications Administered Discontinued Medications Generic Name Dose Route Start Last Admin Trade Name [place] PRN Reason Stop Dose Admin Diphtheria/Tetanus/Acell Pertussis 0.5 ml 04/08/25 11:59 04/08/25 14:40 Diphth,Pertus(Acell),Tet Adult 0.5 Ml Syringe IM 04/08/25 12:00 0.5 ml .ONCE ONE Administration Lidocaine HCl 5 ml 04/08/25 14:32 04/08/25 14:41 Lidocaine Hcl 1 % Mpf 5 Ml Vial SUBCUT 04/08/25 14:33 5 ml ONCE ONE Administration Procedures Laceration Laceration 1: Site: hand Side (If applicable): left Size (cm): 1 Description: linear Depth: simple, single layer Local Anesthetic: lidocaine 1% Amount of anesthesia used (mL): 5 Pre-repair: wound explored, irrigated extensively and deep structures intact Skin layer closed with: nylon Size (cm): 3-0 Number of sutures: 3 Technique: simple, interrupted Subcutaneous layer closed with: other (nylon) Medical Decision Making Medical Decision Making MDM Narrative: 54-year-old female with medical history of AFib, VIOLETA, COPD, asthma, Graves disease, presents to the ED after cutting her left hand. Patient states she was chopping vegetables when she slammed the knife down and caught her right hand on the blunt aspect of the knife handle which caused a very small laceration with pain and numbness and tingling of the distal 4th digit and of the entire 5th digit. Patient unsure of when last Tdap vaccination was. On physical exam there is a small 1cm linear laceration to palmar, ulnar aspect, TTP of the base of the 5th digit, numbness and tingling of distal 4th digit and of entire 5th digit. ROM intact but does have pain when ranging the 5th digit. Radial pulses 2+, appropriate capillary refill time. Patient without tenderness of the base of the 4th metacarpal, pain is focalized to the base of the 5th metacarpal with radicular symptoms. XR left hand reveals a questionable subtle irregularity of the base of the 4th metacarpal, nondisplaced fracture is possible, correlate with region of point tenderness. Laceation was irrigated extensively, area was anesthetized with 5 mL lidocaine, 3 sutures placed. Ulnar gutter splint placed on top. Patient will be discharged with 10 day course of Augmentin. Ortho referral placed for follow up. I counseled patient to follow up with her primary care doctor and on strict return precautions. Patient is in agreement with the plan. Differential Diagnosis Differential Diagnoses: The differential diagnosis associated with the presentation includes Hand fracture Hand laceration Ulnar nerve injury Admission/Observation Consideration of admission/observation: Escalation of care including admission/observation considered Independent Interpretation I performed an independent interpretation of an: Plain X-Ray Interpretation: I personally interpreted the XR L hand which shows a possible fracture of the 4th metacarpal, I agree with the radiologist's interpretation Radiology Impression Discussion of test interpretation with radiology: I have reviewed the radiologist's reading. Radiologist Impression: XR L hand Findings: Questioned in the irregularity of the base of the 4th metacarpal. No erosions. No radiopaque foreign body. IMPRESSION: Questioned subtle irregularity of the base of the 4th metacarpal. Nondisplaced fracture possible. This may also be artifactual. Correlation with region of point tenderness. This document has been electronically signed by: Wes Bell MD on 04/08/2025 12:37:24 Dictated By: Wes Bell MD Signed By: <Electronically signed by Wes Bell MD in OV> 04/08/25 1237 Independent Historian Clinical information obtained from an independent historian. History obtained from or confirmed by: Spouse (Significant other at bedside) External Record Review External record reviewed: Inpatient record, Office record and Outpatient record Chronic Conditions Patient?s care impacted by: Other (AFib, VIOLETA, COPD, asthma, Graves disease) Social Determinants Patient?s care significantly limited by Social Determinants of Health including: Other Social Determinant of Health Discharge Plan Discharge Clinical Impression: Hand laceration, Fracture of base of fourth metacarpal bone, Injury of ulnar nerve Patient Disposition: Home, Self-Care Additional Instructions: You were evaluated in the emergency department today after sustaining a laceration to your left hand. The x-ray of your left hand shows a questionable fracture of the base of the 4th finger. Your hand was cleaned with sterile saline and iodine, 3 sutures were placed, and your hand was placed in an ulnar gutter splint for protection of possible fracture and of the ulnar nerve. I have placed referral to Orthopedics for you, you need to call their office as they will not call you. You are being prescribed a 10 day course of Augmentin which is an antibiotic for bacterial coverage. Additionally to manage pain at home you can take 500 mg of Tylenol, 400 mg of ibuprofen every 6 hours, elevate the hand, and place ice over the cast as needed. Please return to the emergency department if you experience fevers over 100.4?, worsening pain of the left hand, numbness or tingling in the other fingers, worsening numbness and tingling of the pinky finger, for any new/worsening/concerning symptoms. Prescriptions: New amoxicillin-pot clavulanate 875-125 mg tablet 1 tab PO BID Qty: 20 0RF No Action (DME) Grab bar Misc See Rx Instructions .Route Qty: 1 0RF Rx Instructions: As directed (DME) Shower Chair Misc See Rx Instructions .Route Qty: 1 0RF Rx Instructions: As directed Multaq 400 mg tablet 400 mg PO BID Qty: 180 3RF metoprolol succinate 50 mg tablet extended release 24 hr 50 mg PO DAILY Qty: 90 3RF naproxen 250 mg tablet 250 mg PO BID PRN (Reason: pain) 30 Days Qty: 60 6RF gabapentin 300 mg capsule 300 mg PO BEDTIME 90 Days Qty: 90 2RF venlafaxine 37.5 mg tablet 37.5 mg PO DAILY 90 Days Qty: 90 1RF omeprazole 40 mg capsule,delayed release(DR/EC) 40 mg PO DAILY 90 Days Qty: 90 3RF cholecalciferol (vitamin D3) 25 mcg (1,000 unit) tablet 25 mcg PO DAILY 30 Days Qty: 30 6RF furosemide [Lasix] 20 mg tablet 20 mg PO DAILY 90 Days Qty: 90 1RF (DME) compression stockings knee high 30 mmHg See Rx Instructions .Route .MEDSUPPLY Qty: 2 4RF Rx Instructions: As directed (DME) ignacia See Rx Instructions .Route .MEDSUPPLY Qty: 1 0RF Rx Instructions: As directed pantoprazole 40 mg tablet,delayed release (DR/EC) 40 mg PO DAILY 90 Days Qty: 90 1RF levothyroxine [Synthroid] 175 mcg tablet 175 mcg PO DAILY 90 Days Qty: 90 0RF ondansetron 8 mg tablet,disintegrating 8 mg PO Q8H PRN (Reason: nausea and vomiting) 7 Days Qty: 21 0RF clindamycin HCl [Cleocin HCl] 300 mg capsule 300 mg PO Q6H 7 Days Qty: 28 0RF (DME) walker Misc See Rx Instructions .Route Qty: 1 0RF Rx Instructions: As directed (DME) comp.stocking,thigh,long,x-lrg Misc See Rx Instructions .Route Qty: 12 0RF Rx Instructions: As directed (DME) nebulizers Misc See Rx Instructions .Route Rx Instructions: As directed Trelegy Ellipta 200-62.5-25 mcg blister with device 1 inh inhalation DAILY 30 Days Qty: 60 12RF albuterol sulfate 90 mcg/actuation HFA aerosol inhaler 2 puff inhalation Q6H PRN (Reason: shortness of breath or wheezing) 30 Days Qty: 6.7 11RF (DME) bed rail See Rx Instructions .Route .MEDSUPPLY Qty: 1 0RF Rx Instructions: As directed sulfamethoxazole-trimethoprim [Bactrim DS] 800-160 mg tablet 1 tab PO BID 10 Days Qty: 20 0RF (DME) underpads [Bed Underpads] Pad See Rx Instructions .Route Qty: 100 11RF Rx Instructions: Use 4 pads per day (DME) incontinence pad, liner, disp Pad See Rx Instructions .Route Qty: 90 11RF Rx Instructions: Use 3 pads per day (DME) compression stockings ankle high 30 mmHg See Rx Instructions .Route .MEDSUPPLY Qty: 1 0RF Rx Instructions: As directed albuterol sulfate 2.5 mg /3 mL (0.083 %) solution for nebulization 2.5 mg inhalation Q6H PRN (Reason: shortness of breath or wheezing) 30 Days Qty: 180 11RF rxmqzogw-jaqrfwwpa-HE 3.5-10,000-1 mg/mL-unit/mL-% drops,suspension 4 drp otic (ear) right Q8H 10 Days Qty: 10 0RF Referrals: [facility] [place] [facility] [Provider Group] Clinical Impression: Injury of ulnar nerve; Hand laceration; Fracture of base of fourth metacarpal bone Interventions: ED Discharge Assessment Last Done: 04/08/25 16:05 Discharge Date/Time: 04/08/25 16:05 Print Language: Chinese
--- OUTSIDE RECORDS SUMMARY | 2025-04-08 13:44 | XMS_ITS | Clinical Summary ---
Author Organization [employer] Address [address] [place] [address] [address] [place] [address] Care Team Providers Care Sanitation Worker Name Role Phone Unavailable Primary Care Provider Unavailabl e Allergies Active Allergy Reactions Criticality Noted Date Comments Egg Protein-Containing Drug Products Angioedema 11/02/2011 Varenicline 11/08/2018 Other reaction(s): [...] patient's age to complete this topic Insurance [facility]
[2025-04-08 14:35] VITALS: BP 173/81; PULSE 73; RESP 20; TEMP 36.4; O2SAT 97
[2025-04-08] MEDS: Diphth,Pertus(ACell),Tet Adult 0.5 ML SYRINGE IM (14:40)
[2025-04-08] MEDS: Lidocaine HCl 1 % MPF 5 ML VIAL SUBCUT (14:41)
[2025-04-08 16:05] VITALS: BP 173/81; PULSE 73; RESP 20; TEMP 36.4; O2SAT 97
== END 2025-04-08 16:05 | disposition home or self-care (01) ==
PROVIDERS: Emergency Provider Emergency Medicine; PCP Internal Medicine
DX: S61.412A Laceration without foreign body of left hand, initial encounter (principal); S62.315A Displaced fracture of base of fourth metacarpal bone, left hand, initial encounter for closed fracture; W26.0XXA Contact with knife, initial encounter; Y93.G3 Activity, cooking and baking; Y92.9 Unspecified place or not applicable; Y99.9 Unspecified external cause status; M79.642 Pain in left hand; R20.0 Anesthesia of skin; Z23 Encounter for immunization
CPT/HCPCS: 12001; 73130; 90471; 90715; 99282; 99284; J2003

== ENCOUNTER → 2025-04-08 11:59 | Outpatient (BNV) | payer OTHER, SELFPAY | PROVIDERS: PCP Internal Medicine; Visit Provider Radiology Vascular & Interventional Radiology | DX: M79.642 Pain in left hand (principal) | CPT/HCPCS: 73130 ==

== ENCOUNTER 2025-04-09 17:24 | Emergency (ER) | payer OTHER, SELFPAY ==
--- NOTE | ~2025-04-09 | CT_ITS ---
CLINICAL HISTORY: ? Abnormal x-ray of 4th metacarpal irregular[address]. CT left hand without intravenous contrast Comparison: CR - XR HAND LT MIN 3V - 04/08/25 12:22 EDT Findings: Nondisplaced fracture of the base of the 4th metacarpal. No dislocation. No other fractures. IMPRESSION: Nondisplaced fracture of the base of the 4th metacarpal. This document has been electronically signed by: Nikhil Oquendo MD on 04/09/2025 21:12:11
[2025-04-09 17:33] VITALS: BP 122/65; PULSE 69; PULSE 74; RESP 20; TEMP 36.8; O2SAT 97; O2SAT 98; BMI 44.3
[2025-04-09 17:36] VITALS: BP 122/65; PULSE 69; RESP 20; TEMP 36.8; O2SAT 97
--- NOTE | 2025-04-09 17:37 | PC.NURSE ---
ptt biba from home reporting sudden onset of N/V and dizziness after taking abx prescribed here yesterday, patient stated throat is burning from throwing up airway patent speaking in full sentences
--- OUTSIDE RECORDS SUMMARY | 2025-04-09 18:00 | XMS_ITS | Clinical Summary ---
Author Organization [employer] Address [address] [place] [address] [address] [place] [address] Care Team Providers Care Kettle Firer Name Role Phone Unavailable Primary Care Provider [...] patient's age to complete this topic Insurance [facility]
--- NOTE | 2025-04-09 18:10 | ED_ITS ---
HPI - General Adult General Chief complaint: Allergic Reaction Stated complaint: N/V dizzy from antibiotics she got yesterday Time Seen by Provider: 04/09/25 17:46 Source: patient Mode of arrival: ambulatory Limitations: no limitations History of Present Illness ED Provider: DR. Sainz HPI narrative: 54-year-old female PMH significant for AFib, VIOLETA, COPD, asthma, Graves disease patient return to the ED for evaluation of nausea, vomiting, hot flashes, itching symptoms started 2 hours after taking her 1st dose of Augmentin that was prescribed for left hand laceration that patient was seen for in the ED, patient require multiple layers of dressing and splint for questionable 4th metacarpal irregularity which raise possibility of nondisplaced fracture. Patient has been complaining of nausea, vomiting, epigastric abdominal pain, no fever, no chills, +passing flatus and bowel movement. In the ED patient had multiple episode of nonbloody watery diarrhea. Related Data Home Medications ?Medication ?Instructions ?Recorded ?Confirmed nebulizers 04/29/23 02/19/25 Previous Rx's ?Medication ?Instructions ?Recorded walker #1 ea 01/11/23 albuterol sulfate 2.5 mg/3 mL 2.5 mg (3 mL) inhalation Q6H PRN 02/23/23 (0.083 %) solution for nebulization shortness of breat h or wheezing 30 days #180 mL Grab bar #1 ea 12/08/23 Shower Chair #1 ea 12/08/23 comp.stocking,thigh,long,x-lrg #12 ea 12/22/23 albuterol sulfate 90 mcg/actuation 2 puff inhalation Q 6H PRN 06/09/24 aerosol inhaler shortness of breath or wheez ing 30 days #6.7 grams fluticasone fur. 200 mcg-umeclid 1 inh inhalation MEGAN Y 30 days #60 06/09/24 62.5 mcg-vilant 25 mcg ea inhalat.powder (Trelegy Ellipta) bed rail #1 ea 07/12/24 dronedarone 400 mg tablet (Multaq) 400 mg PO BID #180 tabs 08/07/24 metoprolol succinate 50 mg 50 mg PO DAILY #90 tabs 04/21 tablet,extended release 24 hr naproxen 250 mg tablet 250 mg PO BID PRN pain 30 da ys #60 11/22/24 tabs ckgvxmrn-avahxignb-ynmvkyxjv 3.5 4 drp otic (ear) righ t Q8H 10 days 11/23/24 mg-10,000 unit/mL-1 % ear #10 mL drops,susp gabapentin 300 mg capsule 300 mg PO BEDTIME 90 days #9 0 caps 12/03/24 venlafaxine 37.5 mg tablet 37.5 mg PO DAILY 90 days #9 0 tabs 12/31/24 omeprazole 40 mg capsule,delayed 40 mg PO DAILY 90 day s #90 caps 01/03/25 release cholecalciferol (vitamin D3) 25 25 mcg PO DAILY 30 day s #30 tabs 02/04/25 mcg (1,000 unit) tablet furosemide 20 mg tablet (Lasix) 20 mg PO DAILY 90 days #90 tabs 02/08/25 compression stockings ankle high #1 ea 02/19/25 incontinence pad, liner, disp #90 ea 02/19/25 sulfamethoxazole 800 1 tab PO BID 10 days #20 tab s 02/19/25 mg-trimethoprim 160 mg tablet (Bactrim DS) underpads (Bed Underpads) #100 ea 02/19/25 compression stockings knee high #2 ea 02/26/25 purewick #1 ea 02/28/25 pantoprazole 40 mg tablet,delayed 40 mg PO DAILY 90 da ys #90 tabs 03/05/25 release levothyroxine 175 mcg tablet 175 mcg PO DAILY 90 days #90 tabs 03/18/25 (Synthroid) amoxicillin 875 mg-potassium 1 tab PO BID #20 tabs 06/21 clavulanate 125 mg tablet clindamycin HCl 300 mg capsule 300 mg PO Q6H 7 days #2 8 caps 04/10/25 (Cleocin HCl) Allergies Allergy/AdvReac Type Severity Reaction Status Date / Time egg (Egg) Allergy Severe ANAPHYLAXIS Verified 04/09/25 17:35 influenza virus vaccine, Allergy Severe CANNOT Verified 04/09/25 17:35 specific (FLU VACCINE) OBTAIN DUE TO EGG ALLERGY nicotine (From NICODERM CQ) Allergy Intermediate RASH Verified 04/09/25 17:35 varenicline (From CHANTIX) Allergy Intermediate DEPRESSION Verified 04/09/25 17:35 AND ANXIETY INCREASE barium sulfate AdvReac Intermediate saul Verified 04/09/25 17:35 Review of Systems Review of Systems: All other systems are reviewed and are negative Constitutional: Reports as per HPI and Reports no additional constitutional complaints Eyes: Reports as per HPI and Reports no additional eye complaints Reports system reviewed and no additional complaints, except as documented Cardiovascular: Reports as per HPI and Reports no additional cardiovascular complaints Respiratory: Reports as per HPI and Reports no additional respiratory complaints Gastrointestinal: Reports as per HPI and Reports no additional gastrointestinal complaints Genitourinary: Reports no additional female genitourinary complaints Musculoskeletal: Reports no additional musculoskeletal complaints Skin/Breast: Reports system reviewed and no additional complaints, except as docu Psychiatric: Reports no additional psychiatric complaints Endocrine: Reports no additional endocrine complaints Hematologic/Lymphatic: Reports no additional hematologic/lymphatic complaints Allergic/Immunologic: Reports no additional allergic/immunologic complaints Reports system reviewed and no additional complaints, except as documented and Reports Abnormal speech present [facility] Past Medical History Medical History History of supraventricular tachycardia Atrial fibrillation VIOLETA (obstructive sleep apnea) Asthma with COPD Nicotine dependence, cigarettes, uncomplicated History of COVID-19 Allergies Hypothyroidism, acquired Graves disease Arthritis Left breast lump Mild recurrent major depression Blurry vision Vitamin D deficiency Constipation Morbid obesity Surgical History History of total thyroidectomy (~2022) History of tonsillectomy and adenoidectomy History of dental surgery History of appendectomy (~1979) History of tubal ligation (~1999) History of section (~1999) History of right salpingo-oophorectomy (~2001) History of endometrial ablation (~2017) Family History Family History Father Bone cancer Lung cancer Mother CVD (cardiovascular disease) Emphysema of lung Hypertension Asthma Sister No problems noted. Maternal Aunt Uterine cancer Maternal Aunt Skin cancer Social History Social History Household Members: None Housing: Apartment Are you a primary child care associate teacher to a significant other at home: No Do you presently have visiting nurse or other home services: No Alcohol intake: former Patient Tobacco Use Status: Current everyday Tobacco user Tobacco use type: Cigarette Cigarette Packs Per Day: 1 Cigarettes Per Day: 20 Smoked in Last 30 Days: No e-Cigarette/Vaping Use: Never Used Second Hand Smoke Exposure: Yes Use of substances other than those prescribed or required for medical reasons: No Advance Directives: No Advance Directives Information Provided: No Patient : No service: No Current occupational status: disabled Cognitive needs: Yes (Walker) Hearing needs: No Vision needs: Yes Physical Exam ED Vital Signs: Vital Signs - 24 hr 04/09/25 17:33 04/09/25 17:36 04/09/25 18:44 Temperature 98.2 F 98.2 F 97.7 F Pulse Rate 69 69 75 Respiratory Rate 20 20 12 Blood Pressure 122/65 122/65 153/66 H Pulse Oximetry 97 97 96 Oxygen Delivery Method Room Air Room Air Room Air 04/09/25 22:23 Temperature 97.6 F Pulse Rate 85 Respiratory Rate 16 Blood Pressure 117/56 L Pulse Oximetry 94 Oxygen Delivery Method Room Air BMI result Body Mass Index 44.3 Vital signs have been reviewed and appear to be correct. Blood pressure elevated. Heart rate normal. Respiratory rate normal. Temperature normal. Oxygen saturation normal. Appearance: Alert. Oriented X3. No acute distress. Head: Normal external exam. Normocephalic. Atraumatic. No Tavarez signs noted. No raccoon eyes noted Eyes: PERRLA. EOMI. Conjunctiva and sclera normal. Eyelids normal. ENT: TM's Normal. Pharynx normal. Uvula midline. Moist mucous membranes. No trismus noted. No drooling noted. No muffled voice noted. Neck: Normal inspection. Neck supple. FROM. No adenopathy. Thyroid Normal. No meningeal signs. No neck mass noted. CVS: Normal heart rate and rhythm. Heart sound normal. No murmurs noted. Pulses normal throughout. Respiratory: No respiratory distress. Painless inspiration. Breath sounds normal. No wheezes/rales/rhonchi noted. Chest nontender. No accessory muscle usage noted or decreased air movement noted. Abdomen: Soft and nontender. Bowel sounds normal in all 4 quadrants. No distention noted. No organomegaly noted. No visible injury noted. Back: No CVA tenderness. Full range of motion noted. Skin: Skin warm and dry. Normal skin color. Normal skin turgor. No rashes/lesions/lacerations noted. Extremities: Left hand: Small wound on the lateral aspect of the left palm with no discharge, no fluctuation, suture in place no apparent signs of infection. No tenderness over 4th metacarpal bone. Neuro: Oriented X 3. Cranial nerve exam: II-XII are grossly intact No motor deficit. No sensory deficit. Reflexes normal. Course Reevaluation(s) Reevaluation #1: Patient presented with symptoms after taking 1st dose of Augmentin for possible left hand infection. 1. After examining the left hand and the wound the wound appeared to be intact with no infection a risk of infection, the laceration happened with a clean ki tchen knife. 2. Reviewing the x-ray from yesterday that is a subtle irregularity at the base of the 4th metacarpal where there is no tenderness to the region described in the x-ray will consider CT of the hand to rule out fracture. 3. Because patient had multiple nonbloody watery diarrhea will send stool for C diff serology. If there is no fracture no need for dressings splint, the also will be no need for Augmentin. Case was signed out to Dr. Adams Time: 20:29 Reevaluation #2: CT left hand without intravenous contrast Comparison: CR - XR HAND LT MIN 3V - 04/08/25 12:22 EDT Findings: Nondisplaced fracture of the base of the 4th metacarpal. No dislocation. No other fractures. IMPRESSION: Nondisplaced fracture of the base of the 4th metacarpal. This document has been electronically signed by: Nikhil Oquendo MD on 04/09/2025 21:12:11 CT does indeed show a fracture in the 4th metacarpal. Patient was placed in another splint since the 1st was causing her discomfort. Discussed follow up with hand surgery. Discharged in stable condition. Time: 00:36 Medications Administered Discontinued Medications Generic Name Dose Route Start Last Admin Trade Name Freq PRN Reason Stop Dose Admin Al Hydroxide/Mg Hydroxide 30 ml 04/09/25 18:33 04/09/25 19:10 Magnesium Hydrox/Alum Hydrox 30 Ml Oral.Susp PO 04/09/25 18:34 30 ml ONCE ONE Administration Diphenhydramine HCl 25 mg 04/09/25 19:05 04/09/25 19:10 Diphenhydramine Hcl 25 Mg Capsule PO 04/09/25 19:06 25 mg ONCE ONE Administration Famotidine 20 mg 04/09/25 19:05 04/09/25 19:10 Famotidine 20 Mg Tablet PO 04/09/25 19:06 20 mg ONCE ONE Administration Metoclopramide HCl 10 mg 04/09/25 19:05 04/09/25 19:36 Metoclopramide Hcl Oral Soln 10 Mg/10 Ml Solution PO 04/09/25 19:06 Not Given ONCE ONE Ondansetron HCl 4 mg 04/09/25 17:43 04/09/25 17:47 Ondansetron Odt 4 Mg Tab.Rapdis TRANSLINGU 04/09/25 17:44 4 mg ONCE ONE Administration Sucralfate 1 gm 04/09/25 18:32 04/09/25 19:10 Sucralfate Oral Suspension 1 Gm/10 Ml Oral.Susp PO 04/09/25 18:33 1 gm ONCE ONE Administration Procedures Orthopedic Splinting/Casting Injury #1: Side: left Upper Extremity Injury Location: hand (Fourth metacarpal open fracture) Upper Extremity Immobilizer: sling/shoulder immobilizer and ulnar gutter Medical Decision Making Differential Diagnosis Differential Diagnoses: The differential diagnosis associated with the presentation includes (C diff, Augmentin side-effect, allergy to Augmentin, left hand fracture, left hand deep infection.) Admission/Observation Consideration of admission/observation: Escalation of care including admission/observation considered Lab Data Labs: Lab Results 04/09/25 Range/Units 22:24 C. difficile Tox B Gene NEGATIVE (Negative) Discharge Plan Discharge Clinical Impression: Open fracture of fourth metacarpal bone of left hand, Allergic reaction to Augmentin Patient Disposition: Home, Self-Care Additional Instructions: Be sure to call the hand surgeon for an appointment today. Keep your cast clean and dry until you see the surgeon. Keep your arm in the sling while you are up moving around to avoid worsening pain and swelling. Use ondansetron as needed for nausea. Try to drink as much fluid as possible as diarrhea can cause dehydration. Return to the ER with any new or worsening symptoms including: Worsening pain in your hand, fevers greater than 100?, inability to tolerate food or drink, any new symptom that concerns you. Prescriptions: New clindamycin HCl [Cleocin HCl] 300 mg capsule 300 mg PO Q6H 7 Days Qty: 28 0RF No Action (DME) Grab bar Misc See Rx Instructions .Route Qty: 1 0RF Rx Instructions: As directed (DME) Shower Chair Misc See Rx Instructions .Route Qty: 1 0RF Rx Instructions: As directed Multaq 400 mg tablet 400 mg PO BID Qty: 180 3RF metoprolol succinate 50 mg tablet extended release 24 hr 50 mg PO DAILY Qty: 90 3RF naproxen 250 mg tablet 250 mg PO BID PRN (Reason: pain) 30 Days Qty: 60 6RF gabapentin 300 mg capsule 300 mg PO BEDTIME 90 Days Qty: 90 2RF venlafaxine 37.5 mg tablet 37.5 mg PO DAILY 90 Days Qty: 90 1RF omeprazole 40 mg capsule,delayed release(DR/EC) 40 mg PO DAILY 90 Days Qty: 90 3RF cholecalciferol (vitamin D3) 25 mcg (1,000 unit) tablet 25 mcg PO DAILY 30 Days Qty: 30 6RF furosemide [Lasix] 20 mg tablet 20 mg PO DAILY 90 Days Qty: 90 1RF (DME) compression stockings knee high 30 mmHg See Rx Instructions .Route .MEDSUPPLY Qty: 2 4RF Rx Instructions: As directed (DME) tiffck See Rx Instructions .Route .MEDSUPPLY Qty: 1 0RF Rx Instructions: As directed pantoprazole 40 mg tablet,delayed release (DR/EC) 40 mg PO DAILY 90 Days Qty: 90 1RF levothyroxine [Synthroid] 175 mcg tablet 175 mcg PO DAILY 90 Days Qty: 90 0RF amoxicillin-pot clavulanate 875-125 mg tablet 1 tab PO BID Qty: 20 0RF (DME) walker Misc See Rx Instructions .Route Qty: 1 0RF Rx Instructions: As directed (DME) comp.stocking,thigh,long,x-lrg Misc See Rx Instructions .Route Qty: 12 0RF Rx Instructions: As directed (DME) nebulizers Misc See Rx Instructions .Route Rx Instructions: As directed Trelegy Ellipta 200-62.5-25 mcg blister with device 1 inh inhalation DAILY 30 Days Qty: 60 12RF albuterol sulfate 90 mcg/actuation HFA aerosol inhaler 2 puff inhalation Q6H PRN (Reason: shortness of breath or wheezing) 30 Days Qty: 6.7 11RF (DME) bed rail See Rx Instructions .Route .MEDSUPPLY Qty: 1 0RF Rx Instructions: As directed sulfamethoxazole-trimethoprim [Bactrim DS] 800-160 mg tablet 1 tab PO BID 10 Days Qty: 20 0RF (DME) underpads [Bed Underpads] Pad See Rx Instructions .Route Qty: 100 11RF Rx Instructions: Use 4 pads per day (DME) incontinence pad, liner, disp Pad See Rx Instructions .Route Qty: 90 11RF Rx Instructions: Use 3 pads per day (DME) compression stockings ankle high 30 mmHg See Rx Instructions .Route .MEDSUPPLY Qty: 1 0RF Rx Instructions: As directed albuterol sulfate 2.5 mg /3 mL (0.083 %) solution for nebulization 2.5 mg inhalation Q6H PRN (Reason: shortness of breath or wheezing) 30 Days Qty: 180 11RF rhsoyjjb-csxyjcfbo-JR 3.5-10,000-1 mg/mL-unit/mL-% drops,suspension 4 drp otic (ear) right Q8H 10 Days Qty: 10 0RF Print Language: Zambian
[2025-04-09 18:44] VITALS: BP 153/66; PULSE 75; RESP 12; TEMP 36.5; O2SAT 96
[2025-04-09] MEDS: Sucralfate Oral Suspension 1 GM/10 ML ORAL.SUSP PO (19:10)
[2025-04-09] MEDS: Magnesium Hydrox/Alum Hydrox 30 ML ORAL.SUSP PO (19:10)
[2025-04-09 22:23] VITALS: BP 117/56; PULSE 85; RESP 16; TEMP 36.4; O2SAT 94
[2025-04-09 23:22] LABS: CDiff Gene PCR NEGATIVE (Negative)
[2025-04-10 01:23] VITALS: BP 117/56; PULSE 85; RESP 16; TEMP 36.4; O2SAT 94
== END 2025-04-10 01:23 | disposition home or self-care (01) ==
PROVIDERS: Emergency Medicine; Emergency Provider Emergency Medicine; PCP Internal Medicine
DX: R11.2 Nausea with vomiting, unspecified (principal); T36.0X5A Adverse effect of penicillins, initial encounter; T36.1X5A Adverse effect of cephalosporins and other beta-lactam antibiotics, initial encounter; S62.235B Other nondisplaced fracture of base of first metacarpal bone, left hand, initial encounter for open fracture; J44.9 Chronic obstructive pulmonary disease, unspecified; I48.91 Unspecified atrial fibrillation; W26.0XXA Contact with knife, initial encounter; Y93.9 Activity, unspecified; Y99.9 Unspecified external cause status; Y92.9 Unspecified place or not applicable
CPT/HCPCS: 29125; 73200; 87493; 99284

== ENCOUNTER → 2025-04-09 18:24 | Outpatient (BNV) | payer OTHER, SELFPAY | PROVIDERS: Emergency Provider Emergency Medicine; PCP Internal Medicine; Visit Provider Radiology Diagnostic Radiology | DX: S62.345A Nondisplaced fracture of base of fourth metacarpal bone, left hand, initial encounter for closed fracture (principal) | CPT/HCPCS: 73200 ==

== ENCOUNTER 2025-04-13 08:34 | Outpatient (REF) | payer OTHER, SELFPAY ==
--- NOTE | ~2025-04-13 | XR_ITS ---
EXAMINATION: XR HAND 3 OR MORE VIEWS LEFT HISTORY: M79.642 - Pain in left hand COMPARISON: Comparison is made with the prior examination dated 04/08/2025. FINDINGS: Three views of the left hand are submitted. Osseous mineralization is normal. No definite fracture is seen. There is no dislocation. The joint spaces are preserved. The soft tissues are unremarkable. XR/XR hand LT min 3V IMPRESSION: No definite evidence of fracture of the left hand. Electronically signed by: Ahsan Carlin MD 04/13/2025 01:30 PM EDT
--- OUTSIDE RECORDS SUMMARY | 2025-04-13 08:57 | XMS_ITS | Clinical Summary ---
Author Organization [email or web address] Address [address] [place] [address] [address] [place] [address] Care Team Providers Care Senior Energy Consultant Name Role Phone Unavailable Primary Care Provider [...] patient's age to complete this topic Insurance [facility] [place] [id number]
== END 2025-04-13 08:35 | disposition home or self-care (01) ==
LOC: HO.HOSX 08:34
DX: S62.318A Displaced fracture of base of other metacarpal bone, initial encounter for closed fracture (principal); S61.412A Laceration without foreign body of left hand, initial encounter; W26.0XXA Contact with knife, initial encounter; Y93.G1 Activity, food preparation and clean up
CPT/HCPCS: 73130; 99202

== ENCOUNTER 2025-04-13 13:09 | Outpatient (AMB) | payer OTHER, SELFPAY ==
--- NOTE | 2025-04-13 13:14 | MHC.OFFVIS ---
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 Patient presented to [facility] ED reporting she was chopping some vegetables when she slammed the knife down catching her right hand on the blunt aspect of the knife handle. At the ED she was placed in a ulnar gutter splint with a sling, sutures applied and started on Augmentin. Patient then presented to the ED on 04/09/25 due to side effects from the Augmentin which were stopped and changed to Clindamycin. Today patient reports she still feels very sick from the antibiotics, can not hold any food or liquids down. She has not been able to sleep, last night she had to sleep up due to this. She reports she takes them but can not keep them down. Reports she has discomfort in the palm of the left hand where the stitches were placed. Has numbness and tingling at the distal end of the left 5th digit, things her splint was too tight. She has help but only for 2 hours a day from her HAND FILER BALANCE WHEEL. Accompanied by: Life Partner Allergies amoxicillin (From Augmentin) Allergy (Severe, Verified 04/12/25 09:50) Nausea and Vomiting clavulanic acid (From Augmentin) Allergy (Severe, Verified 04/12/25 09:50) Nausea and Vomiting egg (Egg) Allergy (Severe, Verified 04/09/25 17:35) ANAPHYLAXIS influenza virus vaccine, specific (FLU VACCINE) Allergy (Severe, Verified 04/09/25 17:35) CANNOT OBTAIN DUE TO EGG ALLERGY nicotine (From NICODERM CQ) Allergy (Intermediate, Verified 04/09/25 17:35) RASH varenicline (From CHANTIX) Allergy (Intermediate, Verified 04/09/25 17:35) DEPRESSION AND ANXIETY INCREASE barium sulfate Adverse Reaction (Intermediate, Verified 04/09/25 17:35) saul HPI HPI 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 Patient presented to [facility] ED reporting she was chopping some vegetables when she slammed the knife down catching her right hand on the blunt aspect of the knife handle. At the ED she was placed in a ulnar gutter splint with a sling, sutures applied and started on Augmentin. Patient then presented to the ED on 04/09/25 due to side effects from the Augmentin which were stopped and changed to Clindamycin. Today patient reports she still feels very sick from the antibiotics, can not hold any food or liquids down. She has not been able to sleep, last night she had to sleep up due to this. She reports she takes them but can not keep them down. Reports she has discomfort in the palm of the left hand where the stitches were placed. Has numbness and tingling at the distal end of the left 5th digit, things her splint was too tight. She has help but only for 2 hours a day from her HAND FILER BALANCE WHEEL. REPLACED BY [facility] Medical History History of supraventricular tachycardia Atrial fibrillation VIOLETA (obstructive sleep apnea) Asthma with COPD Nicotine dependence, cigarettes, uncomplicated History of COVID-19 Allergies Hypothyroidism, acquired Graves disease Arthritis Left breast lump Mild recurrent major depression Blurry vision Vitamin D deficiency Constipation Morbid obesity Surgical History History of total thyroidectomy (~2022) History of tonsillectomy and adenoidectomy History of dental surgery History of appendectomy (~1979) History of tubal ligation (~1999) History of section (~1999) History of right salpingo-oophorectomy (~2001) History of endometrial ablation (~2018) Family History Father Bone cancer Lung cancer Mother CVD (cardiovascular disease) Emphysema of lung Hypertension Asthma Sister No problems noted. Maternal Aunt Uterine cancer Maternal Aunt Skin cancer Social History Household Members: Significant Other and None Caregiver staying overnight: No Housing: Apartment Are you a primary personal care worker to a significant other at home: No Do you presently have visiting nurse or other home services: No Alcohol intake: former Patient Tobacco Use Status: Current everyday Tobacco user Tobacco use type: Cigarette Cigarette Packs Per Day: 1 Cigarettes Per Day: 20 e-Cigarette/Vaping Use: Never Used Second Hand Smoke Exposure: Yes service: No Current occupational status: disabled Cognitive needs: Yes (Walker) Hearing needs: No Vision needs: Yes Review of Systems Const All systems reviewed & are unremarkable except as noted in HPI and below Physical Exam Extrem Other: Patient is alert, oriented, and in no acute distress. Neuro: Normal sensation of the tips of all digits of the left hand at this time Vascular: Cap refill brisk Pain: Minimal tenderness to palpation about laceration at the level of the A1 pierce of the left small finger Significant tenderness to palpation of the base of the left 4th metacarpal ROM: Patient is able to make a closed fist and extend all digits of the left hand fully Skin: Well approximated and well healing laceration site noted over the A1 pierce of the left small finger General: No ecchymosis, erythema, or evidence of infection. Psych: Appears grossly normal Affect normal Attitude cooperative Office Procedures AMB Fracture Care Fracture Billing Code: Fracture Billing Code Results Reviewed Results Reviewed: X-rays obtained in the office today and independently reviewed by me, Feliciano Mcintosh PA-C, demonstrate nondisplaced fracture of the base of the left 4th metacarpal. Assessment & Plan Assessment & Plan (1) Fracture of base of fourth metacarpal bone: Code(s): S62.318A - Displaced fracture of base of other metacarpal bone, initial encounter for closed fracture Category: Medical (2) Laceration of hand, left: Code(s): S61.412A - Laceration without foreign body of left hand, initial encounter Category: Medical Plan 1. Left 4th metacarpal base fracture 2. Left small finger laceration Date of injury 04/08/2025 Patient is educated about this conditions Patient is educated about the typical recovery course At this time, patient is provided with a Velcro wrist splint to be worn like a cast except for when bathing Patient is also educated on nguyễn taping the middle and ring fingers for extra stability and to act as a moving splint 1 lb weight limit in left hand Patient is educated to continue moving the digits of the left hand gently to prevent stiffness Patient understands this is amenable to this plan Follow-up in 1 week for suture removal, sooner with any acute concerns Orders: Orders XR hand LT min 3V 04/13/25 M79.642 - Pain in left hand Coding Level of Care Code New Pt Level 3 (45561) Diagnoses Fracture of base of fourth metacarpal bone S62.318A Laceration of hand, left S61.412A CPT Codes Fracture Care - Fracture Billing Code: Fracture Billing Code ([id number])
== END 2025-04-13 14:20 | disposition home or self-care (01) ==
LOC: HO.HOS 13:09
PROVIDERS: PCP Internal Medicine
DX: S62.318A Displaced fracture of base of other metacarpal bone, initial encounter for closed fracture (principal); S61.412A Laceration without foreign body of left hand, initial encounter
CPT/HCPCS: 99203

== ENCOUNTER → 2025-04-13 13:11 | Outpatient (BNV) | payer OTHER, SELFPAY | PROVIDERS: Visit Provider Radiology Diagnostic Radiology | DX: M79.642 Pain in left hand (principal) | CPT/HCPCS: 73130 ==

== ENCOUNTER 2025-04-19 14:41 | Outpatient (AMB) | payer OTHER, SELFPAY ==
--- NOTE | 2025-04-19 15:04 | A.OFFVIS_ITS ---
Intake Visit Reasons: LT SF Lac & LT 4th [facility] Base Fx, DOI 04/08/25 Intake Note: Jyoti is a 54 year old female who presents to the offce today for suture removal. Pt states she is still experiencing tenderness but states it has improved since last visit. Accompanied by: Significant Other Allergies amoxicillin (From Augmentin) Allergy (Severe, Verified 04/19/25 15:05) Nausea and Vomiting clavulanic acid (From Augmentin) Allergy (Severe, Verified 04/19/25 15:05) Nausea and Vomiting egg (Egg) Allergy (Severe, Verified 04/19/25 15:05) ANAPHYLAXIS influenza virus vaccine, specific (FLU VACCINE) Allergy (Severe, Verified 04/19/25 15:05) CANNOT OBTAIN DUE TO EGG ALLERGY nicotine (From NICODERM CQ) Allergy (Intermediate, Verified 04/19/25 15:05) RASH varenicline (From CHANTIX) Allergy (Intermediate, Verified 04/19/25 15:05) DEPRESSION AND ANXIETY INCREASE barium sulfate Adverse Reaction (Intermediate, Verified 04/19/25 15:05) saul HPI HPI LT SF Lac & LT 4th MC Base Fx, DOI 04/08/25: Details: Jyoti is a 54 year old female [facility]. Pt states she is still experiencing tenderness but states it has improv ed since last visit. No other acute complaints or concerns at this time [facility] Medical History History of supraventricular tachycardia Atrial fibrillation VIOLETA (obstructive sleep apnea) Asthma with COPD Nicotine dependence, cigarettes, uncomplicated History of COVID-19 Allergies Hypothyroidism, acquired Graves disease Arthritis Left breast lump Mild recurrent major depression Blurry vision Vitamin D deficiency Constipation Morbid obesity Surgical History History of total thyroidectomy (~2022) History of tonsillectomy and adenoidectomy History of dental surgery History of appendectomy (~1979) History of tubal ligation (~1999) History of section (~1999) History of right salpingo-oophorectomy (~2001) History of endometrial ablation (~2017) Family History Father Bone cancer Lung cancer Mother CVD (cardiovascular disease) Emphysema of lung Hypertension Asthma Sister No problems noted. Maternal Aunt Uterine cancer Maternal Aunt Skin cancer Social History Household Members: Significant Other and None Caregiver staying overnight: No Housing: Apartment Are you a primary pet care technician to a significant other at home: No Do you presently have visiting nurse or other home services: No Alcohol intake: former Patient Tobacco Use Status: Current everyday Tobacco user Tobacco use type: Cigarette Cigarette Packs Per Day: 1 Cigarettes Per Day: 20 e-Cigarette/Vaping Use: Never Used Second Hand Smoke Exposure: Yes service: No Current occupational status: disabled Cognitive needs: Yes (Walker) Hearing needs: No Vision needs: Yes Review of Systems Const All systems reviewed & are unremarkable except as noted in HPI and below Physical Exam Extrem Other: Patient is alert, oriented, and in no acute distress. Neuro: Normal sensation of the tips of all digits of the left hand at this time Vascular: Cap refill brisk Pain: Minimal tenderness to palpation about laceration at the level of the A1 pierce of the left small finger Minimal tenderness to palpation of the base of the left 4th metacarpal ROM: Patient is able to make a closed fist and extend all digits of the left hand fully Skin: Well approximated and well healing laceration site noted over the A1 pierce of the left small finger General: No ecchymosis, erythema, or evidence of infection. Psych: Appears grossly normal Affect normal Attitude cooperative Assessment & Plan Assessment & Plan (1) Fracture of base of fourth metacarpal bone: Code(s): S62.318A - Displaced fracture of base of other metacarpal bone, initial encounter for closed fracture Category: Medical (2) Laceration of hand, left: Code(s): S61.412A - Laceration without foreign body of left hand, initial encounter Category: Medical Plan 1. Left 4th metacarpal base fracture 2. Left small finger laceration Date of injury 04/08/2025 Patient is educated about this conditions Patient is educated about the typical recovery course Sutures removed, Steri-Strips applied without issue At this time, Velcro wrist splint only needs to be worn with daytime activities, along with nguyễn taping 2 lb weight limit in left hand Patient is educated to continue moving the digits of the left hand gently to prevent stiffness Patient understands this is amenable to this plan Follow-up in 2-3 weeks with repeat x-rays for reassessment l, sooner with any acute concerns Coding Level of Care Code Global (27201) Diagnoses Fracture of base of fourth metacarpal bone S62.318A Laceration of hand, left S61.412A
--- OUTSIDE RECORDS SUMMARY | 2025-04-19 18:30 | XMS_ITS | Clinical Summary ---
Author Organization [employer] Address [address] [place] [address] [address] [place] [address] Care Team Providers Care Precision Inspector Name Role Phone Unavailable Primary Care Provider [...] patient's age to complete this topic Insurance [facility]
== END 2025-04-19 16:33 | disposition home or self-care (01) ==
LOC: HO.HOS 14:42
DX: S62.318A Displaced fracture of base of other metacarpal bone, initial encounter for closed fracture (principal); S61.412A Laceration without foreign body of left hand, initial encounter
CPT/HCPCS: 99024

== ENCOUNTER → 2025-04-19 14:41 | Outpatient (BNVA) | payer OTHER, SELFPAY | DX: Z48.02 Encounter for removal of sutures (principal); S61.412D Laceration without foreign body of left hand, subsequent encounter | CPT/HCPCS: 99212 ==

== ENCOUNTER 2025-05-11 12:50 | Outpatient (REF) | payer OTHER, SELFPAY ==
--- NOTE | ~2025-05-11 | XR_ITS ---
EXAMINATION: XR HAND, LEFT CLINICAL INFORMATION: M79.642 - Pain in left hand COMPARISON: April 13, 2025. TECHNIQUE: PA, lateral, and oblique views of the left hand. FINDINGS: Inadequate collimation of the hand. Poor evaluation of the carpal bones. No acute cortical disruption or malalignment. No lytic or blastic lesions. No soft tissue calcifications. No bony erosions. There is preservation of the joint spaces. No metallic or radiopaque foreign body. No subcutaneous emphysema. XR/XR hand LT min 3V IMPRESSION: No acute fracture or dislocation. Electronically signed by: Devon Patton MD 05/11/2025 01:16 PM EST
--- OUTSIDE RECORDS SUMMARY | 2025-05-11 18:44 | XMS_ITS | Clinical Summary ---
Author Organization [employer] Address [address] [place] [address] [address] [place] [address] Care Team Providers Care Timber Harvester Operator Name Role Phone Unavailable Primary Care [...] Disability Screening 1972 Alcohol/Substance Use Screening 1984 Hepatitis C Screening 1990 Pap Smear 1993 Hepatitis B Vaccines (3 of 3 - 19+ 3-dose series) 08/28/2001 05/25/2001, 02/28/2001 Cervical Cancer Screening 2002 HPV/Cotest 2002 Pneumococcal Vaccine: 50+ Years (2 of 2 - PCV) 05/25/2002 05/25/2001 Mammogram 2012 RSV Patients and Patients Aged 60 years or older (1 - Risk 50-74 years 1-dose series) 2022 Zoster Vaccines (1 of 2) 2022 COVID-19 Vaccine (1 - 2024- season) 2025 Influenza Vaccine (#1) 2025 Tobacco Screening 08/02/2025 08/02/2024 DTaP/Tdap/Td Vaccines (3 - Td or Tdap) 04/10/2029 04/10/2019, 11/12/2011, 02/04/2006, Additional history exists HIB Vaccines Aged Out No longer eligi [...] patient's age to complete this topic Insurance [facility]
== END 2025-05-11 12:51 | disposition home or self-care (01) ==
LOC: HO.HOSX 12:50
DX: S62.318D Displaced fracture of base of other metacarpal bone, subsequent encounter for fracture with routine healing (principal); S61.412D Laceration without foreign body of left hand, subsequent encounter; X58.XXXD Exposure to other specified factors, subsequent encounter
CPT/HCPCS: 73130; 99212

== ENCOUNTER 2025-05-11 13:02 | Outpatient (AMB) | payer OTHER, SELFPAY ==
--- NOTE | 2025-05-11 13:17 | A.OFFVIS_ITS ---
Vital Signs 05/11/25 13:18 Height 5 ft 4 in Weight 257 lb BMI 44.1 Intake Visit Reasons: LT SF Lac & LT 4th [employer] Base Fx, DOI 04/08/25-w/XR Intake Note: Jyoti is a 55 year old right hand dominant female who presents today for a follow up of her Left Small Finger Laceration and Left Ring finger Fracture from 04/08/2025. At her last visit the sutures were removed. She was placed in a velcro wrist brace, with nguyễn taping to be worn with daytime activities. She was placed in a 2lb weight restriction. Today, patient reports she continues having a tingling sensation on the ulnar aspect of the left hand from the incision to the tip of her left small finger. She has been applying neosporin. She denies any pain today. Patient would like to continue using her wrist brace at night to protect her wound. Allergies amoxicillin (From Augmentin) Allergy (Severe, Verified 05/11/25 13:25) Nausea and Vomiting clavulanic acid (From Augmentin) Allergy (Severe, Verified 05/11/25 13:25) Nausea and Vomiting egg (Egg) Allergy (Severe, Verified 05/11/25 13:25) ANAPHYLAXIS influenza virus vaccine, specific (FLU VACCINE) Allergy (Severe, Verified 05/11/25 13:25) CANNOT OBTAIN DUE TO EGG ALLERGY nicotine (From NICODERM CQ) Allergy (Intermediate, Verified 05/11/25 13:25) RASH varenicline (From CHANTIX) Allergy (Intermediate, Verified 05/11/25 13:25) DEPRESSION AND ANXIETY INCREASE barium sulfate Adverse Reaction (Intermediate, Verified 05/11/25 13:25) saul HPI HPI LT SF Lac & LT 4th MC Base Fx, DOI 04/08/25-w/XR: Details: Jyoti is a 55 year old right hand dominant female who presents today for a follow up of her Left Small Finger Laceration and Left Ring finger Fracture from 04/08/2025. At her last visit the sutures were removed. She was placed in a velcro wrist brace, with nguyễn taping to be worn with daytime activities. She was placed in a 2lb weight restriction. Today, patient reports she continues having a tingling sensation on the ulnar aspect of the left hand from the incision to the tip of her left small finge, unchanged from previous evaluation.. She has been applying neosporin. She denies any pain today. Patient would like to continue using her wrist brace at night to protect her fracture and wound, as her boyfriend is a restless sleeper and she is scared he will hit her hand while she is sleeping. [facility] Medical History History of supraventricular tachycardia Atrial fibrillation VIOLETA (obstructive sleep apnea) Asthma with COPD Nicotine dependence, cigarettes, uncomplicated History of COVID-19 Allergies Hypothyroidism, acquired Graves disease Arthritis Left breast lump Mild recurrent major depression Blurry vision Vitamin D deficiency Constipation Morbid obesity Surgical History History of total thyroidectomy (~2022) History of tonsillectomy and adenoidectomy History of dental surgery History of appendectomy (~1979) History of tubal ligation (~1999) History of section (~1999) History of right salpingo-oophorectomy (~2001) History of endometrial ablation (~2017) Family History Father Bone cancer Lung cancer Mother CVD (cardiovascular disease) Emphysema of lung Hypertension Asthma Sister No problems noted. Maternal Aunt Uterine cancer Maternal Aunt Skin cancer Social History Household Members: Significant Other and None Caregiver staying overnight: No Housing: Apartment Are you a primary transitions rn care coordinator to a significant other at home: No Do you presently have visiting nurse or other home services: No Alcohol intake: former Patient Tobacco Use Status: Current everyday Tobacco user Tobacco use type: Cigarette Cigarette Packs Per Day: 1 Cigarettes Per Day: 20 e-Cigarette/Vaping Use: Never Used Second Hand Smoke Exposure: Yes service: No Current occupational status: disabled Cognitive needs: Yes (Walker) Hearing needs: No Vision needs: Yes Review of Systems Const All systems reviewed & are unremarkable except as noted in HPI and below Physical Exam Vital Signs: BMI result Body Mass Index 44.1 Extrem Other: Patient is alert, oriented, and in no acute distress. Neuro: Diminished sensation in the ulnar aspect of the left small finger Vascular: Cap refill brisk Pain: Minimal tenderness to palpation about laceration at the level of the A1 pierce of the left small finger No tenderness to palpation of the base of the left 4th metacarpal ROM: Patient is able to make a closed fist and extend all digits of the left hand fully Skin: Well approximated and well healing laceration site noted over the A1 pierce of the left small finger General: No ecchymosis, erythema, or evidence of infection. Psych: Appears grossly normal Affect normal Attitude cooperative Assessment & Plan Assessment & Plan (1) Fracture of base of fourth metacarpal bone: Code(s): S62.318A - Displaced fracture of base of other metacarpal bone, initial encounter for closed fracture Category: Medical (2) Laceration of hand, left: Code(s): S61.412A - Laceration without foreign body of left hand, initial encounter Category: Medical Plan 1. Left 4th metacarpal base fracture 2. Left small finger laceration Date of injury 04/08/2025 Patient is educated about this conditions Patient is educated about the typical recovery course At this time, Velcro wrist splint should continue to be worn with daytime activities, along with nguyễn taping 2 lb weight limit in left hand Patient is educated to continue moving the digits of the left hand gently to prevent stiffness Patient may wash the left hand with soap and water in the sink of the shower Patient understands this is amenable to this plan Follow-up in 4 weeks weeks with repeat x-rays for reassessment l, sooner with any acute concerns Orders: Orders XR hand LT min 3V Today M79.642 - Pain in left hand Coding Level of Care Code Global (12564) Diagnoses Fracture of base of fourth metacarpal bone S62.318A Laceration of hand, left S61.412A
[2025-05-11 13:18] VITALS: BMI 44.1
== END 2025-05-11 13:38 | disposition home or self-care (01) ==
LOC: HO.HOS 13:02
DX: S62.318A Displaced fracture of base of other metacarpal bone, initial encounter for closed fracture (principal); S61.412A Laceration without foreign body of left hand, initial encounter
CPT/HCPCS: 99024

== ENCOUNTER → 2025-05-11 13:03 | Outpatient (BNV) | payer OTHER, SELFPAY | PROVIDERS: Visit Provider Radiology Diagnostic Radiology | DX: M79.642 Pain in left hand (principal) | CPT/HCPCS: 73130 ==

== ENCOUNTER 2025-06-05 13:11 | Outpatient (AMB) | payer OTHER, SELFPAY ==
--- NOTE | 2025-06-05 13:27 | MHC.OFFVIS ---
Vital Signs 06/05/25 13:28 Height 5 ft 4 in Weight 247 lb 5.738 oz BMI 42.5 BP 122/62 Blood Pressure Location Rt brachial Position Sitting Pulse 85 Pulse Source Monitor Intake Visit Reasons: 6 mth f/up NS Vice President Of Contracts Required: No Allergies amoxicillin (From Augmentin) Allergy (Severe, Verified 06/05/25 13:32) Nausea and Vomiting clavulanic acid (From Augmentin) Allergy (Severe, Verified 06/05/25 13:32) Nausea and Vomiting egg (Egg) Allergy (Severe, Verified 06/05/25 13:32) ANAPHYLAXIS influenza virus vaccine, specific (FLU VACCINE) Allergy (Severe, Verified 06/05/25 13:32) CANNOT OBTAIN DUE TO EGG ALLERGY nicotine (From NICODERM CQ) Allergy (Intermediate, Verified 06/05/25 13:32) RASH varenicline (From CHANTIX) Allergy (Intermediate, Verified 06/05/25 13:32) DEPRESSION AND ANXIETY INCREASE barium sulfate Adverse Reaction (Intermediate, Verified 06/05/25 13:32) saul Medication List - Last Reconciled 06/05/25 by Chata Clancy NP-C albuterol sulfate 90 mcg/actuation 2 puffs inhalation Q6H PRN 30 days albuterol sulfate 2.5 mg (3 mL) inhalation Q6H PRN 30 days aripiprazole 5 mg PO BEDTIME [bed rail As directed] cholecalciferol (vitamin D3) 25 mcg PO DAILY 30 days clindamycin HCl (Cleocin HCl) 300 mg PO Q6H 7 days comp.stocking,thigh,long,x-lrg As directed [compression stockings ankle high As directed] [compression stockings knee high As directed] vqjryzorkyr-bintlxlcu-jprwvwxj 200-62.5-25 mcg (Trelegy Ellipta) 1 ea PO DAILY furosemide (Lasix) 20 mg PO DAILY 90 days gabapentin 300 mg PO BEDTIME 90 days Grab bar As directed incontinence pad, liner, disp Use 3 pads per day levothyroxine (Synthroid) 175 mcg PO DAILY 90 days metoprolol succinate ER 50 mg PO DAILY naproxen 250 mg PO BID PRN 30 days nebulizers As directed jfuvaokq-tmehusgqk-WD 3.5-10,000-1 mg/mL-unit/mL-% 4 drps otic (ear) right Q8H 10 days omeprazole 40 mg PO DAILY 90 days ondansetron 8 mg PO Q8H PRN 7 days pantoprazole 40 mg PO DAILY 90 days [purewick As directed] Shower Chair As directed underpads (Bed Underpads) Use 4 pads per day venlafaxine 37.5 mg PO DAILY 90 days walker As directed HPI HPI 6 mth f/up NS: Details: The patient is a 55 year old female presenting for follow-up for supraventricular tachycardia (SVT) status post catheter ablation on 05/29/2025. She reports feeling much better post-procedure, though she has some mild tenderness at the groin access sites. Prior to the ablation, she experienced approximately seven episodes of SVT, with heart rates reaching up to 200 bpm, and one severe episode required electrical cardioversion. Her past medical history is significant for morbid obesity, smoking, asthma, sleep apnea, and brief episodes of atrial fibrillation. An echocardiogram from 02/09/2024 showed a normal ejection fraction of 55-60% with no valvular abnormalities. Her cardiac medications include furosemide and metoprolol; she was advised to discontinue Multaq post-ablation. The patient also reports issues with GERD, constipation, anxiety, and OCD, which causes her to check her heart rate frequently. She expresses concern about a previous mention of congestive heart failure, which was clarified as likely transient strain from severe SVT episodes rather than a chronic diagnosis. [facility] Medical History (Updated 06/05/25 @ 17:12 by Chata Clancy, WIRELESS CONSTRUCTION MANAGER-C) History of supraventricular tachycardia Atrial fibrillation VIOLETA (obstructive sleep apnea) Asthma with COPD Nicotine dependence, cigarettes, uncomplicated History of COVID-19 Allergies Hypothyroidism, acquired Graves disease Arthritis Left breast lump Mild recurrent major depression Blurry vision Vitamin D deficiency Constipation Morbid obesity Surgical History History of total thyroidectomy (~2022) History of tonsillectomy and adenoidectomy History of dental surgery History of appendectomy (~1979) History of tubal ligation (~1999) History of section (~1999) History of right salpingo-oophorectomy (~2001) History of endometrial ablation (~2017) Family History Father Bone cancer Lung cancer Mother CVD (cardiovascular disease) Emphysema of lung Hypertension Asthma Sister No problems noted. Maternal Aunt Uterine cancer Maternal Aunt Skin cancer Social History Household Members: Significant Other and None Caregiver staying overnight: No Housing: Apartment Are you a primary healthcare administrative assistant to a significant other at home: No Do you presently have visiting nurse or other home services: No Alcohol intake: former Patient Tobacco Use Status: Current everyday Tobacco user Tobacco use type: Cigarette Cigarette Packs Per Day: 1 Cigarettes Per Day: 20 e-Cigarette/Vaping Use: Never Used Second Hand Smoke Exposure: Yes service: No Current occupational status: disabled Cognitive needs: Yes (Walker) Hearing needs: No Vision needs: Yes Review of Systems Const All systems reviewed & are unremarkable except as noted in HPI and below ENT Denies dizziness Card Denies chest pain, Denies chest pain at rest, Denies chest pain with activity, Denies rapid heart rate, Denies pedal edema, Denies edema, Denies leg edema, Denies lightheadedness, Denies palpitations, Denies dyspnea, Denies dyspnea on exertion and Denies orthopnea Resp Denies cough, Denies dyspnea and Denies dyspnea on exertion GI Denies hematochezia and Denies change in stool character Musc Denies abnormal gait, Denies limited range of motion, Denies muscle cramps, Denies muscle weakness, Denies numbness, Denies radiating pain into limb, Denies stiffness and Denies tingling Neuro Denies abnormal gait, Denies dizziness, Denies numbness and Denies tingling Endo Denies palpitations Physical Exam Vital Signs: Last Vital Signs Pulse 85 06/05/25 13:28 BP 122/62 06/05/25 13:28 BMI result Body Mass Index 42.5 Const General: cooperative, healthy appearing, comfortable and no acute distress Orientation/consciousness: patient oriented x3 Neck Neck: Yes normal visual inspection Resp Effort & Inspection: normal respiratory effort Auscultation: clear to auscultation bilaterally, no rales, no rhonchi and no wheezes Cardio Rate: regular rate Rhythm: regular rhythm Heart sounds: S1 normal heart sound present, S2 normal heart sound present, no gallops, no murmurs and no rubs Neuro General: patient oriented x3 Extrem General: Yes normal to inspection, No no pedal edema and No calf tenderness Psych Appearance: grossly normal Mental Status: mental status grossly normal Speech and movement: Normal speech and movement present Office Procedures EKG Details: Today, read by me, sinus rhythm, low-voltage QRS, QTC 437 milliseconds, rate 85 [id number], Complete Assessment & Plan Assessment & Plan (1) History of supraventricular tachycardia: Code(s): Z86.79 - Personal history of other diseases of the circulatory system Category: Medical Plan: History of supraventricular tachycardia. SVT ablation with Dr. Peralta on 05/29/2025. Multaq stopped at that time. She continues on metoprolol. EKG today sinus rhythm, rate 85. Groin sites healing well. Instructed to call if recurrent tachycardia with emergency care if needed. (2) Atrial fibrillation: Code(s): I48.91 - Unspecified atrial fibrillation Category: Medical Plan: Reported history of atrial fibrillation without known recent reoccurrence. She is on metoprolol for heart rate control. Chads Vasc score of 1, female. Not on anticoagulation. Plan I reviewed the patient's recovery after her supraventricular tachycardia (SVT) ablation from 05/29/2025. I confirmed that she should discontinue Multaq and continue taking metoprolol, for which I will send a 90-day refill. I explained that while the ablation was successful, the cardiac tissue needs a few weeks to fully heal, and occasional palpitations during this time do not indicate failure. We discussed her anxiety and frequent heart rate monitoring, and I advised that a heart rate consistently over 120 bpm would be a reason for concern. I clarified that a previous mention of congestive heart failure was likely related to the strain from severe SVT episodes and that her heart function is now normal, as confirmed by her last echo. A follow-up appointment is scheduled for four months. Patient Instructions: - Continue taking your metoprolol medication as prescribed. A new 90-day prescription will be sent to your pharmacy. - It is normal for the heart to take a few weeks to heal after the ablation. If you feel an occasional flutter or rapid beat during this time, it does not mean the procedure failed.. - We have scheduled a follow-up visit for you in 4 months (in September). - Please call our office sooner if you experience more episodes of a very fast heartbeat. Patient was informed and verbally consented to the use of an ambient scribe for clinic note documentation during this visit. Visit time spent on chart review, interview, assessment, orders, documentation. Coding Level of Care Code Est Pt Level 3 (99171) Complex visit Add On G2211 Diagnoses History of supraventricular tachycardia Z86.79 Atrial fibrillation I48.91 CPT Codes EKG - CPT: 89686-[id number], Complete ([id number]) Time Spent (min) 24
[2025-06-05 13:28] VITALS: BP 122/62; PULSE 85; BMI 42.5
--- OUTSIDE RECORDS SUMMARY | 2025-06-05 17:32 | XMS_ITS | Clinical Summary ---
Author Organization [employer] Address [address] [place] [address] [address] [place] [address] Care Team Providers Care Erp Project Manager Name Role Phone Unavailable Primary Care [...]
== END 2025-06-05 13:57 | disposition home or self-care (01) ==
LOC: HO.HCS 13:12
PROVIDERS: PCP Internal Medicine; Visit Provider Nurse Practitioner Family
DX: Z86.79 Personal history of other diseases of the circulatory system (principal); I48.91 Unspecified atrial fibrillation
CPT/HCPCS: 93010; 99213

== ENCOUNTER → 2025-06-05 13:11 | Outpatient (BNVA) | payer OTHER, SELFPAY | PROVIDERS: PCP Internal Medicine; Visit Provider Nurse Practitioner Family | DX: I48.91 Unspecified atrial fibrillation (principal); Z86.79 Personal history of other diseases of the circulatory system; E66.01 Morbid (severe) obesity due to excess calories; Z68.41 Body mass index [BMI] 40.0-44.9, adult; F17.210 Nicotine dependence, cigarettes, uncomplicated | CPT/HCPCS: 93005; 99212 ==